=== PATIENT | female | born 1925 | race Caucasian/White ===

== ENCOUNTER 2017-03-20 17:07 | Emergency (ER) | payer OTHER ==
[~2017-03-20] VITALS: Ht 165.1 cm; Wt 64.5 kg
[2017-03-20 17:11] VITALS: BP 146/67; PULSE 69; RESP 22; TEMP 98.3; O2SAT 95
[2017-03-20] MEDS ORDERED: SODIUM CHLORIDE 0.9% FLUSH 10 ML FLUSH IVF PRN (17:45)
[2017-03-20] MEDS ORDERED: DOXA1TAB35 PO (17:51)
[2017-03-20] MEDS ORDERED: VITA1000 PO (17:51)
[2017-03-20] MEDS ORDERED: FURO80TA PO (17:51)
[2017-03-20] MEDS ORDERED: MULTTAB67 PO (17:51)
[2017-03-20] MEDS ORDERED: AMLO2.5T PO (17:51)
[2017-03-20] MEDS ORDERED: PRAV10TA PO (17:51)
--- NOTE | 2017-03-20 18:05 | RADRPT ---
EXAM DATE/TIME: 03/20/2017 18:28 [facility] COMPARISON: No previous studies available for comparison. INDICATIONS : Short of breath. MEDICAL HISTORY : None. SURGICAL HISTORY : None. ENCOUNTER: Initial ACUITY: 1 day PAIN SCORE: 0/10 LOCATION: Bilateral chest FINDINGS: A single portable frontal view the chest shows cardiomegaly with pulmonary vascular engorgement. Biba silar infiltrates more pronounced on the left. Tiny effusions bilaterally. Advanced osteoarthritis of the left shoulder. A scoliotic and degenerative spine. CONCLUSION: 1. Radiographic pattern most consistent with intra-alveolar pulmonary edema. Arron Dove Jr., MD on March 20, 2017 at 18:03 Board Certified Radiologist. This report was verified electronically.
[2017-03-20 18:21] LABS: AUTOMATED NEUTROPHIL # 4.2 TH/MM3 (1.8-7.7); BASOPHIL # 0.1 TH/MM3 (0-0.2); BASOPHIL % 1.8 % (0.0-2.0); EOSINOPHIL # 0.2 TH/MM3 (0-0.4); EOSINOPHIL % 3.3 % (0.0-4.0); HEMATOCRIT 30.2 % (35.0-46.0); HEMO FLAGS DIFF FINAL; LYMPH % 11.4 % (9.0-44.0); LYMPHOCYTE # 0.7 TH/MM3 (1.0-4.8); MEAN CELL VOLUME 89.3 FL (80.0-100.0); MEAN CORPUSCULAR HEMOGLOBIN 29.4 PG (27.0-34.0); MEAN CORPUSCULAR HGB CONC 32.9 % (32.0-36.0); MONO % 9.8 % (0.0-8.0); NEUT % 73.7 % (16.0-70.0); PLATELET COUNT 139 TH/MM3 (150-450); RED BLOOD COUNT 3.39 MIL/MM3 (4.00-5.30); RED CELL DISTRIBUTION WIDTH 16.2 % (11.6-17.2); WHITE BLOOD COUNT 5.7 TH/MM3 (4.0-11.0)
[2017-03-20 18:31] LABS: APTT (PATIENT) 27.2 SEC (24.3-30.1); INTERNATIONAL NORMALIZED RATIO 1.1 RATIO; PROTHROMBIN TIME - PATIENT 12.2 SEC (9.8-11.6)
--- NOTE | 2017-03-20 18:33 | PD ---
HPI Chief Complaint: General Weakness Time Seen by Provider: 17:31 Travel History International Travel<30 days: No Contact w/Intl Traveler<30days: No Traveled to known affect area: No History of Present Illness HPI 89-year-old female patient with history of end-stage renal disease, on hemodialysis followed by Dr. Torres, has had dialysis for the third time yesterday, states that there was pain in the right arm during the dialysis and they had difficulty with the catheter, only did the dialysis for about 10 minutes. She states that since last night she has noticed a lump on her dialysis site and she is getting weak, nauseous, and just not feeling well. She denies any chest pains, shortness of breath, or any other symptoms. Modifying Factors: None Associated Signs & Symptoms: General weakness, nausea Risk Factors: On dialysis, abnormal dialysis yesterday PFSH Past Medical History Diabetes: Yes (?) Patient Takes Glucophage: No Dialysis: Yes (tue) Hypertension: Yes Medical other: Yes (renal disease) Past Surgical History Hysterectomy: Yes Social History Alcohol Use: No Tobacco Use: No Allergies-Medications (Allergen,Severity, Reaction): Coded Allergies: No Known Allergies (Unverified , 03/20/17) Reported Meds & Prescriptions Reported Meds & Active Scripts Active Reported Multiple Vitamin 1 Tab 1 Tab PO DAILY Pravastatin 10 Mg Tab 10 Mg PO DAILY Doxazosin (Doxazosin Mesylate) 2 Mg Tab 2 Mg PO HS Vitamin D-1000 (Cholecalciferol) 1,000 Unit Tab 1,000 Units PO DAILY Amlodipine (Amlodipine Besylate) 2.5 Mg Tab 2.5 Mg PO DAILY Furosemide 80 Mg Tab 80 Mg PO DAILY Review of Systems Except as stated in HPI: all other systems reviewed are Neg Physical Exam Narrative GENERAL: Well-developed elderly white female patient currently in mild distress. Awake and oriented 3. SKIN: Focused skin assessment warm/dry. HEAD: Atraumatic. Normocephalic. EYES: Pupils equal and round. No scleral icterus. No injection or drainage. ENT: No nasal bleeding or discharge. Mucous membranes pink and moist. NECK: Trachea midline. No JVD. CARDIOVASCULAR: Regular rate and rhythm. No murmur appreciated. RESPIRATORY: No accessory muscle use. Clear to auscultation. Breath sounds equal bilaterally. GASTROINTESTINAL: Abdomen soft, non-tender, nondistended. Hepatic and splenic margins not palpable. MUSCULOSKELETAL: No obvious deformities. No clubbing. No cyanosis. No edema. EXTREMITIES: No clubbing, cyanosis. Trace lower leg edema bilaterally. Right arm dialysis graft with notable palpable thrill, there is significant ecchymosis around the site, mildly tender to palpation. NEUROLOGICAL: Awake and alert. No obvious cranial nerve deficits. Motor grossly within normal limits. Normal speech. PSYCHIATRIC: Appropriate mood and affect; insight and judgment normal. Data Data Last Documented VS Vital Signs Date Time Temp Pulse Resp B/P (MAP) Pulse Ox O2 Delivery O2 Flow Rate FiO2 03/20/17 17:11 98.3 69 22 146/67 (93) 95 Room Air Orders Orders Electrocardiogram (03/20/17 17:31) Complete Blood Count With Diff (03/20/17 17:31) Comprehensive Metabolic Panel (03/20/17 17:31) Magnesium (Mg) (03/20/17 17:31) Ckmb (Isoenzyme) Profile (03/20/17 17:31) Troponin I (03/20/17 17:31) Act Partial Throm Time (Ptt) (03/20/17 17:31) Prothrombin Time / Inr (Pt) (03/20/17 17:31) Urinalysis - C+S If Indicated (03/20/17 17:31) Chest, Single Ap (03/20/17 17:31) Ct Brain W/O Iv Contrast(Rout) (03/20/17 17:31) Ecg Monitoring (03/20/17 17:31) Iv Access Insert/Monitor (03/20/17 17:31) Oximetry (03/20/17 17:31) Sodium Chloride 0.9% Flush (Ns Flush) (03/20/17 17:45) Us Arm Hemodialysis Doppler (03/20/17 ) Labs Laboratory Tests Test 03/20/17 17:59 White Blood Count 5.7 TH/MM3 Red Blood Count 3.39 MIL/MM3 Hemoglobin 9.9 GM/DL Hematocrit 30.2 % Mean Corpuscular Volume 89.3 FL Mean Corpuscular Hemoglobin 29.4 PG Mean Corpuscular Hemoglobin Concent 32.9 % Red Cell Distribution Width 16.2 % Platelet Count 139 TH/MM3 Mean Platelet Volume 9.6 FL Neutrophils (%) (Auto) 73.7 % Lymphocytes (%) (Auto) 11.4 % Monocytes (%) (Auto) 9.8 % Eosinophils (%) (Auto) 3.3 % Basophils (%) (Auto) 1.8 % Neutrophils # (Auto) 4.2 TH/MM3 Lymphocytes # (Auto) 0.7 TH/MM3 Monocytes # (Auto) 0.6 TH/MM3 Eosinophils # (Auto) 0.2 TH/MM3 Basophils # (Auto) 0.1 TH/MM3 CBC Comment DIFF FINAL Differential Comment Prothrombin Time 12.2 SEC Prothromb Time International Ratio 1.1 RATIO Activated Partial Thromboplast Time 27.2 SEC Blood Urea Nitrogen 44 MG/DL Creatinine 4.34 MG/DL Random Glucose 110 MG/DL Total Protein 6.3 GM/DL Albumin 3.2 GM/DL Calcium Level 8.9 MG/DL Magnesium Level 2.2 MG/DL Alkaline Phosphatase 95 U/L Aspartate Amino Transf (AST/SGOT) 19 U/L Alanine Aminotransferase (ALT/SGPT) 17 U/L Total Bilirubin 1.1 MG/DL Sodium Level 138 MEQ/L Potassium Level 3.3 MEQ/L Chloride Level 99 MEQ/L Carbon Dioxide Level 26.8 MEQ/L Anion Gap 12 MEQ/L Estimat Glomerular Filtration Rate 10 ML/MIN Total Creatine Kinase 53 U/L Troponin I 0.05 NG/ML MDM Medical Decision Making Medical Screen Exam Complete: Yes Emergency Medical Condition: Yes Medical Record Reviewed: Yes Interpretation(s) Laboratory Tests Test 03/20/17 17:59 Red Blood Count 3.39 MIL/MM3 (4.00-5.30) Hemoglobin 9.9 GM/DL (11.6-15.3) Hematocrit 30.2 % (35.0-46.0) Platelet Count 139 TH/MM3 (150-450) Neutrophils (%) (Auto) 73.7 % (16.0-70.0) Monocytes (%) (Auto) 9.8 % (0.0-8.0) Lymphocytes # (Auto) 0.7 TH/MM3 (1.0-4.8) Prothrombin Time 12.2 SEC (9.8-11.6) Blood Urea Nitrogen 44 MG/DL (7-18) Creatinine 4.34 MG/DL (0.50-1.00) Random Glucose 110 MG/DL (74-106) Total Protein 6.3 GM/DL (6.4-8.2) Albumin 3.2 GM/DL (3.4-5.0) Total Bilirubin 1.1 MG/DL (0.2-1.0) Potassium Level 3.3 MEQ/L (3.5-5.1) Estimat Glomerular Filtration Rate 10 ML/MIN (>89) Last [address] 03/20/171730 Signed Impressions: Service Date/Time: Monday, March 20, 2017 18:19 - CONCLUSION: No acute disease. Arron Dove Jr., MD Chest X-Ray 03/20/171730 Signed Impressions: Service Date/Time: Monday, March 20, 2017 18:28 - CONCLUSION: 1. Radiographic pattern most consistent with intra-alveolar pulmonary edema. Arron Dove Jr., MD Differential Diagnosis Dehydration versus metabolic issues versus significant anemia versus fluid overload versus worsening renal failure Narrative Course CT the brain did not show any signs of acute processes. Lab work shows elevated BUN and creatinine which is expected as baseline for this patient. The rest of her metabolic panel was not significantly abnormal. She has no focal neurological deficits. Ultrasound was ordered to evaluate the shunt. UA is pending. Physician Communication Physician Communication Case is signed out to : At 7 PM awaiting a UA and ultrasound. Disposition based on reevaluation, admitted the patient is still symptomatic. Diagnosis Primary Impression: General weakness Additional Impression: Problem with dialysis shunt Condition: Stable Ghislaine Pérez MD Mar 20, 2017 18:32
--- NOTE | 2017-03-20 18:33 | RADRPT ---
EXAM DATE/TIME: 03/20/2017 18:19 [facility] COMPARISON: No previous studies available for comparison. INDICATIONS : Dizziness. RADIATION DOSE: 40.43 CTDIvol (mGy) MEDICAL HISTORY : Hypertension. Diabetes; dialysis. SURGICAL HISTORY : Hysterectomy. ENCOUNTER: Initial ACUITY: 1 day PAIN SCALE: 0/10 LOCATION: cranial TECHNIQUE: Multiple contiguous axial images were obtained of the head. Using automated exposure control and adj ustment of the mA and/or kV according to patient size, radiation dose was kept as low as reasonably a chievable to obtain optimal diagnostic quality images. DICOM format image data is available electro nically for review and comparison. FINDINGS: CEREBRUM: The ventricles are normal for age. No evidence of midline shift, mass lesion, hemorrhage or acute in farction. No extra-axial fluid collections are seen. POSTERIOR FOSSA: The cerebellum and brainstem are intact. The 4th ventricle is midline. The cerebellopontine angle i s unremarkable. EXTRACRANIAL: The visualized portion of the orbits is intact. SKULL: The calvaria is intact. No evidence of skull fracture. CONCLUSION: No acute disease. Arron Dove Jr., MD on March 20, 2017 at 18:31 Board Certified Radiologist. This report was verified electronically.
[2017-03-20 18:39] LABS: ALT (GPT) 17 U/L (10-53); ANION GAP 12 MEQ/L (5-15); AST (GOT) 19 U/L (15-37); BICARBONATE 26.8 MEQ/L (21.0-32.0); BLOOD UREA NITROGEN 44 MG/DL (7-18); CHLORIDE 99 MEQ/L (98-107); GLOMERULAR FILTRATION RATE 10 ML/MIN (>89); MAGNESIUM 2.2 MG/DL (1.5-2.5); POTASSIUM 3.3 MEQ/L (3.5-5.1); SODIUM (NA) 138 MEQ/L (136-145)
[2017-03-20 18:43] LABS: ALKALINE PHOSPHATASE 95 U/L (45-117); TOTAL BILIRUBIN ADULT 1.1 MG/DL (0.2-1.0)
[2017-03-20 18:50] LABS: CREATINE KINASE 53 U/L (26-192)
--- NOTE | 2017-03-20 20:02 | RADRPT ---
EXAM DATE/TIME: 03/20/2017 19:12 [facility] COMPARISON: No previous studies available for comparison. INDICATIONS : Post graft. MEDICAL HISTORY : Hypertension. Dialysis. Diabetes. Renal disease. SURGICAL HISTORY : Hysterectomy. ENCOUNTER: Initial ACUITY: 1 day PAIN SCORE: 4/10 LOCATION: Right arm. AREA EVALUATED: Right arm. FINDINGS: Fistula in the right arm is patent. No abnormal fluid collection or aneurysm is seen. CONCLUSION: 1. Patent right arm fistula. Vito Selby MD on March 20, 2017 at 19:59 Board Certified Radiologist. This report was verified electronically.
--- NOTE | 2017-03-20 20:20 | PD ---
Data Data Last Documented VS Vital Signs Date Time Temp Pulse Resp B/P (MAP) Pulse Ox O2 Delivery O2 Flow Rate FiO2 03/20/17 17:11 98.3 69 22 146/67 (93) 95 Room Air Orders Orders Electrocardiogram (03/20/17 17:31) Complete Blood Count With Diff (03/20/17 17:31) Comprehensive Metabolic Panel (03/20/17 17:31) Magnesium (Mg) (03/20/17 17:31) Ckmb (Isoenzyme) Profile (03/20/17 17:31) Troponin I (03/20/17 17:31) Act Partial Throm Time (Ptt) (03/20/17 17:31) Prothrombin Time / Inr (Pt) (03/20/17 17:31) Urinalysis - C+S If Indicated (03/20/17 17:31) Chest, Single Ap (03/20/17 17:31) Ct Brain W/O Iv Contrast(Rout) (03/20/17 17:31) Ecg Monitoring (03/20/17 17:31) Iv Access Insert/Monitor (03/20/17 17:31) Oximetry (03/20/17 17:31) Sodium Chloride 0.9% Flush (Ns Flush) (03/20/17 17:45) Us Arm Hemodialysis Doppler (03/20/17 ) Cath For Specimen (03/20/17 19:11) Ed Discharge Order (03/20/17 20:21) Labs Laboratory Tests Test 03/20/17 17:59 White Blood Count 5.7 TH/MM3 Red Blood Count 3.39 MIL/MM3 Hemoglobin 9.9 GM/DL Hematocrit 30.2 % Mean Corpuscular Volume 89.3 FL Mean Corpuscular Hemoglobin 29.4 PG Mean Corpuscular Hemoglobin Concent 32.9 % Red Cell Distribution Width 16.2 % Platelet Count 139 TH/MM3 Mean Platelet Volume 9.6 FL Neutrophils (%) (Auto) 73.7 % Lymphocytes (%) (Auto) 11.4 % Monocytes (%) (Auto) 9.8 % Eosinophils (%) (Auto) 3.3 % Basophils (%) (Auto) 1.8 % Neutrophils # (Auto) 4.2 TH/MM3 Lymphocytes # (Auto) 0.7 TH/MM3 Monocytes # (Auto) 0.6 TH/MM3 Eosinophils # (Auto) 0.2 TH/MM3 Basophils # (Auto) 0.1 TH/MM3 CBC Comment DIFF FINAL Differential Comment Prothrombin Time 12.2 SEC Prothromb Time International Ratio 1.1 RATIO Activated Partial Thromboplast Time 27.2 SEC Blood Urea Nitrogen 44 MG/DL Creatinine 4.34 MG/DL Random Glucose 110 MG/DL Total Protein 6.3 GM/DL Albumin 3.2 GM/DL Calcium Level 8.9 MG/DL Magnesium Level 2.2 MG/DL Alkaline Phosphatase 95 U/L Aspartate Amino Transf (AST/SGOT) 19 U/L Alanine Aminotransferase (ALT/SGPT) 17 U/L Total Bilirubin 1.1 MG/DL Sodium Level 138 MEQ/L Potassium Level 3.3 MEQ/L Chloride Level 99 MEQ/L Carbon Dioxide Level 26.8 MEQ/L Anion Gap 12 MEQ/L Estimat Glomerular Filtration Rate 10 ML/MIN Total Creatine Kinase 53 U/L Troponin I 0.05 NG/ML MDM Supervised Visit with SONI: No Narrative Course The patient was initially evaluated by the previous provider and sent out to me at the beginning of my shift pending right arm fistula ultrasound, UA, and disposition. See her note for further details. Briefly this is an 89-year-old female who received her third ever dialysis yesterday, here for evaluation of generalized weakness, nausea, and ecchymosis to right upper cavity. She reports that they had difficulty accessing her fistula yesterday, and since then she has had increasing ecchymosis to the arm. It is not really painful. She is not on any antiplatelets or anticoagulants. Vital signs show heart rate 69, blood pressure 146/67, pulse ox 95% on room air , oral temp of 98.3 from high. CBC: WBC 5.7, hemoglobin 9.9, hematocrit 30.2, platelets 139. CMP is remarkable for BUN 44, creatinine 4.3, GFR 10, otherwise unremarkable. Coags are within normal limits. Chest x-ray is consistent with intra-alveolar pulmonary edema. CT head: No acute disease. Right upper extremity ultrasound shows a patent fistula. On physical exam patient has significant ecchymosis to her right arm. Compartments in the right upper cavity are supple. Bilateral distal radial pulses are brisk and equal. Right arm dialysis fistula with thrill and bruit. Patient was advised to stay in the hospital given her pulmonary edema, however she does not wish to stay. She is in no respiratory distress. Her lung sounds are clear and equal bilaterally. She is due for dialysis in 2 days. She was unable to provide a urine sample. She repeatedly states that she wants to be discharged home to take care of her 89-year-old . She will be discharged home with strict return instructions. She verbalizes understanding and agreement with plan. Diagnosis Primary Impression: General weakness Additional Impressions: Ecchymosis Pulmonary edema Referrals: Primary Care Physician 3 days Additional Instruction: Follow-up with your primary care physician this week. Follow-up with dialysis in 2 days as scheduled. Return to the emergency department for worsening symptoms or any other concerns. Disposition: 01 DISCHARGE HOME Condition: Stable Yimi Newell MD Mar 20, 2017 20:20
== END 2017-03-20 21:00 | disposition home or self-care (01) ==
LOC: NEPE 17:07
DX: R53.1 Weakness (principal); R23.3 Spontaneous ecchymoses; J81.1 Chronic pulmonary edema; R11.0 Nausea; E11.9 Type 2 diabetes mellitus without complications; I10 Essential (primary) hypertension; N28.9 Disorder of kidney and ureter, unspecified; Z99.2 Dependence on renal dialysis
CPT/HCPCS: 70450; 71010; 80053; 82550; 83735; 84484; 85025; 85610; 85730; 93990

== ENCOUNTER 2017-03-29 05:36 | Inpatient (IN) | payer OTHER, MEDICARE ==
[2017-03-29] VITALS (7 sets, daily range): BP systolic 153–169; BP diastolic 73–77; PULSE 64–74; RESP 16–19; TEMP 97–98; O2SAT 93–98
[~2017-03-29] VITALS: Ht 153.7 cm; Wt 61.5 kg
[~2017-03-29 05:36] MED LIST: AMLO2.5T PO; DOXA1TAB35 PO; FURO80TA PO; MULTTAB67 PO; PRAV10TA PO; VITA1000 PO
[2017-03-29] MEDS ORDERED: SODIUM CHLORIDE 0.9% FLUSH 5 ML FLUSH IV FLUSH PRN (06:15)
--- NOTE | 2017-03-29 06:37 | PD ---
HPI Chief Complaint: General Weakness Time Seen by Provider: 06:13 Travel History International Travel<30 days: No Contact w/Intl Traveler<30days: No Traveled to known affect area: No History of Present Illness HPI 89 yo F c/o weakness in the legs for 1 day. normally she ambulates by walker however was unable to this morning, leading to ems activation. no fall. pt believes total amount of urination yesterday was less than normal. no fever/ chills. no cp/sob. no n/v/d. no new or different medication. diet has been normal. ESRD (T/R/S, due today 1130AM), DM PFSH Past Medical History Diabetes: Yes Patient Takes Glucophage: Yes Dialysis: Yes (tue) Diminished Hearing: No Hypertension: Yes Tetanus Vaccination: Unknown Influenza Vaccination: No Past Surgical History Hysterectomy: Yes Other Surgery: Yes ("FEET SURGERY") Social History Alcohol Use: No Tobacco Use: No Substance Use: No Allergies-Medications (Allergen,Severity, Reaction): Coded Allergies: No Known Allergies (Unverified Adverse Reaction, Unknown, 03/29/17) Reported Meds & Prescriptions Reported Meds & Active Scripts Active Reported Multiple Vitamin 1 Tab 1 Tab PO DAILY Pravastatin 10 Mg Tab 10 Mg PO DAILY Doxazosin (Doxazosin Mesylate) 2 Mg Tab 2 Mg PO HS Vitamin D-1000 (Cholecalciferol) 1,000 Unit Tab 1,000 Units PO DAILY Amlodipine (Amlodipine Besylate) 2.5 Mg Tab 2.5 Mg PO DAILY Furosemide 80 Mg Tab 80 Mg PO DAILY Review of Systems Except as stated in HPI: all other systems reviewed are Neg Physical Exam Narrative GENERAL: 89 yo F, WNWD SKIN: Warm and dry. HEAD: Atraumatic. Normocephalic. EYES: Pupils equal and round. No scleral icterus. No injection or drainage. ENT: No nasal bleeding or discharge. Mucous membranes pink and moist. NECK: Trachea midline. No JVD. CARDIOVASCULAR: Regular rate and rhythm. RESPIRATORY: No accessory muscle use. Clear to auscultation. Breath sounds equal bilaterally. GASTROINTESTINAL: Abdomen soft, non-tender, nondistended. Hepatic and splenic margins not palpable. MUSCULOSKELETAL: Extremities without clubbing, cyanosis, or edema. No obvious deformities. NEUROLOGICAL: Awake and alert. No obvious cranial nerve deficits. Motor grossly within normal limits. Five out of 5 muscle strength in the arms and legs. Normal speech. Hip flexion normal bilaterally. PSYCHIATRIC: Appropriate mood and affect; insight and judgment normal. Data Data Last Documented VS Vital Signs Date Time Temp Pulse Resp B/P (MAP) Pulse Ox O2 Delivery O2 Flow Rate FiO2 03/29/17 05:49 98.0 69 16 163/74 (103) 96 03/29/17 05:46 Room Air VS reviewed Orders Orders Complete Blood Count With Diff (03/29/17 06:14) Comprehensive Metabolic Panel (03/29/17 06:14) Urinalysis - C+S If Indicated (03/29/17 06:14) Chest, Single Ap (03/29/17 06:14) Ecg Monitoring (03/29/17 06:14) Iv Access Insert/Monitor (03/29/17 06:14) Oximetry (03/29/17 06:14) Sodium Chloride 0.9% Flush (Ns Flush) (03/29/17 06:15) ^ Straight Catheter (03/29/17 06:14) MDM Medical Decision Making Medical Screen Exam Complete: Yes Emergency Medical Condition: Yes Medical Record Reviewed: Yes Differential Diagnosis anemia, uti, electrolyte imbalance, polypharmacy, deconditioning Narrative Course case d/w with oncoming provider. follow up blood work and disposition patient. Sudhir Hubbard MD Mar 29, 2017 06:37
--- NOTE | 2017-03-29 06:46 | RADRPT ---
EXAM DATE/TIME: 03/29/2017 06:29 [facility] COMPARISON: CHEST SINGLE AP, March 20, 2017, 18:28. INDICATIONS : Short of breath. MEDICAL HISTORY : None. SURGICAL HISTORY : None. ENCOUNTER: Initial ACUITY: 1 day PAIN SCORE: 0/10 LOCATION: Bilateral chest FINDINGS: Cardiac enlargement with vascular congestion and primarily central interstitial edema is similar to p rior. Left diaphragm is obscured by atelectasis or airspace consolidation. CONCLUSION: No significant change Nick Owen MD on March 29, 2017 at 6:43 Board Certified Radiologist. This report was verified electronically.
[2017-03-29 06:52] LABS: AUTOMATED NEUTROPHIL # 5.6 TH/MM3 (1.8-7.7); BASOPHIL # 0.1 TH/MM3 (0-0.2); BASOPHIL % 0.9 % (0.0-2.0); EOSINOPHIL # 0.1 TH/MM3 (0-0.4); EOSINOPHIL % 1.5 % (0.0-4.0); HEMATOCRIT 27.6 % (35.0-46.0); HEMOGLOBIN 9.3 GM/DL (11.6-15.3); LYMPH % 9.1 % (9.0-44.0); LYMPHOCYTE # 0.6 TH/MM3 (1.0-4.8); MEAN CELL VOLUME 89.8 FL (80.0-100.0); MEAN CORPUSCULAR HEMOGLOBIN 30.3 PG (27.0-34.0); MEAN CORPUSCULAR HGB CONC 33.7 % (32.0-36.0); MEAN PLATELET VOLUME 9.8 FL (7.0-11.0); MONO % 6.9 % (0.0-8.0); MONOCYTE # 0.5 TH/MM3 (0-0.9); NEUT % 81.6 % (16.0-70.0); PLATELET COUNT 173 TH/MM3 (150-450); RED BLOOD COUNT 3.08 MIL/MM3 (4.00-5.30); RED CELL DISTRIBUTION WIDTH 16.6 % (11.6-17.2); WHITE BLOOD COUNT 6.8 TH/MM3 (4.0-11.0)
[2017-03-29 07:10] LABS: ALBUMIN 3.1 GM/DL (3.4-5.0); ALT (GPT) 16 U/L (10-53); AST (GOT) 18 U/L (15-37); BICARBONATE 27.5 MEQ/L (21.0-32.0); BLOOD UREA NITROGEN 35 MG/DL (7-18); CALCIUM 8.4 MG/DL (8.5-10.1); CHLORIDE 100 MEQ/L (98-107); CREATININE 4.05 MG/DL (0.50-1.00); GLOMERULAR FILTRATION RATE 10 ML/MIN (>89); GLUCOSE,RANDOM 109 MG/DL (74-106); SODIUM (NA) 138 MEQ/L (136-145)
[2017-03-29 07:12] LABS: ALKALINE PHOSPHATASE 101 U/L (45-117); TOTAL BILIRUBIN ADULT 1.3 MG/DL (0.2-1.0); TOTAL PROTEIN 6.4 GM/DL (6.4-8.2)
--- NOTE | 2017-03-29 07:40 | PD ---
Physical Exam Narrative Patient was seen by ED physician and signed out to me. Patient has history of chronic disease on dialysis Tuesday and Tuesday. 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 Data Data Last Documented VS Vital Signs Date Time Temp Pulse Resp B/P (MAP) Pulse Ox O2 Delivery O2 Flow Rate FiO2 03/29/17 11:39 74 19 169/77 (107) 96 Room Air 03/29/17 05:49 98.0 Orders Orders Complete Blood Count With Diff (03/29/17 06:14) Comprehensive Metabolic Panel (03/29/17 06:14) Urinalysis - C+S If Indicated (03/29/17 06:14) Chest, Single Ap (03/29/17 06:14) Ecg Monitoring (03/29/17 06:14) Iv Access Insert/Monitor (03/29/17 06:14) Oximetry (03/29/17 06:14) Sodium Chloride 0.9% Flush (Ns Flush) (03/29/17 06:15) ^ Straight Catheter (03/29/17 06:14) Mri C Spine W/O Contrast (03/29/17 07:53) Mri T Spine W/O Contrast (03/29/17 07:53) Mri L Spine W/O Contrast (03/29/17 07:53) Mri Brain W/O Contrast (03/29/17 09:16) Labs Laboratory Tests Test 03/29/17 06:25 03/29/17 08:45 White Blood Count 6.8 TH/MM3 Red Blood Count 3.08 MIL/MM3 Hemoglobin 9.3 GM/DL Hematocrit 27.6 % Mean Corpuscular Volume 89.8 FL Mean Corpuscular Hemoglobin 30.3 PG Mean Corpuscular Hemoglobin Concent 33.7 % Red Cell Distribution Width 16.6 % Platelet Count 173 TH/MM3 Mean Platelet Volume 9.8 FL Neutrophils (%) (Auto) 81.6 % Lymphocytes (%) (Auto) 9.1 % Monocytes (%) (Auto) 6.9 % Eosinophils (%) (Auto) 1.5 % Basophils (%) (Auto) 0.9 % Neutrophils # (Auto) 5.6 TH/MM3 Lymphocytes # (Auto) 0.6 TH/MM3 Monocytes # (Auto) 0.5 TH/MM3 Eosinophils # (Auto) 0.1 TH/MM3 Basophils # (Auto) 0.1 TH/MM3 CBC Comment DIFF FINAL Differential Comment Blood Urea Nitrogen 35 MG/DL Creatinine 4.05 MG/DL Random Glucose 109 MG/DL Total Protein 6.4 GM/DL Albumin 3.1 GM/DL Calcium Level 8.4 MG/DL Alkaline Phosphatase 101 U/L Aspartate Amino Transf (AST/SGOT) 18 U/L Alanine Aminotransferase (ALT/SGPT) 16 U/L Total Bilirubin 1.3 MG/DL Sodium Level 138 MEQ/L Potassium Level 3.4 MEQ/L Chloride Level 100 MEQ/L Carbon Dioxide Level 27.5 MEQ/L Anion Gap 11 MEQ/L Estimat Glomerular Filtration Rate 10 ML/MIN Urine Color YELLOW Urine Turbidity CLEAR Urine pH 5.0 Urine Specific Morris 1.010 Urine Protein TRACE mg/dL Urine Glucose (UA) NEG mg/dL Urine Ketones NEG mg/dL Urine Occult Blood NEG Urine Nitrite NEG Urine Bilirubin NEG Urine Urobilinogen LESS THAN 2.0 MG/DL Urine Leukocyte Esterase NEG Urine RBC LESS THAN 1 /hpf Urine WBC LESS THAN 1 /hpf Urine Squamous Epithelial Cells <1 /hpf Urine Hyaline Casts 1 /lpf Urine Mucus FEW /lpf Microscopic Urinalysis Comment CATH-CULT NOT IND MDM Supervised Visit with SONI: No Interpretation(s) Last Impressions Chest X-Ray 03/29/1714 Signed Impressions: Service Date/Time: Wednesday, March 29, 2017 06:29 - CONCLUSION: No significant change Nick Owen MD 7:38 AM. CBC with hemoglobin 9.3 hematocrit 27.6. Patient is at baseline. BUN 35. Creatinine 4.05. Patient's is baseline. Potassium 3.4. 11:40 AM. Last Impressions Brain MRI 03/29/17 0916 Signed Impressions: Service Date/Time: Wednesday, March 29, 2017 09:25 - CONCLUSION: 1. Tiny acute infarction superior to the frontal horn of the left frontal parietal region. No surrounding edema. No evidence of hemorrhage. 2. Ischemic atrophy and white matter changes, appropriate for age. Arron Roberson MD Thoracic Spine MRI 03/29/17 0753 Signed Impressions: Service Date/Time: Wednesday, March 29, 2017 09:25 - CONCLUSION: 1. Minimal degenerative changes with posterior osteophytes at T6-7, but no significant deformity of the thecal sac. 2. No compression deformities seen. 3. Moderate-sized bilateral pleural effusions. Arron Roberson MD Lumbar Spine MRI 03/29/17 0753 Signed Impressions: Service Date/Time: Wednesday, March 29, 2017 09:25 - CONCLUSION: Mild multilevel degenerative changes without evidence of disc protrusion or neural impingement. Arron Roberson MD Cervical Spine MRI 03/29/17 0753 Signed Impressions: Service Date/Time: Wednesday, March 29, 2017 09:25 - CONCLUSION: Multilevel degenerative changes with bridging osteophytes C4-C6 and multilevel bony neuroforaminal stenosis. Arron Roberson MD Chest X-Ray 03/29/17 0614 Signed Impressions: Service Date/Time: Wednesday, March 29, 2017 06:29 - CONCLUSION: No significant change Nick Owen MD Diagnosis Primary Impression: Acute CVA (cerebrovascular accident) Additional Impression: Chronic kidney disease on chronic dialysis Raul Underwood MD Mar 29, 2017 07:40
[2017-03-29 09:27] LABS: BILIRUBIN, URINE NEG (NEG); BLOOD, URINE NEG (NEG); GLUCOSE,URINE NEG (NEG); HYALINE CAST, URINE 1 /lpf (RARE); KETONE, URINE NEG (NEG); MUCUS URINE FEW /lpf (OCC); NITRITE,URINE NEG (NEG); SQUAMOUS EPITHELIAL CELL URINE <1 /hpf (0-5); URINE COLOR YELLOW (YELLW/STRAW); URINE LEUKOCYTE ESTERASE NEG (NEG)
--- NOTE | 2017-03-29 10:09 | RADRPT ---
EXAM DATE/TIME: 03/29/2017 09:25 [facility] COMPARISON: No previous studies available for comparison. INDICATIONS : Weakness. MEDICAL HISTORY : Hypertension. Renal failure, chronic. SURGICAL HISTORY : Hysterectomy. Bilat feet. ENCOUNTER: Initial ACUITY: 2 day PAIN SCORE: 0/10 LOCATION: T-spine TECHNIQUE: Multiplanar multisequence MRI of the thoracic spine was performed. FINDINGS: There is mild accentuation of thoracic kyphosis. Vertebral body height is maintained. No compressio n deformities and no signal abnormalities in the marrow. Moderate degenerative changes anterior oste ophytes from T5-T9. The thoracic cord is normal in dimension and has normal signal characteristics. The conus is at L1. Moderate-sized bilateral pleural effusions measure up to 4.3 cm. T1-T2: Normal. T2-T3: The thecal sac has a normal diameter. No evidence of disc bulge or protrusion. T3-T4: The thecal sac has a normal diameter. No evidence of disc bulge or protrusion. T4-T5: The thecal sac has a normal diameter. No evidence of disc bulge or protrusion. T5-T6: The thecal sac has a normal diameter. No evidence of disc bulge or protrusion. T6-T7: The thecal sac has a normal diameter. No evidence of disc bulge or protrusion. Mild osteophytic rid ging seen on the sagittal images without focal deformity of the thecal sac on axial images. T7-T8: The thecal sac has a normal diameter. No evidence of disc bulge or protrusion. T8-T9: The thecal sac has a normal diameter. No evidence of disc bulge or protrusion. T9-T10: The thecal sac has a normal diameter. No evidence of disc bulge or protrusion. T10-T11: The thecal sac has a normal diameter. No evidence of disc bulge or protrusion. T11-T12: The thecal sac has a normal diameter. No evidence of disc bulge or protrusion. T12-L1: The thecal sac has a normal diameter. No evidence of disc bulge or protrusion. CONCLUSION: 1. Minimal degenerative changes with posterior osteophytes at T6-7, but no significant deformity of t he thecal sac. 2. No compression deformities seen. 3. Moderate-sized bilateral pleural effusions. Arron Roberson MD on March 29, 2017 at 10:04 Board Certified Radiologist. This report was verified electronically.
--- NOTE | 2017-03-29 10:32 | RADRPT ---
EXAM DATE/TIME: 03/29/2017 09:25 [facility] COMPARISON: No previous studies available for comparison. INDICATIONS : Weakness. MEDICAL HISTORY : Hypertension. Renal failure, chronic. Dialysis. SURGICAL HISTORY : Hysterectomy. Bilat feet. ENCOUNTER: Initial ACUITY: 2 day PAIN SCORE: 0/10 LOCATION: c-spine TECHNIQUE: Multiplanar, multisequence MRI examination of the cervical spine was performed. FINDINGS: VERTEBRAE: There is accentuation of the cervical lordosis. Posterior osteophytes C3-C6 cause focal indentations on the thecal sac. No evidence of cord compression. Normal signal within the cervical cord. Visua lized posterior fossa structures are intact. C2-C3: The thecal sac is normal in dimension. No evidence of disc bulge. Moderate bilateral neural foramin al stenosis. C3-C4: No evidence of disc bulge or protrusion. Moderate bilateral bony neuroforaminal stenosis. C4-C5: Progress of osteophytes flattens the ventral margin of the thecal sac but does not cause cord velia kim. There is severe right-sided and mild left-sided neural foraminal stenosis. C5-C6: Progress of osteophytes flattens the ventral margin of thecal sac but does not cause cord compression . Mild bilateral neural foraminal stenosis. C6-C7: The thecal sac has a normal configuration. There is no evidence of disc herniation or spinal canal s tenosis. The neural foramina are patent bilaterally. C7-T1: The thecal sac has a normal configuration. There is no evidence of disc herniation or spinal canal s tenosis. The neural foramina are patent bilaterally. CONCLUSION: Multilevel degenerative changes with bridging osteophytes C4-C6 and multilevel bony neuroforaminal st enosis. Arron Roberson MD on March 29, 2017 at 10:26 Board Certified Radiologist. This report was verified electronically.
--- NOTE | 2017-03-29 10:50 | RADRPT ---
EXAM DATE/TIME: 03/29/2017 09:25 [facility] COMPARISON: No previous studies available for comparison. INDICATIONS : Weakness. MEDICAL HISTORY : Hypertension. Renal failure, chronic. SURGICAL HISTORY : Hysterectomy. Bilat feet. ENCOUNTER: Initial ACUITY: 2 day PAIN SCORE: 0/10 LOCATION: lumbar spine TECHNIQUE: Multiplanar multisequence MRI of the lumbar spine was performed without contrast. FINDINGS: The most caudal appearing lumbar vertebra is numbered as L5. Mild curvature of the lumbar spine conv ex towards the right. The body height is maintained. No evidence of spondylolisthesis. Mild degene rative changes with anterior posterior osteophytes throughout the lumbar spine, mild. The conus is a t the level of L1. Mild signal change in the vertebral endplates at L3-4 discogenic degenerative dis ease. T12-L1: The thecal sac has a normal diameter. No evidence of disc bulge or protrusion. The neural foramina are patent bilaterally. L1-L2: The thecal sac has a normal diameter. No evidence of disc bulge or protrusion. The neural foramina are patent bilaterally. L2-L3: Mild bulging of the disc without significant deformity of the thecal sac. The neural foramina are pa tent. L3-L4: Broad-based bulging of the disc and mild osteophyte formation. Mild bilateral facet joint hypertroph y. Disc bulge extends into the neural foramen on the right side without evidence of neural impingeme nt. L4-L5: Central disc osteophyte complex findings the ventral margin thecal sac. No lateral extension. Mild facet joint hypertrophy. L5-S1: Mild bulging disc into the neural foramen bilaterally without evidence of neural impingement. No liyah tral component. CONCLUSION: Mild multilevel degenerative changes without evidence of disc protrusion or neural impingement. Arron Roberson MD on March 29, 2017 at 10:44 Board Certified Radiologist. This report was verified electronically.
--- NOTE | 2017-03-29 10:54 | RADRPT ---
EXAM DATE/TIME: 03/29/2017 09:25 [facility] COMPARISON: No previous studies available for comparison. INDICATIONS : Weakness. MEDICAL HISTORY : Hypertension. Renal failure, chronic. SURGICAL HISTORY : Hysterectomy. Bilat feet ENCOUNTER: Initial ACUITY: 2 day PAIN SCORE: 0/10 LOCATION: head TECHNIQUE: Multiplanar, multisequence MRI of the brain was performed without contrast. FINDINGS: CEREBRUM: The ventricles are normal for age. No evidence of midline shift, mass lesion, hemorrhage or acute in farction. No extraaxial fluid collections are seen. The pituitary gland and suprasellar cistern are normal in configuration. WHITE MATTER: Some mild scattered small areas of T2 prolongation in the supratentorial white matter, probably ische judit. Tiny lacunar infarcts in the right parietal region. POSTERIOR FOSSA: The cerebellum and brainstem are intact. The 4th ventricle is midline. The cerebellopontine angle is unremarkable. The cerebellar tonsils are normal in position. DIFFUSION IMAGING: There is a solitary small area of mild restricted diffusion in the left frontoparietal region and sup erior to the left frontal horn; the restricted diffusion is confirmed on the ADC map images. EXTRACRANIAL: The visualized portions of the orbits and paranasal sinuses are unremarkable. There is synovial hype rtrophy posterior to the dens which causes some ventral narrowing of the bony spinal canal, but no ev idence of cord compression. CONCLUSION: 1. Tiny acute infarction superior to the frontal horn of the left frontal parietal region. No surrou nding edema. No evidence of hemorrhage. 2. Ischemic atrophy and white matter changes, appropriate for age. Arron Roberson MD on March 29, 2017 at 10:48 Board Certified Radiologist. This report was verified electronically.
[2017-03-29] MEDS ORDERED: SODIUM CHLORIDE 0.9% FLUSH 10 ML FLUSH IV FLUSH PRN (12:15)
[2017-03-29] MEDS ORDERED: DEXTROSE 50% IN WATER 50 ML VIAL(D50) IV PUSH PRN (12:15)
[2017-03-29] MEDS ORDERED: GLUCAGON 1 MG/ML VIAL OTHER PRN (12:15)
--- NOTE | 2017-03-29 13:10 | HHI.HP ---
[facility] Radha Mendoza MD Admission Diagnosis acute CVA. Chronic kidney disease on dialysis. Diagnoses: Chief Complaint: weakness Travel History International Travel<30 Days: No Contact w/Intl Traveler <30 Da: No Traveled to Known Affected Are: No History of Present Illness Written by Nicki Bowser, acting as scribe for Dr. Perry on 03/29/17 at 12 :54. Patient is an 89-year-old female with primary medical history of end-stage renal disease on hemodialysis, HTN, HLD who came into the hospital for further evaluation of weakness. As per patient she felt weak after being in to the bathroom. Came out of the bathroom and states that " I just collapsed." States her "feet went under." Denies any history of TIA, CVA. Denies any change in mental status, change in vision. Denies chest pain, headaches, dizziness. Denies nausea, vomiting, diarrhea, constipation. Denies shortness of breath or dyspnea. Review of Systems Except as stated in HPI: all other systems reviewed are Neg Past Family Social History Past Medical History End-stage renal disease on hemodialysis followed by Dr. Torres HTN HLD History of diabetes Past Surgical History Hysterectomy Reported Medications Reported Meds & Active Scripts Active Reported Multiple Vitamin 1 Tab 1 Tab PO DAILY Pravastatin 10 Mg Tab 10 Mg PO DAILY Doxazosin (Doxazosin Mesylate) 2 Mg Tab 2 Mg PO HS Vitamin D-1000 (Cholecalciferol) 1,000 Unit Tab 1,000 Units PO DAILY Amlodipine (Amlodipine Besylate) 2.5 Mg Tab 2.5 Mg PO DAILY Furosemide 80 Mg Tab 80 Mg PO DAILY Allergies: Coded Allergies: No Known Allergies (Unverified Adverse Reaction, Unknown, 03/29/17) Active Ordered Medications Current Medications Medications (Trade) Dose Ordered Sig/Angel Route Start Time Stop Time Status Last Admin (NS Flush) 2 ml UNSCH PRN IV FLUSH 03/29/17 06:15 (Vitamin D3) 1,000 units DAILY PO 03/30/17 09:00 UNV (Lasix) 80 mg DAILY PO 03/30/17 09:00 UNV (Pravachol) 10 mg DAILY PO 03/30/17 09:00 UNV Non-Formulary Medication 1 tab DAILY PO 03/30/17 09:00 UNV (NS Flush) 2 ml BID IV FLUSH 03/29/17 21:00 UNV (NS Flush) 2 ml UNSCH PRN IV FLUSH 03/29/17 12:15 UNV (NovoLOG SUPPLEMENTAL SCALE) 1 ACHS SQ 03/29/17 17:00 UNV (D50w (Vial) Inj) 50 ml UNSCH PRN IV PUSH 03/29/17 12:15 UNV (Glucagon Inj) 1 mg UNSCH PRN OTHER 03/29/17 12:15 UNV (Heparin Inj) 5,000 units Q12H SQ 03/29/17 12:15 UNV Family History Father had cerebral hemorrhage at the age of 56 Social History Denies alcohol use left-sided Denies tobacco use Denies illicit drug use Physical Exam Vital Signs Vital Signs Date Time Temp Pulse Resp B/P (MAP) Pulse Ox O2 Delivery O2 Flow Rate FiO2 03/29/17 12:23 96 21 03/29/17 11:39 74 19 169/77 (107) 96 Room Air 03/29/17 07:04 16 98 Room Air 03/29/17 05:49 98.0 69 16 163/74 (103) 96 03/29/17 05:46 16 96 Room Air Physical Exam GENERAL: This is a well-nourished, well-developed patient, in no apparent distress. SKIN: Warm and dry. HEAD: Normocephalic. EYES: Pupils equal round and reactive. Extraocular motions intact. No scleral icterus. No injection or drainage. ENT: Nose without bleeding. Throat without erythema. Uvula midline. Airway patent. Dry oral mucosa. Edentulous. NECK: Trachea midline. Supple. CARDIOVASCULAR: Irregular rate and rhythm with 2/6 murmurs, gallops, or rubs. RESPIRATORY: Clear to auscultation. Breath sounds equal bilaterally. No wheezes , rales, or rhonchi. GASTROINTESTINAL: Abdomen soft, non-tender, nondistended. BS active x4. No guarding. MUSCULOSKELETAL: Extremities without clubbing, cyanosis. BLE +1 edema. NEUROLOGICAL: Awake and alert. Cranial nerves II through XII intact. Motor and sensory grossly within normal limits. Normal speech. Laboratory Laboratory Tests Test 03/29/17 06:25 03/29/17 08:45 White Blood Count 6.8 Red Blood Count 3.08 Hemoglobin 9.3 Hematocrit 27.6 Mean Corpuscular Volume 89.8 Mean Corpuscular Hemoglobin 30.3 Mean Corpuscular Hemoglobin Concent 33.7 Red Cell Distribution Width 16.6 Platelet Count 173 Mean Platelet Volume 9.8 Neutrophils (%) (Auto) 81.6 Lymphocytes (%) (Auto) 9.1 Monocytes (%) (Auto) 6.9 Eosinophils (%) (Auto) 1.5 Basophils (%) (Auto) 0.9 Neutrophils # (Auto) 5.6 Lymphocytes # (Auto) 0.6 Monocytes # (Auto) 0.5 Eosinophils # (Auto) 0.1 Basophils # (Auto) 0.1 CBC Comment DIFF FINAL Differential Comment Blood Urea Nitrogen 35 Creatinine 4.05 Random Glucose 109 Total Protein 6.4 Albumin 3.1 Calcium Level 8.4 Alkaline Phosphatase 101 Aspartate Amino Transf (AST/SGOT) 18 Alanine Aminotransferase (ALT/SGPT) 16 Total Bilirubin 1.3 Sodium Level 138 Potassium Level 3.4 Chloride Level 100 Carbon Dioxide Level 27.5 Anion Gap 11 Estimat Glomerular Filtration Rate 10 Urine Color YELLOW Urine Turbidity CLEAR Urine pH 5.0 Urine Specific [place] 1.010 Urine Protein TRACE Urine Glucose (UA) NEG Urine Ketones NEG Urine Occult Blood NEG Urine Nitrite NEG Urine Bilirubin NEG Urine Urobilinogen LESS THAN 2.0 Urine Leukocyte Esterase NEG Urine RBC LESS THAN 1 Urine WBC LESS THAN 1 Urine Squamous Epithelial Cells <1 Urine Hyaline Casts 1 Urine Mucus FEW Microscopic Urinalysis Comment CATH-CULT NOT IND Result Diagram: 03/29/1762403/29/17624 Imaging Last Impressions Brain MRI 03/29/17 0916 Signed Impressions: Service Date/Time: Wednesday, March 29, 2017 09:25 - CONCLUSION: 1. Tiny acute infarction superior to the frontal horn of the left frontal parietal region. No surrounding edema. No evidence of hemorrhage. 2. Ischemic atrophy and white matter changes, appropriate for age. Arron Roberson MD Thoracic Spine MRI 03/29/17 0753 Signed Impressions: Service Date/Time: Wednesday, March 29, 2017 09:25 - CONCLUSION: 1. Minimal degenerative changes with posterior osteophytes at T6-7, but no significant deformity of the thecal sac. 2. No compression deformities seen. 3. Moderate-sized bilateral pleural effusions. Arron Roberson MD Lumbar Spine MRI 03/29/17 0753 Signed Impressions: Service Date/Time: Wednesday, March 29, 2017 09:25 - CONCLUSION: Mild multilevel degenerative changes without evidence of disc protrusion or neural impingement. Arron Roberson MD Cervical Spine MRI 03/29/17 0753 Signed Impressions: Service Date/Time: Wednesday, March 29, 2017 09:25 - CONCLUSION: Multilevel degenerative changes with bridging osteophytes C4-C6 and multilevel bony neuroforaminal stenosis. Arron Roberson MD Chest X-Ray 03/29/17 0614 Signed Impressions: Service Date/Time: Wednesday, March 29, 2017 06:29 - CONCLUSION: No significant change Nick Owen MD Caprini VTE Risk Assessment Caprini VTE Risk Assessment: Mod/High Risk (score >= 2) Caprini Risk Assessment Model Point Value = 1 Point Value = 2 Point Value = 3 Point Value = 5 Age 41-60 Minor surgery BMI > 25 kg/m2 Swollen legs Varicose veins or History of unexplained or recurrent spontaneous Oral contraceptives or hormone replacement Sepsis (< 1 month) Serious lung disease, including pneumonia (< 1 month) Abnormal pulmonary function Acute myocardial infarction Congestive heart failure (< 1 month) History of inflammatory bowel disease Medical patient at bed rest Age 61-74 Arthroscopic surgery Major open surgery (> 45 min) Laparoscopic surgery (> 45 min) Malignancy Confined to bed (> 72 hours) Immobilizing plaster cast Central venous access Age >= 75 History of VTE Family history of VTE Factor V Leiden Prothrombin [id number] Lupus anticoagulant Anticardiolipin antibodies Elevated serum homocysteine Heparin-induced thrombocytopenia Other congenital or acquired thrombophilia Stroke (< 1 month) Elective arthroplasty Hip, pelvis, or leg fracture Acute spinal cord injury (< 1 month) Prophylaxis Regimen Total Risk Factor Score Risk Level Prophylaxis Regimen 0-1 Low Early ambulation 2 Moderate Order ONE of the following: *Sequential Compression Device (SCD) *Heparin 5000 units SQ BID 3-4 Higher Order ONE of the following medications: *Heparin 5000 units SQ TID *Enoxaparin/Lovenox 40 mg SQ daily (WT < 150 kg, CrCl > 30 mL/min) *Enoxaparin/Lovenox 30 mg SQ daily (WT < 150 kg, CrCl > 10-29 mL/min) *Enoxaparin/Lovenox 30 mg SQ BID (WT < 150 kg, CrCl > 30 mL/min) AND/OR *Sequential Compression Device (SCD) 5 or more Highest Order ONE of the following medications: *Heparin 5000 units SQ TID (Preferred with Epidurals) *Enoxaparin/Lovenox 40 mg SQ daily (WT < 150 kg, CrCl > 30 mL/min) *Enoxaparin/Lovenox 30 mg SQ daily (WT < 150 kg, CrCl > 10-29 mL/min) *Enoxaparin/Lovenox 30 mg SQ BID (WT < 150 kg, CrCl > 30 mL/min) AND *Sequential Compression Device (SCD) Assessment and Plan Problem List: (1) HTN (hypertension) ICD Code: I10 - Essential (primary) hypertension (2) Chronic kidney disease on chronic dialysis ICD Code: N18.9 - Chronic kidney disease, unspecified; Z99.2 - Dependence on renal dialysis Status: Acute (3) Acute CVA (cerebrovascular accident) ICD Code: I63.9 - Cerebral infarction, unspecified Status: Acute Assessment and Plan Patient is an 89-year-old female with primary medical history of end-stage renal disease on hemodialysis, HTN, HLD who came into the hospital for further evaluation of weakness. Acute CVA - MRI of the brain showed tiny acute infarction superior to the frontal horn of the left frontal parietal region. No surrounding edema. No evidence of hemorrhage. 2. Ischemic atrophy and white matter changes, appropriate for age. - Permissive hypertension - Urology consult for further recommendation - PT/OT/speech therapy eval and treat - Neurochecks, NIH stroke scale - Consult rehabilitation medicine Irregular heart rate, A. fib - New Onset - Denies any history of atrial fibrillation nor diagnosis of atrial fibrillation - This may be the underlying condition prompting patient acute CVA - Check CK, troponin, lipid profile - Check echo comprehensive - Check US carotids - Consult cardiology for further recommendation, may need to be on anticoagulation - Place on cardiac monitoring HTN, chronic HLD, chronic - Continue home medication pravastatin 10 mg daily, Lasix 80 mg daily - Monitor BP trend - Monitor labs End-stage renal disease, on hemodialysis - Consult nephrology, Dr. Torres to continue HD management DVT Prop -Heparin SQ This note was transcribed by dennis Bowser. I, Dr. rGegory Perry personally performed the history, physical exam, and medical decision making; and confirmed the accuracy of the information in the transcribed note. Authenticated by Dr. Gregory Perry on 03/29/17 at 13:14. Code Status Full Code Discussed Condition With Patient, Nursing, Dr. Underwood Physician Certification 2 Midnight Certification Type: Admission for Inpatient Services Order for Inpatient Services The services are ordered in accordance with Medicare regulations or non- Medicare payer requirements, as applicable. In the case of services not specified as inpatient-only, they are appropriately provided as inpatient services in accordance with the 2-midnight benchmark. Estimated LOS (days): 3 days is the estimated time the patient will need to remain in the hospital, assuming treatment plan goals are met and no additional complications. Post-Hospital Plan: Not yet determined Nicki Zamarripa Mar 29, 2017 13:10 Gregory Perry MD Mar 29, 2017 13:14
[2017-03-29 14:41] LABS: TROPONIN I 0.04 NG/ML (0.02-0.05)
[2017-03-29] MEDS ORDERED: PILL SPLITTER OTHER PRN (16:30)
--- NOTE | 2017-03-29 16:53 | RADRPT ---
EXAM DATE/TIME: 03/29/2017 16:17 [facility] COMPARISON: No previous studies available for comparison. INDICATIONS : Left leg swelling. MEDICAL HISTORY : Hypertension. Dialysis. Diabetes. Renal disease. SURGICAL HISTORY : Hysterectomy. ENCOUNTER: Initial ACUITY: 1 day PAIN SCORE: 0/10 LOCATION: Left leg. TECHNIQUE: Venous ultrasound of the leg was performed from the inguinal ligament to the proximal calf. Real-olga e, color Doppler and spectral tracing, compression and augmentation techniques were used. FINDINGS: There is normal compressibility of the deep venous system from the inguinal region to the proximal ca lf. No echogenic clot is seen in the lumen of the common femoral, femoral, popliteal, and posterior tibial veins. There is a normal response of the venous system to proximal and distal augmentation an d respiration. CONCLUSION: No evidence of deep venous thrombosis within the left lower extremity. Jin Arce MD on March 29, 2017 at 16:51 Board Certified Radiologist. This report was verified electronically.
[2017-03-29] MEDS: INSULIN ASPART SUPPLEMENTAL SCALE SQ SCH ×2 (17:00→20:21)
--- NOTE | 2017-03-29 17:36 | RADRPT ---
EXAM DATE/TIME: 03/29/2017 13:56 [facility] COMPARISON: No previous studies available for comparison. INDICATIONS : Cerebrovascular accident. MEDICAL HISTORY : Hypertension. Diabetes. Dialysis. SURGICAL HISTORY : Hysterectomy. Foot surgery. ENCOUNTER: Initial ACUITY: 1 day PAIN SCORE: 0/10 LOCATION: Bilateral neck PEAK SYSTOLIC VELOCITIES (cm/sec): ICA/CCA RATIO: Right: 1.4 Left: 1.5 ICA: Right: 85.7 Left: 80.1 CCA: Right: 61.8 Left: 55.2 ECA: Right: 67.1 Left: 58.4 VERTEBRAL: Right: 58.7 antegrade Left: 43.5 antegrade Elevated flow velocities and ICA/CCA ratios have been found to correlate with increased degrees of vessel stenosis, calculated as percentage of diameter relative to a normal segment of distal ICA/CCA FINDINGS: RIGHT CAROTID: There is shadowing and non-shadowing plaque in the distal common carotid artery and carotid bulb. No widening of the velocity waveform. LEFT CAROTID: There is shadowing and non-shadowing plaque in the distal common carotid and carotid bulb. No wideni ng of the velocity waveform. VERTEBRAL ARTERIES: Antegrade flow is seen in both vertebral arteries. CONCLUSION: Bilateral carotid plaque formation with hemodynamic profile characteristic of less than 50% stenosis. Arron Roberson MD on March 29, 2017 at 17:31 Board Certified Radiologist. This report was verified electronically.
[2017-03-29] MEDS: amLODIPine BESYLATE 5 MG TAB PO SCH (18:01)
[2017-03-29] MEDS: HEPARIN SODIUM - SQ 10,000 UNITS/ML VIAL SQ SCH (18:01)
--- NOTE | 2017-03-29 18:10 | MB ---
cc: DAVIS LAU MD DATE OF CONSULTATION 03/29/2017 REASON FOR CONSULTATION Atrial fibrillation. HISTORY OF PRESENT ILLNESS Ms. Moser is an 89-year-old female who does have a history of end-stage renal disease and is on dialysis. She presented with generalized weakness. She apparently had collapsed at home. Evaluation in the ER revealed a CVA and atrial fibrillation. Cardiology was subsequently consulted. PAST MEDICAL HISTORY Significant for: 1. Hypertension. 2. Hyperlipidemia. 3. Diabetes. 4. End-stage renal disease on dialysis followed by Dr. Torres. PAST SURGICAL HISTORY Her surgical history includes hysterectomy. OUTPATIENT MEDICATIONS Include: 1. Multivitamin. 2. Pravastatin. 3. Doxazosin. 4. Amlodipine. 5. Lasix. 6. Vitamin D. ALLERGIES NO KNOWN DRUG ALLERGIES. FAMILY HISTORY Positive for CVA. SOCIAL HISTORY The patient does not drink or smoke. REVIEW OF SYSTEMS Except as mentioned in HPI all 12 systems are negative. PHYSICAL EXAMINATION VITAL SIGNS: 98.0, 74, 19, 169/77. GENERAL: She is a well-appearing, elderly female in no apparent distress. NECK: Free from JVD. LUNGS: Are clear to auscultation. CARDIOVASCULAR: She has an irregularly irregular rhythm. No rubs or gallops were appreciated. ABDOMEN: The abdomen is soft. EXTREMITIES: The extremities are free from edema. IMAGING Brain MRI shows a tiny acute infarction in the frontal horn of the left frontal parietal region. There is also ischemic atrophy and no significant hemorrhage. Telemetry shows atrial fibrillation at 75 beats a minute. LABORATORY DATA Lab values significant for a hemoglobin of 9.3. Creatinine of 4.05. Troponin of 0.04. Her albumin is 3.1. IMPRESSION 1. New-onset atrial fibrillation - the patient denies any prior history of atrial fibrillation. She has been well rate controlled. She does have an elevated CHADSVASC score particularly with the acute cerebrovascular accident today. I am however, hesitant to place her on any anticoagulation because of her acute CVA that may convert to hemorrhagic process as well as her significant anemia. The patient has not had any prior colonoscopy. Thus at this point I am not going to pursue anticoagulation beyond the subcu heparin as this may be entertained later. I discussed an ischemic evaluation with the patient and she declines given her age and comorbid conditions. We will check a TSH and echocardiogram. 2. Hypertension - this being managed by the primary team in neurology. 3. History of chronic kidney disease on hemodialysis - this will be by the primary team nephrology. Davis Lau M.D. BAB/KK /5:16 PM /5:45 PM
[2017-03-29] MEDS: SODIUM CHLORIDE 0.9% FLUSH 10 ML FLUSH IV FLUSH SCH (20:21)
[2017-03-29 21:47] LABS: TROPONIN I 0.04 NG/ML (0.02-0.05)
--- NOTE | 2017-03-29 23:37 | MB ---
cc: TRAM SAENZ MD DATE OF : [birth year] DATE OF CONSULTATION: 03/29/2017 REASON FOR CONSULTATION: Stroke. HISTORY OF PRESENT ILLNESS Ms. Moser is an 89 year old female with medical history of end-stage renal disease on hemodialysis, hypertension, hyperlipidemia who presented to [facility] for further evaluation of weakness where the patient felt weak and states that, "I crumbled at both my feet" when she came out of the bathroom, "I just collapsed." Denies history of head injury, TIA or stroke. Denies headache, double vision, blurred vision, slurred speech, change in mental status, or any convulsions. REVIEW OF SYSTEMS A 12-point review of systems is negative except for what is stated in the HPI. PAST MEDICAL HISTORY End-stage renal disease on hemodialysis, hypertension, hyperlipidemia, diabetes. PAST SURGICAL HISTORY Hysterectomy. MEDICATIONS 1. Multivitamin. 2. Pravastatin. 3. Doxazosin 4. Vitamin D. 5. Amlodipine 6. Furosemide. ALLERGIES No known allergies. FAMILY HISTORY Father of cerebral hemorrhage at the age of 56. SOCIAL HISTORY Denies alcohol, tobacco or illicit drug abuse. PHYSICAL EXAMINATION General: Awake, alert, good historian, not in acute distress. HEENT: Atraumatic, normocephalic. Intact hearing. Intact vision, pale looking. Neck: Supple. Trachea in the midline. No signs of meningeal irritation. Cardiovascular: Regular rate and rhythm. Respiratory: Clear to auscultation. No wheezes. Gastrointestinal: Soft abdomen, nontender. Extremities: Without clubbing, cyanosis, bilateral lower extremity edema. Rheumatoid fingers. Left lower extremity tender to touch in the calf region.Red discoloration. Neurologic: Awake and alert, oriented to time, person and place. No dysarthria , no dysphagia. No facial asymmetry. No diplopia or nystagmus. Cranial nerves II-XII are grossly intact. Xjowoz-dk-neuw intact, sensation intact throughout, reflexes 1+ bilateral and symmetrical. Plantar is right upgoing, positive Babinski. Left downgoing. Bilateral upper and lower extremity are grossly 5/5, no abnormal movement. Normal tone. Psychiatric: Appropriate mood and behavior, no hallucinations. LABORATORY DATA WBC 6.8, hemoglobin 9.3, MCV 89.8, platelets 173, total protein 6.4, LFT normal , sodium 138, potassium 3.4, anion gap 11. DIAGNOSTICS IMAGING - Brain MRI revealed tiny acute infarction superior to the frontal parietal region. No surrounding edema. No evidence of hemorrhage, ischemic atrophy and white matter changes. DIAGNOSTIC IMPRESSION 1. Acute ischemic lacunar infarct. 2. Hypertension. 3. Possible left lower extremity DVT. 4. Chronic kidney disease on chronic dialysis. PLAN 1. Neuro checks q. one hourly. No need to allow permissive hypertension as the symptoms started greater than 24 hours ago. 2. Antiplatelet. 3. Statin. 4. Telemetry. 5. Cardiac echo. 6. DVT prophylaxis. 7. GI prophylaxis. 8. PT/OT recommendations are appreciated. 9. The patient walks using a walker at baseline. 10. Telemetry 11. Blood pressure 130-135/75-80. Thank you for the opportunity to participate in the care of your patient. MD SERENE Caraballo/MARCELLA /10:49 PM /11:21 PM JENNIE
[2017-03-30] VITALS (7 sets, daily range): BP systolic 130–169; BP diastolic 61–76; PULSE 66–77; RESP 17–22; TEMP 97.5–98.3; O2SAT 94–98
[2017-03-30] MEDS: HEPARIN SODIUM - SQ 10,000 UNITS/ML VIAL SQ SCH ×2 (02:21→13:28)
[2017-03-30 06:15] LABS: CHOLESTEROL/ HDL RATIO 2.21 RATIO; HDL CHOLESTEROL 58.3 MG/DL (40.0-60.0)
[2017-03-30 06:17] LABS: TROPONIN I 0.05 NG/ML (0.02-0.05)
--- NOTE | 2017-03-30 07:20 | PD.CARD.PN ---
Subjective Subjective Remarks PT without CV complaints Objective Medications Current Medications Medications (Trade) Dose Ordered Sig/Angel Route Start Time Stop Time Status Last Admin (Vitamin D3) 1,000 units DAILY PO 03/30/17 09:00 (Lasix) 80 mg DAILY PO 03/30/17 09:00 (Pravachol) 10 mg DAILY PO 03/30/17 09:00 (Theragran) 1 tab DAILY PO 03/30/17 09:00 (NS Flush) 2 ml BID IV FLUSH 03/29/17 21:00 03/29/17 20:21 (NS Flush) 2 ml UNSCH PRN IV FLUSH 03/29/17 12:15 (NovoLOG SUPPLEMENTAL SCALE) 1 ACHS SQ 03/29/17 17:00 (D50w (Vial) Inj) 50 ml UNSCH PRN IV PUSH 03/29/17 12:15 (Glucagon Inj) 1 mg UNSCH PRN OTHER 03/29/17 12:15 (Heparin Inj) 5,000 units Q12H SQ 03/29/17 14:00 03/30/17 02:21 (Flu (Quadrivalent) Vaccine Inj) 0.5 ml ONCE ONCE IM 03/30/17 10:00 03/30/17 10:01 (Norvasc) 2.5 mg DAILY PO 03/29/17 17:00 03/29/17 18:01 (Pill Splitter) 1 ea UNSCH PRN OTHER 03/29/17 16:30 Vital Signs / I&O Vital Signs Date Time Temp Pulse Resp B/P (MAP) Pulse Ox O2 Delivery O2 Flow Rate FiO2 03/30/17 04:21 97.5 68 22 150/76 (100) 97 03/29/17 23:55 97.9 70 17 153/75 (101) 96 03/29/17 18:41 97.8 64 18 155/76 (102) 93 03/29/17 16:00 97.0 65 18 157/73 (101) 94 03/29/17 12:23 96 21 03/29/17 11:39 74 19 169/77 (107) 96 Room Air Physical Exam GENERAL: Well developed, well nourished. No acute distress. HEENT: Jugular venous pressure is normal. CHEST: Lungs clear to auscultation bilaterally. Unlabored respiratory effort. CARDIAC: Regular rate and rhythm without S3, S4, or murmur. ABDOMEN: Soft, nontender, no hepatosplenomegaly. Bowel sounds present. EXTREMITIES: No clubbing, cyanosis, or edema. Laboratory Laboratory Tests Test 03/29/17 08:45 03/29/17 13:37 03/29/17 20:44 03/30/17 05:20 Urine Color YELLOW Urine Turbidity CLEAR Urine pH 5.0 Urine Specific [place] 1.010 Urine Protein TRACE mg/dL Urine Glucose (UA) NEG mg/dL Urine Ketones NEG mg/dL Urine Occult Blood NEG Urine Nitrite NEG Urine Bilirubin NEG Urine Urobilinogen LESS THAN 2.0 MG/DL Urine Leukocyte Esterase NEG Urine RBC LESS THAN 1 /hpf Urine WBC LESS THAN 1 /hpf Urine Squamous Epithelial Cells <1 /hpf Urine Hyaline Casts 1 /lpf Urine Mucus FEW /lpf Microscopic Urinalysis Comment CATH-CULT NOT IND Total Creatine Kinase 48 U/L 44 U/L 37 U/L Troponin I 0.04 NG/ML 0.04 NG/ML 0.05 NG/ML Thyroid Stimulating Hormone 3rd Gen 1.460 uIU/ML Triglycerides Level 59 MG/DL Cholesterol Level 129 MG/DL LDL Cholesterol 59 MG/DL HDL Cholesterol 58.3 MG/DL Cholesterol/HDL Ratio 2.21 RATIO Imaging Last 24 hours Impressions Brain MRI 03/29/17 0916 Signed Impressions: Service Date/Time: Wednesday, March 29, 2017 09:25 - CONCLUSION: 1. Tiny acute infarction superior to the frontal horn of the left frontal parietal region. No surrounding edema. No evidence of hemorrhage. 2. Ischemic atrophy and white matter changes, appropriate for age. Arron Roberson MD Thoracic Spine MRI 03/29/17 0753 Signed Impressions: Service Date/Time: Wednesday, March 29, 2017 09:25 - CONCLUSION: 1. Minimal degenerative changes with posterior osteophytes at T6-7, but no significant deformity of the thecal sac. 2. No compression deformities seen. 3. Moderate-sized bilateral pleural effusions. Arron Roberson MD Lumbar Spine MRI 03/29/17 0753 Signed Impressions: Service Date/Time: Wednesday, March 29, 2017 09:25 - CONCLUSION: Mild multilevel degenerative changes without evidence of disc protrusion or neural impingement. Arron Roberson MD Cervical Spine MRI 03/29/17 0753 Signed Impressions: Service Date/Time: Wednesday, March 29, 2017 09:25 - CONCLUSION: Multilevel degenerative changes with bridging osteophytes C4-C6 and multilevel bony neuroforaminal stenosis. Arron Roberson MD Assessment and Plan Problem List: (1) PAF (paroxysmal atrial fibrillation) ICD Codes: I48.0 - Paroxysmal atrial fibrillation Plan: NSR this am -anticoagulation relatively contraindicated with anemia despite high CHADS VASC score (2) Anemia ICD Codes: D64.9 - Anemia, unspecified (3) Acute CVA (cerebrovascular accident) ICD Codes: I63.9 - Cerebral infarction, unspecified Status: Acute Plan: per neurology; ECHO pending (4) Chronic kidney disease on chronic dialysis ICD Codes: N18.9 - Chronic kidney disease, unspecified; Z99.2 - Dependence on renal dialysis Status: Acute (5) HTN (hypertension) ICD Codes: I10 - Essential (primary) hypertension Mary Restrepo MD Mar 30, 2017 07:20
[2017-03-30] MEDS: INSULIN ASPART SUPPLEMENTAL SCALE SQ SCH ×4 (08:00→22:29)
[2017-03-30] MEDS ORDERED: SODIUM CHLOR 0.9% 1000 ML INJ 1,000 ML OTHER PRN ×2 (08:49)
[2017-03-30] MEDS ORDERED: SODIUM CHLOR 0.9% 1000 ML INJ 1,000 ML IV PRN (08:49)
[2017-03-30] MEDS: SODIUM CHLORIDE 0.9% FLUSH 10 ML FLUSH IV FLUSH SCH ×2 (08:59→22:25)
[2017-03-30] MEDS ORDERED: diphenhydrAMINE HCL 25 MG CAP PO PRN (09:00)
[2017-03-30] MEDS ORDERED: GENTAMICIN SULFATE (DIALYSIS USE ONLY) 20 MG/2 ML VIAL OTHER PRN (09:00)
[2017-03-30] MEDS ORDERED: NITROGLYCERIN 0.4 MG SL 25 TABS/BTL SL PRN (09:00)
[2017-03-30] MEDS ORDERED: HEPARIN SODIUM - IV 10,000 UNITS/10 ML VIAL PRN (09:00)
[2017-03-30] MEDS ORDERED: ALBUMIN 25% INJ 100 ML IV PRN (09:00)
[2017-03-30] MEDS ORDERED: GELATIN 12 MM/7 MM FOAM TOP PRN (09:00)
[2017-03-30] MEDS ORDERED: MANNITOL 12.5 GM/50 ML VIAL IV PRN (09:00)
[2017-03-30] MEDS ORDERED: cloNIDine HCL 0.1 MG TAB PO PRN (09:00)
[2017-03-30] MEDS ORDERED: EPOETIN ALFA 10,000 UNITS/ML VIAL IV PUSH PRN (09:00)
[2017-03-30] MEDS ORDERED: ACETAMINOPHEN 325 MG TAB PO PRN (09:00)
[2017-03-30] MEDS ORDERED: ONDANSETRON HCL 4 MG/2 ML VIAL IV PUSH PRN (09:00)
[2017-03-30] MEDS ORDERED: HEPARIN SODIUM - IV 10,000 UNITS/10 ML VIAL IV FLUSH PRN (09:00)
[2017-03-30] MEDS ORDERED: SODIUM CHLORIDE 0.9% FLUSH 10 ML FLUSH IV FLUSH PRN (09:00)
[2017-03-30] MEDS: CHOLECALCIFEROL (VIT D3) 1000 UNIT TAB PO SCH (09:03)
[2017-03-30] MEDS: MULTIVITAMIN TAB PO SCH (09:04)
[2017-03-30] MEDS: PRAVASTATIN SOD 10 MG TAB PO SCH (09:04)
[2017-03-30] MEDS: amLODIPine BESYLATE 5 MG TAB PO SCH (09:04)
[2017-03-30 09:06] LABS: BICARBONATE 22.3 MEQ/L (21.0-32.0); CALCIUM 8.7 MG/DL (8.5-10.1); CREATININE 4.17 MG/DL (0.50-1.00)
[2017-03-30] MEDS: FUROSEMIDE 80 MG TAB PO SCH (09:07)
--- NOTE | 2017-03-30 09:27 | PD.CONS ---
HPI Service Nephrology Consult Requested By Reason for Consult ESRD on HD Primary Care Physician Radha Mendoza MD History of Present Illness This is a pleasant 89 y/o female patient. She was started on hemodialysis outpatient within the last few weeks, had her last treatment on Tuesday. On Tuesday the patient experienced an episode of weakness where she collapsed, not sustaining any injuries, was admitted for evaluation. She was found to be in A fib, rate controlled, is not in sinus rhythm. MRI showed tiny acute infarct superior to frontal horn, left parietal region. PMH of HTN, anemia, and hyperlipidemia. The decision was made not to start anticoagulants for fear of hemorrhagic conversion of her CVA. She has been evaluated by neurology and cardiology, we were consulted for dialysis management. She has AVF left arm that is patent. She is a full code. (She Medeiros) Review of Systems Constitutional: COMPLAINS OF: Fatigue, DENIES: Change in appetite Cardiovascular: DENIES: Chest pain, Dyspnea on Exertion, Lower Extremity Edema Neurologic: DENIES: Abnormal gait, Localized weakness, Seizures, Poor Balance ( She Medeiros) Past Family Social History Allergies: Coded Allergies: No Known Allergies (Unverified Allergy, Unknown, 03/29/17) Past Medical History ESRD on HD TTS HTN Anemia Hyperlipidemia DM II Past Surgical History AVF right arm Hysterectomy Reported Medications Multiple Vitamin 1 Tab 1 Tab PO DAILY Pravastatin 10 Mg Tab 10 Mg PO DAILY Doxazosin (Doxazosin Mesylate) 2 Mg Tab 2 Mg PO HS Vitamin D-1000 (Cholecalciferol) 1,000 Unit Tab 1,000 Units PO DAILY Amlodipine (Amlodipine Besylate) 2.5 Mg Tab 2.5 Mg PO DAILY Furosemide 80 Mg Tab 80 Mg PO DAILY Active Ordered Medications Current Medications Medications (Trade) Dose Ordered Sig/Angel Route Start Time Stop Time Status Last Admin (Vitamin D3) 1,000 units DAILY PO 03/30/17 09:00 03/30/17 09:03 (Lasix) 80 mg DAILY PO 03/30/17 09:00 03/30/17 09:07 (Pravachol) 10 mg DAILY PO 03/30/17 09:00 03/30/17 09:04 (Theragran) 1 tab DAILY PO 03/30/17 09:00 03/30/17 09:04 (NS Flush) 2 ml BID IV FLUSH 03/29/17 21:00 03/30/17 08:59 (NS Flush) 2 ml UNSCH PRN IV FLUSH 03/29/17 12:15 (NovoLOG SUPPLEMENTAL SCALE) 1 ACHS SQ 03/29/17 17:00 (D50w (Vial) Inj) 50 ml UNSCH PRN IV PUSH 03/29/17 12:15 (Glucagon Inj) 1 mg UNSCH PRN OTHER 03/29/17 12:15 (Heparin Inj) 5,000 units Q12H SQ 03/29/17 14:00 03/30/17 02:21 (Flu (Quadrivalent) Vaccine Inj) 0.5 ml ONCE ONCE IM 03/30/17 10:00 03/30/17 10:01 03/30/17 09:05 (Norvasc) 2.5 mg DAILY PO 03/29/17 17:00 03/30/17 09:04 (Pill Splitter) 1 ea UNSCH PRN OTHER 03/29/17 16:30 Sodium Chloride 1,000 ml @ 0 mls/hr Q0M PRN OTHER 03/30/17 08:49 UNV (Heparin Inj) 8,000 units UNSCH PRN IV FLUSH 03/30/17 09:00 UNV Sodium Chloride 1,000 ml @ 200 mls/hr Q5H PRN IV 03/30/17 08:49 UNV Sodium Chloride 1,000 ml @ 0 mls/hr Q0M PRN OTHER 03/30/17 08:49 UNV (Mannitol Inj) 12.5 gm UNSCH PRN IV 03/30/17 09:00 UNV Albumin Human 100 ml @ 60 mls/hr UNSCH PRN IV 03/30/17 09:00 UNV (NS Flush) 5 ml UNSCH PRN IV FLUSH 03/30/17 09:00 UNV (Heparin Inj) UNSCH PRN .XX 03/30/17 09:00 UNV (Gentamicin (Dialysis) Inj) 20 mg UNSCH PRN OTHER 03/30/17 09:00 UNV (Zofran Inj) 4 mg UNSCH PRN IV PUSH 03/30/17 09:00 UNV (Tylenol) 650 mg UNSCH PRN PO 03/30/17 09:00 UNV (Benadryl) 25 mg UNSCH PRN PO 03/30/17 09:00 UNV (Nitrostat Sl) 0.4 mg UNSCH PRN SL 03/30/17 09:00 UNV (Catapres) 0.1 mg UNSCH PRN PO 03/30/17 09:00 UNV (Epogen Inj) 10,000 units UNSCH PRN IV PUSH 03/30/17 09:00 UNV (Gelfoam 12 Mm/7 Mm Top) 1 foam UNSCH PRN TOP 03/30/17 09:00 UNV Family History No hx of renal disorders Social History She is , recently taken to [facility] former smoker no ETOH independent full code retired (She Medeiros) Physical Exam Vital Signs Vital Signs Date Time Temp Pulse Resp B/P (MAP) Pulse Ox O2 Delivery O2 Flow Rate FiO2 03/30/17 08:19 97.6 69 19 155/74 (101) 96 03/30/17 04:21 97.5 68 22 150/76 (100) 97 03/29/17 23:55 97.9 70 17 153/75 (101) 96 03/29/17 18:41 97.8 64 18 155/76 (102) 93 03/29/17 16:00 97.0 65 18 157/73 (101) 94 03/29/17 12:23 96 21 03/29/17 11:39 74 19 169/77 (107) 96 Room Air Physical Exam Elderly female, awake and alert Follows commands, moves all extremities S1/S2, regular, no murmurs Lungs clear, decreased in bases , she is on oxygen Right arm AVF, patent No lower extremity edema Laboratory Laboratory Tests Test 03/29/17 13:37 03/29/17 20:44 03/30/17 05:20 Total Creatine Kinase 48 44 37 Troponin I 0.04 0.04 0.05 Thyroid Stimulating Hormone 3rd Gen 1.460 Blood Urea Nitrogen 39 Creatinine 4.17 Random Glucose 81 Calcium Level 8.7 Sodium Level 139 Potassium Level 3.9 Chloride Level 103 Carbon Dioxide Level 22.3 Anion Gap 14 Estimat Glomerular Filtration Rate 10 Triglycerides Level 59 Cholesterol Level 129 LDL Cholesterol 59 HDL Cholesterol 58.3 Cholesterol/HDL Ratio 2.21 (She Medeiros) Result Diagram: 03/29/17 0625 03/30/17 0520 Imaging Last 72 hours Impressions Brain MRI 03/29/17 0916 Signed Impressions: Service Date/Time: Wednesday, March 29, 2017 09:25 - CONCLUSION: 1. Tiny acute infarction superior to the frontal horn of the left frontal parietal region. No surrounding edema. No evidence of hemorrhage. 2. Ischemic atrophy and white matter changes, appropriate for age. Arron Roberson MD Thoracic Spine MRI 03/29/17 0753 Signed Impressions: Service Date/Time: Wednesday, March 29, 2017 09:25 - CONCLUSION: 1. Minimal degenerative changes with posterior osteophytes at T6-7, but no significant deformity of the thecal sac. 2. No compression deformities seen. 3. Moderate-sized bilateral pleural effusions. Arron Roberson MD Lumbar Spine MRI 03/29/17 0753 Signed Impressions: Service Date/Time: Wednesday, March 29, 2017 09:25 - CONCLUSION: Mild multilevel degenerative changes without evidence of disc protrusion or neural impingement. Arron Roberson MD Cervical Spine MRI 03/29/17 0753 Signed Impressions: Service Date/Time: Wednesday, March 29, 2017 09:25 - CONCLUSION: Multilevel degenerative changes with bridging osteophytes C4-C6 and multilevel bony neuroforaminal stenosis. Arron Roberson MD Chest X-Ray 03/29/17 0614 Signed Impressions: Service Date/Time: Wednesday, March 29, 2017 06:29 - CONCLUSION: No significant change Nick Owen MD Lower Extremity Ultrasound 03/29/17 0000 Signed Impressions: Service Date/Time: Wednesday, March 29, 2017 16:17 - CONCLUSION: No evidence of deep venous thrombosis within the left lower extremity. Jin Arce MD Carotid Artery Ultrasound 03/29/17 0000 Signed Impressions: Service Date/Time: Wednesday, March 29, 2017 13:56 - CONCLUSION: Bilateral carotid plaque formation with hemodynamic profile characteristic of less than 50%% stenosis. Arron Roberson MD (She Medeiros) Assessment and Plan Problem List: (1) ESRD (end stage renal disease) on dialysis ICD Codes: N18.6 - End stage renal disease; Z99.2 - Dependence on renal dialysis Plan: Typical TTS HD, last HD was Tuesday She is not hyperkalemic, no evidence of fluid overload Dialysis planned for tomorrow, orders entered IVF not required Protect right arm from procedures High protein diet encouraged (2) Acute CVA (cerebrovascular accident) ICD Codes: I63.9 - Cerebral infarction, unspecified Status: Acute Plan: Neurology is following Monitor neuro status per protocol Appreciate further recommendations Stroke work up is in progress (3) HTN (hypertension) ICD Codes: I10 - Essential (primary) hypertension Plan: Permissive hypertension Home medications have been resumed (4) Anemia ICD Codes: D64.9 - Anemia, unspecified Plan: Epogen with dialysis has been ordered Check iron profile (5) PAF (paroxysmal atrial fibrillation) ICD Codes: I48.0 - Paroxysmal atrial fibrillation Plan: Is in sinus rhythm currently; on admission rate was controlled She has not been started on any antiarrhythmics or anticoagulants as of now (She Medeiros) Assessment and Plan patient was seen and examined. Agree with above assessment and plan. Admitted with CVA, was in atrial fibrillation. Cardiology and neurology on the case. We will dialyze her tomorrow. Patient is new to dialysis. (Devon Torres MD) She Medeiros Mar 30, 2017 09:27 Devon Torres MD Mar 30, 2017 19:30
[2017-03-30] MEDS ORDERED: INFLUENZA VIRUS VACCINE (QUADRIVALENT) 0.5 ML SYR IM ONE (10:00)
[2017-03-30 13:29] LABS: AUTOMATED NEUTROPHIL # 5.4 TH/MM3 (1.8-7.7); BASOPHIL % 0.6 % (0.0-2.0); EOSINOPHIL # 0.1 TH/MM3 (0-0.4); EOSINOPHIL % 1.4 % (0.0-4.0); HEMOGLOBIN 10.1 GM/DL (11.6-15.3); LYMPH % 8.7 % (9.0-44.0); LYMPHOCYTE # 0.6 TH/MM3 (1.0-4.8); MEAN CELL VOLUME 91.6 FL (80.0-100.0); MEAN CORPUSCULAR HEMOGLOBIN 29.8 PG (27.0-34.0); MEAN CORPUSCULAR HGB CONC 32.5 % (32.0-36.0); MEAN PLATELET VOLUME 9.7 FL (7.0-11.0); MONO % 7.8 % (0.0-8.0); MONOCYTE # 0.5 TH/MM3 (0-0.9); NEUT % 81.5 % (16.0-70.0); PLATELET COUNT 175 TH/MM3 (150-450); RED BLOOD COUNT 3.38 MIL/MM3 (4.00-5.30); RED CELL DISTRIBUTION WIDTH 17.7 % (11.6-17.2); WHITE BLOOD COUNT 6.6 TH/MM3 (4.0-11.0)
--- NOTE | 2017-03-30 13:30 | ECHRPT ---
Indication: CVA/TIA CONCLUSIONS Mildly dilated left ventricle. Wall thickness is normal. The left ventricular systolic function is moderately reduced with an estimated ejection fraction in the range of 35-40%. Global hypokinesis. The left atrial size is moderately dilated. The right atrial size is zjdv-wh-nspvclshrt dilated. Mrlojoti-kp-chwqsz mitral valve regurgitation. Trace aortic valve regurgitation. Mild aortic valve sclerosis. There is moderate tricuspid regurgitation. Possible severe pulmonary hypertension with estimated systolic pulmonary pressure of 80 mm Hg. There is a small pericardial effusion present. A small left sided pleural effusion is noted. No hemodynamically significant echocardiographic features were observed (no pre-tamponade physiology). BP: / HR: Rhythm: MEASUREMENTS (Male / Female) Normal Values Technical Quality:Good 2D ECHO LV Diastolic Diameter PLAX 5.3 cm 4.2 - 5.9 / 3.9 - 5.3 cm LV Systolic Diameter PLAX 4.3 cm IVS Diastolic Thickness 1.3 cm 0.6 - 1.0 / 0.6 - 0.9 cm LVPW Diastolic Thickness 0.9 cm 0.6 - 1.0 / 0.6 - 0.9 cm LV Relative Wall Thickness 0.4 RV Internal Dim ED PLAX 3.2 cm LA Systolic Diameter LX 4.8 cm 3.0 - 4.0 / 2.7 - 3.8 cm M-MODE Aortic Root Diameter MM 3.1 cm AV Cusp Separation MM 1.8 cm DOPPLER AV Peak Velocity 187.0 cm/s AV Peak Gradient 14.0 mmHg LVOT Peak Velocity 65.4 cm/s LVOT Peak Gradient 1.7 mmHg MR Peak Velocity 517.0 cm/s MR Peak Gradient 106.9 mmHg Mitral E Point Velocity 139.0 cm/s Mitral A Point Velocity 61.1 cm/s Mitral E to A Ratio 2.3 TR Peak Velocity 471.0 cm/s TR Peak Gradient 88.7 mmHg Right Atrial Pressure 10.0 mmHg Pulmonary Artery Systolic Pressu 98.7 mmHg Right Ventricular Systolic Press 98.7 mmHg FINDINGS LEFT VENTRICLE Mildly dilated left ventricle. Wall thickness is normal. The left ventricular systolic function is moderately reduced with an estimated ejection fraction in the range of 35-40%. Global hypokinesis. RIGHT VENTRICLE The right ventriclar size is upper limits of normal. LEFT ATRIUM The left atrial size is moderately dilated. RIGHT ATRIUM The right atrial size is wfxb-or-eqozsvhygl dilated. ATRIAL SEPTUM Normal atrial septal thickness without atrial level shunting by limited color doppler interrogation. AORTA The aortic root and proximal ascending aorta are normal in size on limited imaging. MITRAL VALVE Ojvhgbpw-kh-ujkkcu mitral valve regurgitation. AORTIC VALVE Trace aortic valve regurgitation. Mild aortic valve sclerosis. TRICUSPID VALVE There is moderate tricuspid regurgitation. Possible severe pulmonary hypertension with estimated systolic pulmonary pressure of 80 mm Hg. PULMONARY VALVE No pulmonary valve regurgitation or stenosis. VESSELS The inferior vena cava is normal in size. PERICARDIUM There is a small pericardial effusion present. A small left sided pleural effusion is noted. No hemodynamically significant echocardiographic features were observed (no pre-tamponade physiology). Cliff Lovett MD (Electronically Signed) Final Date:30 March 2017 13:29
--- NOTE | 2017-03-30 14:21 | HHI.PR ---
Subjective Remarks Follow up CVA, end-stage renal disease. Patient states that she feels better today. Did have some weakness in the left lower extremity, but that has improved. Denies chest pain or dyspnea. Objective Vitals Vital Signs Date Time Temp Pulse Resp B/P (MAP) Pulse Ox O2 Delivery O2 Flow Rate FiO2 03/30/17 12:17 97.6 66 18 169/76 (107) 95 03/30/17 08:19 97.6 69 19 155/74 (101) 96 03/30/17 04:21 97.5 68 22 150/76 (100) 97 03/29/17 23:55 97.9 70 17 153/75 (101) 96 03/29/17 18:41 97.8 64 18 155/76 (102) 93 03/29/17 16:00 97.0 65 18 157/73 (101) 94 Result Diagram: 03/30/17 1235 03/30/17 0520 Imaging Last Impressions Brain MRI 03/29/17 0916 Signed Impressions: Service Date/Time: Wednesday, March 29, 2017 09:25 - CONCLUSION: 1. Tiny acute infarction superior to the frontal horn of the left frontal parietal region. No surrounding edema. No evidence of hemorrhage. 2. Ischemic atrophy and white matter changes, appropriate for age. Arron Roberson MD Thoracic Spine MRI 03/29/17 0753 Signed Impressions: Service Date/Time: Wednesday, March 29, 2017 09:25 - CONCLUSION: 1. Minimal degenerative changes with posterior osteophytes at T6-7, but no significant deformity of the thecal sac. 2. No compression deformities seen. 3. Moderate-sized bilateral pleural effusions. Arron Roberson MD Lumbar Spine MRI 03/29/17 0753 Signed Impressions: Service Date/Time: Wednesday, March 29, 2017 09:25 - CONCLUSION: Mild multilevel degenerative changes without evidence of disc protrusion or neural impingement. Arron Roberson MD Cervical Spine MRI 03/29/17 0753 Signed Impressions: Service Date/Time: Wednesday, March 29, 2017 09:25 - CONCLUSION: Multilevel degenerative changes with bridging osteophytes C4-C6 and multilevel bony neuroforaminal stenosis. Arron Roberson MD Chest X-Ray 03/29/17 0614 Signed Impressions: Service Date/Time: Wednesday, March 29, 2017 06:29 - CONCLUSION: No significant change Nick Owen MD Lower Extremity Ultrasound 03/29/17 Signed Impressions: Service Date/Time: Wednesday, March 29, 2017 16:17 - CONCLUSION: No evidence of deep venous thrombosis within the left lower extremity. Jin Arce MD Carotid Artery Ultrasound 03/29/17 Signed Impressions: Service Date/Time: Wednesday, March 29, 2017 13:56 - CONCLUSION: Bilateral carotid plaque formation with hemodynamic profile characteristic of less than 50%% stenosis. Arron Roberson MD Objective Remarks General: Elderly female in no acute distress. Heart: Irregular rate and rhythm. No murmur. Lungs: Clear to auscultation bilaterally. No wheezes, rales, or rhonchi. Breathing is nonlabored. Abdomen: Soft, nontender, nondistended. Extremities: No lower extremity edema. Psych: Alert and oriented. Neuro: Strength 5/5 in all 4 extremities. Procedures None Urinary Catheter: No Vascular Central Line Catheter: No A/P Problem List: (1) HTN (hypertension) ICD Code: I10 - Essential (primary) hypertension (2) Acute CVA (cerebrovascular accident) ICD Code: I63.9 - Cerebral infarction, unspecified Status: Acute (3) PAF (paroxysmal atrial fibrillation) ICD Code: I48.0 - Paroxysmal atrial fibrillation (4) ESRD (end stage renal disease) on dialysis ICD Code: N18.6 - End stage renal disease; Z99.2 - Dependence on renal dialysis Assessment and Plan 1. Acute CVA: MRI of the brain showed tiny acute infarct superior to the frontal horn of the left frontal parietal region. Appreciate neurology recommendations. Continue PT/OT/ST. Rehabilitation medicine consult. Neuro checks. 2. Atrial fibrillation: New onset. Appreciate cardiology recommendations. Echocardiogram noted. Anticoagulation is relatively contraindicated secondary to anemia. 3. Hypertension: Continue Lasix, amlodipine. 4. Hyperlipidemia: Continue statin. 5. End-stage renal disease: On hemodialysis Tuesday//Tuesday. Appreciate nephrology management. 6. DVT prophylaxis: Heparin. Discharge Planning Possible discharge home next 1-2 days if cleared by cardiology, neurology. Gregory Perry MD Mar 30, 2017 14:21
[2017-03-30 15:48] LABS: HEMOGLOBIN A1C 5.9 % (4.3-6.0)
[2017-03-31] VITALS (11 sets, daily range): BP systolic 135–156; BP diastolic 65–82; PULSE 57–77; RESP 18–22; TEMP 97–98.4; O2SAT 93–97
[2017-03-31] MEDS: HEPARIN SODIUM - SQ 10,000 UNITS/ML VIAL SQ SCH ×2 (03:05→13:37)
[2017-03-31] MEDS ORDERED: ACETAMINOPHEN 325 MG TAB PO PRN (03:45)
[2017-03-31] MEDS: INSULIN ASPART SUPPLEMENTAL SCALE SQ SCH ×4 (07:48→22:29)
[2017-03-31] MEDS: SODIUM CHLORIDE 0.9% FLUSH 10 ML FLUSH IV FLUSH SCH ×2 (09:00→22:31)
--- NOTE | 2017-03-31 09:04 | HHI.NPPN ---
Subjective General Problems: Anemia Renal Failure: Chronic, End Stage Renal Disease Interval History AVF infiltrated in beginning of dialysis. Had some bleeding at site after decannulation. To go to IR for permcath. (She Medeiros) Objective Data Data Vital Signs Date Time Temp Pulse Resp B/P (MAP) Pulse Ox O2 Delivery O2 Flow Rate FiO2 03/31/17 07:38 98.4 60 20 135/67 (89) 97 03/31/17 07:00 62 03/31/17 04:53 97.3 71 18 149/82 (104) 95 03/31/17 00:28 97.4 74 18 156/71 (99) 95 03/30/17 22:05 77 03/30/17 20:13 98.3 67 17 130/61 (84) 98 03/30/17 16:27 94 Nasal Cannula 2.00 03/30/17 16:08 98.2 75 18 169/75 (106) 94 03/30/17 15:10 Nasal Cannula 2.00 03/30/17 12:17 97.6 66 18 169/76 (107) 95 (She Medeiros) -: 03/30/17 1235 03/30/17 0520 Imaging Last 72 hours Impressions Brain MRI 03/29/17 0916 Signed Impressions: Service Date/Time: Wednesday, March 29, 2017 09:25 - CONCLUSION: 1. Tiny acute infarction superior to the frontal horn of the left frontal parietal region. No surrounding edema. No evidence of hemorrhage. 2. Ischemic atrophy and white matter changes, appropriate for age. Arron Roberson MD Thoracic Spine MRI 03/29/17 0753 Signed Impressions: Service Date/Time: Wednesday, March 29, 2017 09:25 - CONCLUSION: 1. Minimal degenerative changes with posterior osteophytes at T6-7, but no significant deformity of the thecal sac. 2. No compression deformities seen. 3. Moderate-sized bilateral pleural effusions. Arron Roberson MD Lumbar Spine MRI 03/29/17 0753 Signed Impressions: Service Date/Time: Wednesday, March 29, 2017 09:25 - CONCLUSION: Mild multilevel degenerative changes without evidence of disc protrusion or neural impingement. Arron Roberson MD Cervical Spine MRI 03/29/17 075 Signed Impressions: Service Date/Time: Wednesday, March 29, 2017 09:25 - CONCLUSION: Multilevel degenerative changes with bridging osteophytes C4-C6 and multilevel bony neuroforaminal stenosis. Arron Roberson MD Chest X-Ray 03/29/17 0614 Signed Impressions: Service Date/Time: Wednesday, March 29, 2017 06:29 - CONCLUSION: No significant change Nick Owen MD Lower Extremity Ultrasound 03/29/17 0000 Signed Impressions: Service Date/Time: Wednesday, March 29, 2017 16:17 - CONCLUSION: No evidence of deep venous thrombosis within the left lower extremity. Jin Arce MD Carotid Artery Ultrasound 03/29/17 0000 Signed Impressions: Service Date/Time: Wednesday, March 29, 2017 13:56 - CONCLUSION: Bilateral carotid plaque formation with hemodynamic profile characteristic of less than 50%% stenosis. Arron Roberson MD (She Medeiros) Physical Exam General Appearance: Well Developed, No Acute Distress, Comfortable (She Medeiros [employer] SE[employer]) Throat Throat Exam: Oral Mucosa [place] & Moist (She Medeiros BWandy GREENEP) Pulmonary Resp Exam: Clear Bilaterally, Breath Sounds Equal (She Medeiros BWandy [employer] SE[employer]) Gastrointestinal/Abdomen GI Exam: Soft, Non-Tender, Bowel Sounds Present (She Medeiros BWandy GREENEP) Musculoskeletal MS Exam: Joints Intact, Normal Tone (She MedeirosP) Integumentary Skin Exam: Clear, Warm, Dry, Intact (She MedeirosP) Extremeties Extremities Exam: No Edema, Pedal Pulses Palpable (She Medeiros BWandy [employer] SE[employer]) Neurologic Neuro Exam: Alert, Awake, Oriented, Speech Clear, Moving All Extremities (She Medeiros BWandy [employer] C[employer] SE[employer]) Psychiatric Psych Exam: Appropriate Responses (She Medeiros) Assessment/Plan Discussed Condition With: Patient Assessment Summary: Anemia of CKD, Hypertension, End Stage Renal Disease Problem List: (1) ESRD (end stage renal disease) on dialysis ICD Codes: N18.6 - End stage renal disease; Z99.2 - Dependence on renal dialysis Plan: Typical TTS HD Her AVF infiltrated early in the treatment today, it was stopped IR consulted for Permcath placement, she has been made NPO To be dialyzed later today IVF not required Protect right arm from procedures High protein diet encouraged (2) Acute CVA (cerebrovascular accident) ICD Codes: I63.9 - Cerebral infarction, unspecified Status: Acute Plan: Neurology is following Monitor neuro status per protocol Appreciate further recommendations Echo 35-40%, global hypokinesis (3) HTN (hypertension) ICD Codes: I10 - Essential (primary) hypertension Plan: Permissive hypertension she is only on Lasix currently (4) Anemia ICD Codes: D64.9 - Anemia, unspecified Plan: Epogen with dialysis iron profile has been ordered (5) PAF (paroxysmal atrial fibrillation) ICD Codes: I48.0 - Paroxysmal atrial fibrillation Plan: Rhythm is regular this morning She has not been started on any antiarrhythmics or anticoagulants as of now (She Medeiros) Plan patient was seen and examined. Unfortunately AVF infiltrated. PermCath placed for dialysis. (Devon Torres MD) She Medeiros Mar 31, 2017 09:04 Devon Torres MD Mar 31, 2017 19:38
[2017-03-31] MEDS ORDERED: ceFAZolin 2 GM PREMIX 50 ML IV SCH (10:00)
[2017-03-31] MEDS ORDERED: VANCOMYCIN INJ 1,000 MG in SODIUM CHLOR 0.9% 250 ML INJ 250 ML IV SCH (10:00)
[2017-03-31] MEDS: CHOLECALCIFEROL (VIT D3) 1000 UNIT TAB PO SCH (10:02)
[2017-03-31] MEDS: MULTIVITAMIN TAB PO SCH (10:02)
[2017-03-31] MEDS: amLODIPine BESYLATE 5 MG TAB PO SCH (10:02)
[2017-03-31] MEDS: FUROSEMIDE 80 MG TAB PO SCH (10:03)
[2017-03-31] MEDS: PRAVASTATIN SOD 10 MG TAB PO SCH (10:03)
[2017-03-31] MEDS ORDERED: MIDAZOLAM HCL 2 MG/2 ML VIAL ONE (11:30)
[2017-03-31] MEDS ORDERED: LIDOCAINE 1%/EPINEPHrine 1:100,000 SOLN 20 ML VIAL ONE (11:38)
--- NOTE | 2017-03-31 12:07 | PD.RAD ---
Post Procedure Progress Note Pre Procedure Diagnosis: (1) ESRD (end stage renal disease) on dialysis Post Procedure Diagnosis: (1) ESRD (end stage renal disease) on dialysis Procedure Date: Mar 31, 2017 Supervising Radiologist: Layton Xiao Proceduralist/Assist: RT Norma(R) Anesthesia: Conscious Sedation Plan of Activity Patient to Unit: Nursing Unit Patient Condition: Good See PACS Report for procedural detail/treatment Layton Xiao MD Mar 31, 2017 12:07
[2017-03-31] MEDS ORDERED: HEPARIN SODIUM - IV 2,000 UNITS/2 ML VIAL IV FLUSH PRN (12:15)
[2017-03-31] MEDS ORDERED: SODIUM CHLORIDE 0.9% FLUSH 10 ML FLUSH IV FLUSH PRN (12:15)
--- NOTE | 2017-03-31 13:33 | RADRPT ---
EXAM DATE/TIME: 03/31/2017 11:35 [facility] COMPARISON: No previous studies available for comparison. INDICATIONS : Patient in ESRD. Fistula not working. MEDICAL HISTORY : 1. ESRD 2. HTN 3. DM SURGICAL HISTORY : 1. AV fistula right arm 2. hysterectomy ENCOUNTER: Initial ACUITY: 3 days PAIN SCORE: 0/10 FLUORO TIME: 0.3 minutes IMAGE SERIES: 1 SEDATION TIME: 10 minutes ACCESS: Right internal jugular vein SEDATION: 1.) 1 mg midazolam (Versed) IV 2.) 50 mcg fentanyl (Sublimaze) IV Prophylactic antibiotics were administered with appropriate pre-procedure timing. Vancomycin within 2 hours of procedure, Ancef (or alternative) within 1 hour of procedure. DEVICE: 1. 15 Citizen Of [place] dual lumen 19 cm Snyder II Plus catheter PROCEDURE : 1. Ultrasound-guided venipuncture. 2. PermaCath placement. 3. Conscious sedation with continuous EKG and oximetry monitoring. The risks, benefits and alternatives to the procedure were explained and verbal and written consent w as obtained. The site was prepped in sterile fashion. Full sterile technique was used, including ca p, mask, sterile gloves and gown and a large sterile sheet. Hand hygiene and 2% chlorhexidine and/or betadine/alcohol prep was utilized per protocol for cutaneous antisepsis. Sterile gel and sterile p robe cover were utilized for ultrasound guidance. The skin and subcutaneous tissues were infiltrated with local anesthetic solution. With ultrasound and fluoroscopic guidance a dermatotomy was created over the prescribed vein. A micr opuncture set was used to access the targeted vein and serial dilatation was performed to accept the prescribed length catheter. A subcutaneous tunnel was created in a retrograde fashion the catheter w as pulled through the tunnel. The catheter was flushed and assembled and locked with heparin. The c atheter was sutured in place. Conscious sedation was performed with the prescribed dosages and duration as above in the presence of an independent trained radiology nurse to assist in the monitoring of the patient. EKG and oximetry remained stable throughout the procedure. The patient tolerated the procedure well and there were n o complications. The patient was sent to post anesthesia recovery in stable condition. CONCLUSION: Uncomplicated PermaCath placement as above. Layton Xiao MD on March 31, 2017 at 13:32 Board Certified Radiologist. This report was verified electronically.
[2017-03-31] MEDS: ASPIRIN 325 MG TAB PO SCH (13:37)
--- NOTE | 2017-03-31 16:32 | HHI.PR ---
Subjective Remarks Reports no significant pain. Doing okay. No complaints of weakness Objective Vitals Vital Signs Date Time Temp Pulse Resp B/P (MAP) Pulse Ox O2 Delivery O2 Flow Rate FiO2 03/31/17 15:08 63 03/31/17 13:22 63 20 147/76 (99) 93 03/31/17 12:52 59 20 140/65 (90) 97 03/31/17 12:22 97.0 57 18 137/68 (91) 97 03/31/17 07:38 98.4 60 20 135/67 (89) 97 03/31/17 07:00 62 03/31/17 04:53 97.3 71 18 149/82 (104) 95 03/31/17 00:28 97.4 74 18 156/71 (99) 95 03/30/17 22:05 77 03/30/17 20:13 98.3 67 17 130/61 (84) 98 03/30/17 16:27 94 Nasal Cannula 2.00 I/O 03/30/17 03/30/17 03/30/17 03/31/17 03/31/17 03/31/17 07:00 15:00 23:00 07:00 15:00 23:00 Intake Total 1080 ml 120 ml 120 ml Balance 1080 ml 120 ml 120 ml Intake Oral 1080 ml 120 ml 120 ml # Voids 2 2 2 1 # Bowel Movements 1 1 1 Result Diagram: 03/30/17 1235 03/30/17 0520 Other Results Item Value Date Time LDL Cholesterol 59 MG/DL 03/30/17 0520 Thyroid Stimulating Hormone 3rd Gen 1.460 uIU/ML 03/29/172043 Hemoglobin A1c 5.9 % 03/29/172043 Objective Remarks GENERAL: This is a well-nourished, well-developed patient, in no apparent distress. Right neck, bandage clean dry intact CARDIOVASCULAR: Regular rate and rhythm RESPIRATORY: Clear to auscultation. Breath sounds equal bilaterally. No wheezes , rales, or rhonchi. GASTROINTESTINAL: Abdomen soft, non-tender, nondistended. Normal active bowel sounds MUSCULOSKELETAL: Extremities without clubbing, cyanosis, or edema. NEURO: Alert & Oriented x4 to person, place, time, situation. Good public message service supervisor strength bilaterally, bilateral lower extremity 5 out of 5 Procedures None A/P Problem List: (1) Acute CVA (cerebrovascular accident) ICD Code: I63.9 - Cerebral infarction, unspecified Status: Acute (2) HTN (hypertension) ICD Code: I10 - Essential (primary) hypertension (3) PAF (paroxysmal atrial fibrillation) ICD Code: I48.0 - Paroxysmal atrial fibrillation (4) ESRD (end stage renal disease) on dialysis ICD Code: N18.6 - End stage renal disease; Z99.2 - Dependence on renal dialysis Assessment and Plan 1. Acute CVA: MRI of the brain showed tiny acute infarct superior to the frontal horn of the left frontal parietal region. Appreciate neurology recommendations. Continue PT/OT/ST. Neuro checks has remained stable. Antiplatelets aspirin. At this time, cardiology does not recommend anticoagulation. 2. Paroxysmal Atrial fibrillation: New onset. Currently normal sinus rhythm . Echocardiogram noted with a EF of 35-40%. Cardiology is not recommending anticoagulation at this time. 3. Hypertension, essential: Continue Lasix, amlodipine. Overall blood pressure controlled. 4. Hyperlipidemia: Continue statin. 5. End-stage renal disease: On hemodialysis Tuesday//Tuesday. Appreciate nephrology management. A functional permacath had to be placed today to continue hemodialysis due to infiltrated AV fistula. Hemodialysis delay this morning and patient will return this evening. 6. Chronic anemia likely due to end-stage renal disease- Epogen 7. DVT prophylaxis -heparin Discharge Planning Likely to be discharged to custodial facility in the morning the if patient remains stable and cleared by nephrology Darlene Barton MD Mar 31, 2017 16:32
[2017-04-01] VITALS (7 sets, daily range): BP systolic 141–155; BP diastolic 67–74; PULSE 63–76; RESP 18–22; TEMP 97.9–98.3; O2SAT 92–97
[2017-04-01] MEDS: HEPARIN SODIUM - SQ 10,000 UNITS/ML VIAL SQ SCH ×2 (02:00→13:25)
[2017-04-01] MEDS: INSULIN ASPART SUPPLEMENTAL SCALE SQ SCH ×2 (07:40→12:00)
[2017-04-01 08:08] LABS: AUTOMATED NEUTROPHIL # 5.4 TH/MM3 (1.8-7.7); BASOPHIL # 0.1 TH/MM3 (0-0.2); BASOPHIL % 1.1 % (0.0-2.0); EOSINOPHIL # 0.2 TH/MM3 (0-0.4); EOSINOPHIL % 2.8 % (0.0-4.0); HEMATOCRIT 26.3 % (35.0-46.0); HEMOGLOBIN 8.9 GM/DL (11.6-15.3); LYMPH % 9.9 % (9.0-44.0); LYMPHOCYTE # 0.7 TH/MM3 (1.0-4.8); MEAN CELL VOLUME 89.3 FL (80.0-100.0); MEAN CORPUSCULAR HEMOGLOBIN 30.2 PG (27.0-34.0); MEAN CORPUSCULAR HGB CONC 33.8 % (32.0-36.0); MEAN PLATELET VOLUME 9.8 FL (7.0-11.0); MONO % 8.6 % (0.0-8.0); MONOCYTE # 0.6 TH/MM3 (0-0.9); NEUT % 77.6 % (16.0-70.0); PLATELET COUNT 165 TH/MM3 (150-450); RED BLOOD COUNT 2.94 MIL/MM3 (4.00-5.30); RED CELL DISTRIBUTION WIDTH 17.4 % (11.6-17.2); WHITE BLOOD COUNT 6.9 TH/MM3 (4.0-11.0)
[2017-04-01] MEDS: FUROSEMIDE 80 MG TAB PO SCH (08:24)
[2017-04-01] MEDS: PRAVASTATIN SOD 10 MG TAB PO SCH (08:24)
[2017-04-01] MEDS: amLODIPine BESYLATE 5 MG TAB PO SCH (08:24)
[2017-04-01] MEDS: CHOLECALCIFEROL (VIT D3) 1000 UNIT TAB PO SCH (08:24)
[2017-04-01] MEDS: MULTIVITAMIN TAB PO SCH (08:24)
[2017-04-01] MEDS: SODIUM CHLORIDE 0.9% FLUSH 10 ML FLUSH IV FLUSH SCH (08:25)
[2017-04-01 08:29] LABS: % SATURATION IRON PROFILE 11.1 % (20-50); BICARBONATE 31.2 MEQ/L (21.0-32.0); BLOOD UREA NITROGEN 36 MG/DL (7-18); CALCIUM 8.4 MG/DL (8.5-10.1); CHLORIDE 99 MEQ/L (98-107); CREATININE 3.53 MG/DL (0.50-1.00); GLOMERULAR FILTRATION RATE 12 ML/MIN (>89); GLUCOSE,RANDOM 123 MG/DL (74-106); IRON (FE) 26 MCG/DL (50-170); SODIUM (NA) 138 MEQ/L (136-145); TOTAL IRON BINDING CAPACITY 235 MCG/DL (250-450)
[2017-04-01] MEDS ORDERED: ASPI325T PO (08:37)
[2017-04-01] MEDS: ASPIRIN 325 MG TAB PO SCH (09:29)
--- NOTE | 2017-04-01 09:38 | HHI.NPPN ---
Subjective General Problems: Anemia Renal Failure: Chronic, End Stage Renal Disease Interval History Permcath placed on the right and she was dialyzed yesterday. Some bleeding above PC exit site per nurse. She was started on ASA. (She Medeiros) Objective Data Data Vital Signs Date Time Temp Pulse Resp B/P (MAP) Pulse Ox O2 Delivery O2 Flow Rate FiO2 04/01/17 07:36 98.0 76 20 155/74 (101) 97 04/01/17 07:00 68 04/01/17 04:20 98.1 70 22 148/70 (96) 97 04/01/17 00:23 98.3 71 18 141/67 (91) 96 03/31/17 23:00 62 03/31/17 22:17 95 Nasal Cannula 2.00 03/31/17 20:00 97.3 73 22 138/65 (89) 97 03/31/17 15:08 63 03/31/17 13:22 63 20 147/76 (99) 93 03/31/17 12:52 59 20 140/65 (90) 97 03/31/17 12:22 97.0 57 18 137/68 (91) 97 (She Medeiros) -: 04/01/17 0708 04/01/17 0708 Imaging Last 72 hours Impressions Catheter Placement X-Ray 03/31/17 0000 Signed Impressions: Service Date/Time: March 11:35 - CONCLUSION: Uncomplicated PermaCath placement as above. Layton Xiao MD Tubes & Lines: Perma-Cath (She Medeiros) Physical Exam General Appearance: Well Developed, No Acute Distress, Comfortable (She Medeiros) Throat Throat Exam: Oral Mucosa [place] & Moist (She Medeiros) Pulmonary Resp Exam: Clear Bilaterally, Breath Sounds Equal (She Medeiros) Gastrointestinal/Abdomen GI Exam: Soft, Non-Tender, Bowel Sounds Present (She Medeiros) Musculoskeletal MS Exam: Joints Intact, Normal Tone (She Medeiros) Integumentary Skin Exam: Clear, Warm, Dry, Intact (She Medeiros) Extremeties Extremities Exam: No Edema, Pedal Pulses Palpable (She Medeiros) Neurologic Neuro Exam: Alert, Awake, Oriented, Speech Clear, Moving All Extremities (She Medeiros) Psychiatric Psych Exam: Appropriate Responses (She Medeiros) Assessment/Plan Discussed Condition With: Patient Assessment Summary: Anemia of CKD, Hypertension, End Stage Renal Disease Problem List: (1) ESRD (end stage renal disease) on dialysis ICD Codes: N18.6 - End stage renal disease; Z99.2 - Dependence on renal dialysis Status: Chronic Plan: Continue HD support TTS Her AVF infiltrated yesterday s/p Permcath placement, 2L UF yesterday Bleeding continues around catheter side, IR nurse to come and evaluate, may need antithrombin IVF not required Protect right arm from procedures High protein diet encouraged (2) Acute CVA (cerebrovascular accident) ICD Codes: I63.9 - Cerebral infarction, unspecified Status: Acute Plan: Neurology is following Monitor neuro status per protocol Echo 35-40%, global hypokinesis She has been started on ASA (3) HTN (hypertension) ICD Codes: I10 - Essential (primary) hypertension Status: Chronic Plan: Monitor blood pressure (4) Anemia ICD Codes: D64.9 - Anemia, unspecified Plan: Epogen with dialysis ordered venofer (5) PAF (paroxysmal atrial fibrillation) ICD Codes: I48.0 - Paroxysmal atrial fibrillation Status: Resolved Plan: Rhythm is regular this morning She has not been started on any antiarrhythmics On ASA, not fully anticoagulated Plan Once bleeding subsides, she is stable for discharge to SNF. (She Medeiros) Plan patient was seen and examined. Agree with above assessment and plan. Continue dialysis TTS. Possible discharge to rehab. (Devon Torres MD) Problem Qualifiers (1) HTN (hypertension): Qualified Codes: I10 - Essential (primary) hypertension She Medeiros Apr 01, 2017 09:38 Devon Torres MD Apr 01, 2017 14:58
--- NOTE | 2017-04-01 09:46 | HHI.PR ---
Review/Management Diagnosis 1. Acute ischemic lacunar infarct. 2. Hypertension. 3. Recent onset A fib 4. Chronic kidney disease on chronic dialysis. Plan 1. Neuro checks q. 4 hourly. 2. Aspirin 325 mg daily 3. Statin. 4. Telemetry. 5. DVT prophylaxis. 6. GI prophylaxis. 7. PT/OT recommendations are appreciated. 8. The patient walks using a walker at baseline. 9.Blood pressure 130-135/75-80. 10. Needs inpatient rehab 11. May need to be anticoagulated in the future, cardiology do not feel she is a candidate at this time in view of the anemia Diagnosis/Plan: Subjective Subjective Comments No acute events reported Patient denies headache, double vision, worsening of symptoms On antiplatelets and statins Complains of hand joint pains/chronic ECHO with EF 35-40%, pulmonary hypertension and pleural effusion Active Medications Current Medications Medications (Trade) Dose Ordered Sig/Angel Route Start Time Stop Time Status Last Admin (Vitamin D3) 1,000 units DAILY PO 03/30/17 09:00 04/01/17 08:24 (Lasix) 80 mg DAILY PO 03/30/17 09:00 04/01/17 08:24 (Pravachol) 10 mg DAILY PO 03/30/17 09:00 04/01/17 08:24 (Theragran) 1 tab DAILY PO 03/30/17 09:00 04/01/17 08:24 (NS Flush) 2 ml BID IV FLUSH 03/29/17 21:00 04/01/17 08:25 (NS Flush) 2 ml UNSCH PRN IV FLUSH 03/29/17 12:15 (NovoLOG SUPPLEMENTAL SCALE) 1 ACHS SQ 03/29/17 17:00 03/31/17 22:29 (D50w (Vial) Inj) 50 ml UNSCH PRN IV PUSH 03/29/17 12:15 (Glucagon Inj) 1 mg UNSCH PRN OTHER 03/29/17 12:15 (Heparin Inj) 5,000 units Q12H SQ 03/29/17 14:00 03/31/17 13:37 (Norvasc) 2.5 mg DAILY PO 03/29/17 17:00 04/01/17 08:24 (Pill Splitter) 1 ea UNSCH PRN OTHER 03/29/17 16:30 Sodium Chloride 1,000 ml @ 0 mls/hr Q0M PRN OTHER 03/30/17 08:49 (Heparin Inj) 8,000 units UNSCH PRN IV FLUSH 03/30/17 09:00 Sodium Chloride 1,000 ml @ 200 mls/hr Q5H PRN IV 03/30/17 08:49 Sodium Chloride 1,000 ml @ 0 mls/hr Q0M PRN OTHER 03/30/17 08:49 (Mannitol Inj) 12.5 gm UNSCH PRN IV 03/30/17 09:00 Albumin Human 100 ml @ 60 mls/hr UNSCH PRN IV 03/30/17 09:00 (NS Flush) 5 ml UNSCH PRN IV FLUSH 03/30/17 09:00 (Heparin Inj) UNSCH PRN .XX 03/30/17 09:00 (Gentamicin (Dialysis) Inj) 20 mg UNSCH PRN OTHER 03/30/17 09:00 03/31/17 18:08 (Zofran Inj) 4 mg UNSCH PRN IV PUSH 03/30/17 09:00 (Tylenol) 650 mg UNSCH PRN PO 03/30/17 09:00 (Benadryl) 25 mg UNSCH PRN PO 03/30/17 09:00 (Nitrostat Sl) 0.4 mg UNSCH PRN SL 03/30/17 09:00 (Catapres) 0.1 mg UNSCH PRN PO 03/30/17 09:00 (Epogen Inj) 10,000 units UNSCH PRN IV PUSH 03/30/17 09:00 03/31/17 18:08 (Gelfoam 12 Mm/7 Mm Top) 1 foam UNSCH PRN TOP 03/30/17 09:00 (Tylenol) 650 mg Q6HR PRN PO 03/31/17 03:45 03/31/17 03:46 (Aspirin) 325 mg DAILY PO 03/31/17 09:00 04/01/17 09:29 Vancomycin HCl 1000 mg/Sodium Chloride 250 ml @ 250 mls/hr [employer] IV 03/31/17 10:00 04/04/17 09:59 03/31/17 12:07 Cefazolin Sodium/ Dextrose 50 ml @ 100 mls/hr [employer] IV 03/31/17 10:00 04/04/17 09:59 (NS Flush) UNSCH PRN IV FLUSH 03/31/17 12:15 (Heparin Inj) UNSCH PRN IV FLUSH 03/31/17 12:15 Iron Sucrose 100 mg/Sodium Chloride 105 ml @ 105 mls/hr ONCE ONCE IV 04/01/17 11:00 04/01/17 11:59 Iron Sucrose 100 mg/Sodium Chloride 105 ml @ 105 mls/hr DAILY IV 04/02/17 09:00 04/04/17 09:59 UNV Allergies Allergies Coded Allergies No Known Allergies (Unverified Allergy, Unknown, 03/29/17) Review of Systems All other ROS: ROS reviewed as documented in chart Exam I&O / VS Vital Signs Date Time Temp Pulse Resp B/P (MAP) Pulse Ox O2 Delivery O2 Flow Rate FiO2 04/01/17 07:36 98.0 76 20 155/74 (101) 97 04/01/17 07:00 68 04/01/17 04:20 98.1 70 22 148/70 (96) 97 04/01/17 00:23 98.3 71 18 141/67 (91) 96 03/31/17 23:00 62 03/31/17 22:17 95 Nasal Cannula 2.00 03/31/17 20:00 97.3 73 22 138/65 (89) 97 03/31/17 15:08 63 03/31/17 13:22 63 20 147/76 (99) 93 03/31/17 12:52 59 20 140/65 (90) 97 03/31/17 12:22 97.0 57 18 137/68 (91) 97 Exam Comments General: Awake, alert, good historian, not in acute distress. HEENT: Atraumatic, normocephalic. Intact hearing. Intact vision, pale looking. Neck: Supple. Trachea in the midline. No signs of meningeal irritation. Cardiovascular: Regular rate and rhythm. Respiratory: Clear to auscultation. No wheezes. Gastrointestinal: Soft abdomen, nontender. Extremities: Without clubbing, cyanosis, Rheumatoid fingers. Neurologic: Awake and alert, oriented to time, person and place. No dysarthria , no dysphagia. No facial asymmetry. No diplopia or nystagmus. Cranial nerves II-XII are grossly intact. [id number] intact, sensation intact throughout, reflexes 1+ bilateral and symmetrical. Plantar right upgoing, positive Babinski. Left downgoing. Bilateral upper and lower extremity are grossly 5/5, no abnormal movement. Normal tone. Psychiatric: Appropriate mood and behavior, no hallucinations. Objective Radiology Results Last 72 hours Impressions Catheter Placement X-Ray 03/31/17 0000 Signed Impressions: Service Date/Time: March 11:35 - CONCLUSION: Uncomplicated PermaCath placement as above. Layton Xiao MD Micro and Labs Laboratory Tests Test 04/01/17 07:08 White Blood Count 6.9 Red Blood Count 2.94 Hemoglobin 8.9 Hematocrit 26.3 Mean Corpuscular Volume 89.3 Mean Corpuscular Hemoglobin 30.2 Mean Corpuscular Hemoglobin Concent 33.8 Red Cell Distribution Width 17.4 Platelet Count 165 Mean Platelet Volume 9.8 Neutrophils (%) (Auto) 77.6 Lymphocytes (%) (Auto) 9.9 Monocytes (%) (Auto) 8.6 Eosinophils (%) (Auto) 2.8 Basophils (%) (Auto) 1.1 Neutrophils # (Auto) 5.4 Lymphocytes # (Auto) 0.7 Monocytes # (Auto) 0.6 Eosinophils # (Auto) 0.2 Basophils # (Auto) 0.1 CBC Comment DIFF FINAL Differential Comment Blood Urea Nitrogen 36 Creatinine 3.53 Random Glucose 123 Calcium Level 8.4 Sodium Level 138 Potassium Level 3.6 Chloride Level 99 Carbon Dioxide Level 31.2 Anion Gap 8 Estimat Glomerular Filtration Rate 12 Iron Level 26 Total Iron Binding Capacity 235 Percent Iron Saturation 11.1 Vinod Rios MD Apr 01, 2017 09:46
[2017-04-01] MEDS ORDERED: IRON SUCROSE INJ 100 MG in SODIUM CHLORIDE 0.9% INJ 100 ML IV ONE (11:00)
[2017-04-01] MEDS ORDERED: THROMBIN (TOPICAL) 5,000 UNIT VIAL ONE (12:09)
--- NOTE | 2017-04-01 12:17 | HHI.PR ---
Subjective Remarks Doing okay. No complaints of this time willing to go to rehabilitation. Objective Vitals Vital Signs Date Time Temp Pulse Resp B/P (MAP) Pulse Ox O2 Delivery O2 Flow Rate FiO2 04/01/17 11:07 97.9 68 20 152/69 (96) 92 04/01/17 10:07 95 2.00 04/01/17 07:36 98.0 76 20 155/74 (101) 97 04/01/17 07:00 68 04/01/17 04:20 98.1 70 22 148/70 (96) 97 04/01/17 00:23 98.3 71 18 141/67 (91) 96 03/31/17 23:00 62 03/31/17 22:17 95 Nasal Cannula 2.00 03/31/17 20:00 97.3 73 22 138/65 (89) 97 03/31/17 15:08 63 03/31/17 13:22 63 20 147/76 (99) 93 03/31/17 12:52 59 20 140/65 (90) 97 03/31/17 12:22 97.0 57 18 137/68 (91) 97 I/O 03/31/17 03/31/17 03/31/17 04/01/17 04/01/17 04/01/17 07:00 15:00 23:00 07:00 15:00 23:00 Intake Total 120 ml 120 ml Output Total 2000 ml Balance 120 ml -1880 ml Intake Oral 120 ml 120 ml Output Hemodialysis 2000 ml # Voids 1 2 # Bowel Movements 0 Result Diagram: 04/01/17 0708 04/01/17 07 Other Results Item Value Date Time Total Iron Binding Capacity 235 MCG/DL L 04/01/17 0708 Calcium Level 8.4 MG/DL L 04/01/17 0708 Iron Level 26 MCG/DL L 04/01/17 0708 Imaging L Objective Remarks GENERAL: This is a well-nourished, well-developed patient, in no apparent distress. Right neck, bandage clean dry intact CARDIOVASCULAR: Regular rate and rhythm RESPIRATORY: Clear to auscultation. Breath sounds equal bilaterally. No wheezes , rales, or rhonchi. GASTROINTESTINAL: Abdomen soft, non-tender, nondistended. Normal active bowel sounds MUSCULOSKELETAL: Extremities without clubbing, cyanosis, or edema. NEURO: Alert & Oriented x4 to person, place, time, situation. Good family and consumer sciences professor strength bilaterally, bilateral lower extremity 5 out of 5 Procedures None A/P Problem List: (1) Acute CVA (cerebrovascular accident) ICD Code: I63.9 - Cerebral infarction, unspecified Status: Acute (2) HTN (hypertension) ICD Code: I10 - Essential (primary) hypertension Status: Chronic (3) PAF (paroxysmal atrial fibrillation) ICD Code: I48.0 - Paroxysmal atrial fibrillation Status: Resolved (4) ESRD (end stage renal disease) on dialysis ICD Code: N18.6 - End stage renal disease; Z99.2 - Dependence on renal dialysis Status: Chronic Assessment and Plan 1. Acute CVA: MRI of the brain showed tiny acute infarct superior to the frontal horn of the left frontal parietal region. Appreciate neurology recommendations. Continue PT/OT/ST. Neuro checks has remained stable. Continue Antiplatelets aspirin. At this time, cardiology does not recommend anticoagulation. 2. Paroxysmal Atrial fibrillation: New onset. Currently normal sinus rhythm . Echocardiogram noted with a EF of 35-40%. Cardiology is not recommending anticoagulation at this time. 3. Hypertension, essential: Continue Lasix, amlodipine. Overall blood pressure controlled. 4. Hyperlipidemia: Continue statin. 5. End-stage renal disease: On hemodialysis Tuesday//Tuesday. Appreciate nephrology management. A functional permacath had to be placed yesterday to continue hemodialysis due to infiltrated AV fistula. 6. Chronic anemia likely due to end-stage renal disease- Epogen, this has remained stable 7. DVT prophylaxis -heparin Discharge Planning Discharge to care home facility today. Problem Qualifiers (1) HTN (hypertension): Qualified Codes: I10 - Essential (primary) hypertension Darlene Barton MD Apr 01, 2017 12:17
--- NOTE | 2017-04-01 12:21 | HHI.DCPOC ---
Discharge Care Plan Diagnosis: (1) Acute CVA (cerebrovascular accident) (2) ESRD (end stage renal disease) on dialysis Goals to Promote Your Health * To prevent worsening of your condition and complications * To maintain your health at the optimal level Directions to Meet Your Goals Take your medications as prescribed Follow your dietary instruction Follow activity as directed Keep your appointments as scheduled Take your immunizations and boosters as scheduled If your symptoms worsen call your PCP, if no PCP go to Urgent Care Center or Emergency Room Smoking is Dangerous to Your Health. Avoid second hand smoke Call the 24-hour hour crisis hotline for domestic abuse at Darlene Barton MD Apr 01, 2017 12:20
--- NOTE | 2017-04-01 12:21 | HHI.DCPOC ---
Discharge Care Plan Diagnosis: (1) Acute CVA (cerebrovascular accident) (2) ESRD (end stage renal disease) on dialysis Goals to Promote Your Health * To prevent worsening of your condition and complications * To maintain your health at the optimal level Directions to Meet Your Goals Take your medications as prescribed Follow your dietary instruction Follow activity as directed Keep your appointments as scheduled Take your immunizations and boosters as scheduled If your symptoms worsen call your PCP, if no PCP go to Urgent Care Center or Emergency Room Smoking is Dangerous to Your Health. Avoid second hand smoke Call the 24-hour hour crisis hotline for domestic abuse at Darlene Barton MD Apr 01, 2017 12:20
--- NOTE | 2017-04-01 12:21 | HHI.DCPOC ---
Discharge Care Plan Diagnosis: (1) Acute CVA (cerebrovascular accident) (2) ESRD (end stage renal disease) on dialysis Goals to Promote Your Health * To prevent worsening of your condition and complications * To maintain your health at the optimal level Directions to Meet Your Goals Take your medications as prescribed Follow your dietary instruction Follow activity as directed Keep your appointments as scheduled Take your immunizations and boosters as scheduled If your symptoms worsen call your PCP, if no PCP go to Urgent Care Center or Emergency Room Smoking is Dangerous to Your Health. Avoid second hand smoke Call the 24-hour hour crisis hotline for domestic abuse at Darlene Barton MD Apr 01, 2017 12:20
--- NOTE | 2017-04-01 12:22 | HHI.DS ---
Discharge Summary Admission Date Mar 29, 2017 at 12:08 Discharge Date: Apr 01, 2017 Admitting Diagnosis acute CVA. Chronic kidney disease on dialysis. (1) Acute CVA (cerebrovascular accident) ICD Code: I63.9 - Cerebral infarction, unspecified Diagnosis: Principal Status: Acute (2) HTN (hypertension) ICD Code: I10 - Essential (primary) hypertension Diagnosis: Secondary Status: Chronic (3) PAF (paroxysmal atrial fibrillation) ICD Code: I48.0 - Paroxysmal atrial fibrillation Diagnosis: Secondary Status: Resolved (4) ESRD (end stage renal disease) on dialysis ICD Code: N18.6 - End stage renal disease; Z99.2 - Dependence on renal dialysis Diagnosis: Secondary Status: Chronic Procedures None Brief History - From Admission Obtained from attending physician's history of present illness and history and physical Patient is an 89-year-old female with primary medical history of end-stage renal disease on hemodialysis, HTN, HLD who came into the hospital for further evaluation of weakness. As per patient she felt weak after being in to the bathroom. Came out of the bathroom and states that " I just collapsed." States her "feet went under." Denies any history of TIA, CVA. Denies any change in mental status, change in vision. Denies chest pain, headaches, dizziness. Denies nausea, vomiting, diarrhea, constipation. Denies shortness of breath or dyspnea. CBC/BMP: 04/01/17 0708 04/01/17 0708 Significant Findings Laboratory Tests Test 03/29/17 13:37 03/29/17 20:44 03/30/17 05:20 03/30/17 12:35 Blood Urea Nitrogen 39 MG/DL (7-18) Creatinine 4.17 MG/DL (0.50-1.00) Estimat Glomerular Filtration Rate 10 ML/MIN (>89) Red Blood Count 3.38 MIL/MM3 (4.00-5.30) Hemoglobin 10.1 GM/DL (11.6-15.3) Hematocrit 31.0 % (35.0-46.0) Red Cell Distribution Width 17.7 % (11.6-17.2) Neutrophils (%) (Auto) 81.5 % (16.0-70.0) Lymphocytes (%) (Auto) 8.7 % (9.0-44.0) Lymphocytes # (Auto) 0.6 TH/MM3 (1.0-4.8) Test 04/01/17 07:08 Red Blood Count 2.94 MIL/MM3 (4.00-5.30) Hemoglobin 8.9 GM/DL (11.6-15.3) Hematocrit 26.3 % (35.0-46.0) Red Cell Distribution Width 17.4 % (11.6-17.2) Neutrophils (%) (Auto) 77.6 % (16.0-70.0) Monocytes (%) (Auto) 8.6 % (0.0-8.0) Lymphocytes # (Auto) 0.7 TH/MM3 (1.0-4.8) Blood Urea Nitrogen 36 MG/DL (7-18) Creatinine 3.53 MG/DL (0.50-1.00) Random Glucose 123 MG/DL (74-106) Calcium Level 8.4 MG/DL (8.5-10.1) Estimat Glomerular Filtration Rate 12 ML/MIN (>89) Iron Level 26 MCG/DL (50-170) Total Iron Binding Capacity 235 MCG/DL (250-450) Percent Iron Saturation 11.1 % (20-50) Imaging Last Impressions Catheter Placement X-Ray 03/31/17 0000 Signed Impressions: Service Date/Time: March 11:35 - CONCLUSION: Uncomplicated PermaCath placement as above. Layton Xiao MD Brain MRI 03/29/17 0916 Signed Impressions: Service Date/Time: Wednesday, March 29, 2017 09:25 - CONCLUSION: 1. Tiny acute infarction superior to the frontal horn of the left frontal parietal region. No surrounding edema. No evidence of hemorrhage. 2. Ischemic atrophy and white matter changes, appropriate for age. Arron Roberson MD Thoracic Spine MRI 03/29/17 0753 Signed Impressions: Service Date/Time: Wednesday, March 29, 2017 09:25 - CONCLUSION: 1. Minimal degenerative changes with posterior osteophytes at T6-7, but no significant deformity of the thecal sac. 2. No compression deformities seen. 3. Moderate-sized bilateral pleural effusions. Arron Roberson MD Lumbar Spine MRI 03/29/17 0753 Signed Impressions: Service Date/Time: Wednesday, March 29, 2017 09:25 - CONCLUSION: Mild multilevel degenerative changes without evidence of disc protrusion or neural impingement. Arron Roberson MD Cervical Spine MRI 03/29/17 0753 Signed Impressions: Service Date/Time: Wednesday, March 29, 2017 09:25 - CONCLUSION: Multilevel degenerative changes with bridging osteophytes C4-C6 and multilevel bony neuroforaminal stenosis. Arron Roberson MD Chest X-Ray 03/29/17 0614 Signed Impressions: Service Date/Time: Wednesday, March 29, 2017 06:29 - CONCLUSION: No significant change Nick Owen MD Lower Extremity Ultrasound 03/29/17 0000 Signed Impressions: Service Date/Time: Wednesday, March 29, 2017 16:17 - CONCLUSION: No evidence of deep venous thrombosis within the left lower extremity. Jin Arce MD Carotid Artery Ultrasound 03/29/17 0000 Signed Impressions: Service Date/Time: Wednesday, March 29, 2017 13:56 - CONCLUSION: Bilateral carotid plaque formation with hemodynamic profile characteristic of less than 50%% stenosis. Arron Roberson MD PE at Discharge GENERAL: This is a well-nourished, well-developed patient, in no apparent distress. Right neck, bandage clean dry intact CARDIOVASCULAR: Regular rate and rhythm RESPIRATORY: Clear to auscultation. Breath sounds equal bilaterally. No wheezes , rales, or rhonchi. GASTROINTESTINAL: Abdomen soft, non-tender, nondistended. Normal active bowel sounds MUSCULOSKELETAL: Extremities without clubbing, cyanosis, or edema. NEURO: Alert & Oriented x4 to person, place, time, situation. Good marriage and family counselor strength bilaterally, bilateral lower extremity 5 out of 5 Hospital Course These are the medical issues addressed during this hospitalization: Patient was admitted for acute CVA 1. Acute CVA: MRI of the brain showed tiny acute infarct superior to the frontal horn of the left frontal parietal region. Neurology service consulted during the hospitalization. Continue PT/OT/ST. Neuro checks has remained stable since admission of the acute CVA. Antiplatelets aspirin started. At this time, cardiology does not recommend anticoagulation. 2. Paroxysmal Atrial fibrillation: New onset. Currently normal sinus rhythm . Echocardiogram noted with a EF of 35-40%. Cardiology is not recommending anticoagulation at this time due to her chronic anemia and had end-stage renal disease requiring dialysis. 3. Hypertension, essential: Continue Lasix, amlodipine. Overall blood pressure controlled. 4. Hyperlipidemia: Continue statin. 5. End-stage renal disease: On hemodialysis Tuesday//Tuesday. Appreciate nephrology management. A functional permacath had to be placed during the hospitalization to continue hemodialysis due to infiltrated AV fistula. 6. Chronic anemia likely due to end-stage renal disease- Epogen 7. DVT prophylaxis -heparin At this time, patient has a maximum benefit from hospitalization is ready to be discharged to correction facility. Pt Condition on Discharge: Good Discharge Disposition: Discharge to SNF Discharge Time: <= 30 minutes Discharge Instructions DIET: Follow Instructions for: Heart Healthy Diet, Dialysis Diet Activities you can perform: Regular-No Restrictions Follow up Referrals: Nephrology - 2-3 Days PCP Follow-up - 1 Week New Medications: Aspirin (Aspirin) 325 Mg Tab 325 MG PO DAILY for Blood Clot Prevention, #30 TAB Continued Medications: Amlodipine (Amlodipine) 2.5 Mg Tab 2.5 MG PO DAILY for Blood Pressure Management, #30 TAB 0 Refills Cholecalciferol (Vitamin D-1000) 1,000 Unit Tab 1000 UNITS PO DAILY for Nutritional Supplement, #1 BOTTLE 0 Refills Doxazosin (Doxazosin) 2 Mg Tab 2 MG PO HS, #30 TAB 0 Refills Furosemide (Furosemide) 80 Mg Tab 80 MG PO DAILY, #30 TAB 0 Refills Multiple Vitamin (Multiple Vitamin) 1 Tab 1 TAB PO DAILY for Nutritional Supplement, TAB 0 Refills Pravastatin (Pravastatin) 10 Mg Tab 10 MG PO DAILY for Cholesterol Management, #30 TAB 0 Refills Darlene Barton MD Apr 01, 2017 12:22
[2017-04-02] MEDS ORDERED: IRON SUCROSE INJ 100 MG in SODIUM CHLORIDE 0.9% INJ 100 ML IV SCH (09:00)
== END 2017-04-01 16:30 | DRG 64 ==
LOC: NEPE 05:36 → NEDA 12:08 → N04B 14:36 → N05B 18:18
PROVIDERS: ADMIT Family Medicine; ATTEND Family Medicine
PROC: 5A1D70Z Performance of Urinary Filtration, Intermittent, Less than 6 Hours Per Day (ICD-10-PCS; principal; 2017-03-31)
PROC: 05HM33Z Insertion of Infusion Device into Right Internal Jugular Vein, Percutaneous Approach (ICD-10-PCS; 2017-03-31)
PROC: B543ZZA Ultrasonography of Right Jugular Veins, Guidance (ICD-10-PCS; 2017-03-31)
DX: I63.9 Cerebral infarction, unspecified (principal); N18.6 End stage renal disease; I12.0 Hypertensive chronic kidney disease with stage 5 chronic kidney disease or end stage renal disease; E11.22 Type 2 diabetes mellitus with diabetic chronic kidney disease; Z79.84 Long term (current) use of oral hypoglycemic drugs; I48.0 Paroxysmal atrial fibrillation; T82.898A Other specified complication of vascular prosthetic devices, implants and grafts, initial encounter; D63.1 Anemia in chronic kidney disease; Z99.2 Dependence on renal dialysis; E78.5 Hyperlipidemia, unspecified; M25.549 Pain in joints of unspecified hand; Z87.891 Personal history of nicotine dependence; Z23 Encounter for immunization
CPT/HCPCS: 36558; 70551; 71010; 72141; 72146; 72148; 76937; 77001; 80048; 80053; 80061; 81001; 82550; 82948; 83036; 83540; 83550; 84443; 84484; 85025; 90686; 90935; 93306; 93880; 93971; 94150; 96374; 96375; 99152; C1750; C1769; J1580; J1644; J1756; J1815; J2250; J3010; J3370; J7050; Q2038; Q4081

== ENCOUNTER 2017-04-19 05:52 | Inpatient (IN) | payer OTHER, MEDICARE ==
[~2017-04-19] VITALS: Ht 157.5 cm; Wt 60.3 kg
[2017-04-19] VITALS (7 sets, daily range): BP systolic 119–129; BP diastolic 57–63; PULSE 70–80; RESP 14–22; TEMP 98.4–99.7; O2SAT 90–100
[~2017-04-19 05:52] MED LIST changes: +ASPI-183 PO
[2017-04-19] MEDS: PIPERACIL-TAZO 2.25 GM PREMIX 50 ML IV ONE ×2 (06:12→07:09)
[2017-04-19] MEDS ORDERED: ONDANSETRON HCL 4 MG/2 ML VIAL IV PUSH ONE (06:15)
[2017-04-19] MEDS ORDERED: ACETAMINOPHEN 325 MG TAB PO ONE (06:15)
--- NOTE | 2017-04-19 06:15 | PD ---
HPI Chief Complaint: GI Complaint Time Seen by Provider: 06:01 Travel History International Travel<30 days: No Contact w/Intl Traveler<30days: No Traveled to known affect area: No History of Present Illness HPI The patient is an 89-year-old female who arrives by EMS. She has had nausea vomiting and diarrhea for the past couple weeks. Multiple episodes daily are noted. She also undergoes hemodialysis Tuesday and went yesterday as she normally does. A subjective fever is reported. She reports decreased appetite. This morning she attempted to get out of bed however was weak and unable to ambulate and for that reason called EMS. No blood in her stool has been seen. She reports no pain with urination however reports is typical for her to get up and ambulate to the toilet due to weakness. The patient reports it is painful to elevate the right arm. PFSH Past Medical History Atrial Fibrillation: Yes Autoimmune Disease: No Diabetes: Yes Patient Takes Glucophage: No Dialysis: Yes (m,w,f) Diminished Hearing: No Hypertension: Yes Immune Disorder: No Psychiatric: No Reproductive: No ?: Not Past Surgical History Hysterectomy: Yes Other Surgery: Yes ("FEET SURGERY") Social History Alcohol Use: No Tobacco Use: No Substance Use: No Allergies-Medications (Allergen,Severity, Reaction): Coded Allergies: No Known Allergies (Unverified Allergy, Unknown, 04/19/17) Reported Meds & Prescriptions Reported Meds & Active Scripts Active Aspirin 325 Mg Tab 325 Mg PO DAILY Reported Multiple Vitamin 1 Tab 1 Tab PO DAILY Pravastatin 10 Mg Tab 10 Mg PO DAILY Doxazosin (Doxazosin Mesylate) 2 Mg Tab 2 Mg PO HS Vitamin D-1000 (Cholecalciferol) 1,000 Unit Tab 1,000 Units PO DAILY Amlodipine (Amlodipine Besylate) 2.5 Mg Tab 2.5 Mg PO DAILY Furosemide 80 Mg Tab 80 Mg PO DAILY Review of Systems Except as stated in HPI: all other systems reviewed are Neg Physical Exam Narrative GENERAL: 89-year-old female chronically ill answers questions appropriately and somewhat disheveled SKIN: Warm and dry. HEAD: Atraumatic. Normocephalic. EYES: Pupils equal and round. No scleral icterus. No injection or drainage. ENT: Please membranes are dry. NECK: Trachea midline. No JVD. CARDIOVASCULAR: Regular rate and rhythm. RESPIRATORY: Breath sounds are present bilaterally clear. There is no tachypnea. GASTROINTESTINAL: Patient has diapers on. The abdomen is soft. There is no tenderness. MUSCULOSKELETAL: No tenderness with passive range of motion of the right arm with tenderness mainly in the region of the shoulder without erythema warmth or crepitus. Patient moves all extremities normally. NEUROLOGICAL: Awake and alert. No obvious cranial nerve deficits. Motor grossly within normal limits. Five out of 5 muscle strength in the arms and legs. Normal speech. PSYCHIATRIC: Appropriate mood and affect; insight and judgment normal. Data Data Last Documented VS Vital Signs Date Time Temp Pulse Resp B/P (MAP) Pulse Ox O2 Delivery O2 Flow Rate FiO2 04/19/17 05:57 99.7 77 14 90 Orders Orders Sepsis Workup Initiated (04/19/17 ) Electrocardiogram (04/19/17 06:01) Complete Blood Count With Diff (04/19/17 06:01) Comprehensive Metabolic Panel (04/19/17 06:01) Prothrombin Time / Inr (Pt) (04/19/17 06:01) Act Partial Throm Time (Ptt) (04/19/17 06:01) Lactic Acid Sepsis Protocol (04/19/17 06:01) Ckmb (Isoenzyme) Profile (04/19/17 06:01) Troponin I (04/19/17 06:01) Urinalysis - C+S If Indicated (04/19/17 06:01) Blood Culture (04/19/17 06:01) Chest, Single Ap (04/19/17 06:01) Blood Glucose (04/19/17 06:01) Ecg Monitoring (04/19/17 06:01) Iv Access Insert/Monitor (04/19/17 06:01) Oximetry (04/19/17 06:01) Oxygen Administration (04/19/17 06:01) Acetaminophen (Tylenol) (04/19/17 06:15) Ondansetron Inj (Zofran Inj) (04/19/17 06:15) Piperacil-Tazo 2.25 Gm Premix (Zosyn 2.2 (04/19/17 06:15) C Diff Toxin Pcr (04/19/17 06:15) MDM Medical Decision Making Medical Screen Exam Complete: Yes Emergency Medical Condition: Yes Medical Record Reviewed: Yes Differential Diagnosis Sepsis, severe sepsis, septic shock. Electrolyte imbalance urinary tract infection C. difficile colitis Narrative Course Blood work pending at the time of dictation. Oncoming provider to follow-up test results and disposition patient. Sudhir Hubbard MD Apr 19, 2017 06:15
[2017-04-19 06:57] LABS: AUTOMATED NEUTROPHIL # 18.1 TH/MM3 (1.8-7.7); BASOPHIL % 0.2 % (0.0-2.0); HEMATOCRIT 28.9 % (35.0-46.0); HEMO FLAGS DIFF FINAL; LYMPH % 2.7 % (9.0-44.0); LYMPHOCYTE # 0.5 TH/MM3 (1.0-4.8); MEAN CELL VOLUME 93.6 FL (80.0-100.0); MEAN CORPUSCULAR HEMOGLOBIN 30.3 PG (27.0-34.0); MEAN CORPUSCULAR HGB CONC 32.4 % (32.0-36.0); MONO % 4.9 % (0.0-8.0); NEUT % 92.2 % (16.0-70.0); PLATELET COUNT 190 TH/MM3 (150-450); RED BLOOD COUNT 3.09 MIL/MM3 (4.00-5.30); RED CELL DISTRIBUTION WIDTH 19.7 % (11.6-17.2); WHITE BLOOD COUNT 19.6 TH/MM3 (4.0-11.0)
[2017-04-19 07:18] LABS: APTT (PATIENT) 31.6 SEC (24.3-30.1); INTERNATIONAL NORMALIZED RATIO 1.2 RATIO; PROTHROMBIN TIME - PATIENT 13.1 SEC (9.8-11.6)
[2017-04-19 07:23] LABS: ALT (GPT) 10 U/L (10-53); ANION GAP 10 MEQ/L (5-15); AST (GOT) 19 U/L (15-37); BICARBONATE 26.9 MEQ/L (21.0-32.0); BLOOD UREA NITROGEN 20 MG/DL (7-18); CHLORIDE 106 MEQ/L (98-107); GLOMERULAR FILTRATION RATE 20 ML/MIN (>89); SODIUM (NA) 143 MEQ/L (136-145)
[2017-04-19 07:27] LABS: ALKALINE PHOSPHATASE 97 U/L (45-117); CREATINE KINASE 18 U/L (26-192); TOTAL BILIRUBIN ADULT 0.9 MG/DL (0.2-1.0)
--- NOTE | 2017-04-19 08:08 | RADRPT ---
EXAM DATE/TIME: 04/19/2017 06:18 [facility] COMPARISON: CHEST SINGLE AP, March 29, 2017, 6:29. INDICATIONS : Shortness of breath. MEDICAL HISTORY : Hypertension. Dialysis. Diabetes. Renal disease. SURGICAL HISTORY : Hysterectomy. ENCOUNTER: Initial ACUITY: 1 day PAIN SCORE: 0/10 LOCATION: Bilateral chest FINDINGS: The cardiac silhouette is enlarged in transverse diameter. A permacath is in place via right internal jugular approach with its tip in the superior vena cava. There is left lower lobe atelectasis versus pneumonia. There is prominence of the central pulmonary vasculature with indistinct vascular margins compatible with vascular congestion but no evidence of overt failure. CONCLUSION: 1. Cardiomegaly and findings of vascular congestion without overt failure. 2. Left lower lobe atelectasis versus pneumonia. Gavin Cole MD on April 19, 2017 at 8:03 Board Certified Radiologist. This report was verified electronically.
[2017-04-19] MEDS ORDERED: SODIUM CHLOR 0.9% 1000 ML INJ 1,000 ML IV ONE (08:30)
[2017-04-19 08:48] LABS: BACTERIA, URINE OCC /hpf; BLOOD, URINE NEG (NEG); GLUCOSE,URINE NEG (NEG); KETONE, URINE NEG (NEG); MUCUS URINE FEW /lpf (OCC); NITRITE,URINE NEG (NEG); PH, URINE 5.5 (5.0-8.5); SQUAMOUS EPITHELIAL CELL URINE 1 /hpf (0-5); URINE COLOR YELLOW (YELLW/STRAW)
[2017-04-19 08:52] LABS: COMMENT (UR) CATH-CULTURE IND; CULTURE IF INDICATED CATH CULTURE IND
--- NOTE | 2017-04-19 09:54 | RADRPT ---
EXAM DATE/TIME: 04/19/2017 09:28 [facility] COMPARISON: No previous studies available for comparison. INDICATIONS : Nausea, vomiting, and diarrhea. Fever. ORAL CONTRAST: No oral contrast ingested. RADIATION DOSE: 6.64 CTDIvol (mGy) MEDICAL HISTORY : Hypertension. Diabetes SURGICAL HISTORY : Hysterectomy. ENCOUNTER: Initial ACUITY: 4 - 6 days PAIN SCALE: 0/10 LOCATION: anterior TECHNIQUE: Volumetric scanning of the abdomen and pelvis was performed. Using automated exposure control and ad justment of the mA and/or kV according to patient size, radiation dose was kept as low as reasonably achievable to obtain optimal diagnostic quality images. DICOM format image data is available electro nically for review and comparison. FINDINGS: Free fluid throughout the abdomen and the pelvis. Diffuse body wall edema LOWER LUNGS: Bilateral pleural effusions with some adjacent passive atelectasis left greater than right. The heart is enlarged. LIVER: Homogeneous density without lesion. There is no dilation of the biliary tree. No calcified gallston es but there is some increased density in the dependent portion of the distended gallbladder could be tiny gallstones. Some fluid around the liver. SPLEEN: Normal size without lesion. PANCREAS: Markedly atrophic KIDNEYS: The left kidney is atrophic compared to the right. ADRENAL GLANDS: Within normal limits. VASCULAR: There is no aortic aneurysm but there is severe atherosclerotic disease. BOWEL/MESENTERY: Some portions of the transverse colon particularly the splenic flexure may be thick walled. ABDOMINAL WALL: Within normal limits. RETROPERITONEUM: There is no lymphadenopathy. BLADDER: No wall thickening or mass. REPRODUCTIVE: Within normal limits. INGUINAL: There is no lymphadenopathy or hernia. MUSCULOSKELETAL: Within normal limits for patient age. CONCLUSION: There is marked diffuse edema and free fluid throughout the abdomen and the pelvis. At times the colo kasandra wall particularly near the splenic flexure does appear to be thick walled raising the possibility of colitis. There is dense atherosclerotic disease without evidence of aneurysm. The left kidney is markedly atrophic likely left renal artery stenosis. Distended gallbladder with questionable small no ncalcified gallstones. Willie Escobar MD on April 19, 2017 at 9:48 Board Certified Radiologist. This report was verified electronically.
[2017-04-19] MEDS ORDERED: SENNOSIDES 8.6 MG TAB PO PRN (10:30)
[2017-04-19] MEDS ORDERED: LACTULOSE SYRUP 20 GM/30 ML CUP PO PRN (10:30)
[2017-04-19] MEDS ORDERED: MAGNESIUM HYDROXIDE SUSP 30 ML CUP PO PRN (10:30)
[2017-04-19] MEDS ORDERED: SODIUM CHLORIDE 0.9% FLUSH 10 ML FLUSH IV FLUSH PRN ×2 (10:30→12:00)
[2017-04-19] MEDS ORDERED: ONDANSETRON HCL 4 MG/2 ML VIAL IVP PRN (10:30)
[2017-04-19] MEDS ORDERED: NALOXONE HCL 0.4 MG/ML AMP IV PUSH PRN (10:30)
[2017-04-19] MEDS ORDERED: ACETAMINOPHEN 325 MG TAB PO PRN ×2 (10:30→12:00)
[2017-04-19] MEDS ORDERED: BISACODYL 10 MG SUPP RECTAL PRN (10:30)
[2017-04-19 10:49] LABS: C. DIFF EPI 027 PRESUMPTIVE POSITIVE (NEGATIVE)
[2017-04-19] MEDS: SODIUM CHLOR 0.45% 1000 ML INJ 1,000 ML IV SCH (11:00)
--- NOTE | 2017-04-19 11:25 | RADRPT ---
EXAM DATE/TIME: 04/19/2017 10:29 [facility] COMPARISON: CT ABDOMEN & PELVIS W/O CONTRAST, April 19, 2017, 9:28. INDICATIONS : Nausea and vomiting. MEDICAL HISTORY : Hypertension. Atrail fibrillation. Diabetes. Dialysis. SURGICAL HISTORY : Hysterectomy. ENCOUNTER: Initial ACUITY: 1 day PAIN SCORE: 3/10 LOCATION: Right upper quadrant MEASUREMENTS: LIVER: 18.2 cm length COMMON DUCT: 6 mm RIGHT KIDNEY: 10.3 x 4.5 x 5.1 cm FINDINGS: LIVER: Liver demonstrates grossly normal echotexture without significant volume loss or focal mass. There is small ascites with fluid noted in the pelvis and along the dome of the liver. COMMON DUCT: No intraluminal mass or stone visualized. GALLBLADDER: Mild gallbladder wall thickening with small amount of gallbladder sludge. No sonographic Hoyos's sig n or definitive pericholecystic fluid. PANCREAS: The visualized portions are within normal limits. RIGHT KIDNEY: Diffusely increased cortical echogenicity of the right kidney. No stone, mass or hydronephrosis. CONCLUSION: 1. Small amount of ascites. 2. Small amount of gallbladder sludge with mild gallbladder wall thickening likely related to ascites . Otherwise, no definitive evidence for acute cholecystitis although sensitivity is decreased due to ascites. Consider HIDA scan if there is significant continued clinical concern regarding cholecystiti s. 3. Increased right renal cortical echogenicity consistent with medical renal disease. Layton Xiao MD on April 19, 2017 at 11:17 Board Certified Radiologist. This report was verified electronically.
[2017-04-19] MEDS ORDERED: SODIUM CHLOR 0.9% 1000 ML INJ 1,000 ML OTHER PRN ×2 (11:53)
[2017-04-19] MEDS ORDERED: SODIUM CHLOR 0.9% 1000 ML INJ 1,000 ML IV PRN (11:53)
--- NOTE | 2017-04-19 11:53 | PD.CONS ---
HPI Service Nephrology Consult Requested By Reason for Consult ESRD on HD Primary Care Physician Unknown History of Present Illness This is a 89 y/o dialysis patient who called EMS for weakness. SHe has been having diarrhea fof approximately one week. PMH listed below includes HTN, anemia, CVA, and metabolic bone disorder. She was given vancomycin and Fortaz for exit site erythema (Permcath) that was placed last admission. Her AVF was infiltrated at that time. She is awake, has pain in her right abdomen. CT taken, shows free fluid in abdomen and pelvis with ascites. She was dialyzed in full yesterday. We were consulted to assist. (She Medeiros) Review of Systems Constitutional: COMPLAINS OF: Fatigue, Change in appetite Respiratory: DENIES: Cough, Shortness of breath Cardiovascular: DENIES: Chest pain Gastrointestinal: COMPLAINS OF: Abdominal pain, Diarrhea, Nausea (She Medeiros) Past Family Social History Allergies: Coded Allergies: No Known Allergies (Unverified Allergy, Unknown, 04/19/17) Past Medical History ESRD on HD TTS HTN Anemia Hyperlipidemia DM II CVA A fib Metabolic bone disorder Past Surgical History AVF right arm Hysterectomy Reported Medications Aspirin 325 Mg Tab 325 Mg PO DAILY Reported Multiple Vitamin 1 Tab 1 Tab PO DAILY Pravastatin 10 Mg Tab 10 Mg PO DAILY Doxazosin (Doxazosin Mesylate) 2 Mg Tab 2 Mg PO HS Vitamin D-1000 (Cholecalciferol) 1,000 Unit Tab 1,000 Units PO DAILY Amlodipine (Amlodipine Besylate) 2.5 Mg Tab 2.5 Mg PO DAILY Furosemide 80 Mg Tab 80 Mg PO DAILY Active Ordered Medications Current Medications Medications (Trade) Dose Ordered Sig/Angel Route Start Time Stop Time Status Last Admin Sodium Chloride 1,000 ml @ 75 mls/hr [id number] IV 04/19/17 11:00 (NS Flush) 2 ml UNSCH PRN IV FLUSH 04/19/17 10:30 (NS Flush) 2 ml BID IV FLUSH 04/19/17 21:00 (Tylenol) 650 mg Q4H PRN PO 04/19/17 10:30 (Zofran Inj) 4 mg Q6H PRN IVP 04/19/17 10:30 (Narcan Inj) 0.4 mg UNSCH PRN IV PUSH 04/19/17 10:30 (Milk Of Magnesia Liq) 30 ml Q12H PRN PO 04/19/17 10:30 (Senokot) 17.2 mg Q12H PRN PO 04/19/17 10:30 (Dulcolax Supp) 10 mg DAILY PRN RECTAL 04/19/17 10:30 (Lactulose Liq) 30 ml DAILY PRN PO 04/19/17 10:30 Piperacillin Sod/ Tazobactam Sod 50 ml @ 100 mls/hr Q8H IV 04/19/17 15:00 (Norvasc) 2.5 mg DAILY PO 04/20/17 09:00 (Aspirin) 325 mg DAILY PO 04/20/17 09:00 (Vitamin D3) 1,000 units DAILY PO 04/20/17 09:00 (Cardura) 2 mg HS PO 04/19/17 21:00 (Pravachol) 10 mg DAILY PO 04/20/17 09:00 (Theragran) 1 tab DAILY PO 04/20/17 09:00 Family History No hx of renal disorders Social History She is , recently taken to [facility] former smoker no ETOH independent full code retired (She Medeiros) Physical Exam Vital Signs Vital Signs Date Time Temp Pulse Resp B/P (MAP) Pulse Ox O2 Delivery O2 Flow Rate FiO2 04/19/17 10:17 70 16 128/58 (81) 100 Room Air 04/19/17 08:18 71 14 119/57 (77) 100 Room Air 04/19/17 07:04 80 16 129/63 (85) 100 Nasal Cannula 2.00 04/19/17 06:39 72 15 123/57 (79) 100 Nasal Cannula 2.00 04/19/17 06:39 72 15 123/57 (79) 100 Nasal Cannula 2.00 04/19/17 06:39 100 Nasal Cannula 2.00 04/19/17 05:57 99.7 77 14 90 Physical Exam Elderly female, awake and alert appears weak Follows commands, moves all extremities S1/S2, regular, no murmurs Lungs clear, decreased in bases , she is on oxygen Abdomen soft, tender on right Right arm AVF, patent No lower extremity edema Permcath right chest Laboratory Laboratory Tests Test 04/19/17 06:15 04/19/17 06:50 04/19/17 08:10 04/19/17 08:35 White Blood Count 19.6 Red Blood Count 3.09 Hemoglobin 9.4 Hematocrit 28.9 Mean Corpuscular Volume 93.6 Mean Corpuscular Hemoglobin 30.3 Mean Corpuscular Hemoglobin Concent 32.4 Red Cell Distribution Width 19.7 Platelet Count 190 Mean Platelet Volume 10.0 Neutrophils (%) (Auto) 92.2 Lymphocytes (%) (Auto) 2.7 Monocytes (%) (Auto) 4.9 Eosinophils (%) (Auto) 0.0 Basophils (%) (Auto) 0.2 Neutrophils # (Auto) 18.1 Lymphocytes # (Auto) 0.5 Monocytes # (Auto) 1.0 Eosinophils # (Auto) 0.0 Basophils # (Auto) 0.0 CBC Comment DIFF FINAL Differential Comment Blood Urea Nitrogen 20 Creatinine 2.33 Random Glucose 76 Total Protein 5.7 Albumin 2.0 Calcium Level 7.8 Alkaline Phosphatase 97 Aspartate Amino Transf (AST/SGOT) 19 Alanine Aminotransferase (ALT/SGPT) 10 Total Bilirubin 0.9 Sodium Level 143 Potassium Level 4.0 Chloride Level 106 Carbon Dioxide Level 26.9 Anion Gap 10 Estimat Glomerular Filtration Rate 20 Lactic Acid Level 1.4 Total Creatine Kinase 18 Troponin I 0.03 Prothrombin Time 13.1 Prothromb Time International Ratio 1.2 Activated Partial Thromboplast Time 31.6 Stool C. difficile Toxin (PCR) POSITIVE Stl C. difficile Toxin Epiderm 027 PRESUMPTIVE POSITIVE Urine Color YELLOW Urine Turbidity HAZY Urine pH 5.5 Urine Specific [place] 1.016 Urine Protein 30 Urine Glucose (UA) NEG Urine Ketones NEG Urine Occult Blood NEG Urine Nitrite NEG Urine Bilirubin NEG Urine Urobilinogen 2.0 Urine Leukocyte Esterase NEG Urine RBC LESS THAN 1 Urine WBC 1 Urine Squamous Epithelial Cells 1 Urine Amorphous Sediment FEW Urine Bacteria OCC Urine Mucus FEW Microscopic Urinalysis Comment CATH-CULTURE IND Date/Time Source Procedure Growth Status 04/19/17 06:45 Blood Peripheral Aerobic Blood Culture Pending Received 04/19/17 06:45 Blood Peripheral Anaerobic Blood Culture Pending Received 04/19/17 08:35 Urine Catheterized Urine Urine Culture Pending Received (She Medeiros) Result Diagram: 04/19/1715 04/19/17 0615 Imaging Last Impressions Chest X-Ray 04/19/17 0601 Signed Impressions: Service Date/Time: Wednesday, April 19, 2017 06:18 - CONCLUSION: 1. Cardiomegaly and findings of vascular congestion without overt failure. 2. Left lower lobe atelectasis versus pneumonia. Gavin Cole MD Gall Bladder Ultrasound 04/19/17 0000 Signed Impressions: Service Date/Time: Wednesday, April 19, 2017 10:29 - CONCLUSION: 1. Small amount of ascites. 2. Small amount of gallbladder sludge with mild gallbladder wall thickening likely related to ascites. Otherwise, no definitive evidence for acute cholecystitis although sensitivity is decreased due to ascites. Consider HIDA scan if there is significant continued clinical concern regarding cholecystitis. 3. Increased right renal cortical echogenicity consistent with medical renal disease. Layton Xiao MD Abdomen/Pelvis CT 04/19/17 0000 Signed Impressions: Service Date/Time: Wednesday, April 19, 2017 09:28 - CONCLUSION: There is marked diffuse edema and free fluid throughout the abdomen and the pelvis. At times the colonic wall particularly near the splenic flexure does appear to be thick walled raising the possibility of colitis. There is dense atherosclerotic disease without evidence of aneurysm. The left kidney is markedly atrophic likely left renal artery stenosis. Distended gallbladder with questionable small noncalcified gallstones. Willie Escobar MD (She Medeiros) Assessment and Plan Problem List: (1) ESRD (end stage renal disease) ICD Codes: N18.6 - End stage renal disease Plan: Dialyzed yesterday, we will dialyze again tomorrow Attempt to use AVF, may remove Permcath this admission Avoid IVF Intermittently monitor electrolytes Renally dose medications when appropriate Avoid right arm procedures Monitor phosphorus level, use binders if needed (2) Abdominal pain ICD Codes: R10.9 - Unspecified abdominal pain Plan: C diff positive; she has not been started on oral vancomycin or flagyl yet CT shows free fluid and ascites, surgery has been consulted Medical team to manage (3) Anemia ICD Codes: D64.9 - Anemia, unspecified Plan: Epogen with dialysis as ordered (4) A-fib ICD Codes: I48.91 - Unspecified atrial fibrillation Plan: Appears to be in sinus rhythm She is on ASA (She Medeiros) Assessment and Plan patient was seen and examined. She has C.diff colitis. Recently admitted here after suffering CVA, and sent to rehab. Patient thinks she developed diarrhea after a few days in rehab. Avoid systemic antimicrobials. I have started IV Flagyl and Oral Vancomycin. Needs nutritional support, and perhaps appetite stimulant. (Devon Torres MD) She Medeiros Apr 19, 2017 11:53 Devon Torres MD Apr 19, 2017 13:06
[2017-04-19] MEDS ORDERED: MANNITOL 12.5 GM/50 ML VIAL IV PRN (12:00)
[2017-04-19] MEDS ORDERED: ALBUMIN 25% INJ 100 ML IV PRN (12:00)
[2017-04-19] MEDS ORDERED: HEPARIN SODIUM - IV 10,000 UNITS/10 ML VIAL IV FLUSH PRN (12:00)
[2017-04-19] MEDS ORDERED: EPOETIN ALFA 10,000 UNITS/ML VIAL IV PUSH PRN (12:00)
[2017-04-19] MEDS ORDERED: diphenhydrAMINE HCL 25 MG CAP PO PRN (12:00)
[2017-04-19] MEDS ORDERED: GENTAMICIN SULFATE (DIALYSIS USE ONLY) 20 MG/2 ML VIAL OTHER PRN (12:00)
[2017-04-19] MEDS ORDERED: cloNIDine HCL 0.1 MG TAB PO PRN (12:00)
[2017-04-19] MEDS ORDERED: GELATIN 12 MM/7 MM FOAM TOP PRN (12:00)
[2017-04-19] MEDS ORDERED: HEPARIN SODIUM - IV 10,000 UNITS/10 ML VIAL PRN (12:00)
[2017-04-19] MEDS ORDERED: NITROGLYCERIN 0.4 MG SL 25 TABS/BTL SL PRN (12:00)
[2017-04-19] MEDS ORDERED: ONDANSETRON HCL 4 MG/2 ML VIAL IV PUSH PRN (12:00)
--- NOTE | 2017-04-19 12:07 | PD ---
Physical Exam Exam Limitations: Poor Historian Narrative GENERAL: Well-nourished, well-developed patient who appears chronically ill SKIN: Warm and dry. HEAD: Normocephalic and atraumatic. EYES: No injection or drainage. ENT: No nasal drainage noted. NECK: Supple, trachea midline. CARDIOVASCULAR: Regular rate and rhythm RESPIRATORY: no increased effort. No accessory muscle use. GASTROINTESTINAL: Abdomen soft, ttp in ruq, nondistended. NEUROLOGICAL: Awake. moves extremities. Normal speech. Data Data Last Documented VS Vital Signs Date Time Temp Pulse Resp B/P (MAP) Pulse Ox O2 Delivery O2 Flow Rate FiO2 04/19/17 10:17 70 16 128/58 (81) 100 Room Air 04/19/17 07:04 2.00 04/19/17 05:57 99.7 Orders Orders Sepsis Workup Initiated (04/19/17 ) Electrocardiogram (04/19/17 06:01) Complete Blood Count With Diff (04/19/17 06:01) Comprehensive Metabolic Panel (04/19/17 06:01) Prothrombin Time / Inr (Pt) (04/19/17 06:01) Act Partial Throm Time (Ptt) (04/19/17 06:01) Lactic Acid Sepsis Protocol (04/19/17 06:01) Ckmb (Isoenzyme) Profile (04/19/17 06:01) Troponin I (04/19/17 06:01) Urinalysis - C+S If Indicated (04/19/17 06:01) Blood Culture (04/19/17 06:01) Chest, Single Ap (04/19/17 06:01) Blood Glucose (04/19/17 06:01) Ecg Monitoring (04/19/17 06:01) Iv Access Insert/Monitor (04/19/17 06:01) Oximetry (04/19/17 06:01) Oxygen Administration (04/19/17 06:01) Acetaminophen (Tylenol) (04/19/17 06:15) Ondansetron Inj (Zofran Inj) (04/19/17 06:15) Piperacil-Tazo 2.25 Gm Premix (Zosyn 2.2 (04/19/17 06:15) C Diff Toxin Pcr (04/19/17 06:15) Ct Abd/Pel W/O Iv Contrast (04/19/17 ) Sodium Chlor 0.9% 1000 Ml Inj (Ns 1000 M (04/19/17 08:30) Equip, Isolation Cart (04/19/17 08:22) Isolation 08,20 (04/19/17 08:22) Urine Culture (04/19/17 08:35) Consult General Surgery (04/19/17 ) Us Abdomen Gallbladder (04/19/17 ) (Hub Use Only)Inp Phy Cons/Ref (04/19/17 ) Admit Order (Ed Use Only) (04/19/17 10:28) Labs Laboratory Tests Test 04/19/17 06:15 04/19/17 06:50 04/19/17 08:10 04/19/17 08:35 White Blood Count 19.6 TH/MM3 Red Blood Count 3.09 MIL/MM3 Hemoglobin 9.4 GM/DL Hematocrit 28.9 % Mean Corpuscular Volume 93.6 FL Mean Corpuscular Hemoglobin 30.3 PG Mean Corpuscular Hemoglobin Concent 32.4 % Red Cell Distribution Width 19.7 % Platelet Count 190 TH/MM3 Mean Platelet Volume 10.0 FL Neutrophils (%) (Auto) 92.2 % Lymphocytes (%) (Auto) 2.7 % Monocytes (%) (Auto) 4.9 % Eosinophils (%) (Auto) 0.0 % Basophils (%) (Auto) 0.2 % Neutrophils # (Auto) 18.1 TH/MM3 Lymphocytes # (Auto) 0.5 TH/MM3 Monocytes # (Auto) 1.0 TH/MM3 Eosinophils # (Auto) 0.0 TH/MM3 Basophils # (Auto) 0.0 TH/MM3 CBC Comment DIFF FINAL Differential Comment Blood Urea Nitrogen 20 MG/DL Creatinine 2.33 MG/DL Random Glucose 76 MG/DL Total Protein 5.7 GM/DL Albumin 2.0 GM/DL Calcium Level 7.8 MG/DL Alkaline Phosphatase 97 U/L Aspartate Amino Transf (AST/SGOT) 19 U/L Alanine Aminotransferase (ALT/SGPT) 10 U/L Total Bilirubin 0.9 MG/DL Sodium Level 143 MEQ/L Potassium Level 4.0 MEQ/L Chloride Level 106 MEQ/L Carbon Dioxide Level 26.9 MEQ/L Anion Gap 10 MEQ/L Estimat Glomerular Filtration Rate 20 ML/MIN Lactic Acid Level 1.4 mmol/L Total Creatine Kinase 18 U/L Troponin I 0.03 NG/ML Prothrombin Time 13.1 SEC Prothromb Time International Ratio 1.2 RATIO Activated Partial Thromboplast Time 31.6 SEC Stool C. difficile Toxin (PCR) POSITIVE Stl C. difficile Toxin Epiderm 027 PRESUMPTIVE POSITIVE Urine Color YELLOW Urine Turbidity HAZY Urine pH 5.5 Urine Specific [place] 1.016 Urine Protein 30 mg/dL Urine Glucose (UA) NEG mg/dL Urine Ketones NEG mg/dL Urine Occult Blood NEG Urine Nitrite NEG Urine Bilirubin NEG Urine Urobilinogen 2.0 MG/DL Urine Leukocyte Esterase NEG Urine RBC LESS THAN 1 /hpf Urine WBC 1 /hpf Urine Squamous Epithelial Cells 1 /hpf Urine Amorphous Sediment FEW Urine Bacteria OCC /hpf Urine Mucus FEW /lpf Microscopic Urinalysis Comment CATH-CULTURE IND MDM Supervised Visit with SONI: No Interpretation(s) CBC & BMP Diagram 04/19/17 06:15 Total Protein 5.7 L, Albumin 2.0 L, Calcium Level 7.8 L, Alkaline Phosphatase 97 , Aspartate Amino Transf (AST/SGOT) 19, Alanine Aminotransferase (ALT/SGPT) 10, Total Bilirubin 0.9 Last 24 hours Impressions Chest X-Ray 04/19/17 0601 Signed Impressions: Service Date/Time: Wednesday, April 19, 2017 06:18 - CONCLUSION: 1. Cardiomegaly and findings of vascular congestion without overt failure. 2. Left lower lobe atelectasis versus pneumonia. Gavin Cole MD Gall Bladder Ultrasound 04/19/17 0000 Signed Impressions: Service Date/Time: Wednesday, April 19, 2017 10:29 - CONCLUSION: 1. Small amount of ascites. 2. Small amount of gallbladder sludge with mild gallbladder wall thickening likely related to ascites. Otherwise, no definitive evidence for acute cholecystitis although sensitivity is decreased due to ascites. Consider HIDA scan if there is significant continued clinical concern regarding cholecystitis. 3. Increased right renal cortical echogenicity consistent with medical renal disease. Layton Xiao MD Abdomen/Pelvis CT 04/19/17 0000 Signed Impressions: Service Date/Time: Wednesday, April 19, 2017 09:28 - CONCLUSION: There is marked diffuse edema and free fluid throughout the abdomen and the pelvis. At times the colonic wall particularly near the splenic flexure does appear to be thick walled raising the possibility of colitis. There is dense atherosclerotic disease without evidence of aneurysm. The left kidney is markedly atrophic likely left renal artery stenosis. Distended gallbladder with questionable small noncalcified gallstones. Willie Escobar MD Narrative Course Signed over to me to follow workup and reevaluate Workup reveals leukocytosis without others Sirs criteria. Patient's lactate is normal. On exam patient is having abdominal pain so we will add on CT to rule out other process CT shows ascites and edema with possible colitis. Concurrently her gallbladder is distended with questionable gallstones given her pain and leukocytosis will discuss with Gen. surgery although colitis could also be a cause of her symptoms and the distended gallbladder could be related to the ascites. Will add on gallbladder ultrasound for better visualization. Patient has stable vitals here and agrees to admission C. difficile came back positive so this is likely the cause of her symptoms and gallbladder ultrasound shows no definitive signs of cholecystitis so patient should receive treatment for C. difficile and contact precautions will be continued Sepsis Criteria SIRS Criteria (2 or more): WBC > 27760, < 4000 or > 10% bands Physician Communication Physician Communication dr brady will follow along dr gomez agrees to admit Diagnosis Primary Impression: C. difficile colitis Additional Impressions: Ascites Qualified Codes: R18.8 - Other ascites Cholelithiasis Leukocytosis Qualified Codes: D72.829 - Elevated white blood cell count, unspecified Vomiting and diarrhea Dialysis patient Admitting Information Admitting Physician Requests: Admit Heather Sepulveda MD Apr 19, 2017 12:07
--- NOTE | 2017-04-19 12:25 | HHI.HP ---
HPI Service [facility] Primary Care Physician Unknown Admission Diagnosis leukocytosis, vomiting and diarrhea, ascites, cholelithiasis Diagnoses: Chief Complaint: Diarrhea and vomiting. Travel History International Travel<30 Days: No Contact w/Intl Traveler <30 Da: No Traveled to Known Affected Are: No History of Present Illness 89-year-old female with a medical history significant for end-stage renal disease on hemodialysis, hypertension, hyperlipidemia, history of diabetes, recent CVA and was discharged to a group home facility. Patient reports shortly after leaving the group home facility, she started to experience diarrhea. They have been increasing in frequency to as much as 10 bowel movements a day. It is described as loose, watery stools. No blood. This morning she became very weak and could not get out of bed therefore she called the ambulance. She reports subjective fevers. Some abdominal discomfort. Abdominal CT in the emergency room showed diffuse edema and free fluid throughout the abdomen and pelvis. C. difficile came back positive. Review of Systems Constitutional: COMPLAINS OF: Fatigue, Fever Gastrointestinal: COMPLAINS OF: Abdominal pain, Diarrhea, Nausea, Vomiting Except as stated in HPI: all other systems reviewed are Neg Past Family Social History Past Medical History End-stage renal disease on hemodialysis Recent CVA Hypertension Hyperlipidemia History of diabetes Past Surgical History Hysterectomy Reported Medications Reported Meds & Active Scripts Active Aspirin 325 Mg Tab 325 Mg PO DAILY Reported Multiple Vitamin 1 Tab 1 Tab PO DAILY Pravastatin 10 Mg Tab 10 Mg PO DAILY Doxazosin (Doxazosin Mesylate) 2 Mg Tab 2 Mg PO HS Vitamin D-1000 (Cholecalciferol) 1,000 Unit Tab 1,000 Units PO DAILY Amlodipine (Amlodipine Besylate) 2.5 Mg Tab 2.5 Mg PO DAILY Furosemide 80 Mg Tab 80 Mg PO DAILY Allergies: Coded Allergies: No Known Allergies (Unverified Allergy, Unknown, 04/19/17) Family History Father from hemorrhagic CVA in his 50s Social History Patient denies tobacco, alcohol use. Physical Exam Vital Signs Vital Signs Date Time Temp Pulse Resp B/P (MAP) Pulse Ox O2 Delivery O2 Flow Rate FiO2 04/19/17 12:04 04/19/17 10:17 70 16 128/58 (81) 100 Room Air 04/19/17 08:18 71 14 119/57 (77) 100 Room Air 04/19/17 07:04 80 16 129/63 (85) 100 Nasal Cannula 2.00 04/19/17 06:39 72 15 123/57 (79) 100 Nasal Cannula 2.00 04/19/17 06:39 72 15 123/57 (79) 100 Nasal Cannula 2.00 04/19/17 06:39 100 Nasal Cannula 2.00 04/19/17 05:57 99.7 77 14 90 Physical Exam CONSTITUTIONAL/GENERAL: This is an adequately nourished patient, in no apparent distress. Vital signs reviewed SKIN: No jaundice, rashes, or concerning lesions. Not diaphoretic. HEAD: Atraumatic. Normocephalic. EYES: Pupils equal and round and reactive. Extra ocular motions are intact. No scleral icterus. No injection or drainage. ENT: Hearing grossly normal. Nose without drainage. Throat without visible erythema, exudates, masses, or lesions. NECK: Trachea midline. Neck is supple, non-tender. No palpable thyroid enlargement or nodularity. CARDIOVASCULAR: Normal rate and regular rhythm without murmurs, gallops, or rubs. No JVD. Peripheral pulses 2+ and symmetric. RESPIRATORY/CHEST: Symmetric, unlabored respirations. Breath sounds equal and clear to auscultation bilaterally. No wheezes, crackles, rales, or rhonchi. GASTROINTESTINAL: Abdomen soft, nondistended. Mild tenderness to palpation. No hepato-splenomegaly, or palpable masses. No guarding. Bowel sounds present. MUSCULOSKELETAL: Extremities without clubbing, cyanosis, or edema. No joint tenderness or effusion noted. No calf tenderness. No mottling or clubbing. NEUROLOGICAL: Awake and alert. Motor and sensory grossly within normal limits. Follows commands. Move all extremities spontaneously. No focal deficits. PSYCHIATRIC: No obvious mood problems. No apparent hallucinations or other psychotic thought process. Laboratory Laboratory Tests Test 04/19/17 06:15 04/19/17 06:50 04/19/17 08:10 04/19/17 08:35 White Blood Count 19.6 Red Blood Count 3.09 Hemoglobin 9.4 Hematocrit 28.9 Mean Corpuscular Volume 93.6 Mean Corpuscular Hemoglobin 30.3 Mean Corpuscular Hemoglobin Concent 32.4 Red Cell Distribution Width 19.7 Platelet Count 190 Mean Platelet Volume 10.0 Neutrophils (%) (Auto) 92.2 Lymphocytes (%) (Auto) 2.7 Monocytes (%) (Auto) 4.9 Eosinophils (%) (Auto) 0.0 Basophils (%) (Auto) 0.2 Neutrophils # (Auto) 18.1 Lymphocytes # (Auto) 0.5 Monocytes # (Auto) 1.0 Eosinophils # (Auto) 0.0 Basophils # (Auto) 0.0 CBC Comment DIFF FINAL Differential Comment Blood Urea Nitrogen 20 Creatinine 2.33 Random Glucose 76 Total Protein 5.7 Albumin 2.0 Calcium Level 7.8 Alkaline Phosphatase 97 Aspartate Amino Transf (AST/SGOT) 19 Alanine Aminotransferase (ALT/SGPT) 10 Total Bilirubin 0.9 Sodium Level 143 Potassium Level 4.0 Chloride Level 106 Carbon Dioxide Level 26.9 Anion Gap 10 Estimat Glomerular Filtration Rate 20 Lactic Acid Level 1.4 Total Creatine Kinase 18 Troponin I 0.03 Prothrombin Time 13.1 Prothromb Time International Ratio 1.2 Activated Partial Thromboplast Time 31.6 Stool C. difficile Toxin (PCR) POSITIVE Stl C. difficile Toxin Epiderm 027 PRESUMPTIVE POSITIVE Urine Color YELLOW Urine Turbidity HAZY Urine pH 5.5 Urine Specific [place] 1.016 Urine Protein 30 Urine Glucose (UA) NEG Urine Ketones NEG Urine Occult Blood NEG Urine Nitrite NEG Urine Bilirubin NEG Urine Urobilinogen 2.0 Urine Leukocyte Esterase NEG Urine RBC LESS THAN 1 Urine WBC 1 Urine Squamous Epithelial Cells 1 Urine Amorphous Sediment FEW Urine Bacteria OCC Urine Mucus FEW Microscopic Urinalysis Comment CATH-CULTURE IND Date/Time Source Procedure Growth Status 04/19/17 06:45 Blood Peripheral Aerobic Blood Culture Pending Received 04/19/17 06:45 Blood Peripheral Anaerobic Blood Culture Pending Received 04/19/17 08:35 Urine Catheterized Urine Urine Culture Pending Received Result Diagram: 04/19/1715 04/19/1715 Imaging Last Impressions Chest X-Ray 04/19/17 06 Signed Impressions: Service Date/Time: Wednesday, April 19, 2017 06:18 - CONCLUSION: 1. Cardiomegaly and findings of vascular congestion without overt failure. 2. Left lower lobe atelectasis versus pneumonia. Gavin Cole MD Gall Bladder Ultrasound 04/19/17 0000 Signed Impressions: Service Date/Time: Wednesday, April 19, 2017 10:29 - CONCLUSION: 1. Small amount of ascites. 2. Small amount of gallbladder sludge with mild gallbladder wall thickening likely related to ascites. Otherwise, no definitive evidence for acute cholecystitis although sensitivity is decreased due to ascites. Consider HIDA scan if there is significant continued clinical concern regarding cholecystitis. 3. Increased right renal cortical echogenicity consistent with medical renal disease. Layton Xiao MD Abdomen/Pelvis CT 04/19/17 0000 Signed Impressions: Service Date/Time: Wednesday, April 19, 2017 09:28 - CONCLUSION: There is marked diffuse edema and free fluid throughout the abdomen and the pelvis. At times the colonic wall particularly near the splenic flexure does appear to be thick walled raising the possibility of colitis. There is dense atherosclerotic disease without evidence of aneurysm. The left kidney is markedly atrophic likely left renal artery stenosis. Distended gallbladder with questionable small noncalcified gallstones. Willie Escobar MD Caplevi VTE Risk Assessment Caprini VTE Risk Assessment: Mod/High Risk (score >= 2) Caprini Risk Assessment Model Point Value = 1 Point Value = 2 Point Value = 3 Point Value = 5 Age 41-60 Minor surgery BMI > 25 kg/m2 Swollen legs Varicose veins or History of unexplained or recurrent spontaneous Oral contraceptives or hormone replacement Sepsis (< 1 month) Serious lung disease, including pneumonia (< 1 month) Abnormal pulmonary function Acute myocardial infarction Congestive heart failure (< 1 month) History of inflammatory bowel disease Medical patient at bed rest Age 61-74 Arthroscopic surgery Major open surgery (> 45 min) Laparoscopic surgery (> 45 min) Malignancy Confined to bed (> 72 hours) Immobilizing plaster cast Central venous access Age >= 75 History of VTE Family history of VTE Factor V Leiden Prothrombin [id number] Lupus anticoagulant Anticardiolipin antibodies Elevated serum homocysteine Heparin-induced thrombocytopenia Other congenital or acquired thrombophilia Stroke (< 1 month) Elective arthroplasty Hip, pelvis, or leg fracture Acute spinal cord injury (< 1 month) Prophylaxis Regimen Total Risk Factor Score Risk Level Prophylaxis Regimen 0-1 Low Early ambulation 2 Moderate Order ONE of the following: *Sequential Compression Device (SCD) *Heparin 5000 units SQ BID 3-4 Higher Order ONE of the following medications: *Heparin 5000 units SQ TID *Enoxaparin/Lovenox 40 mg SQ daily (WT < 150 kg, CrCl > 30 mL/min) *Enoxaparin/Lovenox 30 mg SQ daily (WT < 150 kg, CrCl > 10-29 mL/min) *Enoxaparin/Lovenox 30 mg SQ BID (WT < 150 kg, CrCl > 30 mL/min) AND/OR *Sequential Compression Device (SCD) 5 or more Highest Order ONE of the following medications: *Heparin 5000 units SQ TID (Preferred with Epidurals) *Enoxaparin/Lovenox 40 mg SQ daily (WT < 150 kg, CrCl > 30 mL/min) *Enoxaparin/Lovenox 30 mg SQ daily (WT < 150 kg, CrCl > 10-29 mL/min) *Enoxaparin/Lovenox 30 mg SQ BID (WT < 150 kg, CrCl > 30 mL/min) AND *Sequential Compression Device (SCD) Assessment and Plan Problem List: (1) C. difficile colitis ICD Code: A04.72 - Enterocolitis due to Clostridium difficile, not specified as recurrent Status: Acute (2) Abdominal pain ICD Code: R10.9 - Unspecified abdominal pain (3) ESRD (end stage renal disease) ICD Code: N18.6 - End stage renal disease (4) A-fib ICD Code: I48.91 - Unspecified atrial fibrillation (5) Dialysis patient ICD Code: Z99.2 - Dependence on renal dialysis Status: Acute Assessment and Plan 89-year-old female recently discharged from a group home facility admitted with C. difficile colitis. C. difficile colitis: Abdominal CT noted above. General surgery has been consulted. - Continue treatment for C. difficile colitis with Flagyl and oral vancomycin - Monitor for improvement - Advance diet as tolerated. ESRD on HD: Appreciate Nephrology following and management. HD per Nephrology. History of recent CVA: Doing well with no new neuro issues - Continue Aspirin Hypertension: Continue amlodipine DVT PPx: SCDs. Encourage ambulation. Consider chemical prophylaxis tomorrow. Discussed Condition With Dr. Sepulveda Physician Certification 2 Midnight Certification Type: Admission for Inpatient Services Order for Inpatient Services The services are ordered in accordance with Medicare regulations or non- Medicare payer requirements, as applicable. In the case of services not specified as inpatient-only, they are appropriately provided as inpatient services in accordance with the 2-midnight benchmark. Estimated LOS (days): 3 days is the estimated time the patient will need to remain in the hospital, assuming treatment plan goals are met and no additional complications. Post-Hospital Plan: Home Macy De Dios MD Apr 19, 2017 12:25
[2017-04-19] MEDS: metroNIDAZOLE 250 MG INJ 50 ML IV SCH ×2 (13:22→20:23)
[2017-04-19] MEDS: VANCOMYCIN 500 MG VIAL (FOR ORAL USE ONLY) PO SCH ×2 (14:04→16:09)
[2017-04-19] MEDS: MEGESTROL ACETATE SUSP 400 MG/10 ML CUP PO SCH (14:04)
[2017-04-19] MEDS ORDERED: PIPERACIL-TAZO 3.375 GM PREMIX 50 ML IV SCH (15:00)
--- NOTE | 2017-04-19 18:24 | MB ---
cc: CYNDI DE DIOS ANDREW DATE OF CONSULTATION: 04/19/2017 REQUESTING PHYSICIAN: Dr. De Dios REASON FOR CONSULTATION: Abdominal pain, colitis versus cholecystitis. HISTORY OF PRESENT ILLNESS The patient is an 89-year-old female with multiple medical comorbidities including end-stage renal disease on hemodialysis, hypertension, diabetes, and recent CVA. The patient was seen, evaluated by the emergency department due to increasing abdominal pain and diarrhea. The CT scan performed in the emergency department did show colitis as well as gallstones. Follow up ultrasound of the right upper quadrant did also show gallstones with no significant acute findings of the gallbladder. General surgery is consulted for surgical evaluation and consideration of treatment of patient's gallstones. The patient states that she has diffuse pain without radiation to her back. The pain is started a little over a day ago and is associated with multiple loose, more than ten watery bowel movements per day. The patient denies any nausea, vomiting, fever, chills, night sweats or hematochezia. The patient states she was recently in the rehab facility. The patient denies that she has ever had a history of C. Difficile. REVIEW OF SYSTEMS: 12-point review of systems was conducted with the patient and is negative except for the pertinent positives mentioned above in the history of present illness. PAST MEDICAL HISTORY: 1. End-stage renal disease. 2. History of CVA 3. Hypertension 4. Hyperlipidemia 5. Diabetes. PAST SURGICAL HISTORY: Abdominal his hysterectomy. ALLERGIES NO KNOWN DRUG ALLERGIES. MEDICATIONS 1. Aspirin 2. Multivitamin. 3. Pravastatin. 4. Doxazosin 5. Amlodipine. 6. Lasix. FAMILY HISTORY: Noncontributory. SOCIAL HISTORY: The patient denies alcohol, tobacco or illicit drug use. She lives independently until recently, hospitalized for her CVA. PHYSICAL EXAMINATION: Vital signs: Blood pressure 128/58, O2 saturation 100%, heart rate 70, respiratory rate 16. GENERAL: The patient is a thin female, in no acute distress. She does not appear acute or chronically ill. HEAD: Normocephalic, atraumatic. Pupils round and reactive to light. Sclerae is anicteric. Mucous membranes are moist. Airway is patent. Neck is supple. No JVD. Trachea is midline. Breath sounds present bilaterally. Nonlabored breathing pattern. Heart: Regular rhythm. No murmurs. Abdomen: Soft, subjectively mildly tender diffusely with no rebound tenderness. No peritonitis, rebound, guarding. Hyperactive bowel sounds. No hernias or organomegaly. No ascites. Back: No CVA tenderness. Rectal exam: Deferred. Extremities: No clubbing, cyanosis or edema. Neurologic: The patient is awake, alert, oriented x3, moving all extremities grossly. Cranial nerves II-XII grossly intact. ASSESSMENT AND PLAN: The patient is an 89-year-old female recent institutionalized patient in a rehab facility with abdominal pain, diarrhea. CT scan shows significant pancolitis. C. difficile toxin is positive. The patient's gallbladder does not appear to have any acute or chronic inflammatory changes and a few small gallstones appear to be likely incidental and unlikely to be symptomatic in this patient, and is very unlikely to have caused the above symptoms. The patient should be treated medically for her Clostridium difficile. I do not recommend any acute surgical intervention. I do not feel the patient has any significant cholecystitis acute or chronic. We will check back with the patient in 24 hours. If she clinically improves, will sign off. Thank you very much for this consultation. MD JUAN Gunter/MARCELLA /5:43 PM /6:10 PM
--- NOTE | 2017-04-19 18:29 | EKG ---
Date Performed: 04/19/2017 Time Performed: 06:01:10 PTAGE: 89 years EKG: Atrial fibrillation with controlled ventricular rate Ventricular premature complex Nonspeci fic intraventricular conduction delay with secondary ST-T wave changes PREVIOUS TRACING : 04/07/2017 19.58 Compared to the previous tracing, atrial fibrillation and intraventricular conduction delay are new. DOCTOR: Lion Cr Interpretating Date/Time 04/19/2017 18:28:01
[2017-04-19] MEDS: SODIUM CHLORIDE 0.9% FLUSH 10 ML FLUSH IV FLUSH SCH (20:24)
[2017-04-19] MEDS ORDERED: DOXAZOSIN MESYLATE 2 MG TAB PO SCH (21:00)
[2017-04-20] VITALS: BP 121/59; PULSE 75; RESP 20; TEMP 98.4; O2SAT 94
[2017-04-20] MEDS: SODIUM CHLOR 0.45% 1000 ML INJ 1,000 ML IV SCH ×3 (00:20→20:48)
[2017-04-20 04:00] VITALS: BP 120/59; PULSE 83; RESP 20; TEMP 98.8; O2SAT 92
[2017-04-20] MEDS: metroNIDAZOLE 250 MG INJ 50 ML IV SCH (04:14)
[2017-04-20 05:22] LABS: BASOPHIL # 0.1 TH/MM3 (0-0.2); BASOPHIL % 0.4 % (0.0-2.0); EOSINOPHIL # 0.1 TH/MM3 (0-0.4); EOSINOPHIL % 0.6 % (0.0-4.0); HEMATOCRIT 28.6 % (35.0-46.0); HEMO FLAGS DIFF FINAL; LYMPH % 3.9 % (9.0-44.0); LYMPHOCYTE # 0.6 TH/MM3 (1.0-4.8); MEAN CELL VOLUME 92.7 FL (80.0-100.0); MEAN CORPUSCULAR HEMOGLOBIN 29.8 PG (27.0-34.0); MEAN CORPUSCULAR HGB CONC 32.1 % (32.0-36.0); NEUT % 90.1 % (16.0-70.0); PLATELET COUNT 183 TH/MM3 (150-450); RED BLOOD COUNT 3.08 MIL/MM3 (4.00-5.30); RED CELL DISTRIBUTION WIDTH 19.2 % (11.6-17.2); WHITE BLOOD COUNT 15.6 TH/MM3 (4.0-11.0)
[2017-04-20 05:51] LABS: ANION GAP 11 MEQ/L (5-15); AST (GOT) 12 U/L (15-37); BICARBONATE 24.5 MEQ/L (21.0-32.0); BLOOD UREA NITROGEN 30 MG/DL (7-18); CHLORIDE 107 MEQ/L (98-107); GLOMERULAR FILTRATION RATE 15 ML/MIN (>89); POTASSIUM 3.9 MEQ/L (3.5-5.1); SODIUM (NA) 142 MEQ/L (136-145)
[2017-04-20 05:54] LABS: ALKALINE PHOSPHATASE 80 U/L (45-117); ALT (GPT) 9 U/L (10-53); TOTAL BILIRUBIN ADULT 0.7 MG/DL (0.2-1.0)
[2017-04-20 08:00] VITALS: BP 122/56; PULSE 84; RESP 16; TEMP 97; O2SAT 97
[2017-04-20] MEDS: PRAVASTATIN SOD 10 MG TAB PO SCH (08:38)
[2017-04-20] MEDS: ASPIRIN 325 MG TAB PO SCH (08:38)
[2017-04-20] MEDS: VANCOMYCIN 500 MG VIAL (FOR ORAL USE ONLY) PO SCH ×3 (08:38→20:48)
[2017-04-20] MEDS: amLODIPine BESYLATE 5 MG TAB PO SCH (08:38)
[2017-04-20] MEDS: MULTIVITAMIN TAB PO SCH (08:39)
[2017-04-20] MEDS: CHOLECALCIFEROL (VIT D3) 1000 UNIT TAB PO SCH (08:39)
[2017-04-20] MEDS: MEGESTROL ACETATE SUSP 400 MG/10 ML CUP PO SCH (09:00)
--- NOTE | 2017-04-20 09:36 | PD.PN.STU ---
Subjective Remarks Patient feeling better today, less weak. States she had 2 semisolid bowel movements overnight. Eating well this AM with no nausea/vomiting. States she is to undergo dialysis in hospital today. Objective Vitals Vital Signs Date Time Temp Pulse Resp B/P (MAP) Pulse Ox O2 Delivery O2 Flow Rate FiO2 04/20/17 08:00 97.0 84 16 122/56 (78) 97 04/20/17 04:00 98.8 83 20 120/59 (79) 92 04/20/17 00:00 98.4 75 20 121/59 (79) 94 04/19/17 23:00 77 04/19/17 20:21 92 Room Air 04/19/17 20:00 98.4 77 22 121/62 (81) 92 04/19/17 12:04 04/19/17 10:17 70 16 128/58 (81) 100 Room Air I/O 04/19/17 04/19/17 04/19/17 04/20/17 04/20/17 04/20/17 07:00 15:00 23:00 07:00 15:00 23:00 Intake Total 1050 ml 620 ml 528 ml Output Total 200 ml 220 ml Balance 1050 ml 420 ml 308 ml Intake Oral 120 ml 220 ml IV Total 1050 ml 500 ml 308 ml Output Urine Total 200 ml 220 ml # Bowel Movements 1 2 Result Diagram: 04/20/17 0415 04/20/17 0415 Other Results Laboratory Tests Test 04/20/17 04:15 White Blood Count 15.6 TH/MM3 (4.0-11.0) Red Blood Count 3.08 MIL/MM3 (4.00-5.30) Hemoglobin 9.2 GM/DL (11.6-15.3) Hematocrit 28.6 % (35.0-46.0) Mean Corpuscular Volume 92.7 FL (80.0-100.0) Mean Corpuscular Hemoglobin 29.8 PG (27.0-34.0) Mean Corpuscular Hemoglobin Concent 32.1 % (32.0-36.0) Red Cell Distribution Width 19.2 % (11.6-17.2) Platelet Count 183 TH/MM3 (150-450) Mean Platelet Volume 9.7 FL (7.0-11.0) Neutrophils (%) (Auto) 90.1 % (16.0-70.0) Lymphocytes (%) (Auto) 3.9 % (9.0-44.0) Monocytes (%) (Auto) 5.0 % (0.0-8.0) Eosinophils (%) (Auto) 0.6 % (0.0-4.0) Basophils (%) (Auto) 0.4 % (0.0-2.0) Neutrophils # (Auto) 14.0 TH/MM3 (1.8-7.7) Lymphocytes # (Auto) 0.6 TH/MM3 (1.0-4.8) Monocytes # (Auto) 0.8 TH/MM3 (0-0.9) Eosinophils # (Auto) 0.1 TH/MM3 (0-0.4) Basophils # (Auto) 0.1 TH/MM3 (0-0.2) CBC Comment DIFF FINAL Differential Comment Blood Urea Nitrogen 30 MG/DL (7-18) Creatinine 2.94 MG/DL (0.50-1.00) Random Glucose 58 MG/DL (74-106) Total Protein 4.8 GM/DL (6.4-8.2) Albumin 1.7 GM/DL (3.4-5.0) Calcium Level 7.6 MG/DL (8.5-10.1) Alkaline Phosphatase 80 U/L (45-117) Aspartate Amino Transf (AST/SGOT) 12 U/L (15-37) Alanine Aminotransferase (ALT/SGPT) 9 U/L (10-53) Total Bilirubin 0.7 MG/DL (0.2-1.0) Sodium Level 142 MEQ/L (136-145) Potassium Level 3.9 MEQ/L (3.5-5.1) Chloride Level 107 MEQ/L (98-107) Carbon Dioxide Level 24.5 MEQ/L (21.0-32.0) Anion Gap 11 MEQ/L (5-15) Estimat Glomerular Filtration Rate 15 ML/MIN (>89) Objective Remarks GENERAL: Sitting up in bed, eating breakfast, no apparent distress. SKIN: Warm and dry. HEAD: Normocephalic. EYES: No scleral icterus. No injection or drainage. NECK: Supple, trachea midline. No JVD or lymphadenopathy. CARDIOVASCULAR: Regular rate and rhythm without murmurs, gallops, or rubs. RESPIRATORY: Breath sounds equal bilaterally. No accessory muscle use. GASTROINTESTINAL: Abdomen soft, non-tender, nondistended. MUSCULOSKELETAL: No cyanosis, or edema. Still some generalized weakness. NEURO: Oriented x3. Focal weakness in proximal R UE (following stroke several weeks ago). BACK: Nontender without obvious deformity. No CVA tenderness. Medications and IVs Current Medications Acetaminophen (Tylenol) 650 mg ONCE ONCE PO Last administered on 04/19/17 06 :13; Start 04/19/17 at 06:15; Stop 04/19/17 at 06:16; Status DC Ondansetron HCl (Zofran Inj) 4 mg ONCE ONCE IV PUSH Last administered on 04/19 06:12; Start 04/19/17 at 06:15; Stop 04/19/17 at 06:16; Status DC Piperacillin Sod/ Tazobactam Sod 50 ml @ 100 mls/hr ONCE ONCE IV Last administered on 04/19/17 07:09; Start 04/19/17 at 06:15; Stop 04/19/17 at 06 :44; Status DC Sodium Chloride 1,000 ml @ 999 mls/hr BOLUS ONCE IV Last administered on 08:28; Start 04/19/17 at 08:30; Stop 04/19/17 at 09:30; Status DC Sodium Chloride 1,000 ml @ 75 mls/hr [id number] IV Last administered on 06:18; Start 04/19/17 at 11:00 Sodium Chloride (NS Flush) 2 ml UNSCH PRN IV FLUSH FLUSH AFTER USING IV ACCESS ; Start 04/19/17 at 10:30 Sodium Chloride (NS Flush) 2 ml BID IV FLUSH Last administered on 04/19/17 20 :24; Start 04/19/17 at 21:00 Acetaminophen (Tylenol) 650 mg Q4H PRN PO TEMP > 100.4; Start 04/19/17 at 10: 30 Ondansetron HCl (Zofran Inj) 4 mg Q6H PRN IVP NAUSEA OR VOMITING; Start at 10:30 Naloxone HCl (Narcan Inj) 0.4 mg UNSCH PRN IV PUSH SEE LABEL COMMENTS; Start 04/19/17 at 10:30 Magnesium Hydroxide (Milk Of Magnesia Liq) 30 ml Q12H PRN PO Mild constipation ; Start 04/19/17 at 10:30 Sennosides (Senokot) 17.2 mg Q12H PRN PO Moderate constipation; Start at 10:30 Bisacodyl (Dulcolax Supp) 10 mg DAILY PRN RECTAL SEVERE CONSITIPATION; Start 04/19/17 at 10:30 Lactulose (Lactulose Liq) 30 ml DAILY PRN PO SEVERE CONSITIPATION; Start 04/19 at 10:30 Piperacillin Sod/ Tazobactam Sod 50 ml @ 100 mls/hr Q8H IV ; Start 04/19/17 at 15:00; Stop 04/19/17 at 15:00; Status DC Amlodipine Besylate (Norvasc) 2.5 mg DAILY PO Last administered on 04/20/17 08:38; Start 04/20/17 at 09:00 Aspirin (Aspirin) 325 mg DAILY PO Last administered on 04/20/17 08:38; Start 04/20/17 at 09:00 Cholecalciferol (Vitamin D3) 1,000 units DAILY PO Last administered on 08:39; Start 04/20/17 at 09:00 Doxazosin Mesylate (Cardura) 2 mg HS PO ; Start 04/19/17 at 21:00; Stop at 21:00; Status DC Pravastatin Sodium (Pravachol) 10 mg DAILY PO Last administered on 04/20/17 08:38; Start 04/20/17 at 09:00 Multivitamins (Theragran) 1 tab DAILY PO Last administered on 04/20/17 08:39 ; Start 04/20/17 at 09:00 Sodium Chloride 1,000 ml @ 0 mls/hr Q0M PRN OTHER For Prime & Rinse Back; Start 04/19/17 at 11:53 Heparin Sodium (Porcine) (Heparin Inj) 8,000 units UNSCH PRN IV FLUSH WITH DIALYSIS; Start 04/19/17 at 12:00 Sodium Chloride 1,000 ml @ 200 mls/hr Q5H PRN IV WITH DIALYSIS; Start at 11:53 Sodium Chloride 1,000 ml @ 0 mls/hr Q0M PRN OTHER WITH DIALYSIS; Start at 11:53 Mannitol (Mannitol Inj) 12.5 gm UNSCH PRN IV WITH DIALYSIS; Start 04/19/17 at 12:00 Albumin Human 100 ml @ 60 mls/hr UNSCH PRN IV WITH DIALYSIS; Start 04/19/17 at 12:00 Sodium Chloride (NS Flush) 5 ml UNSCH PRN IV FLUSH WITH DIALYSIS; Start at 12:00 Heparin Sodium (Porcine) (Heparin Inj) UNSCH PRN .XX WITH DIALYSIS; Start at 12:00 Gentamicin Sulfate (Gentamicin (Dialysis) Inj) 20 mg UNSCH PRN OTHER WITH DIALYSIS; Start 04/19/17 at 12:00 Ondansetron HCl (Zofran Inj) 4 mg UNSCH PRN IV PUSH WITH DIALYSIS; Start 04/19 at 12:00 Acetaminophen (Tylenol) 650 mg UNSCH PRN PO for headach, pain, temp > 101F; Start 04/19/17 at 12:00 Diphenhydramine HCl (Benadryl) 25 mg UNSCH PRN PO for hives/itching/anaphylaxis ; Start 04/19/17 at 12:00 Nitroglycerin (Nitrostat Sl) 0.4 mg UNSCH PRN SL CHEST PAIN; Start 04/19/17 at 12:00 Clonidine (Catapres) 0.1 mg UNSCH PRN PO for BP > 180/100 X 2 readings; Start 04/19/17 at 12:00 Epoetin Damian (Epogen Inj) 10,000 units UNSCH PRN IV PUSH WITH DIALYSIS; Start 04/19/17 at 12:00 Gelatin (Gelfoam 12 Mm/7 Mm Top) 1 foam UNSCH PRN TOP SEE LABEL COMMENTS; Start 04/19/17 at 12:00 Metronidazole 50 ml @ 100 mls/hr Q8H IV Last administered on 04/20/17 04:14 ; Start 04/19/17 at 13:00 Vancomycin HCl (VANCOMYCIN for oral use only) 250 mg TID PO Last administered on 04/20/17 08:38; Start 04/19/17 at 13:00 Megestrol Acetate (Megace Liq) 800 mg DAILY PO Last administered on 04/19/17 14:04; Start 04/19/17 at 13:15 A/P Assessment and Plan C. diff. colitis -WBC down to 15 from 19 yesterday. Patient appears clinically improved and having fewer bowel movements. -continue Flagyl and oral vancomycin treatment End-stage renal disease -kidney fxn decreased from yesterday on labs. -Following with nephrology. Dialysis per nephrology. Recent CVA with a-fib -sinus rhythm on exam. No new neuro deficits. Continue aspirin therapy. HTN -continue amlodipine John Anthony M3 Apr 20, 2017 09:36
--- NOTE | 2017-04-20 10:38 | HHI.PR ---
Subjective Remarks Doing better. Eating. No n/V. a couple episode of loose stool overnight. Not going as frequently. Objective Vitals Vital Signs Date Time Temp Pulse Resp B/P (MAP) Pulse Ox O2 Delivery O2 Flow Rate FiO2 04/20/17 08:00 97.0 84 16 122/56 (78) 97 04/20/17 04:00 98.8 83 20 120/59 (79) 92 04/20/17 00:00 98.4 75 20 121/59 (79) 94 04/19/17 23:00 77 04/19/17 20:21 92 Room Air 04/19/17 20:00 98.4 77 22 121/62 (81) 92 04/19/17 12:04 I/O 04/19/17 04/19/17 04/19/17 04/20/17 04/20/17 04/20/17 07:00 15:00 23:00 07:00 15:00 23:00 Intake Total 1050 ml 620 ml 528 ml Output Total 200 ml 220 ml Balance 1050 ml 420 ml 308 ml Intake Oral 120 ml 220 ml IV Total 1050 ml 500 ml 308 ml Output Urine Total 200 ml 220 ml # Bowel Movements 1 2 Result Diagram: 04/20/175 04/20/175 Objective Remarks GENERAL: This is a well-nourished, well-developed patient, in no apparent distress. CARDIOVASCULAR: Normal rate and regular rhythm without murmurs, gallops, or rubs. RESPIRATORY: Good respiratory efforts. Breath sounds equal and clear to auscultation bilaterally. GASTROINTESTINAL: Abdomen soft, mild diffuse tenderness to palpation. Normal active bowel sounds MUSCULOSKELETAL: Extremities without cyanosis, or edema. NEURO: Alert & Oriented x4 to person, place, time, situation. Moves all ext x4 PSYCH: Appropriate mood and affect. A/P Problem List: (1) C. difficile colitis ICD Code: A04.72 - Enterocolitis due to Clostridium difficile, not specified as recurrent Status: Acute (2) Abdominal pain ICD Code: R10.9 - Unspecified abdominal pain (3) ESRD (end stage renal disease) ICD Code: N18.6 - End stage renal disease (4) A-fib ICD Code: I48.91 - Unspecified atrial fibrillation (5) Dialysis patient ICD Code: Z99.2 - Dependence on renal dialysis Status: Acute Assessment and Plan 89-year-old female recently discharged from a [facility] facility admitted with C. difficile colitis. C. difficile colitis: Abdominal CT noted above. General surgery has been consulted. No indications for surgical intervention. - Continue treatment for C. difficile colitis with Flagyl and oral vancomycin. Switch to oral Flagyl -Improving. Continue to monitor - diet as tolerated. ESRD on HD: Appreciate Nephrology following and management. HD per Nephrology. History of recent CVA: Doing well with no new neuro issues - Continue Aspirin Hypertension: Continue amlodipine DVT PPx: SCDs. Discharge Planning Pending improvement. Possible discharge tomorrow Macy De Dios MD Apr 20, 2017 10:38
--- NOTE | 2017-04-20 11:07 | HHI.PR ---
cc: Jonathan Osullivan MD Subjective Subjective Notes Resting in bed Tolerated breakfast with no issues Objective Vitals/I&O Vital Signs Date Time Temp Pulse Resp B/P (MAP) Pulse Ox O2 Delivery O2 Flow Rate FiO2 04/20/17 08:00 97.0 84 16 122/56 (78) 97 04/19/17 20:21 Room Air 04/19/17 07:04 2.00 Labs Laboratory Tests Test 04/20/17 04:15 White Blood Count 15.6 Red Blood Count 3.08 Hemoglobin 9.2 Hematocrit 28.6 Mean Corpuscular Volume 92.7 Mean Corpuscular Hemoglobin 29.8 Mean Corpuscular Hemoglobin Concent 32.1 Red Cell Distribution Width 19.2 Platelet Count 183 Mean Platelet Volume 9.7 Neutrophils (%) (Auto) 90.1 Lymphocytes (%) (Auto) 3.9 Monocytes (%) (Auto) 5.0 Eosinophils (%) (Auto) 0.6 Basophils (%) (Auto) 0.4 Neutrophils # (Auto) 14.0 Lymphocytes # (Auto) 0.6 Monocytes # (Auto) 0.8 Eosinophils # (Auto) 0.1 Basophils # (Auto) 0.1 CBC Comment DIFF FINAL Differential Comment Blood Urea Nitrogen 30 Creatinine 2.94 Random Glucose 58 Total Protein 4.8 Albumin 1.7 Calcium Level 7.6 Alkaline Phosphatase 80 Aspartate Amino Transf (AST/SGOT) 12 Alanine Aminotransferase (ALT/SGPT) 9 Total Bilirubin 0.7 Sodium Level 142 Potassium Level 3.9 Chloride Level 107 Carbon Dioxide Level 24.5 Anion Gap 11 Estimat Glomerular Filtration Rate 15 Date/Time Source Procedure Growth Status 04/19/17 06:45 Blood Peripheral Aerobic Blood Culture Pending Received 04/19/17 06:45 Blood Peripheral Anaerobic Blood Culture Pending Received 04/19/17 08:35 Urine Catheterized Urine Urine Culture Pending Received Cardiovascular: Regular Lungs: Clear Abdomen: Other (soft; minimal abdominal pain in all four quadrants ) Extremities: No edema A/P Assessment and Plan 89 year old female with ESRD on HD; c-diff; incidental finding of gallstones on CT -Tolerating regular diet -HD today -Continue IV Flagyl and PO Vanco for c-diff -No evidence of acute or chronic cholecystitis -No surgical plans at this time Stella Zapien Apr 20, 2017 11:07
[2017-04-20 12:00] VITALS: BP 114/56; PULSE 82; PULSE 88; RESP 16; TEMP 98.7; O2SAT 97
--- NOTE | 2017-04-20 12:34 | HHI.NPPN ---
Subjective Complaints: Diarrhea General Problems: Anemia, Hypertension Renal Failure: Chronic, End Stage Renal Disease Interval History Due today for dialysis. Diarrhea persists. Appears chronically ill. (She Medeiros) Review of Systems General Constitutional: Fatigue (She Medeiros) Gastrointestinal Gastrointestinal: Diarrhea (She Medeiros) Objective Data Data Vital Signs Date Time Temp Pulse Resp B/P (MAP) Pulse Ox O2 Delivery O2 Flow Rate FiO2 04/20/17 08:00 97.0 84 16 122/56 (78) 97 04/20/17 04:00 98.8 83 20 120/59 (79) 92 04/20/17 00:00 98.4 75 20 121/59 (79) 94 04/19/17 23:00 77 04/19/17 20:21 92 Room Air 04/19/17 20:00 98.4 77 22 121/62 (81) 92 (She Medeiros) -: 04/20/17 0415 04/20/17 0415 Imaging Last 72 hours Impressions Chest X-Ray 04/19/17 0601 Signed Impressions: Service Date/Time: Wednesday, April 19, 2017 06:18 - CONCLUSION: 1. Cardiomegaly and findings of vascular congestion without overt failure. 2. Left lower lobe atelectasis versus pneumonia. Gavin Cole MD Gall Bladder Ultrasound 04/19/17 0000 Signed Impressions: Service Date/Time: Wednesday, April 19, 2017 10:29 - CONCLUSION: 1. Small amount of ascites. 2. Small amount of gallbladder sludge with mild gallbladder wall thickening likely related to ascites. Otherwise, no definitive evidence for acute cholecystitis although sensitivity is decreased due to ascites. Consider HIDA scan if there is significant continued clinical concern regarding cholecystitis. 3. Increased right renal cortical echogenicity consistent with medical renal disease. Layton Xiao MD Abdomen/Pelvis CT 04/19/17 0000 Signed Impressions: Service Date/Time: Wednesday, April 19, 2017 09:28 - CONCLUSION: There is marked diffuse edema and free fluid throughout the abdomen and the pelvis. At times the colonic wall particularly near the splenic flexure does appear to be thick walled raising the possibility of colitis. There is dense atherosclerotic disease without evidence of aneurysm. The left kidney is markedly atrophic likely left renal artery stenosis. Distended gallbladder with questionable small noncalcified gallstones. Willie Escobar MD Tubes & Lines: Perma-Cath (She Medeiros B. CLAM DIGGER) Physical Exam General Appearance: No Acute Distress, Comfortable, Malnourished (She Medeiros B. CLAM DIGGER) Eyes Eye Exam: Pupils Equal (Vin Medeiroson B. CLAM DIGGER) Throat Throat Exam: Oral Mucosa [place] & Moist (MalaShe B. CLAM DIGGER) Pulmonary Resp Exam: Clear Bilaterally, Breath Sounds Equal (Mala,She B. CLAM DIGGER) Cardiology CV Exam: Regular, Good Perfusion (She Medeiros B. CLAM DIGGER) Gastrointestinal/Abdomen GI Exam: Soft, Bowel Sounds Present, Positive Bowel Movement GI Remarks Abdomen soft, tender to palpation (She Medeiros B. CLAM DIGGER) Musculoskeletal MS Exam: Joints Intact, Normal Tone (Vin Medeiroson B. CLAM DIGGER) Integumentary Skin Exam: Clear, Warm, Dry, Intact (She Medeiros B. CLAM DIGGER) Extremeties Extremities Exam: Pedal Pulses Palpable, Trace Edema (She Medeiros B. CLAM DIGGER) Neurologic Neuro Exam: Alert, Awake, Oriented, Speech Clear, Moving All Extremities (She Medeiros B. CLAM DIGGER) Psychiatric Psych Exam: Appropriate Responses (She Medeiros B. CLAM DIGGER) Assessment/Plan Discussed Condition With: Patient Assessment Summary: Anemia of CKD, Hypertension, End Stage Renal Disease Problem List: (1) ESRD (end stage renal disease) ICD Codes: N18.6 - End stage renal disease Plan: Dialysis today, we will attempt cannulation of AVF with 17 g needles and low blood flow rate if successful, we may remove Permcath Avoid IVF Intermittently monitor electrolytes Renally dose medications when appropriate Avoid right arm procedures Protein supplements added (2) Abdominal pain ICD Codes: R10.9 - Unspecified abdominal pain Plan: C diff positive, surgery has evaluated, no intervention required On IV flagyl and PO vancomycin Medical team to manage (3) Anemia ICD Codes: D64.9 - Anemia, unspecified Plan: Epogen with dialysis Monitor hemoglobin (4) A-fib ICD Codes: I48.91 - Unspecified atrial fibrillation Plan: Appears to be in sinus rhythm She is on ASA Plan She is cleared for discharge from renal perspective if cleared by all physicians. Has existing outpatient HD orders. (She Medeiros) Problem List: (1) ESRD (end stage renal disease) ICD Codes: N18.6 - End stage renal disease Plan: Dialysis today, we will attempt cannulation of AVF with 17 g needles and low blood flow rate if successful, we may remove Permcath Avoid IVF Intermittently monitor electrolytes Renally dose medications when appropriate Avoid right arm procedures Protein supplements added (2) Abdominal pain ICD Codes: R10.9 - Unspecified abdominal pain Plan: C diff positive, surgery has evaluated, no intervention required On IV flagyl and PO vancomycin Medical team to manage (3) Anemia ICD Codes: D64.9 - Anemia, unspecified Plan: Epogen with dialysis Monitor hemoglobin (4) A-fib ICD Codes: I48.91 - Unspecified atrial fibrillation Plan: Appears to be in sinus rhythm She is on ASA Plan patient was seen and examined. BUN and creatinine are low, but she reports that her urine output is not as much as before. Low BUN and creatinine reflect poor nutritional status and muscle wasting respectfully. Needs nutritional support. She can be discharged if diarrheal frequency improves. (Devon Torres MD) She Medeiros Apr 20, 2017 12:34 Devon Torres MD Apr 21, 2017 07:15
[2017-04-20] MEDS: metroNIDAZOLE 250 MG TAB PO SCH ×2 (13:07→20:48)
[2017-04-20 16:00] VITALS: BP 114/56; PULSE 88; RESP 16; TEMP 98.7; O2SAT 97
[2017-04-20] MEDS: SODIUM CHLORIDE 0.9% FLUSH 10 ML FLUSH IV FLUSH SCH (20:48)
[2017-04-20 20:52] VITALS: BP 129/60; PULSE 81; RESP 16; TEMP 97.3; O2SAT 96
[2017-04-21 00:30] VITALS: BP 126/58; PULSE 83; RESP 16; TEMP 96.9; O2SAT 93
[2017-04-21 04:20] VITALS: BP 126/59; PULSE 72; RESP 16; TEMP 98.2; O2SAT 93
[2017-04-21 05:21] LABS: HEMATOCRIT 28.6 % (35.0-46.0); MEAN CELL VOLUME 92.1 FL (80.0-100.0); MEAN CORPUSCULAR HEMOGLOBIN 29.5 PG (27.0-34.0); PLATELET COUNT 169 TH/MM3 (150-450); RED BLOOD COUNT 3.11 MIL/MM3 (4.00-5.30); RED CELL DISTRIBUTION WIDTH 19.1 % (11.6-17.2); REVIEW FLAG FINAL; WHITE BLOOD COUNT 11.8 TH/MM3 (4.0-11.0)
[2017-04-21] MEDS: metroNIDAZOLE 250 MG TAB PO SCH ×2 (05:34→14:12)
[2017-04-21 05:48] LABS: BICARBONATE 28.9 MEQ/L (21.0-32.0); POTASSIUM 3.4 MEQ/L (3.5-5.1)
[2017-04-21 08:00] VITALS: BP 122/64; PULSE 76; RESP 18; TEMP 96.7; O2SAT 94
[2017-04-21 08:25] VITALS: O2SAT 94
--- NOTE | 2017-04-21 08:34 | PD.PN.STU ---
Subjective Remarks Patient feeling still better today. Had dialysis yesterday. Had 4 bowel movements while down for dialysis but only 1 since 8pm last night. Feeling less weak, tolerating full diet and PO Abx. No n/v or abd pain. Objective Vitals Vital Signs Date Time Temp Pulse Resp B/P (MAP) Pulse Ox O2 Delivery O2 Flow Rate FiO2 04/21/17 08:00 96.7 76 18 122/64 (83) 94 04/21/17 04:20 98.2 72 16 126/59 (81) 93 04/21/17 00:30 96.9 83 16 126/58 (80) 93 04/20/17 20:52 97.3 81 16 129/60 (83) 96 04/20/17 16:00 04/20/17 12:00 82 04/20/17 12:00 97 04/20/17 12:00 98.7 88 16 114/56 (75) 97 I/O 04/20/17 04/20/17 04/20/17 04/21/17 04/21/17 04/21/17 06:59 14:59 22:59 06:59 14:59 22:59 Intake Total 528 ml 400 ml Output Total 220 ml Balance 308 ml 400 ml Intake Oral 220 ml 400 ml IV Total 308 ml Output Urine Total 220 ml # Voids 3 3 # Bowel Movements 2 5 3 Result Diagram: 04/21/17 0330 04/21/17 0330 Other Results Laboratory Tests Test 04/21/17 03:30 White Blood Count 11.8 TH/MM3 (4.0-11.0) Red Blood Count 3.11 MIL/MM3 (4.00-5.30) Hemoglobin 9.2 GM/DL (11.6-15.3) Hematocrit 28.6 % (35.0-46.0) Mean Corpuscular Volume 92.1 FL (80.0-100.0) Mean Corpuscular Hemoglobin 29.5 PG (27.0-34.0) Mean Corpuscular Hemoglobin Concent 32.0 % (32.0-36.0) Red Cell Distribution Width 19.1 % (11.6-17.2) Platelet Count 169 TH/MM3 (150-450) Mean Platelet Volume 10.0 FL (7.0-11.0) Blood Urea Nitrogen 23 MG/DL (7-18) Creatinine 2.66 MG/DL (0.50-1.00) Random Glucose 104 MG/DL (74-106) Calcium Level 7.6 MG/DL (8.5-10.1) Sodium Level 140 MEQ/L (136-145) Potassium Level 3.4 MEQ/L (3.5-5.1) Chloride Level 102 MEQ/L (98-107) Carbon Dioxide Level 28.9 MEQ/L (21.0-32.0) Anion Gap 9 MEQ/L (5-15) Estimat Glomerular Filtration Rate 17 ML/MIN (>89) Objective Remarks GENERAL: Sitting up in bed, eating breakfast, no apparent distress. With O2 nasal canula but not currently using. SKIN: Warm and dry. HEAD: Normocephalic. EYES: No scleral icterus. No injection or drainage. NECK: Supple, trachea midline. No JVD or lymphadenopathy. CARDIOVASCULAR: Regular rate and rhythm without murmurs, gallops, or rubs. RESPIRATORY: Breath sounds equal bilaterally. No accessory muscle use. GASTROINTESTINAL: Abdomen soft, nondistended. Tender only to deep palpation on right side, less than previous days. No guarding or rebound. MUSCULOSKELETAL: No cyanosis, or edema. Still some generalized weakness. NEURO: Oriented x3. Focal weakness in proximal R UE (following stroke several weeks ago). BACK: Nontender without obvious deformity. No CVA tenderness. Medications and IVs Current Medications Acetaminophen (Tylenol) 650 mg ONCE ONCE PO Last administered on 04/19/17 06 :13; Start 04/19/17 at 06:15; Stop 04/19/17 at 06:16; Status DC Ondansetron HCl (Zofran Inj) 4 mg ONCE ONCE IV PUSH Last administered on 04/19 06:12; Start 04/19/17 at 06:15; Stop 04/19/17 at 06:16; Status DC Piperacillin Sod/ Tazobactam Sod 50 ml @ 100 mls/hr ONCE ONCE IV Last administered on 04/19/17 07:09; Start 04/19/17 at 06:15; Stop 04/19/17 at 06 :44; Status DC Sodium Chloride 1,000 ml @ 999 mls/hr BOLUS ONCE IV Last administered on 08:28; Start 04/19/17 at 08:30; Stop 04/19/17 at 09:30; Status DC Sodium Chloride 1,000 ml @ 75 mls/hr [id number] IV Last administered on 06:18; Start 04/19/17 at 11:00 Sodium Chloride (NS Flush) 2 ml UNSCH PRN IV FLUSH FLUSH AFTER USING IV ACCESS ; Start 04/19/17 at 10:30 Sodium Chloride (NS Flush) 2 ml BID IV FLUSH Last administered on 04/20/17 20 :48; Start 04/19/17 at 21:00 Acetaminophen (Tylenol) 650 mg Q4H PRN PO TEMP > 100.4; Start 04/19/17 at 10: 30 Ondansetron HCl (Zofran Inj) 4 mg Q6H PRN IVP NAUSEA OR VOMITING; Start at 10:30 Naloxone HCl (Narcan Inj) 0.4 mg UNSCH PRN IV PUSH SEE LABEL COMMENTS; Start 04/19/17 at 10:30 Magnesium Hydroxide (Milk Of Magnesia Liq) 30 ml Q12H PRN PO Mild constipation ; Start 04/19/17 at 10:30 Sennosides (Senokot) 17.2 mg Q12H PRN PO Moderate constipation; Start at 10:30 Bisacodyl (Dulcolax Supp) 10 mg DAILY PRN RECTAL SEVERE CONSITIPATION; Start 04/19/17 at 10:30 Lactulose (Lactulose Liq) 30 ml DAILY PRN PO SEVERE CONSITIPATION; Start 04/19 at 10:30 Piperacillin Sod/ Tazobactam Sod 50 ml @ 100 mls/hr Q8H IV ; Start 04/19/17 at 15:00; Stop 04/19/17 at 15:00; Status DC Amlodipine Besylate (Norvasc) 2.5 mg DAILY PO Last administered on 04/20/17 08:38; Start 04/20/17 at 09:00 Aspirin (Aspirin) 325 mg DAILY PO Last administered on 04/20/17 08:38; Start 04/20/17 at 09:00 Cholecalciferol (Vitamin D3) 1,000 units DAILY PO Last administered on 08:39; Start 04/20/17 at 09:00 Doxazosin Mesylate (Cardura) 2 mg HS PO ; Start 04/19/17 at 21:00; Stop at 21:00; Status DC Pravastatin Sodium (Pravachol) 10 mg DAILY PO Last administered on 04/20/17 08:38; Start 04/20/17 at 09:00 Multivitamins (Theragran) 1 tab DAILY PO Last administered on 04/20/17 08:39 ; Start 04/20/17 at 09:00 Sodium Chloride 1,000 ml @ 0 mls/hr Q0M PRN OTHER For Prime & Rinse Back; Start 04/19/17 at 11:53 Heparin Sodium (Porcine) (Heparin Inj) 8,000 units UNSCH PRN IV FLUSH WITH DIALYSIS; Start 04/19/17 at 12:00 Sodium Chloride 1,000 ml @ 200 mls/hr Q5H PRN IV WITH DIALYSIS; Start at 11:53 Sodium Chloride 1,000 ml @ 0 mls/hr Q0M PRN OTHER WITH DIALYSIS; Start at 11:53 Mannitol (Mannitol Inj) 12.5 gm UNSCH PRN IV WITH DIALYSIS; Start 04/19/17 at 12:00 Albumin Human 100 ml @ 60 mls/hr UNSCH PRN IV WITH DIALYSIS; Start 04/19/17 at 12:00 Sodium Chloride (NS Flush) 5 ml UNSCH PRN IV FLUSH WITH DIALYSIS; Start at 12:00 Heparin Sodium (Porcine) (Heparin Inj) UNSCH PRN .XX WITH DIALYSIS; Start at 12:00 Gentamicin Sulfate (Gentamicin (Dialysis) Inj) 20 mg UNSCH PRN OTHER WITH DIALYSIS; Start 04/19/17 at 12:00 Ondansetron HCl (Zofran Inj) 4 mg UNSCH PRN IV PUSH WITH DIALYSIS; Start 04/19 at 12:00 Acetaminophen (Tylenol) 650 mg UNSCH PRN PO for headach, pain, temp > 101F; Start 04/19/17 at 12:00 Diphenhydramine HCl (Benadryl) 25 mg UNSCH PRN PO for hives/itching/anaphylaxis ; Start 04/19/17 at 12:00 Nitroglycerin (Nitrostat Sl) 0.4 mg UNSCH PRN SL CHEST PAIN; Start 04/19/17 at 12:00 Clonidine (Catapres) 0.1 mg UNSCH PRN PO for BP > 180/100 X 2 readings; Start 04/19/17 at 12:00 Epoetin Damian (Epogen Inj) 10,000 units UNSCH PRN IV PUSH WITH DIALYSIS Last administered on 04/20/17 19:44; Start 04/19/17 at 12:00 Gelatin (Gelfoam 12 Mm/7 Mm Top) 1 foam UNSCH PRN TOP SEE LABEL COMMENTS Last administered on 04/20/17 19:44; Start 04/19/17 at 12:00 Metronidazole 50 ml @ 100 mls/hr Q8H IV Last administered on 04/20/17 04:14 ; Start 04/19/17 at 13:00; Stop 04/20/17 at 10:40; Status DC Vancomycin HCl (VANCOMYCIN for oral use only) 250 mg TID PO Last administered on 04/20/17 20:48; Start 04/19/17 at 13:00 Megestrol Acetate (Megace Liq) 800 mg DAILY PO Last administered on 04/19/17 14:04; Start 04/19/17 at 13:15 Metronidazole (Flagyl) 250 mg Q8HR PO Last administered on 04/21/17 05:34; Start 04/20/17 at 14:00 A/P Assessment and Plan Patient is an 89-year old female with recent SNF stay who presented on 04/19 with C. diff colitis. C. diff. colitis -WBC down to 11 from 15 yesterday. Patient appears clinically improved and having fewer bowel movements. -continue oral Flagyl and oral vancomycin treatment -consider discharge today with continuing oral Abx at home End-stage renal disease -Following with nephrology. Had dialysis yesterday. Recent CVA with a-fib -sinus rhythm on exam. No new neuro deficits. Continue aspirin therapy. HTN -continue amlodipine John Anthony M3 Apr 21, 2017 08:34
[2017-04-21] MEDS ORDERED: PILL SPLITTER OTHER PRN (08:45)
[2017-04-21] MEDS: VANCOMYCIN 500 MG VIAL (FOR ORAL USE ONLY) PO SCH ×2 (09:58→14:11)
[2017-04-21] MEDS: MULTIVITAMIN TAB PO SCH (10:00)
[2017-04-21] MEDS: CHOLECALCIFEROL (VIT D3) 1000 UNIT TAB PO SCH (10:00)
[2017-04-21] MEDS: amLODIPine BESYLATE 5 MG TAB PO SCH (10:01)
[2017-04-21] MEDS: PRAVASTATIN SOD 10 MG TAB PO SCH (10:01)
[2017-04-21] MEDS: ASPIRIN 325 MG TAB PO SCH (10:28)
[2017-04-21] MEDS: SODIUM CHLORIDE 0.9% FLUSH 10 ML FLUSH IV FLUSH SCH (10:29)
[2017-04-21] MEDS: MEGESTROL ACETATE SUSP 400 MG/10 ML CUP PO SCH (10:29)
[2017-04-21] MEDS ORDERED: VANC250C2 PO (11:00)
--- NOTE | 2017-04-21 11:04 | HHI.DS ---
Discharge Summary Admission Date Apr 19, 2017 at 10:30 Discharge Date: Apr 21, 2017 Admitting Diagnosis leukocytosis, vomiting and diarrhea, ascites, cholelithiasis (1) C. difficile colitis ICD Code: A04.72 - Enterocolitis due to Clostridium difficile, not specified as recurrent Status: Acute (2) Abdominal pain ICD Code: R10.9 - Unspecified abdominal pain (3) ESRD (end stage renal disease) ICD Code: N18.6 - End stage renal disease (4) A-fib ICD Code: I48.91 - Unspecified atrial fibrillation (5) Dialysis patient ICD Code: Z99.2 - Dependence on renal dialysis Status: Acute Procedures None Brief History - From Admission 89-year-old female with a medical history significant for end-stage renal disease on hemodialysis, hypertension, hyperlipidemia, history of diabetes, recent CVA and was discharged to a group home facility. Patient reports shortly after leaving the group home facility, she started to experience diarrhea. They have been increasing in frequency to as much as 10 bowel movements a day. It is described as loose, watery stools. No blood. This morning she became very weak and could not get out of bed therefore she called the ambulance. She reports subjective fevers. Some abdominal discomfort. Abdominal CT in the emergency room showed diffuse edema and free fluid throughout the abdomen and pelvis. C. difficile came back positive. CBC/BMP: 04/21/17 0330 04/21/17 0330 Significant Findings Laboratory Tests Test 04/19/17 06:15 04/19/17 06:50 04/19/17 08:10 04/19/17 08:35 White Blood Count 19.6 TH/MM3 (4.0-11.0) Red Blood Count 3.09 MIL/MM3 (4.00-5.30) Hemoglobin 9.4 GM/DL (11.6-15.3) Hematocrit 28.9 % (35.0-46.0) Red Cell Distribution Width 19.7 % (11.6-17.2) Neutrophils (%) (Auto) 92.2 % (16.0-70.0) Lymphocytes (%) (Auto) 2.7 % (9.0-44.0) Neutrophils # (Auto) 18.1 TH/MM3 (1.8-7.7) Lymphocytes # (Auto) 0.5 TH/MM3 (1.0-4.8) Monocytes # (Auto) 1.0 TH/MM3 (0-0.9) Blood Urea Nitrogen 20 MG/DL (7-18) Creatinine 2.33 MG/DL (0.50-1.00) Total Protein 5.7 GM/DL (6.4-8.2) Albumin 2.0 GM/DL (3.4-5.0) Calcium Level 7.8 MG/DL (8.5-10.1) Estimat Glomerular Filtration Rate 20 ML/MIN (>89) Total Creatine Kinase 18 U/L (26-192) Prothrombin Time 13.1 SEC (9.8-11.6) Activated Partial Thromboplast Time 31.6 SEC (24.3-30.1) Stool C. difficile Toxin (PCR) POSITIVE (NEGATIVE) Stl C. difficile Toxin Epiderm 027 PRESUMPTIVE POSITIVE Urine Turbidity HAZY (CLEAR) Urine Protein 30 mg/dL (NEG-TRACE) Urine Bacteria OCC /hpf (NONE) Urine Mucus FEW /lpf (OCC) Test 04/20/17 04:15 04/21/17 03:30 White Blood Count 15.6 TH/MM3 (4.0-11.0) 11.8 TH/MM3 (4.0-11.0) Red Blood Count 3.08 MIL/MM3 (4.00-5.30) 3.11 MIL/MM3 (4.00-5.30) Hemoglobin 9.2 GM/DL (11.6-15.3) 9.2 GM/DL (11.6-15.3) Hematocrit 28.6 % (35.0-46.0) 28.6 % (35.0-46.0) Red Cell Distribution Width 19.2 % (11.6-17.2) 19.1 % (11.6-17.2) Neutrophils (%) (Auto) 90.1 % (16.0-70.0) Lymphocytes (%) (Auto) 3.9 % (9.0-44.0) Neutrophils # (Auto) 14.0 TH/MM3 (1.8-7.7) Lymphocytes # (Auto) 0.6 TH/MM3 (1.0-4.8) Blood Urea Nitrogen 30 MG/DL (7-18) 23 MG/DL (7-18) Creatinine 2.94 MG/DL (0.50-1.00) 2.66 MG/DL (0.50-1.00) Random Glucose 58 MG/DL (74-106) Total Protein 4.8 GM/DL (6.4-8.2) Albumin 1.7 GM/DL (3.4-5.0) Calcium Level 7.6 MG/DL (8.5-10.1) 7.6 MG/DL (8.5-10.1) Aspartate Amino Transf (AST/SGOT) 12 U/L (15-37) Alanine Aminotransferase (ALT/SGPT) 9 U/L (10-53) Estimat Glomerular Filtration Rate 15 ML/MIN (>89) 17 ML/MIN (>89) Potassium Level 3.4 MEQ/L (3.5-5.1) Imaging Last Impressions Chest X-Ray 04/19/17 0601 Signed Impressions: Service Date/Time: Wednesday, April 19, 2017 06:18 - CONCLUSION: 1. Cardiomegaly and findings of vascular congestion without overt failure. 2. Left lower lobe atelectasis versus pneumonia. Gavin Cole MD Gall Bladder Ultrasound 04/19/17 0000 Signed Impressions: Service Date/Time: Wednesday, April 19, 2017 10:29 - CONCLUSION: 1. Small amount of ascites. 2. Small amount of gallbladder sludge with mild gallbladder wall thickening likely related to ascites. Otherwise, no definitive evidence for acute cholecystitis although sensitivity is decreased due to ascites. Consider HIDA scan if there is significant continued clinical concern regarding cholecystitis. 3. Increased right renal cortical echogenicity consistent with medical renal disease. Layton Xiao MD Abdomen/Pelvis CT 04/19/17 0000 Signed Impressions: Service Date/Time: Wednesday, April 19, 2017 09:28 - CONCLUSION: There is marked diffuse edema and free fluid throughout the abdomen and the pelvis. At times the colonic wall particularly near the splenic flexure does appear to be thick walled raising the possibility of colitis. There is dense atherosclerotic disease without evidence of aneurysm. The left kidney is markedly atrophic likely left renal artery stenosis. Distended gallbladder with questionable small noncalcified gallstones. Willie Escobar MD PE at Discharge GENERAL: This is a well-nourished, well-developed patient, in no apparent distress. CARDIOVASCULAR: Normal rate and regular rhythm without murmurs, gallops, or rubs. RESPIRATORY: Good respiratory efforts. Breath sounds equal and clear to auscultation bilaterally. GASTROINTESTINAL: Abdomen soft, mild diffuse tenderness to palpation. Normal active bowel sounds MUSCULOSKELETAL: Extremities without cyanosis, or edema. NEURO: Alert & Oriented x4 to person, place, time, situation. Moves all ext x4 PSYCH: Appropriate mood and affect. Pt update on day of discharge Patient reports she is feeling much better. She is having soft stool. Last bowel movement was last night. Hospital Course 89-year-old female recently discharged from a group home facility admitted with C. difficile colitis. The patient was admitted. Her abdominal CT findings as above reviewed. General surgery was consulted and no surgical intervention was indicated. She was treated with Flagyl and vancomycin. Her symptoms significantly improved. The patient is discharged on oral vancomycin to continue treatment for C. difficile. Other conditions treated include: C. difficile colitis: Abdominal CT noted above. General surgery has been consulted. No indications for surgical intervention. - Continue treatment for C. difficile colitis with Flagyl and oral vancomycin. Switch to oral Flagyl -Improving. Continue to monitor - diet as tolerated. ESRD on HD: Nephrology followed the patient and continued hemodialysis in-house. History of recent CVA: Doing well with no new neuro issues - Continue Aspirin Hypertension: Continue amlodipine Pt Condition on Discharge: Good Discharge Disposition: Disch w/ Home Health Serv Discharge Time: > 30 minutes Discharge Instructions New Medications: Vancomycin (Vancomycin) 250 Mg Cap 250 MG PO QID for Infection, #32 CAP 0 Refills Continued Medications: Amlodipine (Amlodipine) 2.5 Mg Tab 2.5 MG PO DAILY for Blood Pressure Management, #30 TAB 0 Refills Aspirin (Aspirin) 325 Mg Tab 325 MG PO DAILY for Blood Clot Prevention, #30 TAB Cholecalciferol (Vitamin D-1000) 1,000 Unit Tab 1000 UNITS PO DAILY for Nutritional Supplement, #1 BOTTLE 0 Refills Doxazosin (Doxazosin) 2 Mg Tab 2 MG PO HS, #30 TAB 0 Refills Multiple Vitamin (Multiple Vitamin) 1 Tab 1 TAB PO DAILY for Nutritional Supplement, TAB 0 Refills Pravastatin (Pravastatin) 10 Mg Tab 10 MG PO DAILY for Cholesterol Management, #30 TAB 0 Refills Discontinued Medications: Furosemide (Furosemide) 80 Mg Tab 80 MG PO DAILY, #30 TAB 0 Refills Macy De Dios MD Apr 21, 2017 11:04
--- NOTE | 2017-04-21 11:09 | HHI.FF ---
Face to Face Verification Diagnosis: (1) C. difficile colitis (2) Dialysis patient (3) Abdominal pain Physical Therapy Order: Evaluate and Treat, Improve ambulation, Strength and gait training Home Health Nursing Order: Medication education-adverse effect I have seen patient Alisa Moser on 04/21/17. My clinical findings support the need for the requested home health care services because: Limited ability to care for self Need for psychosocial assistance High risk of falls I certify that my clinical findings support that this patient is homebound because: Unsteady gait/balance Need for psychosocial assistance Macy De Dios MD Apr 21, 2017 11:08
[2017-04-21 12:00] VITALS: BP 122/55; PULSE 78; RESP 18; TEMP 96.6; O2SAT 99
--- NOTE | 2017-04-21 12:27 | HHI.NPPN ---
Subjective Complaints: Diarrhea General Problems: Anemia, Hypertension Renal Failure: Chronic, End Stage Renal Disease Interval History Able to use AVF yesterday. She feels better. Diarrhea has improved, but not completely gone. Review of Systems General Constitutional: Fatigue Gastrointestinal Gastrointestinal: Diarrhea Objective Data Data Vital Signs Date Time Temp Pulse Resp B/P (MAP) Pulse Ox O2 Delivery O2 Flow Rate FiO2 04/21/17 10:00 Nasal Cannula 2.00 04/21/17 08:00 96.7 76 18 122/64 (83) 94 04/21/17 04:20 98.2 72 16 126/59 (81) 93 04/21/17 00:30 96.9 83 16 126/58 (80) 93 04/20/17 20:52 97.3 81 16 129/60 (83) 96 04/20/17 16:00 -: 04/21/17 0330 04/21/17 0330 Tubes & Lines: Perma-Cath Physical Exam General Appearance: No Acute Distress, Comfortable, Malnourished Eyes Eye Exam: Pupils Equal Throat Throat Exam: Oral Mucosa [place] & Moist Pulmonary Resp Exam: Clear Bilaterally, Breath Sounds Equal Cardiology CV Exam: Regular, Good Perfusion Gastrointestinal/Abdomen GI Exam: Soft, Bowel Sounds Present, Positive Bowel Movement Musculoskeletal MS Exam: Joints Intact, Normal Tone Integumentary Skin Exam: Clear, Warm, Dry, Intact Extremeties Extremities Exam: Pedal Pulses Palpable, Trace Edema Neurologic Neuro Exam: Alert, Awake, Oriented, Speech Clear, Moving All Extremities Psychiatric Psych Exam: Appropriate Responses Assessment/Plan Discussed Condition With: Patient Assessment Summary: Anemia of CKD, Hypertension, End Stage Renal Disease Problem List: (1) ESRD (end stage renal disease) ICD Codes: N18.6 - End stage renal disease Plan: Continue dialysis support. We were able to use AVF. Intermittently monitor electrolytes Renally dose medications when appropriate Avoid right arm procedures Protein supplements added (2) Abdominal pain ICD Codes: R10.9 - Unspecified abdominal pain Plan: C diff positive, surgery has evaluated, no intervention required On IV flagyl and PO vancomycin Medical team to manage (3) Anemia ICD Codes: D64.9 - Anemia, unspecified Plan: Epogen with dialysis Monitor hemoglobin (4) A-fib ICD Codes: I48.91 - Unspecified atrial fibrillation Plan: Appears to be in sinus rhythm She is on Devon Montejo MD Apr 21, 2017 12:27
[2017-04-22] MEDS ORDERED: WHEEMIS3 (12:24)
== END 2017-04-21 15:29 | disposition home health service (06) | DRG 371 ==
LOC: NEPE 05:52 → NEDA 10:30 → N07A 12:08
PROVIDERS: ADMIT Family Medicine; ATTEND Family Medicine
PROC: 5A1D70Z Performance of Urinary Filtration, Intermittent, Less than 6 Hours Per Day (ICD-10-PCS; principal; 2017-04-20)
DX: A04.72 Enterocolitis due to Clostridium difficile, not specified as recurrent (principal); N18.6 End stage renal disease; I12.0 Hypertensive chronic kidney disease with stage 5 chronic kidney disease or end stage renal disease; E88.89 Other specified metabolic disorders; K80.00 Calculus of gallbladder with acute cholecystitis without obstruction; R18.8 Other ascites; I13.11 Hypertensive heart and chronic kidney disease without heart failure, with stage 5 chronic kidney disease, or end stage renal disease; I48.91 Unspecified atrial fibrillation; D63.1 Anemia in chronic kidney disease; E11.22 Type 2 diabetes mellitus with diabetic chronic kidney disease; E78.5 Hyperlipidemia, unspecified; M62.50 Muscle wasting and atrophy, not elsewhere classified, unspecified site; Z86.73 Personal history of transient ischemic attack (TIA), and cerebral infarction without residual deficits; Z87.891 Personal history of nicotine dependence; Z99.2 Dependence on renal dialysis
CPT/HCPCS: 71010; 74176; 76705; 80048; 80053; 81001; 82550; 82948; 83605; 84484; 85025; 85027; 85610; 85730; 87040; 87086; 87493; 90935; 93005; 96361; 96365; 96374; 96375; J2405; J2543; J7030; Q4081

== ENCOUNTER 2017-04-24 06:49 | Inpatient (IN) | payer OTHER, MEDICARE ==
[2017-04-24] VITALS (8 sets, daily range): BP systolic 103–141; BP diastolic 55–73; PULSE 69–82; RESP 16–22; TEMP 96.6–98; O2SAT 93–100
[~2017-04-24] VITALS: Ht 154.9 cm; Wt 61.8 kg
[~2017-04-24 06:49] MED LIST changes: -FURO80TA PO; +VANC250C2 PO; +WHEEMIS3
--- NOTE | 2017-04-24 07:26 | PD ---
HPI Chief Complaint: General Weakness Time Seen by Provider: 06:59 Travel History International Travel<30 days: No Contact w/Intl Traveler<30days: No Traveled to known affect area: No History of Present Illness HPI 89 y/o female presents with generalized weakness that has been progressive for the ambulance team over the past couple of weeks. She is coming from home. She states she got dialysis yesterday without difficulty and Dr. Torres is her electroformer. The ambulance team states she recently had a urinary tract infection and was in the hospital for a possible stroke. The patient cannot give me significant details about this but does note generalized weakness. History is limited from patient. The ambulance team states her room air saturation was 91% so they put her on oxygen. PFS Past Medical History Narrative Medical By records Atrial Fibrillation: Yes Autoimmune Disease: No Cancer: No Cardiovascular Problems: No Chemotherapy: No Diabetes: Yes Patient Takes Glucophage: No Dialysis: Yes (MWF) Diminished Hearing: No Endocrine: No Hypertension: Yes Immune Disorder: No Kidney Stones: Yes Musculoskeletal: No Neurologic: No Psychiatric: No Reproductive: No Respiratory: No Radiation Therapy: No Renal Failure: Yes Sickle Cell Disease: No Tetanus Vaccination: > 5 Years Influenza Vaccination: Yes : 4 Para: 4 Miscarriage: 0 : 0 Past Surgical History Narrative Surgical By records AICD: No Arteriovenous Shunt: No Gynecologic Surgery: Yes (Hysterectomy) Hysterectomy: Yes Insulin Pump: No Joint Replacement: No Pacemaker: No Other Surgery: Yes ("FEET SURGERY") Social History Alcohol Use: No Tobacco Use: No Substance Use: No Allergies-Medications (Allergen,Severity, Reaction): Coded Allergies: No Known Allergies (Unverified Allergy, Unknown, 04/24/17) Reported Meds & Prescriptions Reported Meds & Active Scripts Active Wheelchair (Device) 1 Mis Mis Ea .ROUTE DIRECTED wheelchair w foot rest Vancomycin (Vancomycin HCl) 250 Mg Cap 250 Mg PO QID Aspirin 325 Mg Tab 325 Mg PO DAILY Reported Multiple Vitamin 1 Tab 1 Tab PO DAILY Pravastatin 10 Mg Tab 10 Mg PO DAILY Doxazosin (Doxazosin Mesylate) 2 Mg Tab 2 Mg PO HS Vitamin D-1000 (Cholecalciferol) 1,000 Unit Tab 1,000 Units PO DAILY Amlodipine (Amlodipine Besylate) 2.5 Mg Tab 2.5 Mg PO DAILY Review of Systems Except as stated in HPI: all other systems reviewed are Neg Physical Exam Exam Limitations: Poor Historian Narrative GENERAL: Well-nourished, well-developed patient. SKIN: Warm and dry. HEAD: Normocephalic EYES: No injection or drainage. ENT: No nasal drainage noted. NECK: Supple, trachea midline. CARDIOVASCULAR: irregular rate and rhythm RESPIRATORY: Breath sounds equal bilaterally at apices. No accessory muscle use. GASTROINTESTINAL: Abdomen soft, non-tender NEUROLOGICAL: Awake. generalized weakness with right leg and arm worse then left. Normal speech. Data Data Last Documented VS Vital Signs Date Time Temp Pulse Resp B/P (MAP) Pulse Ox O2 Delivery O2 Flow Rate FiO2 04/24/17 07:00 20 93 Nasal Cannula 2.00 04/24/17 06:54 97.7 82 141/65 (90) Orders Orders Electrocardiogram (04/24/17 06:59) Complete Blood Count With Diff (04/24/17 06:59) Comprehensive Metabolic Panel (04/24/17 06:59) Prothrombin Time / Inr (Pt) (04/24/17 06:59) Act Partial Throm Time (Ptt) (04/24/17 06:59) Lactic Acid Sepsis Protocol (04/24/17 06:59) Magnesium (Mg) (04/24/17 06:59) Phosphorus (Po4) (04/24/17 06:59) Ckmb (Isoenzyme) Profile (04/24/17 06:59) Troponin I (04/24/17 06:59) Urinalysis - C+S If Indicated (04/24/17 06:59) Blood Culture (04/24/17 06:59) Chest, Single Ap (04/24/17 06:59) Ecg Monitoring (04/24/17 06:59) Iv Access Insert/Monitor (04/24/17 06:59) Cath For Specimen (04/24/17 06:59) Oximetry (04/24/17 06:59) Ct Brain W/O Iv Contrast(Rout) (04/24/17 06:59) Place In Observation (04/24/17 ) Vital Signs (Adult) Q4H (04/24/17 09:32) Activity Oob With Assistance (04/24/17 09:32) Diet Renal (04/24/17 Breakfast) Sodium Chlor 0.9% 1000 Ml Inj (Ns 1000 M (04/24/17 09:32) Sodium Chloride 0.9% Flush (Ns Flush) (04/24/17 09:45) Sodium Chloride 0.9% Flush (Ns Flush) (04/24/17 21:00) Acetaminophen (Tylenol) (04/24/17 09:45) Ondansetron Inj (Zofran Inj) (04/24/17 09:45) Basic Metabolic Panel (Bmp) (04/25/17 06:00) Comprehensive Metabolic Panel (04/25/17 06:00) Resp Oxygen Rajesh C Titrat 1-4 L (04/24/17 ) Pt Request For Service (04/24/17 09:32) Scd Bilateral/Knee High JODEE.BID (04/24/17 09:32) Naloxone Inj (Narcan Inj) (04/24/17 09:45) Magnesium Hydroxide Liq (Milk Of Magnesi (04/24/17 09:45) Sennosides (Senokot) (04/24/17 09:45) Bisacodyl Supp (Dulcolax Supp) (04/24/17 09:45) Lactulose Liq (Lactulose Liq) (04/24/17 09:45) Admit Order (Ed Use Only) (04/24/17 09:34) Aspirin (Aspirin) (04/24/17 09:45) Nursing Bedside Swallow Assess .ONCE (04/24/17 09:34) Labs Laboratory Tests Test 04/24/17 07:15 04/24/17 07:30 04/24/17 08:26 Urine Color JOAN Urine Turbidity HAZY Urine pH 5.0 Urine Specific [place] 1.022 Urine Protein 30 mg/dL Urine Glucose (UA) NEG mg/dL Urine Ketones TRACE mg/dL Urine Occult Blood TRACE Urine Nitrite NEG Urine Bilirubin NEG Urine Urobilinogen LESS THAN 2.0 MG/DL Urine Leukocyte Esterase NEG Urine RBC 1 /hpf Urine Squamous Epithelial Cells <1 /hpf Urine Amorphous Sediment RARE Microscopic Urinalysis Comment CATH-CULT NOT IND Lactic Acid Level 1.9 mmol/L White Blood Count 8.1 TH/MM3 Red Blood Count 3.49 MIL/MM3 Hemoglobin 10.3 GM/DL Hematocrit 32.2 % Mean Corpuscular Volume 92.4 FL Mean Corpuscular Hemoglobin 29.6 PG Mean Corpuscular Hemoglobin Concent 32.1 % Red Cell Distribution Width 20.4 % Platelet Count 211 TH/MM3 Mean Platelet Volume 10.7 FL Neutrophils (%) (Auto) 75.8 % Lymphocytes (%) (Auto) 13.6 % Monocytes (%) (Auto) 8.5 % Eosinophils (%) (Auto) 1.4 % Basophils (%) (Auto) 0.7 % Neutrophils # (Auto) 6.1 TH/MM3 Lymphocytes # (Auto) 1.1 TH/MM3 Monocytes # (Auto) 0.7 TH/MM3 Eosinophils # (Auto) 0.1 TH/MM3 Basophils # (Auto) 0.1 TH/MM3 CBC Comment DIFF FINAL Differential Comment Blood Urea Nitrogen 28 MG/DL Creatinine 4.01 MG/DL Random Glucose 91 MG/DL Total Protein 5.3 GM/DL Albumin 1.8 GM/DL Calcium Level 7.6 MG/DL Phosphorus Level 2.5 MG/DL Magnesium Level 1.8 MG/DL Alkaline Phosphatase 111 U/L Aspartate Amino Transf (AST/SGOT) 21 U/L Alanine Aminotransferase (ALT/SGPT) 13 U/L Total Bilirubin 0.8 MG/DL Sodium Level 138 MEQ/L Potassium Level 3.9 MEQ/L Chloride Level 104 MEQ/L Carbon Dioxide Level 24.9 MEQ/L Anion Gap 9 MEQ/L Estimat Glomerular Filtration Rate 11 ML/MIN Total Creatine Kinase 26 U/L Troponin I 0.03 NG/ML MDM Medical Decision Making Medical Screen Exam Complete: Yes Emergency Medical Condition: Yes Medical Record Reviewed: Yes (pmh confirmed) Interpretation(s) EKG shows A. fib at 75 without change from recent EKG on the CBC & BMP Diagram 04/24/17 07:30 04/24/17 08:26 Total Protein 5.3 L, Albumin 1.8 L, Calcium Level 7.6 L, Phosphorus Level 2.5, Magnesium Level 1.8, Alkaline Phosphatase 111, Aspartate Amino Transf (AST/SGOT ) 21, Alanine Aminotransferase (ALT/SGPT) 13, Total Bilirubin 0.8 Last [address] 04/24/17 0659 Signed Impressions: Service Date/Time: Monday, April 24, 2017 07:35 - CONCLUSION: No acute findings in the brain. Arron Roberson MD Chest X-Ray 04/24/17 0659 Signed Impressions: Service Date/Time: Monday, April 24, 2017 07:18 - CONCLUSION: Stable left lower lobe consolidation. Arron Roberson MD Differential Diagnosis anemia, stroke, bleed, uti, electrolyte abnormality... Narrative Course Patient recently in the hospital for C. difficile colitis. Patient has generalized weakness with right significantly greater than left. Duration of symptoms has been for a couple weeks. We'll check blood work, urinalysis, chest x-ray and CT brain and closely monitor. ed workup no emergent findings on labs, imaging; on review of records neuro exam was nonfocal and now with more weakness on the right, will admit to the hospital for further care, aspirin given Physician Communication Physician Communication dr wasserman agrees to admit and agrees likely TIA given symptoms, hypoxia is likely related to small fluid on x-ray and not completing dialysis yesterday, no indication for antibiotics Diagnosis Primary Impression: Weakness Additional Impressions: A-fib Qualified Codes: I48.91 - Unspecified atrial fibrillation ESRD (end stage renal disease) Anemia Qualified Codes: D64.9 - Anemia, unspecified C. difficile colitis Admitting Information Admitting Physician Requests: Heather Baker MD Apr 24, 2017 07:26
--- NOTE | 2017-04-24 07:42 | RADRPT ---
EXAM DATE/TIME: 04/24/2017 07:18 [facility] COMPARISON: CHEST SINGLE AP, April 19, 2017, 6:18. INDICATIONS : Palpitations MEDICAL HISTORY : Hypertension. Dialysis. Diabetes. Renal disease. SURGICAL HISTORY : Hysterectomy. ENCOUNTER: Initial ACUITY: 1 day PAIN SCORE: 0/10 LOCATION: chest FINDINGS: There is persistent consolidation of the left lower lobe with loss of delineation of the entire left hemidiaphragm; the size of the consolidation is stable from prior. The right lung is clear. Stable cardiomegaly. Double-lumen right central line unchanged in position. CONCLUSION: Stable left lower lobe consolidation. Arron Roberson MD on April 24, 2017 at 7:40 Board Certified Radiologist. This report was verified electronically.
[2017-04-24 07:46] LABS: AUTOMATED NEUTROPHIL # 6.1 TH/MM3 (1.8-7.7); BASOPHIL # 0.1 TH/MM3 (0-0.2); BASOPHIL % 0.7 % (0.0-2.0); EOSINOPHIL # 0.1 TH/MM3 (0-0.4); EOSINOPHIL % 1.4 % (0.0-4.0); HEMATOCRIT 32.2 % (35.0-46.0); HEMO FLAGS DIFF FINAL; LYMPH % 13.6 % (9.0-44.0); LYMPHOCYTE # 1.1 TH/MM3 (1.0-4.8); MEAN CELL VOLUME 92.4 FL (80.0-100.0); MEAN CORPUSCULAR HEMOGLOBIN 29.6 PG (27.0-34.0); MEAN CORPUSCULAR HGB CONC 32.1 % (32.0-36.0); MONO % 8.5 % (0.0-8.0); NEUT % 75.8 % (16.0-70.0); PLATELET COUNT 211 TH/MM3 (150-450); RED BLOOD COUNT 3.49 MIL/MM3 (4.00-5.30); RED CELL DISTRIBUTION WIDTH 20.4 % (11.6-17.2); WHITE BLOOD COUNT 8.1 TH/MM3 (4.0-11.0)
[2017-04-24 07:50] LABS: BLOOD, URINE TRACE (NEG); GLUCOSE,URINE NEG (NEG); KETONE, URINE TRACE mg/dL (NEG); NITRITE,URINE NEG (NEG); SQUAMOUS EPITHELIAL CELL URINE <1 /hpf (0-5)
[2017-04-24 07:53] LABS: COMMENT (UR) CATH-CULT NOT IND; CULTURE IF INDICATED CATH CULTURE NOT IND; URINE COLOR AMBER (YELLW/STRAW)
--- NOTE | 2017-04-24 08:03 | RADRPT ---
EXAM DATE/TIME: 04/24/2017 07:35 [facility] COMPARISON: CT BRAIN W/O CONTRAST, March 20, 2017, 18:19. INDICATIONS : Patient complains of weakness. RADIATION DOSE: 56.35 CTDIvol (mGy) MEDICAL HISTORY : Hypertension. Diabetes mellitus type 1. renal failure SURGICAL HISTORY : Hysterectomy. ENCOUNTER: Initial ACUITY: 1 day PAIN SCALE: 0/10 LOCATION: cranial TECHNIQUE: Multiple contiguous axial images were obtained of the head. Using automated exposure control and adj ustment of the mA and/or kV according to patient size, radiation dose was kept as low as reasonably a chievable to obtain optimal diagnostic quality images. DICOM format image data is available electro nically for review and comparison. FINDINGS: CEREBRUM: The ventricles and basal cisterns are prominent, characteristic of age-appropriate atrophy. Stable s mall lacunar infarct in the body of the right caudate nucleus. No evidence of midline shift, mass le kim, hemorrhage or acute infarction. No extra-axial fluid collections are seen. POSTERIOR FOSSA: The cerebellum and brainstem are intact. The 4th ventricle is midline. The cerebellopontine angle i s unremarkable. EXTRACRANIAL: The visualized portion of the orbits is intact. SKULL: The calvaria is intact. No evidence of skull fracture. CONCLUSION: No acute findings in the brain. Arron Roberson MD on April 24, 2017 at 7:59 Board Certified Radiologist. This report was verified electronically.
[2017-04-24 09:15] LABS: ALKALINE PHOSPHATASE 111 U/L (45-117); ALT (GPT) 13 U/L (10-53); ANION GAP 9 MEQ/L (5-15); AST (GOT) 21 U/L (15-37); BICARBONATE 24.9 MEQ/L (21.0-32.0); BLOOD UREA NITROGEN 28 MG/DL (7-18); CHLORIDE 104 MEQ/L (98-107); GLOMERULAR FILTRATION RATE 11 ML/MIN (>89); MAGNESIUM 1.8 MG/DL (1.5-2.5); POTASSIUM 3.9 MEQ/L (3.5-5.1); SODIUM (NA) 138 MEQ/L (136-145); TOTAL BILIRUBIN ADULT 0.8 MG/DL (0.2-1.0)
[2017-04-24 09:16] LABS: CREATINE KINASE 26 U/L (26-192)
[2017-04-24] MEDS ORDERED: SODIUM CHLORIDE 0.9% FLUSH 10 ML FLUSH IV FLUSH PRN (09:45)
[2017-04-24] MEDS ORDERED: ONDANSETRON HCL 4 MG/2 ML VIAL IVP PRN (09:45)
[2017-04-24] MEDS ORDERED: SENNOSIDES 8.6 MG TAB PO PRN (09:45)
[2017-04-24] MEDS ORDERED: MAGNESIUM HYDROXIDE SUSP 30 ML CUP PO PRN (09:45)
[2017-04-24] MEDS ORDERED: LACTULOSE SYRUP 20 GM/30 ML CUP PO PRN (09:45)
[2017-04-24] MEDS ORDERED: ASPIRIN 325 MG TAB PO ONE (09:45)
[2017-04-24] MEDS ORDERED: NALOXONE HCL 0.4 MG/ML AMP IV PUSH PRN (09:45)
[2017-04-24] MEDS ORDERED: BISACODYL 10 MG SUPP RECTAL PRN (09:45)
--- NOTE | 2017-04-24 10:44 | HHI.HP ---
[facility] Unknown Admission Diagnosis weakness, dialysis patient Diagnoses: Chief Complaint: Generalized weakness. Travel History International Travel<30 Days: No Contact w/Intl Traveler <30 Da: No Traveled to Known Affected Are: No History of Present Illness Ms. Moser is a pleasant 89-year-old female with a history of recent CVA, C. difficile colitis, atrial fibrillation who presented to the emergency department today due to paralyzed weakness. This morning she got up and felt like she could not move her legs. Her legs felt very heavy. She also noticed her whole body felt weak which led her to seek medical attention. She denies any dysarthria, facial asymmetry, one-sided weakness. She denies any chest pain , shortness of breath, fever or chills. She does have some left lower quadrant abdominal pain. She denies any dysuria, hematuria, diarrhea. Patient was recently discharged on 04/21/2017 after being treated for C. difficile colitis. In February she was admitted for stroke and she was discharged on aspirin 325 mg daily. Review of Systems Except as stated in HPI: all other systems reviewed are Neg Past Family Social History Past Medical History End-stage renal disease on hemodialysis followed by Dr. Torres HTN HLD History of diabetes Tiny Left frontal parietal region stroke Atrial fibrillation Past Surgical History Hysterectomy, foot surgery Reported Medications Vancomycin (Vancomycin HCl) 250 Mg Cap 250 Mg PO QID Aspirin 325 Mg Tab 325 Mg PO DAILY Reported Multiple Vitamin 1 Tab 1 Tab PO DAILY Pravastatin 10 Mg Tab 10 Mg PO DAILY Doxazosin (Doxazosin Mesylate) 2 Mg Tab 2 Mg PO HS Vitamin D-1000 (Cholecalciferol) 1,000 Unit Tab 1,000 Units PO DAILY Amlodipine (Amlodipine Besylate) 2.5 Mg Tab 2.5 Mg PO DAILY Allergies: Coded Allergies: No Known Allergies (Unverified Allergy, Unknown, 04/24/17) Family History Father had cerebral hemorrhage at the age of 56. Sr. has Alzheimer's dementia. Social History Denies alcohol use Denies tobacco use Denies illicit drug use Physical Exam Vital Signs Vital Signs Date Time Temp Pulse Resp B/P (MAP) Pulse Ox O2 Delivery O2 Flow Rate FiO2 04/24/17 09:47 70 20 113/63 (80) 99 Nasal Cannula 2.00 04/24/17 09:47 100 Nasal Cannula 2.00 04/24/17 07:00 20 93 Nasal Cannula 2.00 04/24/17 06:57 93 Nasal Cannula 2.00 04/24/17 06:54 97.7 82 22 141/65 (90) 94 Physical Exam GENERAL: This is a well-nourished, well-developed patient, in no apparent distress. SKIN: No rashes, ecchymoses or lesions. Warm and dry. HEAD: Atraumatic. Normocephalic. No temporal or scalp tenderness. EYES: Pupils equal round and reactive. No injection or drainage. ENT: Nose without bleeding, purulent drainage or septal hematoma. Airway patent. NECK: Trachea midline. No lymphadenopathy. Supple, nontender, no meningeal signs. CARDIOVASCULAR: Regular rate and rhythm without murmurs, gallops, or rubs. No JVD. RESPIRATORY: Clear to auscultation. Breath sounds equal bilaterally. No wheezes , rales, or rhonchi. GASTROINTESTINAL: Abdomen soft, non-tender, nondistended. No guarding. MUSCULOSKELETAL: Extremities without clubbing, cyanosis, or edema. NEUROLOGICAL: Awake and alert. Cranial nerves II through XII intact. Right arm appears to be weaker. Patient was unable to lift legs up. Normal speech. Laboratory Laboratory Tests Test 04/24/17 07:15 04/24/17 07:30 04/24/17 08:26 Urine Color JOAN Urine Turbidity HAZY Urine pH 5.0 Urine Specific [place] 1.022 Urine Protein 30 Urine Glucose (UA) NEG Urine Ketones TRACE Urine Occult Blood TRACE Urine Nitrite NEG Urine Bilirubin NEG Urine Urobilinogen LESS THAN 2.0 Urine Leukocyte Esterase NEG Urine RBC 1 Urine Squamous Epithelial Cells <1 Urine Amorphous Sediment RARE Microscopic Urinalysis Comment CATH-CULT NOT IND Lactic Acid Level 1.9 White Blood Count 8.1 Red Blood Count 3.49 Hemoglobin 10.3 Hematocrit 32.2 Mean Corpuscular Volume 92.4 Mean Corpuscular Hemoglobin 29.6 Mean Corpuscular Hemoglobin Concent 32.1 Red Cell Distribution Width 20.4 Platelet Count 211 Mean Platelet Volume 10.7 Neutrophils (%) (Auto) 75.8 Lymphocytes (%) (Auto) 13.6 Monocytes (%) (Auto) 8.5 Eosinophils (%) (Auto) 1.4 Basophils (%) (Auto) 0.7 Neutrophils # (Auto) 6.1 Lymphocytes # (Auto) 1.1 Monocytes # (Auto) 0.7 Eosinophils # (Auto) 0.1 Basophils # (Auto) 0.1 CBC Comment DIFF FINAL Differential Comment Blood Urea Nitrogen 28 Creatinine 4.01 Random Glucose 91 Total Protein 5.3 Albumin 1.8 Calcium Level 7.6 Phosphorus Level 2.5 Magnesium Level 1.8 Alkaline Phosphatase 111 Aspartate Amino Transf (AST/SGOT) 21 Alanine Aminotransferase (ALT/SGPT) 13 Total Bilirubin 0.8 Sodium Level 138 Potassium Level 3.9 Chloride Level 104 Carbon Dioxide Level 24.9 Anion Gap 9 Estimat Glomerular Filtration Rate 11 Total Creatine Kinase 26 Troponin I 0.03 Date/Time Source Procedure Growth Status 04/24/17 07:15 Blood Peripheral Aerobic Blood Culture Pending Received 04/24/17 07:15 Blood Peripheral Anaerobic Blood Culture Pending Received Result Diagram: 04/24/17 0730 04/24/17 0826 Imaging Last Impressions Head CT 04/24/17658 Signed Impressions: Service Date/Time: Monday, April 24, 2017 07:35 - CONCLUSION: No acute findings in the brain. Arron Roberson MD Chest X-Ray 04/24/17658 Signed Impressions: Service Date/Time: Monday, April 24, 2017 07:18 - CONCLUSION: Stable left lower lobe consolidation. Arron Roberson MD Caplevi VTE Risk Assessment Caprini VTE Risk Assessment: Mod/High Risk (score >= 2) Caprini Risk Assessment Model Point Value = 1 Point Value = 2 Point Value = 3 Point Value = 5 Age 41-60 Minor surgery BMI > 25 kg/m2 Swollen legs Varicose veins or History of unexplained or recurrent spontaneous Oral contraceptives or hormone replacement Sepsis (< 1 month) Serious lung disease, including pneumonia (< 1 month) Abnormal pulmonary function Acute myocardial infarction Congestive heart failure (< 1 month) History of inflammatory bowel disease Medical patient at bed rest Age 61-74 Arthroscopic surgery Major open surgery (> 45 min) Laparoscopic surgery (> 45 min) Malignancy Confined to bed (> 72 hours) Immobilizing plaster cast Central venous access Age >= 75 History of VTE Family history of VTE Factor V Leiden Prothrombin [id number] Lupus anticoagulant Anticardiolipin antibodies Elevated serum homocysteine Heparin-induced thrombocytopenia Other congenital or acquired thrombophilia Stroke (< 1 month) Elective arthroplasty Hip, pelvis, or leg fracture Acute spinal cord injury (< 1 month) Prophylaxis Regimen Total Risk Factor Score Risk Level Prophylaxis Regimen 0-1 Low Early ambulation 2 Moderate Order ONE of the following: *Sequential Compression Device (SCD) *Heparin 5000 units SQ BID 3-4 Higher Order ONE of the following medications: *Heparin 5000 units SQ TID *Enoxaparin/Lovenox 40 mg SQ daily (WT < 150 kg, CrCl > 30 mL/min) *Enoxaparin/Lovenox 30 mg SQ daily (WT < 150 kg, CrCl > 10-29 mL/min) *Enoxaparin/Lovenox 30 mg SQ BID (WT < 150 kg, CrCl > 30 mL/min) AND/OR *Sequential Compression Device (SCD) 5 or more Highest Order ONE of the following medications: *Heparin 5000 units SQ TID (Preferred with Epidurals) *Enoxaparin/Lovenox 40 mg SQ daily (WT < 150 kg, CrCl > 30 mL/min) *Enoxaparin/Lovenox 30 mg SQ daily (WT < 150 kg, CrCl > 10-29 mL/min) *Enoxaparin/Lovenox 30 mg SQ BID (WT < 150 kg, CrCl > 30 mL/min) AND *Sequential Compression Device (SCD) Assessment and Plan Problem List: (1) ESRD (end stage renal disease) ICD Code: N18.6 - End stage renal disease (2) A-fib ICD Code: I48.91 - Unspecified atrial fibrillation (3) C. difficile colitis ICD Code: A04.72 - Enterocolitis due to Clostridium difficile, not specified as recurrent Status: Acute (4) Weakness ICD Code: R53.1 - Weakness Status: Acute Assessment and Plan Ms. Moser is a pleasant 89-year-old female with a history of CVA, atrial fibrillation, hypertension, hyperlipidemia recent C. difficile colitis who presents to the emergency department today due to generalized weakness, heavy legs and unable to ambulate much. Patient denies any dysarthria or facial asymmetry. Generalized weakness Probable TIA Recent CVA (03/29/2017) - MRI of the brain on 03/29/2017 showed tiny acute infarction superior to the frontal horn of the left frontal parietal region. No evidence of hemorrhage.ull co - Patient was discharged home on Aspirin 325mg Qday. - CT head did not show any acute abnormalities. Images reviewed by me on . - Start gentle hydration. - Consult PT. Atrial fibrillation - [id number] score 6 (Age, female, previous CVA, HTN). - Heart rate controlled. She has no history of major bleeding - GI or ICH. Her anemia is from renal disease. - I believe it would be extremely important to start patient on Anti- coagulation for Afib Stroke prevention. - Will start patient on Apixaban 2.5mg BID due to age, weight and renal disease. Recent history of C. Diff colitis - Continue PO Vancomycin 250mg QID X 10 days. - C. Diff was positive on 04/19/2017. Hyperlipidemia Hypertension - Continue amlodipine 2.5 mg daily, continue statin although patient may benefit from moderate dose of Lipitor. End-stage renal disease, on hemodialysis - Consult nephrology, Dr. Torres to continue HD management Anemia of chronic disease - likely due to ESRD. - Hgb 10.3. No evidence of GI bleed. Full code. Apixaban starting tonight. Physician Certification 2 Midnight Certification Type: Admission for Inpatient Services Order for Inpatient Services The services are ordered in accordance with Medicare regulations or non- Medicare payer requirements, as applicable. In the case of services not specified as inpatient-only, they are appropriately provided as inpatient services in accordance with the 2-midnight benchmark. Estimated LOS (days): 2 days is the estimated time the patient will need to remain in the hospital, assuming treatment plan goals are met and no additional complications. Post-Hospital Plan: SNF Problem Qualifiers (1) A-fib: Qualified Codes: I48.91 - Unspecified atrial fibrillation Mary Gallagher DO Apr 24, 2017 10:44
[2017-04-24] MEDS: SODIUM CHLOR 0.9% 1000 ML INJ 1,000 ML IV SCH ×2 (11:36→20:40)
[2017-04-24 12:18] LABS: INTERNATIONAL NORMALIZED RATIO 1.2 RATIO; PROTHROMBIN TIME - PATIENT 13.4 SEC (9.8-11.6)
[2017-04-24] MEDS: VANCOMYCIN 500 MG VIAL (FOR ORAL USE ONLY) PO SCH ×3 (13:30→20:39)
[2017-04-24] MEDS: ACETAMINOPHEN 325 MG TAB PO PRN (13:31)
--- NOTE | 2017-04-24 16:50 | PD.CONS ---
HPI Service Nephrology Consult Requested By Dr. Gallagher Reason for Consult ESRD Primary Care Physician Unknown History of Present Illness Patient is a 89-year-old female with history of end-stage renal disease on hemodialysis who has heaviness in the legs and came to the due to these complaints she goes on dialysis on Tuesday followed by Dr. Torres He has history of C. difficile in the past Review of Systems Constitutional: COMPLAINS OF: Fatigue Musculoskeletal: COMPLAINS OF: Joint pain, Muscle aches Neurologic: COMPLAINS OF: Abnormal gait, Localized weakness Psychiatric: COMPLAINS OF: Anxiety Past Family Social History Allergies: Coded Allergies: No Known Allergies (Unverified Allergy, Unknown, 04/24/17) Past Medical History End-stage renal disease on hemodialysis followed by Dr. Torres HTN HLD History of diabetes Tiny Left frontal parietal region stroke Atrial fibrillation Past Surgical History Hysterectomy, foot surgery Reported Medications Reported Meds & Active Scripts Active Wheelchair (Device) 1 Mis Mis Ea .ROUTE DIRECTED wheelchair w foot rest Vancomycin (Vancomycin HCl) 250 Mg Cap 250 Mg PO QID Aspirin 325 Mg Tab 325 Mg PO DAILY Reported Multiple Vitamin 1 Tab 1 Tab PO DAILY Pravastatin 10 Mg Tab 10 Mg PO DAILY Doxazosin (Doxazosin Mesylate) 2 Mg Tab 2 Mg PO HS Vitamin D-1000 (Cholecalciferol) 1,000 Unit Tab 1,000 Units PO DAILY Amlodipine (Amlodipine Besylate) 2.5 Mg Tab 2.5 Mg PO DAILY Active Ordered Medications Current Medications Medications (Trade) Dose Ordered Sig/Angel Route Start Time Stop Time Status Last Admin Sodium Chloride 1,000 ml @ 100 mls/hr Q10H IV 04/24/17 09:32 04/24/17 11:36 (NS Flush) 2 ml UNSCH PRN IV FLUSH 04/24/17 09:45 (NS Flush) 2 ml BID IV FLUSH 04/24/17 21:00 (Tylenol) 650 mg Q4H PRN PO 04/24/17 09:45 04/24/17 13:31 (Zofran Inj) 4 mg Q6H PRN IVP 04/24/17 09:45 (Narcan Inj) 0.4 mg UNSCH PRN IV PUSH 04/24/17 09:45 (Milk Of Magnesia Liq) 30 ml Q12H PRN PO 04/24/17 09:45 (Senokot) 17.2 mg Q12H PRN PO 04/24/17 09:45 (Dulcolax Supp) 10 mg DAILY PRN RECTAL 04/24/17 09:45 (Lactulose Liq) 30 ml DAILY PRN PO 04/24/17 09:45 (VANCOMYCIN for oral use only) 250 mg QID PO 04/24/17 13:00 05/04/17 12:59 04/24/17 13:30 (Eliquis) 2.5 mg BID PO 04/24/17 21:00 (Norvasc) 2.5 mg DAILY PO 04/25/17 09:00 (Vitamin D3) 1,000 units DAILY PO 04/25/17 09:00 (Cardura) 2 mg HS PO 04/24/17 21:00 Family History Noncontributory Social History Denies smoking or alcohol use Physical Exam Vital Signs Vital Signs Date Time Temp Pulse Resp B/P (MAP) Pulse Ox O2 Delivery O2 Flow Rate FiO2 04/24/17 16:30 97.7 69 16 103/55 (71) 96 04/24/17 14:51 18 04/24/17 12:30 98.0 71 20 120/56 (77) 97 04/24/17 11:59 04/24/17 11:37 73 16 131/62 (85) 100 Nasal Cannula 2.00 04/24/17 09:47 70 20 113/63 (80) 99 Nasal Cannula 2.00 04/24/17 09:47 100 Nasal Cannula 2.00 04/24/17 07:00 20 93 Nasal Cannula 2.00 04/24/17 06:57 93 Nasal Cannula 2.00 04/24/17 06:54 97.7 82 22 141/65 (90) 94 Physical Exam GENERAL: Well-nourished, well-developed patient. SKIN: Warm and dry. HEAD: Normocephalic. EYES: No scleral icterus. No injection or drainage. NECK: Supple, trachea midline. No JVD or lymphadenopathy. CARDIOVASCULAR: Irregular RESPIRATORY: Breath sounds equal bilaterally. No accessory muscle use. GASTROINTESTINAL: Abdomen soft, non-tender, nondistended. EXTREMITIES: No cyanosis, 1+ edema. NEUROLOGICAL: Awake, alert, and oriented x 3. Non-focal. Laboratory Laboratory Tests Test 04/24/17 07:15 04/24/17 07:30 04/24/17 08:26 04/24/17 11:50 Urine Color JOAN Urine Turbidity HAZY Urine pH 5.0 Urine Specific [place] 1.022 Urine Protein 30 Urine Glucose (UA) NEG Urine Ketones TRACE Urine Occult Blood TRACE Urine Nitrite NEG Urine Bilirubin NEG Urine Urobilinogen LESS THAN 2.0 Urine Leukocyte Esterase NEG Urine RBC 1 Urine Squamous Epithelial Cells <1 Urine Amorphous Sediment RARE Microscopic Urinalysis Comment CATH-CULT NOT IND Lactic Acid Level 1.9 White Blood Count 8.1 Red Blood Count 3.49 Hemoglobin 10.3 Hematocrit 32.2 Mean Corpuscular Volume 92.4 Mean Corpuscular Hemoglobin 29.6 Mean Corpuscular Hemoglobin Concent 32.1 Red Cell Distribution Width 20.4 Platelet Count 211 Mean Platelet Volume 10.7 Neutrophils (%) (Auto) 75.8 Lymphocytes (%) (Auto) 13.6 Monocytes (%) (Auto) 8.5 Eosinophils (%) (Auto) 1.4 Basophils (%) (Auto) 0.7 Neutrophils # (Auto) 6.1 Lymphocytes # (Auto) 1.1 Monocytes # (Auto) 0.7 Eosinophils # (Auto) 0.1 Basophils # (Auto) 0.1 CBC Comment DIFF FINAL Differential Comment Blood Urea Nitrogen 28 Creatinine 4.01 Random Glucose 91 Total Protein 5.3 Albumin 1.8 Calcium Level 7.6 Phosphorus Level 2.5 Magnesium Level 1.8 Alkaline Phosphatase 111 Aspartate Amino Transf (AST/SGOT) 21 Alanine Aminotransferase (ALT/SGPT) 13 Total Bilirubin 0.8 Sodium Level 138 Potassium Level 3.9 Chloride Level 104 Carbon Dioxide Level 24.9 Anion Gap 9 Estimat Glomerular Filtration Rate 11 Total Creatine Kinase 26 Troponin I 0.03 Prothrombin Time 13.4 Prothromb Time International Ratio 1.2 Activated Partial Thromboplast Time 35.0 Date/Time Source Procedure Growth Status 04/24/17 07:15 Blood Peripheral Aerobic Blood Culture Pending Received 04/24/17 07:15 Blood Peripheral Anaerobic Blood Culture Pending Received Result Diagram: 04/24/17 0730 04/24/17 0826 Imaging Last Impressions Head CT 04/24/17 0659 Signed Impressions: Service Date/Time: Monday, April 24, 2017 07:35 - CONCLUSION: No acute findings in the brain. Arron Roberson MD Chest X-Ray 04/24/17 0659 Signed Impressions: Service Date/Time: Monday, April 24, 2017 07:18 - CONCLUSION: Stable left lower lobe consolidation. Arorn Roberson MD Assessment and Plan Problem List: (1) ESRD (end stage renal disease) ICD Codes: N18.6 - End stage renal disease Plan: Will inform Dr. Torres in a.m. Dialysis to continue on Tuesday She is in with the leg weakness and will require physical therapy Continue supportive care (2) Anemia ICD Codes: D64.9 - Anemia, unspecified Plan: Stable hemoglobin (3) A-fib ICD Codes: I48.91 - Unspecified atrial fibrillation Plan: Continue to monitor Problem Qualifiers (1) Anemia: Qualified Codes: D64.9 - Anemia, unspecified (2) A-fib: Qualified Codes: I48.91 - Unspecified atrial fibrillation Quincy Barbosa MD Apr 24, 2017 16:50
--- NOTE | 2017-04-24 18:20 | EKG ---
Date Performed: 04/24/2017 Time Performed: 07:03:07 PTAGE: 89 years EKG: ATRIAL FIBRILLATION POSSIBLE ANTERIOR MYOCARDIAL INFARCTION IVCD with secondary ST/T wave c hanges ABNORMAL ECG PREVIOUS TRACING : 04/19/2017 06.01 Compared to prior tracing no significant change DOCTOR: Federico Hubbard Interpretating Date/Time 04/24/2017 18:19:24
[2017-04-24] MEDS: APIXABAN 2.5 MG TABLET PO SCH (20:39)
[2017-04-24] MEDS: DOXAZOSIN MESYLATE 2 MG TAB PO SCH (20:39)
[2017-04-24] MEDS: SODIUM CHLORIDE 0.9% FLUSH 10 ML FLUSH IV FLUSH SCH (20:53)
[2017-04-25] VITALS: BP 122/63; PULSE 78; RESP 18; TEMP 97.3; O2SAT 94
[2017-04-25] MEDS: SODIUM CHLOR 0.9% 1000 ML INJ 1,000 ML IV SCH (05:32)
[2017-04-25] MEDS: VANCOMYCIN 500 MG VIAL (FOR ORAL USE ONLY) PO SCH ×4 (07:42→21:20)
[2017-04-25] MEDS: CHOLECALCIFEROL (VIT D3) 1000 UNIT TAB PO SCH (07:43)
[2017-04-25] MEDS: amLODIPine BESYLATE 5 MG TAB PO SCH (07:43)
[2017-04-25] MEDS: APIXABAN 2.5 MG TABLET PO SCH ×2 (07:43→21:18)
[2017-04-25] MEDS: SODIUM CHLORIDE 0.9% FLUSH 10 ML FLUSH IV FLUSH SCH ×2 (07:43→21:20)
[2017-04-25 08:00] VITALS: BP 120/63; PULSE 79; RESP 17; TEMP 96.5; O2SAT 93
[2017-04-25 08:22] LABS: BICARBONATE 24.7 MEQ/L (21.0-32.0); CALCIUM-PROTEIN CORRECTED 8.5 MG/DL (8.5-10.1); POTASSIUM 4.1 MEQ/L (3.5-5.1); TOTAL BILIRUBIN ADULT 0.8 MG/DL (0.2-1.0)
[2017-04-25] MEDS ORDERED: SODIUM CHLOR 0.9% 1000 ML INJ 1,000 ML IV PRN (09:36)
[2017-04-25] MEDS ORDERED: SODIUM CHLOR 0.9% 1000 ML INJ 1,000 ML OTHER PRN ×2 (09:36)
[2017-04-25] MEDS ORDERED: NITROGLYCERIN 0.4 MG SL 25 TABS/BTL SL PRN (09:45)
[2017-04-25] MEDS ORDERED: MANNITOL 12.5 GM/50 ML VIAL IV PRN (09:45)
[2017-04-25] MEDS ORDERED: HEPARIN SODIUM - IV 10,000 UNITS/10 ML VIAL PRN (09:45)
[2017-04-25] MEDS ORDERED: HEPARIN SODIUM - IV 10,000 UNITS/10 ML VIAL IV FLUSH PRN (09:45)
[2017-04-25] MEDS ORDERED: EPOETIN ALFA 10,000 UNITS/ML VIAL IV PUSH PRN (09:45)
[2017-04-25] MEDS ORDERED: GENTAMICIN SULFATE (DIALYSIS USE ONLY) 20 MG/2 ML VIAL OTHER PRN (09:45)
[2017-04-25] MEDS ORDERED: diphenhydrAMINE HCL 25 MG CAP PO PRN (09:45)
[2017-04-25] MEDS ORDERED: ONDANSETRON HCL 4 MG/2 ML VIAL IV PUSH PRN (09:45)
[2017-04-25] MEDS ORDERED: cloNIDine HCL 0.1 MG TAB PO PRN (09:45)
[2017-04-25] MEDS ORDERED: ACETAMINOPHEN 325 MG TAB PO PRN (09:45)
[2017-04-25] MEDS ORDERED: SODIUM CHLORIDE 0.9% FLUSH 10 ML FLUSH IV FLUSH PRN (09:45)
--- NOTE | 2017-04-25 11:43 | HHI.NPPN ---
Subjective Renal Failure: Chronic, End Stage Renal Disease Interval History Reporting generalized weakness. Started on Apixaban. (She Medeiros) Review of Systems General Constitutional: Fatigue (She Medeiros) Objective Data Data Vital Signs Date Time Temp Pulse Resp B/P (MAP) Pulse Ox O2 Delivery O2 Flow Rate FiO2 04/25/17 08:00 96.5 79 17 120/63 (82) 93 04/25/17 00:00 97.3 78 18 122/63 (82) 94 04/24/17 20:18 96 04/24/17 20:00 96.6 77 18 130/62 (84) 97 04/24/17 16:30 97.7 69 16 103/55 (71) 96 04/24/17 14:51 18 04/24/17 12:30 98.0 71 20 120/56 (77) 97 04/24/17 11:59 (She Medeiros) -: 04/24/17 0730 04/25/17 0654 Imaging Last [address] 04/24/17 0659 Signed Impressions: Service Date/Time: Monday, April 24, 2017 07:35 - CONCLUSION: No acute findings in the brain. Arron Roberson MD Chest X-Ray 04/24/1759 Signed Impressions: Service Date/Time: Monday, April 24, 2017 07:18 - CONCLUSION: Stable left lower lobe consolidation. Arron Roberson MD Tubes & Lines: Perma-Cath (She Medeiros) Physical Exam General Appearance: Well Developed, Comfortable, Malnourished (She Medeiros) Eyes Eye Exam: Pupils Equal (She Medeiros) Throat Throat Exam: Oral Mucosa [place] [facility] & Moist (She Medeiros) Pulmonary Resp Exam: Clear Bilaterally, Breath Sounds Equal (She Medeiros) Cardiology CV Exam: Good Perfusion, Irregular (She Medeiros) Gastrointestinal/Abdomen GI Exam: Soft, Non-Tender, Bowel Sounds Present (She Medeiros) Musculoskeletal MS Exam: Joints Intact, Atrophy, Unable to Ambulate (She Medeiros) Integumentary Skin Exam: Clear, Warm, Dry, Intact (She Medeiros) Extremeties Extremities Exam: No Edema, Pedal Pulses Palpable (She Medeiros) Neurologic Neuro Exam: Alert, Awake, Oriented, Speech Clear, Moving All Extremities (She Medeiros) Psychiatric Psych Exam: Appropriate Responses (She Medeiros) Assessment/Plan Discussed Condition With: Patient Assessment Summary: Anemia of CKD, Hypertension, End Stage Renal Disease Problem List: (1) ESRD (end stage renal disease) ICD Codes: N18.6 - End stage renal disease Plan: Resume TTS HD, due tomorrow (had partial treatment Tuesday) Attempt to use fistula; permcath in place if unsuccessful Avoid IVF, stop current order Renal panel in AM. High protein diet ordered with supplements added (2) Anemia ICD Codes: D64.9 - Anemia, unspecified Plan: Epogen with HD Stable hemoglobin (3) A-fib ICD Codes: I48.91 - Unspecified atrial fibrillation Plan: Rate controlled Started on Apixaban; off ASA Continue to monitor (4) Weakness ICD Codes: R53.1 - Weakness Status: Acute Plan: Needs aggressive PT/OT (5) C. difficile colitis ICD Codes: A04.72 - Enterocolitis due to Clostridium difficile, not specified as recurrent Status: Acute Plan: On oral vancomycin Contact precautions (She Medeiros) Plan patient was seen and examined. Readmitted with weakness. Very weak, needs physical therapy, inpatient rehab. Continue therapy for C.diff. Add protein supplement. Prognosis is guarded. (Devon Torres MD) Problem Qualifiers (1) Anemia: Qualified Codes: D64.9 - Anemia, unspecified (2) A-fib: Qualified Codes: I48.91 - Unspecified atrial fibrillation She Medeiros Apr 25, 2017 11:43 Devon Torres MD Apr 26, 2017 10:48
[2017-04-25 12:00] VITALS: BP 127/60; PULSE 79; RESP 17; TEMP 98.1; O2SAT 94
[2017-04-25 16:00] VITALS: BP 122/59; PULSE 77; RESP 17; TEMP 98.5; O2SAT 97
--- NOTE | 2017-04-25 16:42 | HHI.PR ---
Subjective Remarks Patient reports no improvement in her Global weakness. She says her face and neck are not really affected but she is most probably infected at her arms and legs with arms being the most significant. She can barely lift her arms against gravity. Objective Vital Signs Date Time Temp Pulse Resp B/P (MAP) Pulse Ox O2 Delivery O2 Flow Rate FiO2 04/25/17 12:00 98.1 79 17 127/60 (82) 94 04/25/17 08:00 96.5 79 17 120/63 (82) 93 04/25/17 00:00 97.3 78 18 122/63 (82) 94 04/24/17 20:18 96 04/24/17 20:00 96.6 77 18 130/62 (84) 97 I/O 04/24/17 04/24/17 04/24/17 04/25/17 04/25/17 04/25/17 07:00 15:00 23:00 07:00 15:00 23:00 Intake Total 240 ml Balance 240 ml Intake Oral 240 ml # Voids 3 # Bowel Movements 2 Result Diagram: 04/24/17 0730 04/25/17 0654 Objective Remarks GENERAL: NAD, A&Ox3 HEAD: Normocephalic. NECK: Supple, trachea midline. No lymphadenopathy. EYES: No scleral icterus. No injection or drainage. CARDIOVASCULAR: Regular rate and rhythm without murmurs, gallops, or rubs. RESPIRATORY: Breath sounds equal bilaterally. No accessory muscle use. GASTROINTESTINAL: Abdomen soft, non-tender, nondistended. MUSCULOSKELETAL: No cyanosis, or edema. SKIN: Warm and dry. NEURO: Upper and lower extremity weakness without ability to sustain raising either against gravity. A/P Problem List: (1) Weakness ICD Code: R53.1 - Weakness Status: Acute (2) ESRD (end stage renal disease) ICD Code: N18.6 - End stage renal disease Assessment and Plan Assessment and Plan 89-year-old female admitted secondary to acute onset of global weakness Global weakness TIA less likely due to no unilateral manifestation Continue physical therapy Recent CVA (03/29/2017) Negative CT brain during this admit Possible neurogenic etiology such as myasthenia gravis or Guillain-Florez syndrome Neurology consult Atrial fibrillation [id number] score 6 Continue Apixaban 2.5mg BID due to age, weight and renal disease. Recent history of C. Diff colitis (04/19/17) Continue PO Vancomycin 250mg QID X 10 days. Follow clinically Hyperlipidemia Hypertension amlodipine 2.5 mg daily continue statin Follow lipids as an outpatient End-stage renal disease Continue hemodialysis Nephrology following Anemia of chronic disease Follow CBC DVT Prophylaxis Apixaban Sudhir Medina MD Apr 25, 2017 16:42
[2017-04-25] MEDS: ACETAMINOPHEN 325 MG TAB PO PRN (18:48)
[2017-04-25 20:00] VITALS: BP 135/60; PULSE 79; RESP 22; TEMP 98.8; O2SAT 94
[2017-04-25 20:43] VITALS: O2SAT 98
[2017-04-25] MEDS: DOXAZOSIN MESYLATE 2 MG TAB PO SCH (21:18)
[2017-04-26] VITALS: BP 133/72; PULSE 83; RESP 18; TEMP 96.8; O2SAT 96
[2017-04-26 04:00] VITALS: BP 138/62; PULSE 76; RESP 18; TEMP 95.9; O2SAT 94
[2017-04-26 08:45] VITALS: BP 119/57; PULSE 76; RESP 18; TEMP 96.8; O2SAT 90
[2017-04-26] MEDS: APIXABAN 2.5 MG TABLET PO SCH (08:58)
[2017-04-26] MEDS: amLODIPine BESYLATE 5 MG TAB PO SCH (08:59)
[2017-04-26] MEDS: VANCOMYCIN 500 MG VIAL (FOR ORAL USE ONLY) PO SCH ×4 (08:59→21:48)
[2017-04-26] MEDS: CHOLECALCIFEROL (VIT D3) 1000 UNIT TAB PO SCH (08:59)
[2017-04-26] MEDS: SODIUM CHLORIDE 0.9% FLUSH 10 ML FLUSH IV FLUSH SCH ×2 (09:03→21:49)
--- NOTE | 2017-04-26 10:08 | HHI.NPPN ---
Subjective Renal Failure: Chronic, End Stage Renal Disease Interval History Seen during dialysis. Still with generalized weakness. Neurology consult has been placed. (She Medeiros) Review of Systems General Constitutional: Fatigue (She Medeiros) Objective Data Data Vital Signs Date Time Temp Pulse Resp B/P (MAP) Pulse Ox O2 Delivery O2 Flow Rate FiO2 04/26/17 08:45 96.8 76 18 119/57 (77) 90 04/26/17 04:00 95.9 76 18 138/62 (87) 94 04/26/17 00:00 96.8 83 18 133/72 (92) 96 04/25/17 20:43 98 04/25/17 20:00 98.8 79 22 135/60 (85) 94 04/25/17 16:00 98.5 77 17 122/59 (80) 97 04/25/17 12:00 98.1 79 17 127/60 (82) 94 (She Medeiros) -: 04/24/17 0730 04/25/17 0654 Imaging Last Impressions Head CT 04/24/17 0659 Signed Impressions: Service Date/Time: Monday, April 24, 2017 07:35 - CONCLUSION: No acute findings in the brain. Arron Roberson MD Chest X-Ray 04/24/17 0659 Signed Impressions: Service Date/Time: Monday, April 24, 2017 07:18 - CONCLUSION: Stable left lower lobe consolidation. Arron Robersno MD Tubes & Lines: Perma-Cath (She Medeiros) Physical Exam General Appearance: Well Developed, Comfortable, Malnourished (She Medeiros) Eyes Eye Exam: Pupils Equal (She Medeiros) Throat Throat Exam: Oral Mucosa [place] & Moist (She Medeiros) Pulmonary Resp Exam: Clear Bilaterally, Breath Sounds Equal (She Medeiros) Cardiology CV Exam: Good Perfusion, Irregular (She Medeiros) Gastrointestinal/Abdomen GI Exam: Soft, Non-Tender, Bowel Sounds Present (She Medeiros) Musculoskeletal MS Exam: Joints Intact, Atrophy, Unable to Ambulate (She Medeiros) Integumentary Skin Exam: Clear, Warm, Dry, Intact (She Medeiros) Extremeties Extremities Exam: No Edema, Pedal Pulses Palpable (She Medeiros) Neurologic Neuro Exam: Alert, Awake, Oriented, Speech Clear, Moving All Extremities (She Medeiros) Psychiatric Psych Exam: Appropriate Responses (She Medeiros) VTE Prophylaxis VTE Remarks Apixaban (She Medeiros) Assessment/Plan Discussed Condition With: Patient Assessment Summary: Anemia of CKD, Hypertension, End Stage Renal Disease Problem List: (1) ESRD (end stage renal disease) ICD Codes: N18.6 - End stage renal disease Plan: Seen during dialysis today on a 2K, 250 BFR, goal 1.5L Attempt to cannulate AVF today Obtain intermittent renal panel Avoid IVF High protein diet ordered with supplements added. Need nutritional support. (2) Anemia ICD Codes: D64.9 - Anemia, unspecified Plan: Epogen with HD Stable hemoglobin (3) A-fib ICD Codes: I48.91 - Unspecified atrial fibrillation Plan: Rate controlled On Apixaban; off ASA Continue to monitor (4) Weakness ICD Codes: R53.1 - Weakness Status: Acute Plan: Needs aggressive PT/OT Neurology has been consulted. (5) C. difficile colitis ICD Codes: A04.72 - Enterocolitis due to Clostridium difficile, not specified as recurrent Status: Acute Plan: On oral vancomycin Contact precautions (She Medeiros) Plan patient was seen and examined. Seen during dialysis, currently PermCath is being used. We will attempt to use AVF today. Needs therapy and rehab. (Devon Torres MD) Problem Qualifiers (1) Anemia: Qualified Codes: D64.9 - Anemia, unspecified (2) A-fib: Qualified Codes: I48.91 - Unspecified atrial fibrillation She Medeiros Apr 26, 2017 10:08 Devon Torres MD Apr 26, 2017 10:56
[2017-04-26 10:12] LABS: AUTOMATED NEUTROPHIL # 5.1 TH/MM3 (1.8-7.7); BASOPHIL # 0.1 TH/MM3 (0-0.2); BASOPHIL % 0.9 % (0.0-2.0); EOSINOPHIL # 0.2 TH/MM3 (0-0.4); EOSINOPHIL % 2.3 % (0.0-4.0); HEMATOCRIT 26.8 % (35.0-46.0); HEMO FLAGS DIFF FINAL; LYMPH % 17.2 % (9.0-44.0); LYMPHOCYTE # 1.2 TH/MM3 (1.0-4.8); MEAN CELL VOLUME 93.7 FL (80.0-100.0); MEAN CORPUSCULAR HEMOGLOBIN 30.1 PG (27.0-34.0); MEAN CORPUSCULAR HGB CONC 32.1 % (32.0-36.0); MONO % 9.1 % (0.0-8.0); NEUT % 70.5 % (16.0-70.0); PLATELET COUNT 187 TH/MM3 (150-450); RED BLOOD COUNT 2.86 MIL/MM3 (4.00-5.30); RED CELL DISTRIBUTION WIDTH 19.4 % (11.6-17.2); WHITE BLOOD COUNT 7.3 TH/MM3 (4.0-11.0)
[2017-04-26 10:52] LABS: BICARBONATE 22.4 MEQ/L (21.0-32.0); CALCIUM-PROTEIN CORRECTED 8.7 MG/DL (8.5-10.1); POTASSIUM 4.3 MEQ/L (3.5-5.1); TOTAL BILIRUBIN ADULT 0.8 MG/DL (0.2-1.0)
[2017-04-26] MEDS: GELATIN 12 MM/7 MM FOAM TOP PRN (11:33)
[2017-04-26 13:55] VITALS: BP 132/60; PULSE 83; RESP 18; TEMP 97.4; O2SAT 95
--- NOTE | 2017-04-26 14:32 | HHI.PR ---
Subjective Remarks Diarrhea is present. Some blood is present diarrhea. Patient is anemic when she came in. She reports some improvement in her upper body strength, but says she still has profound weakness of her lower extremities. Objective Vital Signs Date Time Temp Pulse Resp B/P (MAP) Pulse Ox O2 Delivery O2 Flow Rate FiO2 04/26/17 13:55 97.4 83 18 132/60 (84) 95 04/26/17 08:45 96.8 76 18 119/57 (77) 90 04/26/17 04:00 95.9 76 18 138/62 (87) 94 04/26/17 00:00 96.8 83 18 133/72 (92) 96 04/25/17 20:43 98 04/25/17 20:00 98.8 79 22 135/60 (85) 94 04/25/17 16:00 98.5 77 17 122/59 (80) 97 I/O 04/25/17 04/25/17 04/25/17 04/26/17 04/26/17 04/26/17 07:00 15:00 23:00 07:00 15:00 23:00 Intake Total 240 ml 960 ml Output Total 1000 ml Balance 240 ml 960 ml -1000 ml Intake Oral 240 ml 960 ml Hemodialysis 1000 ml # Voids 3 3 # Bowel Movements 2 5 1 Result Diagram: 04/26/1783104/26/1732 Objective Remarks GENERAL: NAD, A&Ox3 HEAD: Normocephalic. NECK: Supple, trachea midline. No lymphadenopathy. EYES: No scleral icterus. No injection or drainage. CARDIOVASCULAR: Regular rate and rhythm without murmurs, gallops, or rubs. RESPIRATORY: Breath sounds equal bilaterally. No accessory muscle use. GASTROINTESTINAL: Abdomen soft, non-tender, nondistended. MUSCULOSKELETAL: No cyanosis, or edema. SKIN: Warm and dry. NEURO: Upper and lower extremity weakness without ability to sustain raising either against gravity. A/P Problem List: (1) Weakness ICD Code: R53.1 - Weakness Status: Acute (2) ESRD (end stage renal disease) ICD Code: N18.6 - End stage renal disease Assessment and Plan Assessment and Plan 89-year-old female admitted secondary to acute onset of global weakness. Follow H&H. Continue to monitor for improvements in strength. Continue PT. Steroids are being considered but not until she has improvement in the symptoms for C. difficile. Global weakness TIA less likely due to no unilateral manifestation Continue physical therapy Recent CVA (03/29/2017) Negative CT brain during this admit Possible neurogenic etiology such as myasthenia gravis or Guillain-Florez syndrome Neurology consult Atrial fibrillation [id number] score 6 Continue Apixaban 2.5mg BID due to age, weight and renal disease. Recent history of C. Diff colitis (04/19/17) Continue PO Vancomycin 250mg QID X 10 days. Follow clinically Hyperlipidemia Hypertension amlodipine 2.5 mg daily continue statin Follow lipids as an outpatient End-stage renal disease Continue hemodialysis Nephrology following Anemia of chronic disease Follow CBC DVT Prophylaxis Apixaban Sudhir Medina MD Apr 26, 2017 14:32
[2017-04-26 16:43] VITALS: BP 130/65; PULSE 74; RESP 18; TEMP 97.2; O2SAT 91
[2017-04-26] MEDS ORDERED: SODIUM CHLOR 0.9% 250 ML INJ 250 ML IV ONE (17:00)
[2017-04-26 17:28] LABS: REVIEW FLAG FINAL
--- NOTE | 2017-04-26 18:34 | MB ---
cc: PASCALE DODSON MD DATE OF CONSULTATION 04/26/17 HISTORY OF PRESENT ILLNESS She is an 89-year-old woman seen in neurological consultation. She was admitted on 04/24 when she came in with generalized weakness which persists. She admits some upper extremity weakness, perhaps right arm being worse. She has a history of renal disease, on dialysis. There is history of atrial fibrillation and on March 29 of this year she had a small stroke, was evaluated with MRI, etc. Reportedly, the MRI at that time showed acute infarction superior frontal horn, left frontal parietal region, history of hypertension and anemia. She was treated with aspirin when she had that a small stroke and now she was started on apixaban, but I believe this is now on hold. PHYSICAL EXAMINATION The exam shows the patient to be awake, alert, oriented. There is no ptosis and the ocular movements were full. Visual jalloh full. She has generalized weakness, but she is able to raise the lower extremities and she dorsiflexed the feet and opposed some mild resistance. In the upper extremities, she has obvious rotator cuff impairment bilaterally, right more than left, and this is mostly chronic although some on the right might be acute as well. She has elbow flexion and extension and she has form layer bilaterally. There is arthritic joint disease and overall she is frail. Reflexes were essentially absent throughout and plantar responses are flexor. ASSESSMENT Generalized weakness which is not characteristic of TIA. There is history of atrial fibrillation and she was started on Eliquis, which I believe is now on hold. I will put some basic orders to look for myasthenia including acetylcholine receptor antibodies. Labs will also include TSH and T4. Medical care and she has some hypocalcemia, although corrected calcium is essentially normal. Renal failure on dialysis. If she is stable medically then from a neurological standpoint, no contraindications for anticoagulation, although her anemia is the main issue. I will follow her with you. Thank you for asking us to assist in her care. MD DENNY Campbell/ /5:45 PM /6:11 PM
[2017-04-26] MEDS: DOXAZOSIN MESYLATE 2 MG TAB PO SCH (21:49)
[2017-04-26 21:50] LABS: THYROXINE (T4) 4.4 MCG/DL (4.8-13.9)
[2017-04-26] MEDS: metroNIDAZOLE 500 MG TAB PO SCH (21:50)
[2017-04-26] MEDS: ACETAMINOPHEN 325 MG TAB PO PRN (23:16)
[2017-04-26 23:24] VITALS: BP 129/63; PULSE 77; RESP 18; TEMP 98.7; O2SAT 94
[2017-04-27] VITALS (9 sets, daily range): BP systolic 122–132; BP diastolic 58–70; PULSE 68–82; RESP 17–20; TEMP 95.6–98.5; O2SAT 93–97
[2017-04-27 00:02] LABS: HEMATOCRIT 23.6 % (35.0-46.0); REVIEW FLAG FINAL
--- NOTE | 2017-04-27 05:43 | RADRPT ---
EXAM DATE/TIME: 04/27/2017 05:15 [facility] COMPARISON: CHEST SINGLE AP, April 24, 2017, 7:18. INDICATIONS : Shortness of breath. MEDICAL HISTORY : Hypertension. Dialysis. Diabetes. Renal disease SURGICAL HISTORY : Hysterectomy. ENCOUNTER: Subsequent ACUITY: 1 week PAIN SCORE: 0/10 LOCATION: Bilateral chest FINDINGS: There is a right internal jugular central line in place. The heart size is enlarged. The lungs demons trate diffuse increased interstitial process. There is focal alveolar density at the left mid and low er lung. There is some subcutaneous air seen at the left lateral chest. Pneumothorax is not seen. The re is chronic change at the left glenohumeral joint. CONCLUSION: 1. Cardiomegaly and diffuse increased interstitial markings likely representing CHF/pulmonary edema. 2. Focal consolidation at the left mid and lower lung. Nick Rojas MD on April 27, 2017 at 5:40 Board Certified Radiologist. This report was verified electronically.
[2017-04-27] MEDS ORDERED: FUROSEMIDE 40 MG/4 ML VIAL IV PUSH ONE (05:45)
[2017-04-27 06:18] LABS: AUTOMATED NEUTROPHIL # 5.2 TH/MM3 (1.8-7.7); BASOPHIL # 0.1 TH/MM3 (0-0.2); BASOPHIL % 1.2 % (0.0-2.0); EOSINOPHIL # 0.1 TH/MM3 (0-0.4); EOSINOPHIL % 1.4 % (0.0-4.0); HEMATOCRIT 27.4 % (35.0-46.0); LYMPH % 19.3 % (9.0-44.0); LYMPHOCYTE # 1.4 TH/MM3 (1.0-4.8); MEAN CELL VOLUME 89.3 FL (80.0-100.0); MEAN CORPUSCULAR HGB CONC 33.6 % (32.0-36.0); MONO % 7.9 % (0.0-8.0); NEUT % 70.2 % (16.0-70.0); PLATELET COUNT 191 TH/MM3 (150-450); RED BLOOD COUNT 3.07 MIL/MM3 (4.00-5.30); RED CELL DISTRIBUTION WIDTH 18.1 % (11.6-17.2); WHITE BLOOD COUNT 7.4 TH/MM3 (4.0-11.0)
[2017-04-27 06:27] LABS: HEMO FLAGS AUTO DIFF
[2017-04-27] MEDS: metroNIDAZOLE 500 MG TAB PO SCH ×3 (06:43→21:08)
[2017-04-27 06:45] LABS: BICARBONATE 27.3 MEQ/L (21.0-32.0); CALCIUM-PROTEIN CORRECTED 8.3 MG/DL (8.5-10.1); POTASSIUM 3.9 MEQ/L (3.5-5.1); TOTAL BILIRUBIN ADULT 1.7 MG/DL (0.2-1.0)
[2017-04-27 08:09] LABS: ACANTHOCYTES OCC (NORMAL); SCAN/DIFF AUTO DIFF CONFIRMED
[2017-04-27 08:10] LABS: KERATOCYTES OCC (NORMAL)
[2017-04-27] MEDS: amLODIPine BESYLATE 5 MG TAB PO SCH (08:56)
[2017-04-27] MEDS: CHOLECALCIFEROL (VIT D3) 1000 UNIT TAB PO SCH (08:56)
[2017-04-27] MEDS: VANCOMYCIN 500 MG VIAL (FOR ORAL USE ONLY) PO SCH ×4 (09:00→20:13)
[2017-04-27] MEDS: SODIUM CHLORIDE 0.9% FLUSH 10 ML FLUSH IV FLUSH SCH ×2 (09:24→20:13)
--- NOTE | 2017-04-27 10:50 | PD.CONS ---
HPI History of Present Illness This is a 89 year old female who came into the hospital on 04/24/17 with generalized weakness over the past few weeks. Patient has in end-stage renal disease and is on hemodialysis Tuesday and Tuesday. Patient was also recently treated for a urinary tract infection was in the hospital for possible stroke. Patient states that she has been having diarrhea for the past few weeks. She is unsure whether the stools weren't bloody initially, but since her admission she is having dark jelly substance stools as well as some bright red blood following. Patient's hemoglobin was 7.6 yesterday and she received one unit of packed RBCs followed with IV Lasix. Her hemoglobin is now 9.2 but she continues to have bloody diarrhea stools today 3 so far. Patient also has complained of some nausea for a few weeks, states she has had weight loss over an unspecified length of time 15-20 pounds. She does have a history of constipation but denies any problems over the last few weeks. Patient is currently being treated for C. difficile 04/19/17, according to records; she is now on by mouth vancomycin and by mouth Flagyl until 05-04. Patient states she may have had polyps diagnosed back in the 1950s, but doesn't think she's ever had any type of GI procedures. DVT prophylaxis has been with Arixtraban. Patient is currently sitting up in chair she is awake, a fair historian to her current and past history. (Lucia Sylvester) [facility] Past Medical History Information is being obtained and assisted from her history End-stage renal disease on hemodialysis Tuesday, ,Tuesday followed by Dr. Torres HTN HLD History of diabetes Tiny Left frontal parietal region stroke Atrial fibrillation Recent C. difficile Recent UTI Cardiomegaly Congestive heart failure Past Surgical History Hysterectomy, foot surgery (Lucia Sylvester) Coded Allergies: No Known Allergies (Unverified Allergy, Unknown, 04/24/17) Medications Administered Medications Medications (Trade) Dose Ordered Sig/Angel Route PRN Reason Start Time Stop Time Status Last Admin Dose Admin Sodium Chloride (NS Flush) 2 ml BID IV FLUSH 04/24/17 21:00 04/27/17 09:24 Acetaminophen (Tylenol) 650 mg Q4H PRN PO Headache, fever, pain 1-4 04/24/17 09:45 04/26/17 23:16 Vancomycin HCl (VANCOMYCIN for oral use only) 250 mg QID PO 04/24/17 13:00 05/04/17 12:59 04/27/17 09:00 Apixaban (Eliquis) 2.5 mg BID PO 04/24/17 21:00 Future Hold 04/26/17 08:58 Amlodipine Besylate (Norvasc) 2.5 mg DAILY PO 04/25/17 09:00 04/27/17 08:56 Cholecalciferol (Vitamin D3) 1,000 units DAILY PO 04/25/17 09:00 04/27/17 08:56 Doxazosin Mesylate (Cardura) 2 mg HS PO 04/24/17 21:00 04/26/17 21:49 Sodium Chloride 1,000 ml @ 200 mls/hr Q5H PRN IV WITH DIALYSIS 04/25/17 09:36 04/26/17 11:33 Heparin Sodium (Porcine) (Heparin Inj) UNSCH PRN .XX WITH DIALYSIS 04/25/17 09:45 04/26/17 11:36 Gentamicin Sulfate (Gentamicin (Dialysis) Inj) 20 mg UNSCH PRN OTHER WITH DIALYSIS 04/25/17 09:45 04/26/17 11:34 Epoetin Damian (Epogen Inj) 4,000 units UNSCH PRN IV PUSH WITH DIALYSIS 04/25/17 09:45 04/26/17 11:34 Gelatin (Gelfoam 12 Mm/7 Mm Top) 1 foam UNSCH PRN TOP SEE LABEL COMMENTS 04/25/17 09:45 04/26/17 11:33 Metronidazole (Flagyl) 500 mg Q8HR PO 04/26/17 22:00 04/27/17 06:43 Family History Father had cerebral hemorrhage at the age of 56. Sr. has Alzheimer's dementia. Social History Denies alcohol use Denies tobacco use Denies illicit drug use Patient currently lives in the home with her daughter and daughter's (HiginioLucianacho HD[facility]) Review of Systems Constitutional: COMPLAINS OF: Fatigue, Weight loss, Change in appetite Gastrointestinal: COMPLAINS OF: Black stools, Bloody stools, Nausea (last few weeks) Musculoskeletal: COMPLAINS OF: Muscle aches, Stiffness Neurologic: COMPLAINS OF: Abnormal gait, Localized weakness (Lucia Sylvester) GI Exam Vitals I&O Vital Signs Date Time Temp Pulse Resp B/P (MAP) Pulse Ox O2 Delivery O2 Flow Rate FiO2 04/27/17 10:12 97 04/27/17 08:00 96.7 78 17 124/62 (82) 97 04/27/17 04:34 96.5 75 20 129/70 93 04/27/17 01:53 98.3 80 18 124/60 (81) 95 04/27/17 00:50 98.5 82 18 122/58 93 04/27/17 00:21 98.3 78 18 124/60 95 04/26/17 23:24 98.7 77 18 129/63 (85) 94 04/26/17 16:43 97.2 74 18 130/65 (86) 91 04/26/17 13:55 97.4 83 18 132/60 (84) 95 I/O 04/26/17 04/26/17 04/26/17 04/27/17 04/27/17 04/27/17 07:00 15:00 23:00 07:00 15:00 23:00 Intake Total 840 ml 415 ml Output Total 1000 ml Balance -1000 ml 840 ml 415 ml Intake Oral 840 ml 120 ml Packed Cells 295 ml Blood Product IV Normal Saline Flush 0 ml Hemodialysis 1000 ml # Bowel Movements 1 7 4 Imaging Last Impressions Chest X-Ray 04/27/17 0000 Signed Impressions: Service Date/Time: Thursday, April 27, 2017 05:15 - CONCLUSION: 1. Cardiomegaly and diffuse increased interstitial markings likely representing CHF/pulmonary edema. 2. Focal consolidation at the left mid and lower lung. Nick Rojas MD Head CT 04/24/17 0659 Signed Impressions: Service Date/Time: Monday, April 24, 2017 07:35 - CONCLUSION: No acute findings in the brain. Arron Roberson MD Laboratory Test 04/26/17 16:54 04/26/17 20:32 04/26/17 23:40 04/27/17 05:10 Hemoglobin 8.4 GM/DL 7.6 GM/DL 9.2 GM/DL Hematocrit 25.0 % 23.6 % 27.4 % Erythrocyte Sedimentation Rate 16 mm/hr Total Creatine Kinase 11 U/L Vitamin B12 Level 1568 PG/ML Thyroxine (T4) 4.4 MCG/DL Thyroid Stimulating Hormone 3rd Gen 3.440 uIU/ML White Blood Count 7.4 TH/MM3 Red Blood Count 3.07 MIL/MM3 Mean Corpuscular Volume 89.3 FL Mean Corpuscular Hemoglobin 30.0 PG Mean Corpuscular Hemoglobin Concent 33.6 % Red Cell Distribution Width 18.1 % Platelet Count 191 TH/MM3 Mean Platelet Volume 9.7 FL Neutrophils (%) (Auto) 70.2 % Lymphocytes (%) (Auto) 19.3 % Monocytes (%) (Auto) 7.9 % Eosinophils (%) (Auto) 1.4 % Basophils (%) (Auto) 1.2 % Neutrophils # (Auto) 5.2 TH/MM3 Lymphocytes # (Auto) 1.4 TH/MM3 Monocytes # (Auto) 0.6 TH/MM3 Eosinophils # (Auto) 0.1 TH/MM3 Basophils # (Auto) 0.1 TH/MM3 CBC Comment AUTO DIFF Differential Comment AUTO DIFF CONFIRMED Acanthocytes OCC Keratocytes OCC Blood Urea Nitrogen 30 MG/DL Creatinine 3.80 MG/DL Random Glucose 104 MG/DL Total Protein 5.0 GM/DL Albumin 1.7 GM/DL Calcium Level 7.2 MG/DL Alkaline Phosphatase 122 U/L Aspartate Amino Transf (AST/SGOT) 34 U/L Alanine Aminotransferase (ALT/SGPT) 16 U/L Total Bilirubin 1.7 MG/DL Sodium Level 135 MEQ/L Potassium Level 3.9 MEQ/L Chloride Level 101 MEQ/L Carbon Dioxide Level 27.3 MEQ/L Anion Gap 7 MEQ/L Estimat Glomerular Filtration Rate 11 ML/MIN Protein Corrected Calcium 8.3 MG/DL Date/Time Source Procedure Growth Status 04/24/17 07:15 Blood Peripheral Aerobic Blood Culture - Preliminary NO GROWTH IN 2 DAYS Resulted 04/24/17 07:15 Blood Peripheral Anaerobic Blood Culture - Preliminary NO GROWTH IN 2 DAYS Resulted Physical Examination HEENT: Pupils round and reactive to light; normocephalic; atraumatic; no jaundice. Throat is clean, NECK: Neck is supple, no JVD, no lymphadenopathy. CHEST: Chest is clear to auscultation and percussion. No active rhonchi or wheezing, mild diminished decreased breath sounds bilateral CARDIAC: Regular rate and rhythm ABDOMEN: Soft, nondistended, nontender; no hepatosplenomegaly; bowel sounds are present in all four quadrants. EXTREMITIES: No clubbing, cyanosis, or edema. SKIN: Normal; no rash; no jaundice. Thin skin turgor SHOE SALESMAN: No focal deficits; fair historian. Speech is clear (Lucia Sylvester) Assessment and Plan Plan Assessment Melena, patient is currently having multiple dark jelly substance stools, patient states decreased amount of stools yesterday 1-2, but has already had 3 diarrhea dark bloody stools with some bright red bleeding associated before noon. She continues to have generalized weakness and fatigue and lower extremity weakness Hematochezia, patient continues to have multiple bloody stools as described above. Hemoglobin was 7.6 on 04-26, patient received 1 unit of packed RBCs followed with Lasix IV for some mild fluid overload. Nausea, without hematemesis or vomiting. Patient describes weight loss over the past few months, unspecified amount of time, decreased appetite with associated nausea Possible GERD Recent history of C. difficile, 04/19/17 Mildly elevated bilirubin, 1.7, mildly elevated alkaline phosphatase 122 Note: Palliative care has been consulted to see patient, patient's family wishes Plan Eliquis currently on hold and maintaining on hold. Continue to monitor number of stools and consistency and chart, H&H every 6 hours 3 to monitor hemoglobin and any acute changes since patient does appear to be still having active bleeding Transfuse as necessary PPI, Protonix 40 mg IV every 12 hours Continue to treat C. difficile with by mouth vancomycin and by mouth Flagyl, as ordered until 12-6 Check CMP in the morning/bilirubin/alkaline phosphatase Consider flex sigmoid versus colonoscopy with possible endoscopy when patient is stable. Patient received Eliquis on 04-26, and is currently on hold today. We'll monitor number of stools as well as amount of bleeding noted; discussed options with Dr. Maria. Discussed plan of care and options with Dr. Maria, patient seen and evaluated on her behalf (Lucia Sylvester) Physician Comments seen, examined agree with above bleeding scan negative consider egd/colonoscopy Tuesday, if further bleeding on emergency basis if lfts continue to increase consider hida scan supportive care (Kezia Maria MD) Lucia Sylvester Apr 27, 2017 10:50 Kezia Maria MD Apr 27, 2017 18:30
--- NOTE | 2017-04-27 10:54 | HHI.NPPN ---
Subjective Renal Failure: Chronic, End Stage Renal Disease Interval History Dialyzed through AVF yesterday. Rectal bleeding reported by the patient. She was transfused overnight. Eliquis is on hold. (Seh Medeiros) Review of Systems General Constitutional: Fatigue (She Medeiros) Objective Data Data Vital Signs Date Time Temp Pulse Resp B/P (MAP) Pulse Ox O2 Delivery O2 Flow Rate FiO2 04/27/17 10:12 97 04/27/17 08:00 96.7 78 17 124/62 (82) 97 04/27/17 04:34 96.5 75 20 129/70 93 04/27/17 01:53 98.3 80 18 124/60 (81) 95 04/27/17 00:50 98.5 82 18 122/58 93 04/27/17 00:21 98.3 78 18 124/60 95 04/26/17 23:24 98.7 77 18 129/63 (85) 94 04/26/17 16:43 97.2 74 18 130/65 (86) 91 04/26/17 13:55 97.4 83 18 132/60 (84) 95 (Seh Medeiros) -: 04/27/17 0510 04/27/17 0510 Imaging Last 72 hours Impressions Chest X-Ray 04/27/17 0000 Signed Impressions: Service Date/Time: Thursday, April 27, 2017 05:15 - CONCLUSION: 1. Cardiomegaly and diffuse increased interstitial markings likely representing CHF/pulmonary edema. 2. Focal consolidation at the left mid and lower lung. Nick Rojas MD Tubes & Lines: Perma-Cath (She Medeiros) Physical Exam General Appearance: Well Developed, No Acute Distress, Comfortable, Malnourished (She Medeiros) Eyes Eye Exam: Pupils Equal (She Medeiros) Throat Throat Exam: Oral Mucosa [place] & Moist (She Medeiros) Pulmonary Resp Exam: Clear Bilaterally, Breath Sounds Equal (She Medeiros) Cardiology CV Exam: Good Perfusion, Irregular (She Medeiros) Gastrointestinal/Abdomen GI Exam: Soft, Non-Tender, Bowel Sounds Present, Positive Bowel Movement (She Medeiros) Musculoskeletal MS Exam: Joints Intact, Atrophy, Unable to Ambulate (She Medeiros) Integumentary Skin Exam: Clear, Warm, Dry, Intact (She Medeiros) Extremeties Extremities Exam: No Edema, Pedal Pulses Palpable (She Medeiros) Neurologic Neuro Exam: Alert, Awake, Oriented, Speech Clear, Moving All Extremities (She Medeiros) Psychiatric Psych Exam: Appropriate Responses (She Medeiros) VTE Prophylaxis VTE Remarks Apixaban (She Medeiros) Assessment/Plan Discussed Condition With: Patient Assessment Summary: Anemia of CKD, Hypertension, End Stage Renal Disease Problem List: (1) ESRD (end stage renal disease) ICD Codes: N18.6 - End stage renal disease Plan: HD TTS, she had 1L fluid removal yesterday Attempt AVF cannulation tomorrow. Obtain intermittent renal panel Avoid IVF; follow fluid status, UF as needed or tolerated. High protein diet ordered with supplements added. Need nutritional support. Megace started. (2) Anemia ICD Codes: D64.9 - Anemia, unspecified Plan: Epogen with HD Stable hemoglobin (3) A-fib ICD Codes: I48.91 - Unspecified atrial fibrillation Plan: Rate controlled Held Apixaban due to GI bleeding, she is off ASA Continue to monitor (4) Weakness ICD Codes: R53.1 - Weakness Status: Acute Plan: Needs aggressive PT/OT Neurology has been consulted; appreciate recommendations. (5) C. difficile colitis ICD Codes: A04.72 - Enterocolitis due to Clostridium difficile, not specified as recurrent Status: Acute Plan: On oral vancomycin, flagyl has been added. Contact precautions (She Medeiros) Plan patient was seen and examined. Agree with above assessment and plan. (Devon Torres MD) Problem Qualifiers (1) Anemia: Qualified Codes: D64.9 - Anemia, unspecified (2) A-fib: Qualified Codes: I48.91 - Unspecified atrial fibrillation She Medeiros Apr 27, 2017 10:53 Devon Torres MD Apr 28, 2017 14:18
[2017-04-27] MEDS: MEGESTROL ACETATE SUSP 400 MG/10 ML CUP PO SCH (11:59)
[2017-04-27] MEDS: PANTOPRAZOLE SODIUM 40 MG VIAL IV PUSH SCH ×2 (11:59→21:08)
[2017-04-27 13:15] LABS: HEMATOCRIT 30.1 % (35.0-46.0); REVIEW FLAG FINAL
--- NOTE | 2017-04-27 16:39 | RADRPT ---
EXAM DATE/TIME: 04/27/2017 12:35 [facility] COMPARISON: No previous studies available for comparison. INDICATIONS : Rectal bleed. DOSE: 21.3 mCi Tc99m Ultratag labeled red blood cells IV IMAGIN hrs MEDICAL HISTORY : Renal failure, chrnoic. Hypertension. Congestive heart failure. C-diff. SURGICAL HISTORY : Hysterectomy. ENCOUNTER: Initial ACUITY: 1 day PAIN SCALE: 0/10 LOCATION: Bilateral lower quadrant TECHNIQUE: Following the modified in vitro labeling of autologous red cells, dynamic continuous images were acqu ired for the specified interval. FINDINGS: BIODISTRIBUTION: There is a very good labeling of red cells without significant uptake in the gastric wall. There is good delineation of the blood pool of the spleen and abdominal vessels. BLEEDING: No episodes of active GI bleeding are observed during specified interval of continuous observation. CONCLUSION: No evidence of active GI bleeding Nick Owen MD on April 27, 2017 at 16:36 Board Certified Radiologist. This report was verified electronically.
--- NOTE | 2017-04-27 17:24 | HHI.PR ---
Subjective Remarks Patient reports some blood in stool this morning. Overall decreased amounts today compared to yesterday. Hemoglobin improved with transfusion and currently she has an upper trend. No new complaints from the patient. Diarrhea still present. Objective Vital Signs Date Time Temp Pulse Resp B/P (MAP) Pulse Ox O2 Delivery O2 Flow Rate FiO2 04/27/17 12:00 96.0 68 17 132/63 (86) 96 04/27/17 10:12 97 04/27/17 08:00 96.7 78 17 124/62 (82) 97 04/27/17 04:34 96.5 75 20 129/70 93 04/27/17 01:53 98.3 80 18 124/60 (81) 95 04/27/17 00:50 98.5 82 18 122/58 93 04/27/17 00:21 98.3 78 18 124/60 95 04/26/17 23:24 98.7 77 18 129/63 (85) 94 I/O 04/26/17 04/26/17 04/26/17 04/27/17 04/27/17 04/27/17 07:00 15:00 23:00 07:00 15:00 23:00 Intake Total 840 ml 415 ml Output Total 1000 ml Balance -1000 ml 840 ml 415 ml Intake Oral 840 ml 120 ml Packed Cells 295 ml Blood Product IV Normal Saline Flush 0 ml Hemodialysis 1000 ml # Bowel Movements 1 7 4 Result Diagram: 04/27/17 1245 04/27/17 0510 Objective Remarks GENERAL: NAD, A&Ox3 HEAD: Normocephalic. NECK: Supple, trachea midline. No lymphadenopathy. EYES: No scleral icterus. No injection or drainage. CARDIOVASCULAR: Regular rate and rhythm without murmurs, gallops, or rubs. RESPIRATORY: Breath sounds equal bilaterally. No accessory muscle use. GASTROINTESTINAL: Abdomen soft, non-tender, nondistended. MUSCULOSKELETAL: No cyanosis, or edema. SKIN: Warm and dry. NEURO: Upper and lower extremity weakness without ability to sustain raising either against gravity. A/P Problem List: (1) Weakness ICD Code: R53.1 - Weakness Status: Acute (2) ESRD (end stage renal disease) ICD Code: N18.6 - End stage renal disease Assessment and Plan Assessment and Plan 89-year-old female admitted secondary to acute onset of global weakness. Decreased bleeding. Continue to monitor H&H. Continue PT. Myasthenia gravis workup in process. Labs reviewed. We'll continue to monitor labs. Global weakness TIA less likely due to no unilateral manifestation Continue physical therapy Recent CVA (03/29/2017) Negative CT brain during this admit Possible neurogenic etiology such as myasthenia gravis or Guillain-Florez syndrome Neurology consult Atrial fibrillation [id number] score 6 Continue Apixaban 2.5mg BID due to age, weight and renal disease. Recent history of C. Diff colitis (04/19/17) Continue PO Vancomycin 250mg QID X 10 days. Follow clinically Hyperlipidemia Hypertension amlodipine 2.5 mg daily continue statin Follow lipids as an outpatient End-stage renal disease Continue hemodialysis Nephrology following Anemia of chronic disease Follow CBC DVT Prophylaxis Apixaban Sudhir Medina MD Apr 27, 2017 17:24
[2017-04-27] MEDS: DOXAZOSIN MESYLATE 2 MG TAB PO SCH (20:13)
[2017-04-28 04:12] VITALS: BP 125/67; PULSE 77; RESP 20; TEMP 97.7; O2SAT 95
[2017-04-28] MEDS: metroNIDAZOLE 500 MG TAB PO SCH ×3 (05:03→21:56)
[2017-04-28 08:00] VITALS: BP 116/60; PULSE 81; RESP 17; TEMP 98.2; O2SAT 93
[2017-04-28] MEDS ORDERED: DIATRIZOATE MEGLUM/DIATRIZOATE SOD 9 ML CUP PO ONE (08:00)
[2017-04-28 09:12] LABS: ALKALINE PHOSPHATASE 98 U/L (45-117); ALT (GPT) 11 U/L (10-53); ANION GAP 9 MEQ/L (5-15); AST (GOT) 21 U/L (15-37); BICARBONATE 26.2 MEQ/L (21.0-32.0); BLOOD UREA NITROGEN 42 MG/DL (7-18); CHLORIDE 102 MEQ/L (98-107); GLOMERULAR FILTRATION RATE 10 ML/MIN (>89); SODIUM (NA) 137 MEQ/L (136-145); TOTAL BILIRUBIN ADULT 0.6 MG/DL (0.2-1.0)
--- NOTE | 2017-04-28 09:33 | HHI.NPPN ---
Subjective General Problems: Anemia Renal Failure: Chronic, End Stage Renal Disease Interval History Eating breakfast, due for dialysis. Still reporting rectal bleeding. She has been seen by GI and had bleeding scan (negative) yesterday. (She Medeiros) Review of Systems General Constitutional: Fatigue (She Medeiros) Gastrointestinal Gastrointestinal: Diarrhea, Blood/Tarry Stools (She Medeiros) Objective Data Data Vital Signs Date Time Temp Pulse Resp B/P (MAP) Pulse Ox O2 Delivery O2 Flow Rate FiO2 04/28/17 04:12 97.7 77 20 125/67 (86) 95 04/27/17 23:57 95.6 78 20 131/59 (83) 95 04/27/17 16:00 97.0 80 17 129/58 (81) 96 04/27/17 12:00 96.0 68 17 132/63 (86) 96 04/27/17 10:12 97 (She Medeiros) -: 04/27/17 1245 04/28/17 0707 Imaging Last 72 hours Impressions GI Bleed Scan Nuclear Medicine 04/27/17 0000 Signed Impressions: Service Date/Time: Thursday, April 27, 2017 12:35 - CONCLUSION: No evidence of active GI bleeding Nick Owen MD Chest X-Ray 04/27/17 0000 Signed Impressions: Service Date/Time: Thursday, April 27, 2017 05:15 - CONCLUSION: 1. Cardiomegaly and diffuse increased interstitial markings likely representing CHF/pulmonary edema. 2. Focal consolidation at the left mid and lower lung. Nick Rojas MD Tubes & Lines: Perma-Cath (She Medeiros) Physical Exam General Appearance: Well Developed, No Acute Distress, Comfortable, Malnourished (She Medeiros) Eyes Eye Exam: Pupils Equal (She Medeiros) Throat Throat Exam: Oral Mucosa [place] & Moist (She Medeiros) Pulmonary Resp Exam: Clear Bilaterally, Breath Sounds Equal (She Medeiros) Cardiology CV Exam: Good Perfusion, Irregular (She Medeiros) Gastrointestinal/Abdomen GI Exam: Soft, Non-Tender, Bowel Sounds Present, Positive Bowel Movement (She Medeiros) Musculoskeletal MS Exam: Joints Intact, Atrophy, Unable to Ambulate (She Medeiros) Integumentary Skin Exam: Clear, Warm, Dry, Intact (She Medeiros) Extremeties Extremities Exam: No Edema, Pedal Pulses Palpable (She Medeiros) Neurologic Neuro Exam: Alert, Awake, Oriented, Speech Clear, Moving All Extremities (She Medeiros) Psychiatric Psych Exam: Appropriate Responses (She Medeiros) VTE Prophylaxis VTE Remarks Apixaban (She Medeiros) Assessment/Plan Discussed Condition With: Patient Assessment Summary: Anemia of CKD, Hypertension, End Stage Renal Disease Problem List: (1) ESRD (end stage renal disease) ICD Codes: N18.6 - End stage renal disease Plan: HD TTS, she is due today Attempt AVF cannulation again today Obtain intermittent renal panel Avoid IVF; follow fluid status, UF as needed or tolerated. High protein diet ordered with supplements added. Need nutritional support. Megace added. (2) Anemia ICD Codes: D64.9 - Anemia, unspecified Plan: Epogen with HD Stable hemoglobin (3) A-fib ICD Codes: I48.91 - Unspecified atrial fibrillation Plan: Rate controlled Held Apixaban due to GI bleeding, she is off ASA Continue to monitor (4) Weakness ICD Codes: R53.1 - Weakness Status: Acute Plan: Needs aggressive PT/OT Neurology has been consulted; appreciate recommendations. (5) C. difficile colitis ICD Codes: A04.72 - Enterocolitis due to Clostridium difficile, not specified as recurrent Status: Acute Plan: On oral vancomycin, flagyl has been added. Contact precautions (6) GI bleed ICD Codes: K92.2 - Gastrointestinal hemorrhage, unspecified Plan: Negative bleeding scan Due for EGD/colonoscopy tomorrow Apixaban on hold. (She Medeiros) Plan patient was seen and examined. Agree with above assessment and plan. She was seen after dialysis. AVF was used. GI evaluation is ongoing. She reports diarrhea persists. On Vancomycin and Flagyl. (Devon Torres MD) Problem Qualifiers (1) Anemia: Qualified Codes: D64.9 - Anemia, unspecified (2) A-fib: Qualified Codes: I48.91 - Unspecified atrial fibrillation She Medeiros Apr 28, 2017 09:33 Devon Torres MD Apr 28, 2017 14:25
[2017-04-28] MEDS: PANTOPRAZOLE SODIUM 40 MG VIAL IV PUSH SCH ×2 (11:00→21:56)
[2017-04-28] MEDS: VANCOMYCIN 500 MG VIAL (FOR ORAL USE ONLY) PO SCH ×4 (13:00→19:58)
[2017-04-28] MEDS: CHOLECALCIFEROL (VIT D3) 1000 UNIT TAB PO SCH (14:37)
[2017-04-28] MEDS: amLODIPine BESYLATE 5 MG TAB PO SCH (14:37)
[2017-04-28] MEDS: MEGESTROL ACETATE SUSP 400 MG/10 ML CUP PO SCH (14:38)
[2017-04-28] MEDS: SODIUM CHLORIDE 0.9% FLUSH 10 ML FLUSH IV FLUSH SCH ×2 (14:38→19:58)
[2017-04-28] MEDS: EPOETIN ALFA 10,000 UNITS/ML VIAL IV PUSH PRN (15:15)
[2017-04-28] MEDS: GELATIN 12 MM/7 MM FOAM TOP PRN (15:16)
[2017-04-28] MEDS: ACETAMINOPHEN 325 MG TAB PO PRN (15:17)
[2017-04-28 16:00] VITALS: BP 139/61; PULSE 73; RESP 17; TEMP 96.7; O2SAT 92
--- NOTE | 2017-04-28 16:02 | HHI.PR ---
Subjective Remarks Follow up on a 89-year-old with PMH of CVA, afib, ESRD on HD, and C. Diff, who presented to the ED with complaints of paralysis and weakness. Patient was seen and examined in room with nurse at bedside. Nurse repots that patient had one BM in the morning, no blood. Patient complaints of right arm pain due to HD, she denies nausea, vomiting, or SOB. She is aware that she has to go to another test today as well to evaluate for the bleeding she had yesterday. She complains of bilateral arm weakness, does not remember if she had residual weakness after her stroke in February of this year. Objective Vitals Vital Signs Date Time Temp Pulse Resp B/P (MAP) Pulse Ox O2 Delivery O2 Flow Rate FiO2 04/28/17 08:00 98.2 81 17 116/60 (78) 93 04/28/17 04:12 97.7 77 20 125/67 (86) 95 04/27/17 23:57 95.6 78 20 131/59 (83) 95 04/27/17 16:00 97.0 80 17 129/58 (81) 96 I/O 04/27/17 04/27/17 04/27/17 04/28/17 04/28/17 04/28/17 07:00 15:00 23:00 07:00 15:00 23:00 Intake Total 415 ml 954 ml Output Total 1300 ml Balance 415 ml 954 ml -1300 ml Intake Oral 120 ml 954 ml Packed Cells 295 ml Blood Product IV Normal Saline Flush 0 ml Hemodialysis 1300 ml # Voids 0 # Bowel Movements 4 4 Result Diagram: 04/27/17 1245 04/28/17 0707 Imaging Last Impressions GI Bleed Scan Nuclear Medicine 04/27/17 0000 Signed Impressions: Service Date/Time: Thursday, April 27, 2017 12:35 - CONCLUSION: No evidence of active GI bleeding Nick Owen MD Chest X-Ray 04/27/17 0000 Signed Impressions: Service Date/Time: Thursday, April 27, 2017 05:15 - CONCLUSION: 1. Cardiomegaly and diffuse increased interstitial markings likely representing CHF/pulmonary edema. 2. Focal consolidation at the left mid and lower lung. Nick Rojas MD Head CT 04/24/17 0659 Signed Impressions: Service Date/Time: Monday, April 24, 2017 07:35 - CONCLUSION: No acute findings in the brain. Arron Roberson MD Objective Remarks GENERAL: Frail elderly female in no acute distress HEAD: Normocephalic. NECK: Supple, trachea midline. EYES: No scleral icterus. No injection or drainage. CARDIOVASCULAR: Regular rate and rhythm without murmurs, gallops, or rubs. RESPIRATORY: Breath sounds equal bilaterally. No accessory muscle use. GASTROINTESTINAL: Abdomen soft, nondistended with active bowel sounds in all quadrants, tenderness to palpation on right lower quadrant. MUSCULOSKELETAL: No cyanosis, or edema. SKIN: Warm and dry. NEURO: Moves all extremities with generalized weakness, right arm with complaints of pain due to needles from HD. No facial drooping speech is clear and appropriate. A/P Problem List: (1) ESRD (end stage renal disease) ICD Code: N18.6 - End stage renal disease (2) A-fib ICD Code: I48.91 - Unspecified atrial fibrillation (3) C. difficile colitis ICD Code: A04.72 - Enterocolitis due to Clostridium difficile, not specified as recurrent Status: Acute (4) Weakness ICD Code: R53.1 - Weakness Status: Acute Assessment and Plan 89-year-old with PMH of CVA, afib, ESRD on HD, and C. Diff, who presented to the ED with complaints of paralysis and weakness. Patient with episodes of rectal bleeding and drop in H&H s/p blood transfusion with workup for myasthenia gravis. Global weakness History of CVA 2016 - Patient was discharged on aspirin after CVA, she is also on Eliquis due to A. fib -CT of the head reviewed which revealed no acute findings in the brain. - Neurology services consultation for evaluation. Likely not TIA due to generalized weakness, workup in progress for myasthenia. A. 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 250mg PO QID X10 days, and Flagyl till 05/04 as recommended by GI. - Continue following clinically Acute GI bleed - GI services consultation after patient developed melena with multiple dark jelly stools - Drop in H&H on 04/26 to 7.6, s/p transfusion of 1 unit of PRBCs followed by IV Lasix - H&H ordered for every 6 hours 3, latest H&H as of 3pm was 9.7 - One episode of diarrhea this AM, no blood reported. - Labs in the AM, continue following H&H - Patient underwent bleeding scan on 04/27 which was negative. - Plans for CT of abd/pelvis today, GI considering scope in future. - PPI per GI - Eliquis on hold due to GIB End-stage renal disease on hemodialysis - Nephrology following, HD as scheduled Anemia of chronic disease - Secondary to ESRD with acute anemia due to BID - Transfused with 1 unit PRBC's H&H stable VTE -Anticoagulation contraindicated secondary to GIB, SCD 's for now Patient discussed with nurse at bedside. Discharge Planning CM working on placement for [facility] once discharged. Problem Qualifiers (1) A-fib: Qualified Codes: I48.91 - Unspecified atrial fibrillation Lonnie Hays Apr 28, 2017 16:02
[2017-04-28 16:05] LABS: AUTOMATED NEUTROPHIL # 8.2 TH/MM3 (1.8-7.7); BASOPHIL # 0.1 TH/MM3 (0-0.2); BASOPHIL % 0.7 % (0.0-2.0); EOSINOPHIL # 0.1 TH/MM3 (0-0.4); EOSINOPHIL % 0.5 % (0.0-4.0); HEMATOCRIT 29.2 % (35.0-46.0); HEMO FLAGS DIFF FINAL; LYMPH % 11.1 % (9.0-44.0); LYMPHOCYTE # 1.1 TH/MM3 (1.0-4.8); MEAN CORPUSCULAR HEMOGLOBIN 30.4 PG (27.0-34.0); MEAN CORPUSCULAR HGB CONC 33.4 % (32.0-36.0); MONO % 4.9 % (0.0-8.0); NEUT % 82.8 % (16.0-70.0); PLATELET COUNT 234 TH/MM3 (150-450); RED BLOOD COUNT 3.21 MIL/MM3 (4.00-5.30); RED CELL DISTRIBUTION WIDTH 18.9 % (11.6-17.2); WHITE BLOOD COUNT 9.9 TH/MM3 (4.0-11.0)
[2017-04-28] MEDS ORDERED: BISACODYL EC 5 MG TABEC PO ONE (17:45)
[2017-04-28] MEDS ORDERED: PEG (High)/E-LYTE SOLN 4000 ML BTL PO ONE (17:45)
--- NOTE | 2017-04-28 19:19 | HHI.PR ---
Review/Management Daily Summary labs seen, so far normal neuro labs pending myasthenia antibodies exam basically unchanged, able to elevate legs, weakness proximal arms from rotator cuff source will monitor neuro course Subjective Subjective Comments No acute neuro events reported No headache Active Medications Current Medications Medications (Trade) Dose Ordered Sig/Angel Route Start Time Stop Time Status Last Admin (NS Flush) 2 ml UNSCH PRN IV FLUSH 04/24/17 09:45 (NS Flush) 2 ml BID IV FLUSH 04/24/17 21:00 04/28/17 14:38 (Tylenol) 650 mg Q4H PRN PO 04/24/17 09:45 04/28/17 15:17 (Zofran Inj) 4 mg Q6H PRN IVP 04/24/17 09:45 (Narcan Inj) 0.4 mg UNSCH PRN IV PUSH 04/24/17 09:45 (Milk Of Magnesia Liq) 30 ml Q12H PRN PO 04/24/17 09:45 (Senokot) 17.2 mg Q12H PRN PO 04/24/17 09:45 (Dulcolax Supp) 10 mg DAILY PRN RECTAL 04/24/17 09:45 (Lactulose Liq) 30 ml DAILY PRN PO 04/24/17 09:45 (VANCOMYCIN for oral use only) 250 mg QID PO 04/24/17 13:00 05/04/17 12:59 04/28/17 18:40 (Eliquis) 2.5 mg BID PO 04/24/17 21:00 Future Hold 04/26/17 08:58 (Norvasc) 2.5 mg DAILY PO 04/25/17 09:00 04/28/17 14:37 (Vitamin D3) 1,000 units DAILY PO 04/25/17 09:00 04/28/17 14:37 (Cardura) 2 mg HS PO 04/24/17 21:00 04/27/17 20:13 Sodium Chloride 1,000 ml @ 0 mls/hr Q0M PRN OTHER 04/25/17 09:36 (Heparin Inj) 8,000 units UNSCH PRN IV FLUSH 04/25/17 09:45 Sodium Chloride 1,000 ml @ 200 mls/hr Q5H PRN IV 04/25/17 09:36 04/26/17 11:33 Sodium Chloride 1,000 ml @ 0 mls/hr Q0M PRN OTHER 04/25/17 09:36 (Mannitol Inj) 12.5 gm UNSCH PRN IV 04/25/17 09:45 Albumin Human 100 ml @ 60 mls/hr UNSCH PRN IV 04/25/17 09:45 (NS Flush) 5 ml UNSCH PRN IV FLUSH 04/25/17 09:45 (Heparin Inj) UNSCH PRN .XX 04/25/17 09:45 04/26/17 11:36 (Gentamicin (Dialysis) Inj) 20 mg UNSCH PRN OTHER 04/25/17 09:45 04/26/17 11:34 (Zofran Inj) 4 mg UNSCH PRN IV PUSH 04/25/17 09:45 (Tylenol) 650 mg UNSCH PRN PO 04/25/17 09:45 (Benadryl) 25 mg UNSCH PRN PO 04/25/17 09:45 (Nitrostat Sl) 0.4 mg UNSCH PRN SL 04/25/17 09:45 (Catapres) 0.1 mg UNSCH PRN PO 04/25/17 09:45 (Gelfoam 12 Mm/7 Mm Top) 1 foam UNSCH PRN TOP 04/25/17 09:45 04/28/17 15:16 (Flagyl) 500 mg Q8HR PO 04/26/17 22:00 04/28/17 15:17 (Protonix Inj) 40 mg Q12H IV PUSH 04/27/17 11:00 04/27/17 21:08 (Megace Liq) 800 mg DAILY PO 04/27/17 12:00 04/28/17 14:38 (Epogen Inj) 10,000 units UNSCH PRN IV PUSH 04/28/17 14:00 04/28/17 15:15 Allergies Allergies Coded Allergies No Known Allergies (Unverified Allergy, Unknown, 04/24/17) Review of Systems All other ROS: ROS reviewed as documented in chart Exam I&O / VS 04/28/17 04/28/17 04/29/17 15:00 23:00 07:00 Intake Total 480 ml Output Total 1300 ml Balance -1300 ml 480 ml Intake Oral 480 ml Hemodialysis 1300 ml # Voids 0 # Bowel Movements 3 Vital Signs Date Time Temp Pulse Resp B/P (MAP) Pulse Ox O2 Delivery O2 Flow Rate FiO2 04/28/17 16:00 96.7 73 17 139/61 (87) 92 04/28/17 08:00 98.2 81 17 116/60 (78) 93 04/28/17 04:12 97.7 77 20 125/67 (86) 95 04/27/17 23:57 95.6 78 20 131/59 (83) 95 Objective Micro and Labs Laboratory Tests Test 04/28/17 07:07 04/28/17 15:06 Blood Urea Nitrogen 42 Creatinine 4.35 Random Glucose 109 Total Protein 4.9 Albumin 1.6 Calcium Level 7.7 Alkaline Phosphatase 98 Aspartate Amino Transf (AST/SGOT) 21 Alanine Aminotransferase (ALT/SGPT) 11 Total Bilirubin 0.6 Sodium Level 137 Potassium Level 4.0 Chloride Level 102 Carbon Dioxide Level 26.2 Anion Gap 9 Estimat Glomerular Filtration Rate 10 White Blood Count 9.9 Red Blood Count 3.21 Hemoglobin 9.7 Hematocrit 29.2 Mean Corpuscular Volume 91.0 Mean Corpuscular Hemoglobin 30.4 Mean Corpuscular Hemoglobin Concent 33.4 Red Cell Distribution Width 18.9 Platelet Count 234 Mean Platelet Volume 9.4 Neutrophils (%) (Auto) 82.8 Lymphocytes (%) (Auto) 11.1 Monocytes (%) (Auto) 4.9 Eosinophils (%) (Auto) 0.5 Basophils (%) (Auto) 0.7 Neutrophils # (Auto) 8.2 Lymphocytes # (Auto) 1.1 Monocytes # (Auto) 0.5 Eosinophils # (Auto) 0.1 Basophils # (Auto) 0.1 CBC Comment DIFF FINAL Differential Comment Date/Time Source Procedure Growth Status 04/24/17 07:15 Blood Peripheral Aerobic Blood Culture - Preliminary NO GROWTH IN 4 DAYS Resulted 04/24/17 07:15 Blood Peripheral Anaerobic Blood Culture - Preliminary NO GROWTH IN 4 DAYS Resulted Logan Kerr MD Apr 28, 2017 19:19
[2017-04-28] MEDS: DOXAZOSIN MESYLATE 2 MG TAB PO SCH (19:58)
[2017-04-28 21:04] VITALS: O2SAT 97
[2017-04-28 21:14] VITALS: BP 117/56; PULSE 79; RESP 20; TEMP 97.7; O2SAT 95
--- NOTE | 2017-04-28 21:55 | RADRPT ---
EXAM DATE/TIME: 04/28/2017 20:19 [facility] COMPARISON: CT ABDOMEN & PELVIS W/O CONTRAST, April 19, 2017, 9:28. INDICATIONS : Nausea, diarrhea, abdominal pain. ORAL CONTRAST: Partial prescribed oral contrast ingested. RADIATION DOSE: 14.94 CTDIvol (mGy) MEDICAL HISTORY : Hypertension. Diabetes mellitus type 1. Dialysis patient SURGICAL HISTORY : Hysterectomy. ENCOUNTER: Subsequent ACUITY: 2 weeks PAIN SCALE: 3/10 LOCATION: Abdomen TECHNIQUE: Volumetric scanning of the abdomen and pelvis was performed. Using automated exposure control and adjustment of the mA and/or kV according to patient size, radiation dose was kept as low as reasonably achievable to obtain optimal diagnostic quality images. DICOM format image data is av ailable electronically for review and comparison. FINDINGS: The liver, spleen, pancreas and adrenal glands are normal for a noncontrast CT examinat ion. Both kidneys demonstrate chronic atrophy with cortical thinning and are decreased in size. The left kidney is more severely affected. There are atherosclerotic calcifications throughout the cat rial system. There is thickening of the ascending colon. The remaining aspect of the colon does not appear signif icantly thickened. The ascending colon is somewhat dilated. The appendix is not seen. There is a m ild amount of ascites seen throughout the peritoneal cavity being most prominent around the liver, ar ound the spleen, and in the pelvis. There is edema seen throughout the subcutaneous fat in the abdom en and pelvis. There are bilateral pleural effusions being moderate on the left and mild on the righ t. There are accompanying areas of atelectasis seen bilaterally. There is degenerative change in th e lumbar spine. The patient appears to be status post hysterectomy. No pelvic mass is seen. CONCLUSION: 1. Thickening of the ascending colon concerning for colitis involving the ascending colon. 2. Mild ascites. 3. Chronic atrophy of the kidneys with the left being more affected than the right. 4. Bilateral pleural effusions being moderate on the left and mild on the right. Nick Rojas MD on April 28, 2017 at 21:43 Board Certified Radiologist. This report was verified electronically.
[2017-04-29 00:20] VITALS: BP 133/61; PULSE 76; RESP 18; TEMP 96.1; O2SAT 95
[2017-04-29] MEDS: metroNIDAZOLE 500 MG TAB PO SCH ×3 (05:21→22:45)
[2017-04-29 08:00] VITALS: BP 125/67; PULSE 84; RESP 17; TEMP 98; O2SAT 93
[2017-04-29 09:01] LABS: AUTOMATED NEUTROPHIL # 9.2 TH/MM3 (1.8-7.7); BASOPHIL % 0.4 % (0.0-2.0); EOSINOPHIL # 0.1 TH/MM3 (0-0.4); EOSINOPHIL % 1.2 % (0.0-4.0); HEMATOCRIT 27.5 % (35.0-46.0); HEMO FLAGS DIFF FINAL; LYMPH % 10.2 % (9.0-44.0); LYMPHOCYTE # 1.1 TH/MM3 (1.0-4.8); MEAN CELL VOLUME 91.1 FL (80.0-100.0); MEAN CORPUSCULAR HEMOGLOBIN 30.4 PG (27.0-34.0); MEAN CORPUSCULAR HGB CONC 33.4 % (32.0-36.0); MONO % 5.3 % (0.0-8.0); NEUT % 82.9 % (16.0-70.0); PLATELET COUNT 202 TH/MM3 (150-450); RED BLOOD COUNT 3.02 MIL/MM3 (4.00-5.30); WHITE BLOOD COUNT 11.1 TH/MM3 (4.0-11.0)
[2017-04-29 09:05] LABS: INTERNATIONAL NORMALIZED RATIO 1.2 RATIO; PROTHROMBIN TIME - PATIENT 11.8 SEC (9.8-11.6)
[2017-04-29 09:33] LABS: ALKALINE PHOSPHATASE 95 U/L (45-117); ALT (GPT) 9 U/L (10-53); ANION GAP 7 MEQ/L (5-15); AST (GOT) 18 U/L (15-37); BICARBONATE 28.6 MEQ/L (21.0-32.0); BLOOD UREA NITROGEN 30 MG/DL (7-18); CHLORIDE 100 MEQ/L (98-107); GLOMERULAR FILTRATION RATE 13 ML/MIN (>89); SODIUM (NA) 136 MEQ/L (136-145); TOTAL BILIRUBIN ADULT 0.8 MG/DL (0.2-1.0)
--- NOTE | 2017-04-29 09:35 | HHI.PR ---
Subjective Remarks Follow up on paralysis and weakness, C diff, and GIB. Patient seen and examined in room, in no acute distress. She denies abdominal pain, nausea, vomiting, fever, chills, still having diarrhea but she is currently drinking Colyte prep for scope. She denies SOB, chest pain, or weakness. Discussed with her she will be going to GI lab today for upper and lower scope, due to GIB. Objective Vitals Vital Signs Date Time Temp Pulse Resp B/P (MAP) Pulse Ox O2 Delivery O2 Flow Rate FiO2 04/29/17 08:00 98.0 84 17 125/67 (86) 93 04/29/17 00:20 96.1 76 18 133/61 (85) 95 04/28/17 21:14 97.7 79 20 117/56 (76) 95 04/28/17 21:04 97 21 04/28/17 16:00 96.7 73 17 139/61 (87) 92 I/O 04/28/17 04/28/17 04/28/17 04/29/17 04/29/17 04/29/17 07:00 15:00 23:00 07:00 15:00 23:00 Intake Total 480 ml Output Total 1300 ml Balance -1300 ml 480 ml Intake Oral 480 ml Hemodialysis 1300 ml # Voids 0 2 # Bowel Movements 3 4 Result Diagram: 04/29/1783204/29/1733 Imaging Last Impressions Abdomen/Pelvis CT 04/28/17 0000 Signed Impressions: Service Date/Time: March 20:19 - CONCLUSION: 1. Thickening of the ascending colon concerning for colitis involving the ascending colon. 2. Mild ascites. 3. Chronic atrophy of the kidneys with the left being more affected than the right. 4. Bilateral pleural effusions being moderate on the left and mild on the right. Nick Rojas MD GI Bleed Scan Nuclear Medicine 04/27/17 0000 Signed Impressions: Service Date/Time: Thursday, April 27, 2017 12:35 - CONCLUSION: No evidence of active GI bleeding Nick Owen MD Chest X-Ray 04/27/17 0000 Signed Impressions: Service Date/Time: Thursday, April 27, 2017 05:15 - CONCLUSION: 1. Cardiomegaly and diffuse increased interstitial markings likely representing CHF/pulmonary edema. 2. Focal consolidation at the left mid and lower lung. Nick Rojas MD Head CT 04/24/17 0659 Signed Impressions: Service Date/Time: Monday, April 24, 2017 07:35 - CONCLUSION: No acute findings in the brain. Arron Roberson MD Objective Remarks GENERAL: Frail elderly female in no acute distress HEAD: Normocephalic. NECK: Supple, trachea midline. EYES: No scleral icterus. No injection or drainage. CARDIOVASCULAR: Irregular HR without murmurs, gallops, or rubs. Right upper arm fistula with + bruit and thrill. RESPIRATORY: Breath sounds equal bilaterally. No accessory muscle use. GASTROINTESTINAL: Abdomen soft, nondistended with hyperactive bowel sounds in all quadrants,no tenderness to palpation. MUSCULOSKELETAL: No cyanosis, or edema. SKIN: Warm and dry. NEURO: Moves all extremities with generalized weakness, +4 strength on bilateral upper and lower extremities . No facial drooping speech is clear and appropriate. A/P Problem List: (1) ESRD (end stage renal disease) ICD Code: N18.6 - End stage renal disease (2) A-fib ICD Code: I48.91 - Unspecified atrial fibrillation (3) C. difficile colitis ICD Code: A04.72 - Enterocolitis due to Clostridium difficile, not specified as recurrent Status: Acute (4) Weakness ICD Code: R53.1 - Weakness Status: Acute Assessment and Plan 89-year-old with PMH of CVA, afib, ESRD on HD, and C. Diff, who presented to the ED with complaints of paralysis and weakness. Patient with episodes of rectal bleeding and drop in H&H s/p blood transfusion with workup for myasthenia gravis. Global weakness History of CVA 2016 - Patient was discharged on aspirin after CVA, she is also on Eliquis due to A. fib - CT of the head reviewed which revealed no acute findings in the brain. - Neurology services consultation for evaluation. Likely not TIA due to generalized weakness, workup in progress for myasthenia, labs still pending. A. fib - [id number] score 6 - Eliquis on hold secondary to new onset of GIB - Patient voiced to me today the fact that she will not be going back on Eliquis due to her experience of GIB. 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 250mg PO QID X10 days, and Flagyl till 05/04 as recommended by GI. - Continue following clinically Acute GI bleed - GI services consultation after patient developed melena with multiple dark jelly stools - Drop in H&H on 04/26 to 7.6, s/p transfusion of 1 unit of PRBCs followed by IV Lasix - H&H continues to be stable, no reported bleeding from RN - Liquid stools due to bowel prep. - Labs in the AM - Patient underwent bleeding scan on 04/27 which was negative. - CT of abd/pelvis reviewed showing thickening of the ascending colon for colitis involving the ascending colon, mild ascites, chronic atrophy of kidneys , bilateral pleural effusions left is moderate and right is mild. - Plans for colonoscopy and esophagogastroduodenoscopy today by GI. - PPI per GI - Eliquis on hold due to GIB End-stage renal disease on hemodialysis - Nephrology following, HD as scheduled Anemia of chronic disease - Secondary to ESRD with acute anemia due to BID - Transfused with 1 unit PRBC's 04/26 H&H stable VTE -Anticoagulation contraindicated secondary to GIB, SCD 's for now Patient discussed with nurse and . Discharge Planning CM working on placement for [facility] SNF once discharged. Problem Qualifiers (1) A-fib: Qualified Codes: I48.91 - Unspecified atrial fibrillation Lonnie Hays Apr 29, 2017 09:35
[2017-04-29] MEDS: CHOLECALCIFEROL (VIT D3) 1000 UNIT TAB PO SCH (09:38)
[2017-04-29] MEDS: SODIUM CHLORIDE 0.9% FLUSH 10 ML FLUSH IV FLUSH SCH ×2 (09:38→22:58)
[2017-04-29] MEDS: VANCOMYCIN 500 MG VIAL (FOR ORAL USE ONLY) PO SCH ×4 (09:39→22:45)
[2017-04-29] MEDS: amLODIPine BESYLATE 5 MG TAB PO SCH (09:39)
[2017-04-29] MEDS: PANTOPRAZOLE SODIUM 40 MG VIAL IV PUSH SCH ×2 (09:39→22:45)
[2017-04-29] MEDS: MEGESTROL ACETATE SUSP 400 MG/10 ML CUP PO SCH (09:40)
[2017-04-29] MEDS ORDERED: PILL SPLITTER OTHER PRN (10:00)
--- NOTE | 2017-04-29 10:10 | HHI.NPPN ---
Subjective General Problems: Anemia Renal Failure: Chronic, End Stage Renal Disease Interval History To have colonoscopy today. Still with loose stool, melanic. (She Medeiros) Review of Systems General Constitutional: Fatigue (She Medeiros) Gastrointestinal Gastrointestinal: Diarrhea, Blood/Tarry Stools (She Medeiros) Objective Data Data Vital Signs Date Time Temp Pulse Resp B/P (MAP) Pulse Ox O2 Delivery O2 Flow Rate FiO2 04/29/17 08:00 98.0 84 17 125/67 (86) 93 04/29/17 00:20 96.1 76 18 133/61 (85) 95 04/28/17 21:14 97.7 79 20 117/56 (76) 95 04/28/17 21:04 97 21 04/28/17 16:00 96.7 73 17 139/61 (87) 92 (She Medeiros) -: 04/29/17 0833 04/29/17 0833 Imaging Last 72 hours Impressions Abdomen/Pelvis CT 04/28/17 0000 Signed Impressions: Service Date/Time: March 20:19 - CONCLUSION: 1. Thickening of the ascending colon concerning for colitis involving the ascending colon. 2. Mild ascites. 3. Chronic atrophy of the kidneys with the left being more affected than the right. 4. Bilateral pleural effusions being moderate on the left and mild on the right. Nick Rojas MD GI Bleed Scan Nuclear Medicine 04/27/17 0000 Signed Impressions: Service Date/Time: Thursday, April 27, 2017 12:35 - CONCLUSION: No evidence of active GI bleeding Nick Owen MD Chest X-Ray 04/27/17 0000 Signed Impressions: Service Date/Time: Thursday, April 27, 2017 05:15 - CONCLUSION: 1. Cardiomegaly and diffuse increased interstitial markings likely representing CHF/pulmonary edema. 2. Focal consolidation at the left mid and lower lung. Nick Rojas MD Tubes & Lines: Perma-Cath (She Medeiros) Physical Exam General Appearance: Well Developed, No Acute Distress, Comfortable, Malnourished (She Medeiros) Eyes Eye Exam: Pupils Equal (She eMdeiros) Throat Throat Exam: Oral Mucosa [place] & Moist (She Medeiros) Pulmonary Resp Exam: Clear Bilaterally, Breath Sounds Equal (She Medeiros) Cardiology CV Exam: Good Perfusion, Irregular (She Medeiros) Gastrointestinal/Abdomen GI Exam: Soft, Non-Tender, Bowel Sounds Present, Positive Bowel Movement (She Medeiros) Musculoskeletal MS Exam: Joints Intact, Atrophy, Unable to Ambulate (She Medeiros) Integumentary Skin Exam: Clear, Warm, Dry, Intact (She Medeiros) Extremeties Extremities Exam: No Edema, Pedal Pulses Palpable (She Medeiros) Neurologic Neuro Exam: Alert, Awake, Oriented, Speech Clear, Moving All Extremities (She Medeiros) Psychiatric Psych Exam: Appropriate Responses (She Medeiros) VTE Prophylaxis VTE Remarks Apixaban (She Medeiros) Assessment/Plan Discussed Condition With: Patient Assessment Summary: Anemia of CKD, Hypertension, End Stage Renal Disease Problem List: (1) ESRD (end stage renal disease) ICD Codes: N18.6 - End stage renal disease Plan: HD TTS, 1300 ml UF yesterday Successful cannulation of AVF yesterday Obtain intermittent renal panel Avoid IVF; follow fluid status, UF as needed or tolerated. High protein diet ordered with supplements added. Need nutritional support. Megace added. (2) Anemia ICD Codes: D64.9 - Anemia, unspecified Plan: Epogen with HD Stable hemoglobin (3) A-fib ICD Codes: I48.91 - Unspecified atrial fibrillation Plan: Rate controlled Held Apixaban due to GI bleeding, she is off ASA Continue to monitor (4) Weakness ICD Codes: R53.1 - Weakness Status: Acute Plan: Needs aggressive PT/OT Neurology has been consulted; appreciate recommendations. (5) C. difficile colitis ICD Codes: A04.72 - Enterocolitis due to Clostridium difficile, not specified as recurrent Status: Acute Plan: On oral vancomycin, flagyl has been added. Contact precautions CT shows ascites and colitis (6) GI bleed ICD Codes: K92.2 - Gastrointestinal hemorrhage, unspecified Plan: Negative bleeding scan Due for EGD/colonoscopy today, Apixaban on hold. (She Medeiros) Plan patient was seen and examined. Agree with above assessment and plan. GI workup is in progress. Dialysis tomorrow and TTS. Attempt to cannulate AVF. (Devon Torres MD) Problem Qualifiers (1) Anemia: Qualified Codes: D64.9 - Anemia, unspecified (2) A-fib: Qualified Codes: I48.91 - Unspecified atrial fibrillation She Medeiros Apr 29, 2017 10:10 Devon Torres MD Apr 29, 2017 12:29
[2017-04-29 10:51] VITALS: O2SAT 95
[2017-04-29 12:00] VITALS: BP 110/58; PULSE 75; RESP 17; TEMP 96.7; O2SAT 86
[2017-04-29] MEDS ORDERED: LIDOCAINE HCL 1% PF 5 ML SYRINGE OTHER ONE (12:00)
[2017-04-29] MEDS ORDERED: PROPOFOL 200 MG/20 ML AMP IV ONE (12:00)
[2017-04-29 16:00] VITALS: BP 120/60; PULSE 92; RESP 17; TEMP 97.8; O2SAT 92
--- NOTE | 2017-04-29 17:36 | GIPROC ---
[facility] [address] [facility]. [facility], [address] COLONOSCOPY PROCEDURE REPORT EXAM DATE: 04/29/2017 PATIENT NAME: Alisa Moser MR #: [id number] BIRTHDATE: 1925 ENDOSCOPIST: Kezia Maria MD ORDER #: [id number] STEERSMAN: Cely Allan and Chantelle Guevara STATUS: inpatient INDICATIONS: The patient is a 89 yr old female here for a colonoscopy due to gi bleeding, diarrhea PROCEDURE PERFORMED: Colonoscopy with biopsy MEDICATIONS: None and Per Anesthesia. PREP QUALITY: poor PREP TYPE:Other: ESTIMATED BLOOD LOSS: None CONSENT: The patient understands the risks and benefits of the procedure and understands that these risks include, but are not limited to: sedation, allergic reaction, infection, perforation and/or bleeding. Alternative means of evaluation and treatment include, among others: physical exam, x-rays, and/or surgical intervention. The patient elects to proceed with this endoscopic procedure. medical equipment was checked for proper function. Hand hygiene and appropriate measures for infection prevention was taken. After the risks, benefits and alternatives of the procedure were thoroughly explained, Informed consent was verified, confirmed and timeout was successfully executed by the treatment team. A digital exam revealed decreased sphincter tone The Pentax EC-[id number] endoscope was introduced through the anus and advanced to the descending colon. The instrument was then slowly withdrawn as the colon was fully examined. COLON FINDINGS: Pseudomebrane in rectum, descending and sigmoid-biopsy sigmoid very friable mucosa, could not advance scope passed descending -due to increase fraibility i decided to stop at this level diverticulosis. Retroflexed views revealed internal hemorrhoids The scope was then completely withdrawn from the patient and the procedure terminated. ADVERSE EVENTS: There were no complications. IMPRESSIONS: 1. Pseudomebrane in rectum, descending and sigmoid-biopsy sigmoid very friable mucosa, could not advance scope passed descending -due to increase fraibility i decided to stop at this level diverticulosis 2. Retroflexed views revealed internal hemorrhoids 3. Revealed decreased sphincter tone RECOMMENDATIONS: 1. Await biopsy results. Biopsy results will not be ready for 7-10 days. If you don't hear from us in two weeks, call our office for results. 2. Vancomycin enemas restart diet continue current rx RECALL: Return 1 month Colonoscopy Kezia Maria MD eSigned: Kezia Maria MD 04/29/2017 5:36 PM cc:
--- NOTE | 2017-04-29 17:40 | GIPROC ---
[facility] [address] [facility]. [facility], [address] EGD PROCEDURE REPORT EXAM DATE: 04/29/2017 PATIENT NAME: Alisa Moser MR #: [id number] BIRTHDATE: 1925 ATTENDING: Kezia Maria MD ORDER #: [id number] EMISSIONS REPAIR TECHNICIAN: Chantelle Guevara and Cely Allan STATUS: inpatient INDICATIONS: The patient is a 89 yr old female here for an EGD due to gi bleeding, diarrhea PROCEDURE PERFORMED: EGD w/ biopsy MEDICATIONS: None and Per Anesthesia. TOPICAL ANESTHETIC: none CONSENT: The patient understands the risks and benefits of the procedure and understands that these risks include, but are not limited to: sedation, allergic reaction, infection, perforation and/or bleeding. Alternative means of evaluation and treatment include, among others: physical exam, x-rays, and/or surgical intervention. The patient elects to proceed with this endoscopic procedure. medical equipment was checked for proper function. Hand hygiene and appropriate measures for infection prevention was taken. After the risks, benefits and alternatives of the procedure were thoroughly explained, Informed consent was verified, confirmed and timeout was successfully executed by the treatment team. The patient was anesthetized with topical anesthesia and the EC-[id number] (Pedi C) endoscope was introduced through the mouth and advanced to the second portion of the duodenum. Retroflexed views revealed a hiatal hernia The gastroscope was then slowly withdrawn and removed. Gastritis antrum-biopsy gastric body ulcer-biopsy dudoenitis second portion-biopsy esophagitis distal esophagus-biopsy. ADVERSE EVENTS: There were no complications. IMPRESSIONS: 1. Gastritis antrum-biopsy gastric body ulcer-biopsy dudoenitis second portion-biopsy esophagitis distal esophagus-biopsy 2. Retroflexed views revealed a hiatal hernia RECOMMENDATIONS: 1. Await biopsy results. Biopsy results will not be ready for 7-10 days. If you don't hear from us in two weeks, call our office for biopsy results. 2. Anti-reflux regimen 3. Continue PPI PATIENT CONDITION: stable DISPOSITION: Inpatient REPEAT EXAM: Return 1 year EGD Kezia Maria MD eSigned: Kezia Maria MD 04/29/2017 5:39 PM cc: PATIENT NAME: Alisa Moser MR#: [id number]
[2017-04-29] MEDS: IRR IRRIGATION SCH (19:19)
[2017-04-29] MEDS: SODIUM CHLORIDE 0.9% IRRIGATION SCH (19:19)
[2017-04-29] MEDS: VANCOMYCIN IRRIGATION SCH (19:19)
[2017-04-29 20:00] VITALS: BP 114/56; PULSE 73; RESP 18; TEMP 97.6; O2SAT 93
[2017-04-29] MEDS: DOXAZOSIN MESYLATE 2 MG TAB PO SCH (22:45)
[2017-04-30] VITALS: BP 121/62; PULSE 67; RESP 18; TEMP 97.8; O2SAT 95
[2017-04-30] MEDS: SODIUM CHLORIDE 0.9% IRRIGATION SCH ×5 (01:40→23:02)
[2017-04-30] MEDS: VANCOMYCIN IRRIGATION SCH ×5 (01:40→23:02)
[2017-04-30] MEDS: IRR IRRIGATION SCH ×5 (01:40→23:02)
[2017-04-30 03:50] LABS: ACETYLCHOLINE REC BINDING LESS THAN 0.30 nmol/L
[2017-04-30 05:39] LABS: AUTOMATED NEUTROPHIL # 7.7 TH/MM3 (1.8-7.7); BASOPHIL # 0.1 TH/MM3 (0-0.2); BASOPHIL % 0.9 % (0.0-2.0); EOSINOPHIL # 0.1 TH/MM3 (0-0.4); EOSINOPHIL % 0.9 % (0.0-4.0); HEMO FLAGS DIFF FINAL; LYMPH % 9.9 % (9.0-44.0); LYMPHOCYTE # 0.9 TH/MM3 (1.0-4.8); MEAN CELL VOLUME 91.6 FL (80.0-100.0); MEAN CORPUSCULAR HEMOGLOBIN 30.8 PG (27.0-34.0); MEAN CORPUSCULAR HGB CONC 33.7 % (32.0-36.0); MONO % 6.6 % (0.0-8.0); NEUT % 81.7 % (16.0-70.0); PLATELET COUNT 241 TH/MM3 (150-450); RED BLOOD COUNT 2.62 MIL/MM3 (4.00-5.30); WHITE BLOOD COUNT 9.4 TH/MM3 (4.0-11.0)
[2017-04-30 06:08] LABS: BICARBONATE 27.7 MEQ/L (21.0-32.0); CALCIUM-PROTEIN CORRECTED 8.8 MG/DL (8.5-10.1); POTASSIUM 3.9 MEQ/L (3.5-5.1); TOTAL BILIRUBIN ADULT 0.7 MG/DL (0.2-1.0)
[2017-04-30] MEDS: metroNIDAZOLE 500 MG TAB PO SCH ×3 (06:25→21:36)
[2017-04-30 08:00] VITALS: BP 125/63; PULSE 89; RESP 18; TEMP 97.3; O2SAT 93
[2017-04-30] MEDS: ALBUMIN 25% INJ 100 ML IV PRN ×2 (08:51→09:01)
[2017-04-30] MEDS: CHOLECALCIFEROL (VIT D3) 1000 UNIT TAB PO SCH (09:00)
[2017-04-30] MEDS: amLODIPine BESYLATE 5 MG TAB PO SCH (09:00)
[2017-04-30] MEDS: SODIUM CHLORIDE 0.9% FLUSH 10 ML FLUSH IV FLUSH SCH ×2 (09:00→21:37)
[2017-04-30] MEDS: VANCOMYCIN 500 MG VIAL (FOR ORAL USE ONLY) PO SCH ×4 (09:00→21:36)
[2017-04-30] MEDS: MEGESTROL ACETATE SUSP 400 MG/10 ML CUP PO SCH (09:00)
--- NOTE | 2017-04-30 09:59 | HHI.NPPN ---
Subjective General Problems: Anemia Renal Failure: Chronic, End Stage Renal Disease Additional Remarks Patient seen during HD, no specific complain. Review of Systems General Constitutional: Fatigue Gastrointestinal Gastrointestinal: Diarrhea, Blood/Tarry Stools Objective Data Data 04/30/17 05/01/17 19:00 07:00 Intake Total 200 ml Balance 200 ml IV Total 200 ml Vital Signs Date Time Temp Pulse Resp B/P (MAP) Pulse Ox O2 Delivery O2 Flow Rate FiO2 04/30/17 08:00 97.3 89 18 125/63 (83) 93 04/30/17 00:00 97.8 67 18 121/62 (81) 95 04/29/17 20:00 97.6 73 18 114/56 (75) 93 04/29/17 16:00 97.8 92 17 120/60 (80) 92 04/29/17 15:45 95 Nasal Cannula 2 04/29/17 15:45 98.4 80 18 122/60 (80) 95 04/29/17 12:00 96.7 75 17 110/58 (75) 86 04/29/17 10:51 95 -: 04/30/17 0509 04/30/17 0509 Tubes & Lines: Perma-Cath Physical Exam General Appearance: Well Developed, No Acute Distress, Comfortable, Malnourished Eyes Eye Exam: Pupils Equal Throat Throat Exam: Oral Mucosa [place] & Moist Pulmonary Resp Exam: Clear Bilaterally, Breath Sounds Equal Cardiology CV Exam: Good Perfusion, Irregular Gastrointestinal/Abdomen GI Exam: Soft, Non-Tender, Bowel Sounds Present, Positive Bowel Movement Musculoskeletal MS Exam: Joints Intact, Atrophy, Unable to Ambulate Integumentary Skin Exam: Clear, Warm, Dry, Intact Extremeties Extremities Exam: No Edema, Pedal Pulses Palpable Neurologic Neuro Exam: Alert, Awake, Oriented, Speech Clear, Moving All Extremities Psychiatric Psych Exam: Appropriate Responses Assessment/Plan Discussed Condition With: Patient Assessment Summary: Anemia of CKD, Hypertension, End Stage Renal Disease Problem List: (1) ESRD (end stage renal disease) ICD Codes: N18.6 - End stage renal disease Plan: Successful cannulation of AVF yesterday Obtain intermittent renal panel Avoid IVF; follow fluid status, UF as needed or tolerated. High protein diet ordered with supplements added. Need nutritional support. Megace added. AVF cannulated now , remove fluid as tolerated. (2) Anemia ICD Codes: D64.9 - Anemia, unspecified Plan: Epogen with HD Stable hemoglobin (3) A-fib ICD Codes: I48.91 - Unspecified atrial fibrillation Plan: Rate controlled Held Apixaban due to GI bleeding, she is off ASA Continue to monitor (4) Weakness ICD Codes: R53.1 - Weakness Status: Acute Plan: Needs aggressive PT/OT Neurology has been consulted; appreciate recommendations. (5) C. difficile colitis ICD Codes: A04.72 - Enterocolitis due to Clostridium difficile, not specified as recurrent Status: Acute Plan: On oral vancomycin, flagyl has been added. Contact precautions CT shows ascites and colitis (6) GI bleed ICD Codes: K92.2 - Gastrointestinal hemorrhage, unspecified Plan: Negative bleeding scan Due for EGD/colonoscopy today, Apixaban on hold. Problem Qualifiers (1) Anemia: Qualified Codes: D64.9 - Anemia, unspecified (2) A-fib: Qualified Codes: I48.91 - Unspecified atrial fibrillation Itzel Leal MD Apr 30, 2017 09:59
[2017-04-30] MEDS: EPOETIN ALFA 10,000 UNITS/ML VIAL IV PUSH PRN (10:48)
[2017-04-30] MEDS: PANTOPRAZOLE SODIUM 40 MG VIAL IV PUSH SCH ×2 (11:00→23:02)
--- NOTE | 2017-04-30 15:04 | HHI.PR ---
Subjective Remarks Follow-up visit generalized weakness, end-stage renal disease on hemodialysis, GI bleed. Patient seen and examined today lying in bed. States that she feels lousy. States she is really feels this way after dialysis then she gets a little bit better the day after. Complaints of increasing shortness of breath since last night states it's being aggravated by movement. Complaints that she gets winded even by just moving around in the bed. Otherwise, denies diarrhea today. Denies abdominal pain, cramping, discomfort. Denies nausea, vomiting. Denies chest pain, palpitations, dizziness, headache. Objective Vitals Vital Signs Date Time Temp Pulse Resp B/P (MAP) Pulse Ox O2 Delivery O2 Flow Rate FiO2 04/30/17 08:00 97.3 89 18 125/63 (83) 93 04/30/17 00:00 97.8 67 18 121/62 (81) 95 04/29/17 20:00 97.6 73 18 114/56 (75) 93 04/29/17 16:00 97.8 92 17 120/60 (80) 92 04/29/17 15:45 95 Nasal Cannula 2 04/29/17 15:45 98.4 80 18 122/60 (80) 95 I/O 04/29/17 04/29/17 04/29/17 04/30/17 04/30/17 04/30/17 07:00 15:00 23:00 07:00 15:00 23:00 Intake Total 530 ml 240 ml 200 ml Output Total 2500 ml Balance 530 ml 240 ml -2300 ml Intake Oral 480 ml 240 ml IV Total 200 ml Other 50 ml Hemodialysis 2500 ml # Voids 2 0 # Bowel Movements 4 4 3 Result Diagram: 04/30/17 0509 04/30/17 0509 Imaging Last Impressions Abdomen/Pelvis CT 04/28/17 0000 Signed Impressions: Service Date/Time: March 20:19 - CONCLUSION: 1. Thickening of the ascending colon concerning for colitis involving the ascending colon. 2. Mild ascites. 3. Chronic atrophy of the kidneys with the left being more affected than the right. 4. Bilateral pleural effusions being moderate on the left and mild on the right. Nick Rojas MD GI Bleed Scan Nuclear Medicine 04/27/17 0000 Signed Impressions: Service Date/Time: Thursday, April 27, 2017 12:35 - CONCLUSION: No evidence of active GI bleeding Nick Owen MD Chest X-Ray 04/27/17 0000 Signed Impressions: Service Date/Time: Thursday, April 27, 2017 05:15 - CONCLUSION: 1. Cardiomegaly and diffuse increased interstitial markings likely representing CHF/pulmonary edema. 2. Focal consolidation at the left mid and lower lung. Nick Rojas MD Head CT 04/24/17 0659 Signed Impressions: Service Date/Time: Monday, April 24, 2017 07:35 - CONCLUSION: No acute findings in the brain. Arron Roberson MD Objective Remarks GENERAL: This is a well-nourished, well-developed patient, in no apparent distress. SKIN: Warm and dry HEENT: Normocephalic. Pupils equal round and reactive. Nose without bleeding. Airway patent. NECK: Trachea midline. CARDIOVASCULAR: Irregular heart rate. Right upper arm fistula with + bruit and thrill. RESPIRATORY: Diminished bases. No wheezes, rales, or rhonchi. GASTROINTESTINAL: Abdomen soft, non-tender, nondistended. Bowel Sounds normoactive x4. MUSCULOSKELETAL: Extremities without clubbing, cyanosis. Bilateral lower extremity +2 edema. Bilateral upper extremity +1 edema NEUROLOGICAL: Awake and alert. Oriented to place, person. No focal neuro deficit. Moves all extremities. Normal speech. A/P Problem List: (1) ESRD (end stage renal disease) ICD Code: N18.6 - End stage renal disease (2) A-fib ICD Code: I48.91 - Unspecified atrial fibrillation (3) C. difficile colitis ICD Code: A04.72 - Enterocolitis due to Clostridium difficile, not specified as recurrent Status: Acute (4) Weakness ICD Code: R53.1 - Weakness Status: Acute Assessment and Plan Patient is an 89-year-old with PMH of CVA, afib, ESRD on HD, and C. Diff, who presented to the ED with complaints of paralysis and weakness. Patient with episodes of rectal bleeding and drop in H&H s/p blood transfusion with workup for myasthenia gravis. Global weakness History of CVA 2016 - Patient was discharged on aspirin after CVA, she is also on Eliquis due to A. fib - CT of the head reviewed which revealed no acute findings in the brain. - Neurology services consultation for evaluation. Likely not TIA due to generalized weakness, workup in progress for myasthenia, labs still pending. A. 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 250mg PO QID X10 days, and Flagyl till 05/04 as recommended by GI. - Diarrhea improved Acute GI bleed - GI services consultation after patient developed melena with multiple dark jelly stools - Drop in H&H on 04/26 to 7.6, s/p transfusion of 1 unit of PRBCs followed by IV Lasix - Patient underwent bleeding scan on 04/27 which was negative. - CT of abd/pelvis reviewed showing thickening of the ascending colon for colitis involving the ascending colon, mild ascites, chronic atrophy of kidneys , bilateral pleural effusions left is moderate and right is mild. - Colonoscopy and EGD showed duodenitis, esophagitis. - PPI per GI - Eliquis on hold due to GIB - No reported active bleeding. End-stage renal disease on hemodialysis - Nephrology following, HD as scheduled Anemia of chronic disease - Secondary to ESRD with acute anemia due to BID - Transfused with 1 unit PRBC's 04/26 H&H stable DVT prop Anticoagulation contraindicated secondary to GIB, SCD 's for now Discuss with patient, nursing, Dr. Medina Discharge Planning Plan to DC in SNF. CM following. Problem Qualifiers (1) A-fib: Qualified Codes: I48.91 - Unspecified atrial fibrillation Nicki Zamarripa Apr 30, 2017 15:04
[2017-04-30 16:00] VITALS: BP 122/61; PULSE 67; RESP 19; TEMP 96.5; O2SAT 98
--- NOTE | 2017-04-30 16:41 | HHI.GIFU ---
Subjective Remarks Resting in the bed No acute abdominal pain, no active bleed Afebrile (Lucia Sylvester) Objective Vitals I&O Vital Signs Date Time Temp Pulse Resp B/P (MAP) Pulse Ox O2 Delivery O2 Flow Rate FiO2 04/30/17 08:00 97.3 89 18 125/63 (83) 93 04/30/17 00:00 97.8 67 18 121/62 (81) 95 04/29/17 20:00 97.6 73 18 114/56 (75) 93 I/O 04/29/17 04/29/17 04/29/17 04/30/17 04/30/17 04/30/17 07:00 15:00 23:00 07:00 15:00 23:00 Intake Total 530 ml 240 ml 200 ml Output Total 2500 ml Balance 530 ml 240 ml -2300 ml Intake Oral 480 ml 240 ml IV Total 200 ml Other 50 ml Hemodialysis 2500 ml # Voids 2 0 # Bowel Movements 4 4 3 Laboratory Laboratory Tests Test 04/30/17 05:09 White Blood Count 9.4 Red Blood Count 2.62 Hemoglobin 8.1 Hematocrit 24.0 Mean Corpuscular Volume 91.6 Mean Corpuscular Hemoglobin 30.8 Mean Corpuscular Hemoglobin Concent 33.7 Red Cell Distribution Width 19.0 Platelet Count 241 Mean Platelet Volume 9.3 Neutrophils (%) (Auto) 81.7 Lymphocytes (%) (Auto) 9.9 Monocytes (%) (Auto) 6.6 Eosinophils (%) (Auto) 0.9 Basophils (%) (Auto) 0.9 Neutrophils # (Auto) 7.7 Lymphocytes # (Auto) 0.9 Monocytes # (Auto) 0.6 Eosinophils # (Auto) 0.1 Basophils # (Auto) 0.1 CBC Comment DIFF FINAL Differential Comment Blood Urea Nitrogen 37 Creatinine 3.86 Random Glucose 95 Total Protein 4.7 Albumin 1.7 Calcium Level 7.4 Alkaline Phosphatase 91 Aspartate Amino Transf (AST/SGOT) 16 Alanine Aminotransferase (ALT/SGPT) 8 Total Bilirubin 0.7 Sodium Level 138 Potassium Level 3.9 Chloride Level 100 Carbon Dioxide Level 27.7 Anion Gap 10 Estimat Glomerular Filtration Rate 11 Protein Corrected Calcium 8.8 Date/Time Source Procedure Growth Status 04/24/17 07:15 Blood Peripheral Aerobic Blood Culture - Final NO GROWTH IN 5 DAYS Complete 04/24/17 07:15 Blood Peripheral Anaerobic Blood Culture - Final NO GROWTH IN 5 DAYS Complete Imaging Last Impressions Abdomen/Pelvis CT 04/28/17 0000 Signed Impressions: Service Date/Time: March 20:19 - CONCLUSION: 1. Thickening of the ascending colon concerning for colitis involving the ascending colon. 2. Mild ascites. 3. Chronic atrophy of the kidneys with the left being more affected than the right. 4. Bilateral pleural effusions being moderate on the left and mild on the right. Nick Rojas MD GI Bleed Scan Nuclear Medicine 04/27/17 0000 Signed Impressions: Service Date/Time: Thursday, April 27, 2017 12:35 - CONCLUSION: No evidence of active GI bleeding Nick Owen MD Chest X-Ray 04/27/17 0000 Signed Impressions: Service Date/Time: Thursday, April 27, 2017 05:15 - CONCLUSION: 1. Cardiomegaly and diffuse increased interstitial markings likely representing CHF/pulmonary edema. 2. Focal consolidation at the left mid and lower lung. Nick Rojas MD Head CT 04/24/17 0659 Signed Impressions: Service Date/Time: Monday, April 24, 2017 07:35 - CONCLUSION: No acute findings in the brain. Arron Roberson MD Physical Exam HEENT: Pupils round and reactive to light; normocephalic; atraumatic; no jaundice. Oral cavity clean NECK: Neck is supple, no JVD, no lymphadenopathy. CHEST: Chest is clear to auscultation and percussion., No rhonchi or wheezing CARDIAC: Regular rate and rhythm ABDOMEN: Soft, nondistended nontender; bowel sounds soft EXTREMITIES: No edema. SKIN: Normal; no rash; no jaundice. ATTRACTIONS ASSOCIATE: Answers questions appropriately (Lucia Sylvester) Assessment and Plan Plan Assessment Melena, patient initially having multiple dark jelly substance stools, with some bright red bleeding, generalized weakness and fatigue. Colonoscopy done on 04-29 Hematochezia, patient continues to have multiple bloody stools as described above. Hemoglobin was 7.6 on 04-26, patient received 1 unit of packed RBCs followed with Lasix IV for some mild fluid overload. Nausea, without hematemesis or vomiting. Patient describes weight loss over the past few months, unspecified amount of time, decreased appetite with associated nausea Possible GERD Recent history of C. difficile, 04/19/17 Note: Palliative care has been consulted to see patient, patient's family wishes 04-29 Colonoscopy, no complications Pseudomebrane in rectum, descending and sigmoid-biopsy sigmoid. very friable mucosa, could not advance scope passed descending -due to increase fraibility., diverticulosis, internal hemorrhoids decreased sphincter tone Plan Diet as tolerated, renal Vancomycin enemas on 04-29 Eliquis currently on hold Continue to monitor number of stools and consistency and chart, Transfuse as necessary PPI, Protonix 40 mg IV every 12 hours Continue to treat C. difficile with by mouth vancomycin and by mouth Flagyl, as ordered until 05-04 Plan of care and further testing based on patient's symptoms and response to treatment Discussed plan of care and options with Dr. Maria, patient seen and evaluated on her behalf (Lucia Sylvester) Physician Comments seen, examined agree with above (Kezia Maria MD) Lucia Sylvester Apr 30, 2017 16:41 Kezia Maria MD Apr 30, 2017 17:29
[2017-04-30 20:00] VITALS: BP 128/56; PULSE 64; RESP 17; TEMP 97.2; O2SAT 98
[2017-04-30] MEDS: DOXAZOSIN MESYLATE 2 MG TAB PO SCH (21:36)
[2017-05-01] VITALS: BP 121/60; PULSE 76; RESP 17; TEMP 98.9; O2SAT 95
[2017-05-01 03:50] LABS: STRIATED MUCLE AB TITER ND (<1:40)
[2017-05-01] MEDS: SODIUM CHLORIDE 0.9% IRRIGATION SCH ×4 (05:23→23:41)
[2017-05-01] MEDS: metroNIDAZOLE 500 MG TAB PO SCH ×3 (05:23→20:02)
[2017-05-01] MEDS: IRR IRRIGATION SCH ×4 (05:23→23:41)
[2017-05-01] MEDS: VANCOMYCIN IRRIGATION SCH ×4 (05:23→23:41)
[2017-05-01 08:00] VITALS: BP 145/65; PULSE 71; RESP 18; TEMP 98; O2SAT 95
[2017-05-01] MEDS: SODIUM CHLORIDE 0.9% FLUSH 10 ML FLUSH IV FLUSH SCH ×2 (09:00→19:52)
[2017-05-01 09:31] LABS: AUTOMATED NEUTROPHIL # 8.2 TH/MM3 (1.8-7.7); BASOPHIL # 0.1 TH/MM3 (0-0.2); BASOPHIL % 0.5 % (0.0-2.0); EOSINOPHIL # 0.1 TH/MM3 (0-0.4); EOSINOPHIL % 0.8 % (0.0-4.0); HEMATOCRIT 23.5 % (35.0-46.0); HEMO FLAGS DIFF FINAL; LYMPH % 8.4 % (9.0-44.0); LYMPHOCYTE # 0.8 TH/MM3 (1.0-4.8); MEAN CELL VOLUME 93.5 FL (80.0-100.0); MEAN CORPUSCULAR HEMOGLOBIN 30.1 PG (27.0-34.0); MEAN CORPUSCULAR HGB CONC 32.2 % (32.0-36.0); MONO % 5.4 % (0.0-8.0); NEUT % 84.9 % (16.0-70.0); PLATELET COUNT 230 TH/MM3 (150-450); RED BLOOD COUNT 2.51 MIL/MM3 (4.00-5.30); RED CELL DISTRIBUTION WIDTH 19.7 % (11.6-17.2); WHITE BLOOD COUNT 9.7 TH/MM3 (4.0-11.0)
[2017-05-01 09:50] LABS: ALT (GPT) 12 U/L (10-53)
[2017-05-01 09:52] LABS: ALKALINE PHOSPHATASE 83 U/L (45-117); TOTAL BILIRUBIN ADULT 0.9 MG/DL (0.2-1.0)
--- NOTE | 2017-05-01 10:05 | HHI.PR ---
Subjective Remarks Follow-up visit generalized weakness, end-stage renal disease on hemodialysis, GI bleed. Patient seen and examined today sitting at the edge of the bed. States she is doing okay. States she is tolerating her diet. Reports small amount of diarrhea this morning 1. States she is trying to stand up so she can feel her legs. Reports continues to be weak. Discuss with patient plans to possibly send her today to rehabilitation so that they can start working on her. Patient was very happy that she is going. Denies pain and discomfort. Denies chest pain, palpitations, headaches, dizziness. Denies fevers, chills, nausea or vomiting. Objective Vitals Vital Signs Date Time Temp Pulse Resp B/P (MAP) Pulse Ox O2 Delivery O2 Flow Rate FiO2 05/01/17 08:00 98.0 71 18 145/65 (91) 95 05/01/17 00:00 98.9 76 17 121/60 (80) 95 04/30/17 20:00 97.2 64 17 128/56 (80) 98 04/30/17 16:00 96.5 67 19 122/61 (81) 98 I/O 04/30/17 04/30/17 04/30/17 05/01/17 05/01/17 05/01/17 07:00 15:00 23:00 07:00 15:00 23:00 Intake Total 240 ml 200 ml 300 ml 240 ml Output Total 2500 ml Balance 240 ml -2300 ml 300 ml 240 ml Intake Oral 240 ml 300 ml 240 ml IV Total 200 ml Hemodialysis 2500 ml # Voids 1 4 # Bowel Movements 3 2 4 Result Diagram: 05/01/17 0909 04/30/17 0509 Imaging Last Impressions Abdomen/Pelvis CT 04/28/17 0000 Signed Impressions: Service Date/Time: March 20:19 - CONCLUSION: 1. Thickening of the ascending colon concerning for colitis involving the ascending colon. 2. Mild ascites. 3. Chronic atrophy of the kidneys with the left being more affected than the right. 4. Bilateral pleural effusions being moderate on the left and mild on the right. Nick Rojas MD GI Bleed Scan Nuclear Medicine 04/27/17 0000 Signed Impressions: Service Date/Time: Thursday, April 27, 2017 12:35 - CONCLUSION: No evidence of active GI bleeding Nick Owen MD Chest X-Ray 04/27/17 0000 Signed Impressions: Service Date/Time: Thursday, April 27, 2017 05:15 - CONCLUSION: 1. Cardiomegaly and diffuse increased interstitial markings likely representing CHF/pulmonary edema. 2. Focal consolidation at the left mid and lower lung. Nick Rojas MD Head CT 04/24/17 0659 Signed Impressions: Service Date/Time: Monday, April 24, 2017 07:35 - CONCLUSION: No acute findings in the brain. Arron Roberson MD Objective Remarks GENERAL: This is a well-nourished, well-developed patient, in no apparent distress. SKIN: Warm and dry. HEENT: Normocephalic. Pupils equal round and reactive. Nose without bleeding. Airway patent. NECK: Trachea midline. CARDIOVASCULAR: Irregular heart rate. Right upper arm fistula with + bruit and thrill. RESPIRATORY: Diminished bases. No wheezes, rales, or rhonchi. GASTROINTESTINAL: Abdomen soft, non-tender, nondistended. Bowel Sounds normoactive x4. MUSCULOSKELETAL: Extremities without clubbing, cyanosis. Bilateral lower extremity +2 edema. Bilateral upper extremity +1 edema NEUROLOGICAL: Awake and alert. Oriented to place, person. No focal neuro deficit. Moves all extremities. Normal speech. A/P Problem List: (1) ESRD (end stage renal disease) ICD Code: N18.6 - End stage renal disease (2) A-fib ICD Code: I48.91 - Unspecified atrial fibrillation (3) C. difficile colitis ICD Code: A04.72 - Enterocolitis due to Clostridium difficile, not specified as recurrent Status: Acute (4) Weakness ICD Code: R53.1 - Weakness Status: Acute Assessment and Plan Patient is an 89-year-old with PMH of CVA, afib, ESRD on HD, and C. Diff, who presented to the ED with complaints of paralysis and weakness. Patient with episodes of rectal bleeding and drop in H&H s/p blood transfusion with workup for myasthenia gravis. Global weakness History of CVA 2016 - Patient was discharged on aspirin after CVA, she is also on Eliquis due to A. fib - CT of the head reviewed which revealed no acute findings in the brain. - Neurology services consultation for evaluation. Likely not TIA due to generalized weakness, workup in progress for myasthenia, labs negative. A. 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 250mg PO QID X10 days, and Flagyl till 05/04 as recommended by GI. - Diarrhea improved Acute GI bleed - GI services consultation after patient developed melena with multiple dark jelly stools - Drop in H&H on 04/26 to 7.6, s/p transfusion of 1 unit of PRBCs followed by IV Lasix - Patient underwent bleeding scan on 04/27 which was negative. - CT of abd/pelvis reviewed showing thickening of the ascending colon for colitis involving the ascending colon, mild ascites, chronic atrophy of kidneys , bilateral pleural effusions left is moderate and right is mild. - Colonoscopy and EGD showed duodenitis, esophagitis. - PPI per GI - Eliquis on hold due to GIB - No reported active bleeding, but H/H decreased again to 7.6/23.5 today. Plan to do BT x2 with Lasix in between. Repeat CBC post transfusion. Will DC after. Agent will need to follow-up with GI. End-stage renal disease on hemodialysis - Nephrology following, HD as scheduled Anemia of chronic disease - Secondary to ESRD with acute anemia due to BID - Transfused with 1 unit PRBC's 04/26 H&H stable - Decrease H&H as above. Plans for blood transfusion today. DVT prop Anticoagulation contraindicated secondary to GIB, SCD 's for now Discuss with patient, nursing, Dr. Medina Discharge Planning Plan to DC in SNF [facility] Once clinically stable post-blood transfusion. CM following pending authorization from [facility]. Problem Qualifiers (1) A-fib: Qualified Codes: I48.91 - Unspecified atrial fibrillation Nicki Zamarripa May 01, 2017 10:05
[2017-05-01 10:10] LABS: ANION GAP 7 MEQ/L (5-15); AST (GOT) 31 U/L (15-37); BICARBONATE 29.3 MEQ/L (21.0-32.0); BLOOD UREA NITROGEN 32 MG/DL (7-18); CHLORIDE 100 MEQ/L (98-107); GLOMERULAR FILTRATION RATE 12 ML/MIN (>89); SODIUM (NA) 136 MEQ/L (136-145)
[2017-05-01 10:12] LABS: POTASSIUM 4.1 MEQ/L (3.5-5.1)
[2017-05-01] MEDS: VANCOMYCIN 500 MG VIAL (FOR ORAL USE ONLY) PO SCH ×4 (10:29→19:51)
[2017-05-01] MEDS: MEGESTROL ACETATE SUSP 400 MG/10 ML CUP PO SCH (10:30)
[2017-05-01] MEDS: amLODIPine BESYLATE 5 MG TAB PO SCH (10:31)
[2017-05-01] MEDS: PANTOPRAZOLE SODIUM 40 MG VIAL IV PUSH SCH ×2 (10:31→23:40)
[2017-05-01] MEDS: CHOLECALCIFEROL (VIT D3) 1000 UNIT TAB PO SCH (10:31)
--- NOTE | 2017-05-01 10:58 | HHI.NPPN ---
Subjective General Problems: Anemia Renal Failure: Chronic, End Stage Renal Disease Additional Remarks Patient is alert, no SOB, no specific complain. Review of Systems General Constitutional: Fatigue Gastrointestinal Gastrointestinal: Diarrhea, Blood/Tarry Stools Objective Data Data Vital Signs Date Time Temp Pulse Resp B/P (MAP) Pulse Ox O2 Delivery O2 Flow Rate FiO2 05/01/17 08:00 98.0 71 18 145/65 (91) 95 05/01/17 00:00 98.9 76 17 121/60 (80) 95 04/30/17 20:00 97.2 64 17 128/56 (80) 98 04/30/17 16:00 96.5 67 19 122/61 (81) 98 -: 05/01/17 0909 05/01/17 0909 Tubes & Lines: Perma-Cath Physical Exam General Appearance: Well Developed, No Acute Distress, Comfortable, Malnourished Eyes Eye Exam: Pupils Equal Throat Throat Exam: Oral Mucosa [place] & Moist Pulmonary Resp Exam: Clear Bilaterally, Breath Sounds Equal Cardiology CV Exam: Good Perfusion, Irregular Gastrointestinal/Abdomen GI Exam: Soft, Non-Tender, Bowel Sounds Present, Positive Bowel Movement Musculoskeletal MS Exam: Joints Intact, Atrophy, Unable to Ambulate Integumentary Skin Exam: Clear, Warm, Dry, Intact Extremeties Extremities Exam: No Edema, Pedal Pulses Palpable Neurologic Neuro Exam: Alert, Awake, Oriented, Speech Clear, Moving All Extremities Psychiatric Psych Exam: Appropriate Responses Assessment/Plan Discussed Condition With: Patient Assessment Summary: Anemia of CKD, Hypertension, End Stage Renal Disease Problem List: (1) ESRD (end stage renal disease) ICD Codes: N18.6 - End stage renal disease Plan: Successful cannulation of AVF yesterday Obtain intermittent renal panel Avoid IVF; follow fluid status, UF as needed or tolerated. High protein diet ordered with supplements added. Need nutritional support. Megace added. AVF cannulated yesterday, tolerated HD well. (2) Anemia ICD Codes: D64.9 - Anemia, unspecified Plan: Epogen with HD Hemoglobin dropping slowly,. GI following, Eliquis is on hold. (3) A-fib ICD Codes: I48.91 - Unspecified atrial fibrillation Plan: Rate controlled Held Apixaban due to GI bleeding, she is off ASA Continue to monitor (4) Weakness ICD Codes: R53.1 - Weakness Status: Acute Plan: Needs aggressive PT/OT Neurology has been consulted; appreciate recommendations. (5) C. difficile colitis ICD Codes: A04.72 - Enterocolitis due to Clostridium difficile, not specified as recurrent Status: Acute Plan: On oral vancomycin, flagyl has been added. Contact precautions CT shows ascites and colitis (6) GI bleed ICD Codes: K92.2 - Gastrointestinal hemorrhage, unspecified Plan: Negative bleeding scan Due for EGD/colonoscopy today, Apixaban on hold. Problem Qualifiers (1) Anemia: Qualified Codes: D64.9 - Anemia, unspecified (2) A-fib: Qualified Codes: I48.91 - Unspecified atrial fibrillation Itzel Leal MD May 01, 2017 10:58
[2017-05-01 12:00] VITALS: BP 141/61; PULSE 73; RESP 19; TEMP 97.2; O2SAT 98
--- NOTE | 2017-05-01 12:07 | HHI.GIFU ---
Subjective Remarks Pt resting in bed comfortably, in no apparent distress at this time. She reports good appetite. Denies nausea, vomiting, abdominal pain. Reports BM today, denies black, tarry stool or blood in stool, states stool was semi- formed. (Tayler Lemus) Objective Vitals I&O Vital Signs Date Time Temp Pulse Resp B/P (MAP) Pulse Ox O2 Delivery O2 Flow Rate FiO2 05/01/17 08:00 98.0 71 18 145/65 (91) 95 05/01/17 00:00 98.9 76 17 121/60 (80) 95 04/30/17 20:00 97.2 64 17 128/56 (80) 98 04/30/17 16:00 96.5 67 19 122/61 (81) 98 I/O 04/30/17 04/30/17 04/30/17 05/01/17 05/01/17 05/01/17 07:00 15:00 23:00 07:00 15:00 23:00 Intake Total 240 ml 200 ml 300 ml 240 ml Output Total 2500 ml Balance 240 ml -2300 ml 300 ml 240 ml Intake Oral 240 ml 300 ml 240 ml IV Total 200 ml Hemodialysis 2500 ml # Voids 1 4 # Bowel Movements 3 2 4 Laboratory Laboratory Tests Test 05/01/17 09:09 White Blood Count 9.7 Red Blood Count 2.51 Hemoglobin 7.6 Hematocrit 23.5 Mean Corpuscular Volume 93.5 Mean Corpuscular Hemoglobin 30.1 Mean Corpuscular Hemoglobin Concent 32.2 Red Cell Distribution Width 19.7 Platelet Count 230 Mean Platelet Volume 9.1 Neutrophils (%) (Auto) 84.9 Lymphocytes (%) (Auto) 8.4 Monocytes (%) (Auto) 5.4 Eosinophils (%) (Auto) 0.8 Basophils (%) (Auto) 0.5 Neutrophils # (Auto) 8.2 Lymphocytes # (Auto) 0.8 Monocytes # (Auto) 0.5 Eosinophils # (Auto) 0.1 Basophils # (Auto) 0.1 CBC Comment DIFF FINAL Differential Comment Blood Urea Nitrogen 32 Creatinine 3.55 Random Glucose 156 Total Protein 5.4 Albumin 2.2 Calcium Level 7.7 Alkaline Phosphatase 83 Aspartate Amino Transf (AST/SGOT) 31 Alanine Aminotransferase (ALT/SGPT) 12 Total Bilirubin 0.9 Sodium Level 136 Potassium Level 4.1 Chloride Level 100 Carbon Dioxide Level 29.3 Anion Gap 7 Estimat Glomerular Filtration Rate 12 Date/Time Source Procedure Growth Status 04/24/17 07:15 Blood Peripheral Aerobic Blood Culture - Final NO GROWTH IN 5 DAYS Complete 04/24/17 07:15 Blood Peripheral Anaerobic Blood Culture - Final NO GROWTH IN 5 DAYS Complete Imaging Last Impressions Abdomen/Pelvis CT 04/28/17 0000 Signed Impressions: Service Date/Time: March 20:19 - CONCLUSION: 1. Thickening of the ascending colon concerning for colitis involving the ascending colon. 2. Mild ascites. 3. Chronic atrophy of the kidneys with the left being more affected than the right. 4. Bilateral pleural effusions being moderate on the left and mild on the right. Nick Rojas MD GI Bleed Scan Nuclear Medicine 04/27/17 0000 Signed Impressions: Service Date/Time: Thursday, April 27, 2017 12:35 - CONCLUSION: No evidence of active GI bleeding Nick Owen MD Chest X-Ray 04/27/17 0000 Signed Impressions: Service Date/Time: Thursday, April 27, 2017 05:15 - CONCLUSION: 1. Cardiomegaly and diffuse increased interstitial markings likely representing CHF/pulmonary edema. 2. Focal consolidation at the left mid and lower lung. Nick Rojas MD Head CT 04/24/17 0659 Signed Impressions: Service Date/Time: Monday, April 24, 2017 07:35 - CONCLUSION: No acute findings in the brain. Arron Roberson MD Physical Exam HEENT: Normocephalic; atraumatic; no jaundice. CHEST: Diminished throughout CARDIAC: Irregular ABDOMEN: Distended nontender; bowel sounds present x 4 EXTREMITIES: BLE edema SKIN: No jaundice. 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 Reports this has resolved. Panendoscopy (04/29) --> Gastritis, gastric body ulcer, duodenitis, esophagitis, Pseudomembrane in rectum, descending and sigmoid colon, very friable mucosa, could not advance scope past descending due to increase friability, diverticulosis, internal hemorrhoids, decreased sphincter tone. PPI. Flagyl. Vancomycin, Hematochezia, patient denies any blood in stool today. H/H 7.6/23.5. S/P 1 U PRBC. ESRD, pt on Epoetin Damian. Nausea, without hematemesis or vomiting. Resolved. Possible GERD Recent history of C. difficile, 04/19/17, colonoscopy showing psedumembrane in rectum, descending, and sigmoid colon. Vancomycin. Flagyl Plan - Repeat EGD in one year - Repeat colonoscopy in one month - Cont Vancomycin - Continue Flagyl - Continue PPI - ONEL - Eliquis currently on hold - Monitor labs - Transfuse as needed - Supportive care Pt seen and examined by myself and Dr. Maria and this note is written on her behalf (Tayler Lemus) Tayler Lemus May 01, 2017 12:07 Kezia Maria MD May 01, 2017 18:18
[2017-05-01] MEDS ORDERED: VANC500I3 PO (14:23)
[2017-05-01] MEDS ORDERED: METR-1 PO (14:23)
[2017-05-01] MEDS ORDERED: LACTCHW3 CHEW (14:23)
[2017-05-01] MEDS ORDERED: Megestrol Liq PO (14:23)
[2017-05-01] MEDS ORDERED: Epoetin Alfa Inj IV PUSH (14:23)
[2017-05-01] MEDS ORDERED: PANT40TA3 PO (14:23)
--- NOTE | 2017-05-01 14:29 | HHI.DCPOC ---
Discharge Care Plan Diagnosis: (1) GI bleed (2) ESRD (end stage renal disease) (3) Anemia (4) C. difficile colitis (5) Weakness Your Health Problems Are: Difficulty with ADL Bleeding Tendency Irregular Bowel Function Goals to Promote Your Health * To prevent worsening of your condition and complications * To maintain your health at the optimal level Directions to Meet Your Goals Take your medications as prescribed Follow your dietary instruction Follow activity as directed Keep your appointments as scheduled Take your immunizations and boosters as scheduled If your symptoms worsen call your PCP, if no PCP go to Urgent Care Center or Emergency Room Smoking is Dangerous to Your Health. Avoid second hand smoke Call the 24-hour hour crisis hotline for domestic abuse at Nicki Zamarripa May 01, 2017 14:29
[2017-05-01 16:00] VITALS: BP 128/89; PULSE 86; RESP 20; TEMP 97.2; O2SAT 92
[2017-05-01 19:34] VITALS: O2SAT 94
[2017-05-01] MEDS: DOXAZOSIN MESYLATE 2 MG TAB PO SCH (19:51)
[2017-05-01 20:00] VITALS: BP 117/62; PULSE 74; RESP 20; TEMP 98.7; O2SAT 93
[2017-05-02] VITALS: BP 113/68; PULSE 75; RESP 20; TEMP 98.8; O2SAT 94
[2017-05-02] MEDS: ACETAMINOPHEN 325 MG TAB PO PRN (01:38)
[2017-05-02] MEDS: metroNIDAZOLE 500 MG TAB PO SCH ×2 (05:53→14:39)
[2017-05-02] MEDS: VANCOMYCIN IRRIGATION SCH (05:55)
[2017-05-02] MEDS: IRR IRRIGATION SCH (05:55)
[2017-05-02] MEDS: SODIUM CHLORIDE 0.9% IRRIGATION SCH (05:55)
[2017-05-02 06:58] LABS: AUTOMATED NEUTROPHIL # 8.5 TH/MM3 (1.8-7.7); BASOPHIL # 0.1 TH/MM3 (0-0.2); BASOPHIL % 0.5 % (0.0-2.0); EOSINOPHIL # 0.1 TH/MM3 (0-0.4); EOSINOPHIL % 0.8 % (0.0-4.0); HEMATOCRIT 24.1 % (35.0-46.0); HEMO FLAGS DIFF FINAL; LYMPH % 10.1 % (9.0-44.0); LYMPHOCYTE # 1.1 TH/MM3 (1.0-4.8); MEAN CELL VOLUME 95.3 FL (80.0-100.0); MEAN CORPUSCULAR HEMOGLOBIN 31.9 PG (27.0-34.0); MEAN CORPUSCULAR HGB CONC 33.4 % (32.0-36.0); MONO % 6.5 % (0.0-8.0); NEUT % 82.1 % (16.0-70.0); PLATELET COUNT 218 TH/MM3 (150-450); RED BLOOD COUNT 2.53 MIL/MM3 (4.00-5.30); RED CELL DISTRIBUTION WIDTH 19.9 % (11.6-17.2); WHITE BLOOD COUNT 10.4 TH/MM3 (4.0-11.0)
[2017-05-02 07:20] LABS: ALKALINE PHOSPHATASE 87 U/L (45-117); ALT (GPT) 7 U/L (10-53); ANION GAP 6 MEQ/L (5-15); AST (GOT) 13 U/L (15-37); BICARBONATE 29.9 MEQ/L (21.0-32.0); BLOOD UREA NITROGEN 43 MG/DL (7-18); CHLORIDE 98 MEQ/L (98-107); GLOMERULAR FILTRATION RATE 10 ML/MIN (>89); SODIUM (NA) 134 MEQ/L (136-145); TOTAL BILIRUBIN ADULT 0.7 MG/DL (0.2-1.0)
[2017-05-02 08:00] VITALS: BP 135/60; PULSE 76; RESP 17; TEMP 98.1; O2SAT 96
--- NOTE | 2017-05-02 08:56 | HHI.PR ---
Subjective Remarks Follow-up visit generalized weakness, end-stage renal disease on hemodialysis, GI bleed. Patient seen and examined today sitting at the edge of the bed. States that she is doing well. Reports 3 times diarrhea since 5 AM by is less she said compared to prior days. States she is ready for rehabilitation. Denies pain and discomfort. Denies SOB/ dyspnea. Denies chest pain, palpitations, headaches, dizziness. Denies fevers, chills, n/v/d. Objective Vitals Vital Signs Date Time Temp Pulse Resp B/P (MAP) Pulse Ox O2 Delivery O2 Flow Rate FiO2 05/02/17 08:00 98.1 76 17 135/60 (85) 96 05/02/17 00:00 98.8 75 20 113/68 (83) 94 05/01/17 20:00 98.7 74 20 117/62 (80) 93 05/01/17 19:34 94 05/01/17 16:00 97.2 86 20 128/89 (102) 92 05/01/17 12:00 97.2 73 19 141/61 (87) 98 I/O 05/01/17 05/01/17 05/01/17 05/02/17 05/02/17 05/02/17 06:59 14:59 22:59 06:59 14:59 22:59 Intake Total 240 ml 500 ml Balance 240 ml 500 ml Intake Oral 240 ml 500 ml IV Total 0 ml # Voids 4 3 # Bowel Movements 4 5 2 Result Diagram: 05/02/17 0623 05/02/17 0623 Imaging Last Impressions Abdomen/Pelvis CT 04/28/17 0000 Signed Impressions: Service Date/Time: March 20:19 - CONCLUSION: 1. Thickening of the ascending colon concerning for colitis involving the ascending colon. 2. Mild ascites. 3. Chronic atrophy of the kidneys with the left being more affected than the right. 4. Bilateral pleural effusions being moderate on the left and mild on the right. Nick Rojas MD GI Bleed Scan Nuclear Medicine 04/27/17 0000 Signed Impressions: Service Date/Time: Thursday, April 27, 2017 12:35 - CONCLUSION: No evidence of active GI bleeding Nick Owen MD Chest X-Ray 04/27/17 0000 Signed Impressions: Service Date/Time: Thursday, April 27, 2017 05:15 - CONCLUSION: 1. Cardiomegaly and diffuse increased interstitial markings likely representing CHF/pulmonary edema. 2. Focal consolidation at the left mid and lower lung. Nick Rojas MD Head CT 04/24/17 0659 Signed Impressions: Service Date/Time: Monday, April 24, 2017 07:35 - CONCLUSION: No acute findings in the brain. Arron Roberson MD Objective Remarks GENERAL: This is a well-nourished, well-developed patient, in no apparent distress. SKIN: Warm and dry. HEENT: Normocephalic. Pupils equal round and reactive. Nose without bleeding. Airway patent. NECK: Trachea midline. CARDIOVASCULAR: Irregular heart rate. Right upper arm fistula with + bruit and thrill. RESPIRATORY: Diminished bases. No wheezes, rales, or rhonchi. GASTROINTESTINAL: Abdomen soft, non-tender, nondistended. Bowel Sounds normoactive x4. MUSCULOSKELETAL: Extremities without clubbing, cyanosis. Bilateral lower extremity +2 edema. Bilateral upper extremity +1 edema NEUROLOGICAL: Awake and alert. Oriented to place, person. No focal neuro deficit. Moves all extremities. Normal speech. Procedures Status post EGD and colonoscopy A/P Problem List: (1) ESRD (end stage renal disease) ICD Code: N18.6 - End stage renal disease (2) A-fib ICD Code: I48.91 - Unspecified atrial fibrillation (3) C. difficile colitis ICD Code: A04.72 - Enterocolitis due to Clostridium difficile, not specified as recurrent Status: Acute (4) Weakness ICD Code: R53.1 - Weakness Status: Acute Assessment and Plan Patient is an 89-year-old with PMH of CVA, afib, ESRD on HD, and C. Diff, who presented to the ED with complaints of paralysis and weakness. Patient with episodes of rectal bleeding and drop in H&H s/p blood transfusion with workup for myasthenia gravis. Global weakness History of CVA 2016 - Patient was discharged on aspirin after CVA, she is also on Eliquis due to A. fib - CT of the head reviewed which revealed no acute findings in the brain. - Neurology services consultation for evaluation. Likely not TIA due to generalized weakness, workup in progress for myasthenia, labs negative. A. 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 250mg PO QID X10 days, and Flagyl till 05/04 as recommended by GI. - Diarrhea improved Acute GI bleed - GI services consultation after patient developed melena with multiple dark jelly stools - Drop in H&H on 04/26 to 7.6, s/p transfusion of 1 unit of PRBCs followed by IV Lasix - Patient underwent bleeding scan on 04/27 which was negative. - CT of abd/pelvis reviewed showing thickening of the ascending colon for colitis involving the ascending colon, mild ascites, chronic atrophy of kidneys , bilateral pleural effusions left is moderate and right is mild. - Colonoscopy and EGD showed duodenitis, esophagitis. - PPI per GI - Eliquis on hold due to GIB - No reported active bleeding, but H/H decreased again to 7.6/23.5, improved today without transfusion 8.1/24.1 End-stage renal disease on hemodialysis - Nephrology following, HD as scheduled Anemia of chronic disease - Secondary to ESRD with acute anemia due to BID - Transfused with 1 unit PRBC's 04/26 H&H stable - Decrease H&H as above. Plans for blood transfusion today. DVT prop Anticoagulation contraindicated secondary to GIB, SCD 's for now Discuss with patient, nursing, Dr. Medina Discharge Planning Plan to DC in SNF - [facility]. CM following. Problem Qualifiers (1) A-fib: Qualified Codes: I48.91 - Unspecified atrial fibrillation Nicki Zamarripa May 02, 2017 08:56
[2017-05-02] MEDS: VANCOMYCIN 500 MG VIAL (FOR ORAL USE ONLY) PO SCH ×2 (09:45→14:39)
[2017-05-02] MEDS: MEGESTROL ACETATE SUSP 400 MG/10 ML CUP PO SCH (09:45)
[2017-05-02] MEDS: amLODIPine BESYLATE 5 MG TAB PO SCH (09:45)
[2017-05-02] MEDS: SODIUM CHLORIDE 0.9% FLUSH 10 ML FLUSH IV FLUSH SCH (09:46)
[2017-05-02] MEDS: CHOLECALCIFEROL (VIT D3) 1000 UNIT TAB PO SCH (09:46)
[2017-05-02] MEDS: PANTOPRAZOLE SODIUM 40 MG VIAL IV PUSH SCH (09:47)
--- NOTE | 2017-05-02 10:20 | HHI.DS ---
Discharge Summary Admission Date Apr 24, 2017 at 12:08 Discharge Date: May 02, 2017 Admitting Diagnosis weakness, dialysis patient (1) ESRD (end stage renal disease) ICD Code: N18.6 - End stage renal disease (2) A-fib ICD Code: I48.91 - Unspecified atrial fibrillation (3) C. difficile colitis ICD Code: A04.72 - Enterocolitis due to Clostridium difficile, not specified as recurrent Status: Acute (4) Weakness ICD Code: R53.1 - Weakness Status: Acute Procedures S/P EGD and Colonoscopy Brief History - From Admission Ms. Moser is a pleasant 89-year-old female with a history of recent CVA, C. difficile colitis, atrial fibrillation who presented to the emergency department today due to paralyzed weakness. This morning she got up and felt like she could not move her legs. Her legs felt very heavy. She also noticed her whole body felt weak which led her to seek medical attention. She denies any dysarthria, facial asymmetry, one-sided weakness. She denies any chest pain , shortness of breath, fever or chills. She does have some left lower quadrant abdominal pain. She denies any dysuria, hematuria, diarrhea. Patient was recently discharged on 04/21/2017 after being treated for C. difficile colitis. In February she was admitted for stroke and she was discharged on aspirin 325 mg daily. CBC/BMP: 05/02/17 0623 05/02/17 0623 Significant Findings Laboratory Tests Test 04/30/17 05:09 05/01/17 09:09 05/02/17 06:23 Red Blood Count 2.62 MIL/MM3 (4.00-5.30) 2.51 MIL/MM3 (4.00-5.30) 2.53 MIL/MM3 (4.00-5.30) Hemoglobin 8.1 GM/DL (11.6-15.3) 7.6 GM/DL (11.6-15.3) 8.1 GM/DL (11.6-15.3) Hematocrit 24.0 % (35.0-46.0) 23.5 % (35.0-46.0) 24.1 % (35.0-46.0) Red Cell Distribution Width 19.0 % (11.6-17.2) 19.7 % (11.6-17.2) 19.9 % (11.6-17.2) Neutrophils (%) (Auto) 81.7 % (16.0-70.0) 84.9 % (16.0-70.0) 82.1 % (16.0-70.0) Lymphocytes # (Auto) 0.9 TH/MM3 (1.0-4.8) 0.8 TH/MM3 (1.0-4.8) Blood Urea Nitrogen 37 MG/DL (7-18) 32 MG/DL (7-18) 43 MG/DL (7-18) Creatinine 3.86 MG/DL (0.50-1.00) 3.55 MG/DL (0.50-1.00) 4.14 MG/DL (0.50-1.00) Total Protein 4.7 GM/DL (6.4-8.2) 5.4 GM/DL (6.4-8.2) 5.5 GM/DL (6.4-8.2) Albumin 1.7 GM/DL (3.4-5.0) 2.2 GM/DL (3.4-5.0) 2.3 GM/DL (3.4-5.0) Calcium Level 7.4 MG/DL (8.5-10.1) 7.7 MG/DL (8.5-10.1) 7.8 MG/DL (8.5-10.1) Alanine Aminotransferase (ALT/SGPT) 8 U/L (10-53) 7 U/L (10-53) Estimat Glomerular Filtration Rate 11 ML/MIN (>89) 12 ML/MIN (>89) 10 ML/MIN (>89) Lymphocytes (%) (Auto) 8.4 % (9.0-44.0) Neutrophils # (Auto) 8.2 TH/MM3 (1.8-7.7) 8.5 TH/MM3 (1.8-7.7) Random Glucose 156 MG/DL (74-106) 121 MG/DL (74-106) Aspartate Amino Transf (AST/SGOT) 13 U/L (15-37) Sodium Level 134 MEQ/L (136-145) Imaging Last Impressions Abdomen/Pelvis CT 04/28/17 0000 Signed Impressions: Service Date/Time: March 20:19 - CONCLUSION: 1. Thickening of the ascending colon concerning for colitis involving the ascending colon. 2. Mild ascites. 3. Chronic atrophy of the kidneys with the left being more affected than the right. 4. Bilateral pleural effusions being moderate on the left and mild on the right. Nick Rojas MD GI Bleed Scan Nuclear Medicine 04/27/17 0000 Signed Impressions: Service Date/Time: Thursday, April 27, 2017 12:35 - CONCLUSION: No evidence of active GI bleeding Nick Owen MD Chest X-Ray 04/27/17 0000 Signed Impressions: Service Date/Time: Thursday, April 27, 2017 05:15 - CONCLUSION: 1. Cardiomegaly and diffuse increased interstitial markings likely representing CHF/pulmonary edema. 2. Focal consolidation at the left mid and lower lung. Nick Rojas MD Head CT 04/24/17 0659 Signed Impressions: Service Date/Time: Monday, April 24, 2017 07:35 - CONCLUSION: No acute findings in the brain. Arron Roberson MD PE at Discharge GENERAL: This is a well-nourished, well-developed patient, in no apparent distress. SKIN: Warm and dry. HEENT: Normocephalic. Pupils equal round and reactive. Nose without bleeding. Airway patent. NECK: Trachea midline. CARDIOVASCULAR: Irregular heart rate. Right upper arm fistula with + bruit and thrill. RESPIRATORY: Diminished bases. No wheezes, rales, or rhonchi. GASTROINTESTINAL: Abdomen soft, non-tender, nondistended. Bowel Sounds normoactive x4. MUSCULOSKELETAL: Extremities without clubbing, cyanosis. Bilateral lower extremity +2 edema. Bilateral upper extremity +1 edema NEUROLOGICAL: Awake and alert. Oriented to place, person. No focal neuro deficit. Moves all extremities. Normal speech. Pt update on day of discharge Follow-up visit generalized weakness, end-stage renal disease on hemodialysis, GI bleed. Patient seen and examined today sitting at the edge of the bed. States that she is doing well. Reports 3 times diarrhea since 5 AM by is less she said compared to prior days. States she is ready for rehabilitation. Denies pain and discomfort. Denies SOB/ dyspnea. Denies chest pain, palpitations, headaches, dizziness. Denies fevers, chills, n/v/d. Hospital Course Patient is an 89-year-old with PMH of CVA, afib, ESRD on HD, and C. Diff, who presented to the ED with complaints of paralysis and weakness. Patient with episodes of rectal bleeding and drop in H&H s/p blood transfusion with workup for myasthenia gravis. Neurology has seen the patient and evaluated and have run workup for myasthenia and labs came back negative. CT of the heads without any acute finding. Patient has chronic A. fib and was on Eliquis but because of the GI bleeding Eliquis has been held. Patient also has had CT of abdomen and pelvis showing thickening of the ascending colon for colitis involving the ascending colon, mild ascites, chronic atrophy of the kidneys, bilateral pleural effusions left is moderate right is mild. Status post colonoscopy and EGD that showed duodenitis and esophagitis. Patient underwent bleeding scan on 04/27 which was negative. Protonix has been given to the patient with Eliquis being held. H&H has been stable today. Patient has recurrent history of C. difficile and she will need to continue vancomycin by mouth 4 times a day and Flagyl until 05/04 as recommended by GI. Diarrhea has improved. She will continue few days of vancomycin and Flagyl. Patient is end-stage renal disease on hemodialysis nephrology following. Hemodialysis was last Tuesday. Patient has met maximal benefits of hospitalization. Clinically stable for discharge. Pt Condition on Discharge: Good Discharge Disposition: Discharge to SNF Discharge Time: > 30 minutes Discharge Instructions DIET: Follow Instructions for: Renal Failure Diet Activities you can perform: Regular-No Restrictions Activities to Avoid: Driving for 24 hrs Follow up Referrals: Gastroenterology - 3 Weeks with Kezia Maria MD Nephrology - 2-3 Days PCP Follow-up - 1 Week New Medications: Lactobacillus Acidophilus (Lactinex) 1 Chew 1 TAB CHEW BID for Nutritional Supplement for 14 Days, #28 TAB 0 Refills Pantoprazole (Pantoprazole) 40 Mg Tab 40 MG PO DAILY for Reflux, #30 TAB 0 Refills Metronidazole (Flagyl) 500 Mg Tab 500 MG PO Q8HR for Diarrhea for 3 Days, #9 TAB Vancomycin Inj (Vancomycin Inj) 500 Mg Inj 250 MG PO QID for Infection for 3 Days, #12 INJECTION [Epoetin Damian Inj] () 73490 UNITS/ML INJ 15507 UNITS IV PUSH UNSCH PRN for WITH DIALYSIS, #1 INJECTION [Megestrol Liq] () 400 MG/10 ML SUSP 800 MG PO DAILY for Nutritional Supplement, #1 BOTTLE Continued Medications: Amlodipine (Amlodipine) 2.5 Mg Tab 2.5 MG PO DAILY for Blood Pressure Management, #30 TAB 0 Refills Cholecalciferol (Vitamin D-1000) 1,000 Unit Tab 1000 UNITS PO DAILY for Nutritional Supplement, #1 BOTTLE 0 Refills Doxazosin (Doxazosin) 2 Mg Tab 2 MG PO HS, #30 TAB 0 Refills Multiple Vitamin (Multiple Vitamin) 1 Tab 1 TAB PO DAILY for Nutritional Supplement, TAB 0 Refills Pravastatin (Pravastatin) 10 Mg Tab 10 MG PO DAILY for Cholesterol Management, #30 TAB 0 Refills Wheelchair (Wheelchair) 1 Mis Mis EA .ROUTE DIRECTED, #1 0 Refills wheelchair w foot rest Discontinued Medications: Aspirin (Aspirin) 325 Mg Tab 325 MG PO DAILY for Blood Clot Prevention, #30 TAB Vancomycin (Vancomycin) 250 Mg Cap 250 MG PO QID for Infection, #32 CAP 0 Refills Nicki Zamarripa May 02, 2017 10:20 am
[2017-05-02] MEDS ORDERED: METR-1 PO (10:38)
[2017-05-02] MEDS ORDERED: VANC500I3 PO (10:38)
[2017-05-02 12:00] VITALS: BP 120/61; PULSE 71; RESP 17; TEMP 98.2; O2SAT 97
--- NOTE | 2017-05-02 13:19 | HHI.NPPN ---
Subjective General Problems: Anemia Renal Failure: Chronic, End Stage Renal Disease Additional Remarks Stool consistency is improving. To be discharged today. We are able to use AVF. Review of Systems General Constitutional: Fatigue Gastrointestinal Gastrointestinal: Diarrhea, Blood/Tarry Stools Objective Data Data Vital Signs Date Time Temp Pulse Resp B/P (MAP) Pulse Ox O2 Delivery O2 Flow Rate FiO2 05/02/17 12:00 98.2 71 17 120/61 (80) 97 05/02/17 08:00 98.1 76 17 135/60 (85) 96 05/02/17 00:00 98.8 75 20 113/68 (83) 94 05/01/17 20:00 98.7 74 20 117/62 (80) 93 05/01/17 19:34 94 05/01/17 16:00 97.2 86 20 128/89 (102) 92 -: 05/02/17 0623 05/02/17 0623 Tubes & Lines: Perma-Cath Physical Exam General Appearance: Well Developed, No Acute Distress, Comfortable, Malnourished Eyes Eye Exam: Pupils Equal Throat Throat Exam: Oral Mucosa Blades & Moist Pulmonary Resp Exam: Clear Bilaterally, Breath Sounds Equal Cardiology CV Exam: Good Perfusion, Irregular Gastrointestinal/Abdomen GI Exam: Soft, Non-Tender, Bowel Sounds Present, Positive Bowel Movement Musculoskeletal MS Exam: Joints Intact, Atrophy, Unable to Ambulate Integumentary Skin Exam: Clear, Warm, Dry, Intact Extremeties Extremities Exam: No Edema, Pedal Pulses Palpable Neurologic Neuro Exam: Alert, Awake, Oriented, Speech Clear, Moving All Extremities Psychiatric Psych Exam: Appropriate Responses Assessment/Plan Discussed Condition With: Patient Assessment Summary: Anemia of CKD, Hypertension, End Stage Renal Disease Problem List: (1) ESRD (end stage renal disease) ICD Codes: N18.6 - End stage renal disease Plan: Continue dialysis support. Obtain intermittent renal panel Avoid IVF; follow fluid status, UF as needed or tolerated. High protein diet ordered with supplements added. Need nutritional support. Megace added. We will have PermCath removed next week. (2) Anemia ICD Codes: D64.9 - Anemia, unspecified Plan: Epogen with HD Hemoglobin dropping slowly,. GI following, Eliquis is on hold. (3) A-fib ICD Codes: I48.91 - Unspecified atrial fibrillation Plan: Rate controlled Held Apixaban due to GI bleeding, she is off ASA Continue to monitor (4) Weakness ICD Codes: R53.1 - Weakness Status: Acute Plan: Needs aggressive PT/OT Neurology has been consulted; appreciate recommendations. (5) C. difficile colitis ICD Codes: A04.72 - Enterocolitis due to Clostridium difficile, not specified as recurrent Status: Acute Plan: On oral vancomycin, flagyl has been added. Contact precautions CT shows ascites and colitis (6) GI bleed ICD Codes: K92.2 - Gastrointestinal hemorrhage, unspecified Plan: Negative bleeding scan s/p EGD and colonoscopy. Apixaban on hold. Problem Qualifiers (1) Anemia: Qualified Codes: D64.9 - Anemia, unspecified (2) A-fib: Qualified Codes: I48.91 - Unspecified atrial fibrillation Devon Torres MD May 02, 2017 13:19
--- NOTE | 2017-05-02 14:16 | HHI.GIFU ---
Subjective Remarks Pt resting in bed, just had lunch. + soft but formed BM this morning, large. No bleeding. Pt eager to be d/c. (Jessica Wang) Objective Vitals I&O Vital Signs Date Time Temp Pulse Resp B/P (MAP) Pulse Ox O2 Delivery O2 Flow Rate FiO2 05/02/17 12:00 98.2 71 17 120/61 (80) 97 05/02/17 08:00 98.1 76 17 135/60 (85) 96 05/02/17 00:00 98.8 75 20 113/68 (83) 94 05/01/17 20:00 98.7 74 20 117/62 (80) 93 05/01/17 19:34 94 05/01/17 16:00 97.2 86 20 128/89 (102) 92 I/O 05/01/17 05/01/17 05/01/17 05/02/17 05/02/17 05/02/17 07:00 15:00 23:00 07:00 15:00 23:00 Intake Total 240 ml 500 ml Balance 240 ml 500 ml Intake Oral 240 ml 500 ml IV Total 0 ml # Voids 4 3 # Bowel Movements 4 5 2 Laboratory Laboratory Tests Test 05/02/17 06:23 White Blood Count 10.4 Red Blood Count 2.53 Hemoglobin 8.1 Hematocrit 24.1 Mean Corpuscular Volume 95.3 Mean Corpuscular Hemoglobin 31.9 Mean Corpuscular Hemoglobin Concent 33.4 Red Cell Distribution Width 19.9 Platelet Count 218 Mean Platelet Volume 9.4 Neutrophils (%) (Auto) 82.1 Lymphocytes (%) (Auto) 10.1 Monocytes (%) (Auto) 6.5 Eosinophils (%) (Auto) 0.8 Basophils (%) (Auto) 0.5 Neutrophils # (Auto) 8.5 Lymphocytes # (Auto) 1.1 Monocytes # (Auto) 0.7 Eosinophils # (Auto) 0.1 Basophils # (Auto) 0.1 CBC Comment DIFF FINAL Differential Comment Blood Urea Nitrogen 43 Creatinine 4.14 Random Glucose 121 Total Protein 5.5 Albumin 2.3 Calcium Level 7.8 Alkaline Phosphatase 87 Aspartate Amino Transf (AST/SGOT) 13 Alanine Aminotransferase (ALT/SGPT) 7 Total Bilirubin 0.7 Sodium Level 134 Potassium Level 4.0 Chloride Level 98 Carbon Dioxide Level 29.9 Anion Gap 6 Estimat Glomerular Filtration Rate 10 Date/Time Source Procedure Growth Status 04/24/17 07:15 Blood Peripheral Aerobic Blood Culture - Final NO GROWTH IN 5 DAYS Complete 04/24/17 07:15 Blood Peripheral Anaerobic Blood Culture - Final NO GROWTH IN 5 DAYS Complete Imaging Last Impressions Abdomen/Pelvis CT 04/28/17 0000 Signed Impressions: Service Date/Time: March 20:19 - CONCLUSION: 1. Thickening of the ascending colon concerning for colitis involving the ascending colon. 2. Mild ascites. 3. Chronic atrophy of the kidneys with the left being more affected than the right. 4. Bilateral pleural effusions being moderate on the left and mild on the right. Nick Rojas MD GI Bleed Scan Nuclear Medicine 04/27/17 0000 Signed Impressions: Service Date/Time: Thursday, April 27, 2017 12:35 - CONCLUSION: No evidence of active GI bleeding Nick Owen MD Chest X-Ray 04/27/17 0000 Signed Impressions: Service Date/Time: Thursday, April 27, 2017 05:15 - CONCLUSION: 1. Cardiomegaly and diffuse increased interstitial markings likely representing CHF/pulmonary edema. 2. Focal consolidation at the left mid and lower lung. Nick Rojas MD Head CT 04/24/17 0659 Signed Impressions: Service Date/Time: Monday, April 24, 2017 07:35 - CONCLUSION: No acute findings in the brain. Arron Roberson MD Physical Exam HEENT: Normocephalic; atraumatic; no jaundice. CHEST: Diminished throughout CARDIAC: Irregular ABDOMEN: Distended nontender; bowel sounds present x 4 EXTREMITIES: BUE edema SKIN: No jaundice. SUPERVISOR CUSTOMER COMPLAINT SERVICE: Alert and oriented x 3 (Jessica Wang BRAZING MACHINE OPERATOR AUT[employer]ATIC) Assessment and Plan Plan Assessment Melena, Hematochezia - patient initially having multiple dark jelly substance stools, with some bright red bleeding, generalized weakness and fatigue. Reports this has resolved. Panendoscopy (04/29) --> Gastritis, gastric body ulcer, duodenitis, esophagitis, Pseudomembrane in rectum, descending and sigmoid colon, very friable mucosa, could not advance scope past descending due to increase friability, diverticulosis, internal hemorrhoids, decreased sphincter tone. PPI. Flagyl. On vanc but per EMR refused this am, ESRD, pt on Epoetin Damian. no obvious bleeding HH stable. Nausea, without hematemesis or vomiting. Resolved. Recent history of C. difficile, 04/19/17, colonoscopy showing psedumembrane in rectum, descending, and sigmoid colon. Vancomycin. Flagyl seems improved, 1 x BM today somewhat formed Plan - Repeat EGD in one year - Repeat colonoscopy in one month - Cont Vancomycin - Continue Flagyl - Continue PPI - ONEL - Eliquis currently on hold - Monitor labs - Transfuse as needed - Supportive care - ok to d/c to SNF from GI standpoint Pt seen and examined by myself and Dr. Treadwell and this note is written on his behalf (eJssica Wang) Physician Comments Seen and examined with ANDREINA, Going home today. GI fu upon dc please. (Marlyn Treadwell MD) Jessica Wang May 02, 2017 14:16 Marlyn Treadwell MD May 02, 2017 15:41
[2017-05-02 16:00] VITALS: BP 126/66; PULSE 72; RESP 17; TEMP 98.8; O2SAT 95
== END 2017-05-02 17:51 | DRG 91 ==
LOC: NEPE 06:49 → NEDA 09:37 → OBSVTOIN 12:08 → NEPGCP 12:30 → N07B 20:21
PROVIDERS: ADMIT Internal Medicine; ATTEND Hospitalist
PROC: 5A1D70Z Performance of Urinary Filtration, Intermittent, Less than 6 Hours Per Day (ICD-10-PCS; 2017-04-26)
PROC: 30233N1 Transfusion of Nonautologous Red Blood Cells into Peripheral Vein, Percutaneous Approach (ICD-10-PCS; principal; 2017-04-27)
PROC: 0DBN8ZX Excision of Sigmoid Colon, Via Natural or Artificial Opening Endoscopic, Diagnostic (ICD-10-PCS; 2017-04-29)
PROC: 0DB98ZX Excision of Duodenum, Via Natural or Artificial Opening Endoscopic, Diagnostic (ICD-10-PCS; 2017-04-29)
PROC: 0DB68ZX Excision of Stomach, Via Natural or Artificial Opening Endoscopic, Diagnostic (ICD-10-PCS; 2017-04-29)
DX: G83.9 Paralytic syndrome, unspecified (principal); N18.6 End stage renal disease; I13.2 Hypertensive heart and chronic kidney disease with heart failure and with stage 5 chronic kidney disease, or end stage renal disease; A04.72 Enterocolitis due to Clostridium difficile, not specified as recurrent; K25.4 Chronic or unspecified gastric ulcer with hemorrhage; K29.51 Unspecified chronic gastritis with bleeding; R18.8 Other ascites; E46 Unspecified protein-calorie malnutrition; E11.22 Type 2 diabetes mellitus with diabetic chronic kidney disease; K29.81 Duodenitis with bleeding; K57.31 Diverticulosis of large intestine without perforation or abscess with bleeding; D62 Acute posthemorrhagic anemia; I48.2 Chronic atrial fibrillation; E83.51 Hypocalcemia; E78.5 Hyperlipidemia, unspecified; D63.1 Anemia in chronic kidney disease; I50.9 Heart failure, unspecified; R53.1 Weakness; R09.02 Hypoxemia; K21.0 Gastro-esophageal reflux disease with esophagitis; K64.8 Other hemorrhoids; Z68.25 Body mass index [BMI] 25.0-25.9, adult; Z86.73 Personal history of transient ischemic attack (TIA), and cerebral infarction without residual deficits; Z99.2 Dependence on renal dialysis
CPT/HCPCS: 36430; 70450; 71010; 74176; 78278; 80053; 81001; 82550; 82607; 83519; 83605; 83735; 84100; 84436; 84443; 84484; 85014; 85018; 85025; 85610; 85652; 85730; 86255; 86850; 86900; 86901; 86920; 87040; 88305; 88312; 90935; 93005; 96374; 96375; 99285; A9560; C9113; J1580; J1644; J1940; J3370; J7030; P9016; P9047; P9612; Q4081; Q9963

== ENCOUNTER 2017-05-18 13:22 | Observation (INO) | payer MEDICARE, OTHER ==
[~2017-05-18] VITALS: Ht 165.1 cm; Wt 60.0 kg
[~2017-05-18 13:22] MED LIST changes: -ASPI-183 PO; +Epoetin Alfa Inj IV PUSH; +LACTCHW3 CHEW; +METR-1 PO; +Megestrol Liq PO; +PANT40TA3 PO; -VANC250C2 PO; +VANC500I3 PO
[2017-05-18 14:04] VITALS: BP 143/71; PULSE 78; RESP 16; TEMP 97.5; O2SAT 99
[2017-05-18] MEDS ORDERED: SODIUM CHLORID 0.9% 500 ML INJ 500 ML IV ONE (15:00)
--- NOTE | 2017-05-18 15:06 | PD ---
HPI Chief Complaint: Abdominal Pain Time Seen by Provider: 14:06 Travel History International Travel<30 days: No Contact w/Intl Traveler<30days: No Traveled to known affect area: No History of Present Illness HPI Send 89 year-old woman, multiple medical problems including end-stage renal disease, A. fib, CVA, as well as recent treatment for C. difficile. She was discharged home from rehabilitation yesterday. She lives a home with her daughter who takes care of her and her who has dementia. She states she was brought back in today because she was having prickling pain on both legs since been severe, as well as ongoing diarrhea which she states is been going on "all night long". She been treated for C. difficile since she was diagnosed a month or 2 ago. Her complaint to really prickling pain in the legs and the diarrhea. States she wasn't really having much diarrhea when she was in rehabilitation. History Past Medical History Narrative Medical End-stage renal disease, on hemodialysis A. fib C. difficile CVA History of GI bleed with esophagitis and duodenitis in the past Tetanus Vaccination: Unknown Influenza Vaccination: Yes : 4 Para: 4 Social History Alcohol Use: No Tobacco Use: No Allergies-Medications (Allergen,Severity, Reaction): Coded Allergies: No Known Allergies (Unverified Allergy, Unknown, 05/18/17) Reported Meds & Prescriptions Reported Meds & Active Scripts Active Pantoprazole (Pantoprazole Sodium) 40 Mg Tab 40 Mg PO DAILY [Megestrol Liq] 400 MG/10 ML Susp 800 Mg PO DAILY [Epoetin Damian Inj] 45554 UNITS/ML Inj 10,000 Units IV PUSH UNSCH PRN Wheelchair (Device) 1 Mis Mis Ea .ROUTE DIRECTED wheelchair w foot rest Reported Multiple Vitamin 1 Tab 1 Tab PO DAILY Pravastatin 10 Mg Tab 10 Mg PO DAILY Doxazosin (Doxazosin Mesylate) 2 Mg Tab 2 Mg PO HS Vitamin D-1000 (Cholecalciferol) 1,000 Unit Tab 1,000 Units PO DAILY Amlodipine (Amlodipine Besylate) 2.5 Mg Tab 2.5 Mg PO DAILY Review of Systems Except as stated in HPI: all other systems reviewed are Neg Physical Exam Narrative GENERAL: Well-appearing 89 year-old woman, frail, nontoxic. HEAD: Atraumatic. Normocephalic. EYES: Pupils equal and round. No scleral icterus. No injection or drainage. ENT: No nasal bleeding or discharge. Mucous membranes pink and moist. NECK: Trachea midline. No JVD. CARDIOVASCULAR: Regular rate and rhythm. No murmur appreciated. RESPIRATORY: No accessory muscle use. Clear to auscultation. Breath sounds equal bilaterally. GASTROINTESTINAL: Abdomen flat. Soft. No significant tenderness. MUSCULOSKELETAL: No obvious deformities. Decreased muscle bulk. NEUROLOGICAL: Awake and alert. No obvious cranial nerve deficits. Motor grossly within normal limits. Normal speech. PSYCHIATRIC: Appropriate mood and affect; insight and judgment normal. Data Data Last Documented VS Vital Signs Date Time Temp Pulse Resp B/P (MAP) Pulse Ox O2 Delivery O2 Flow Rate FiO2 05/18/17 17:46 78 16 131/62 (85) 95 Room Air 05/18/17 14:04 97.5 Orders Orders Complete Blood Count With Diff (05/18/17 14:48) Comprehensive Metabolic Panel (05/18/17 14:48) Iv Access Insert/Monitor (05/18/17 14:48) Sodium Chlorid 0.9% 500 Ml Inj (Ns 500 M (05/18/17 15:00) Consult Pt Eval & Treat (05/18/17 15:58) Case Management Consult (05/18/17 ) Isolation (05/18/17 17:49) Equip, Isolation Cart (05/18/17 17:49) Electrocardiogram (05/18/17 16:25) Admit Order (Ed Use Only) (05/18/17 ) Labs Laboratory Tests Test 05/18/17 15:30 White Blood Count 7.3 TH/MM3 Red Blood Count 2.80 MIL/MM3 Hemoglobin 9.2 GM/DL Hematocrit 28.2 % Mean Corpuscular Volume 100.6 FL Mean Corpuscular Hemoglobin 32.9 PG Mean Corpuscular Hemoglobin Concent 32.7 % Red Cell Distribution Width 22.0 % Platelet Count 281 TH/MM3 Mean Platelet Volume 8.7 FL Neutrophils (%) (Auto) 71.0 % Lymphocytes (%) (Auto) 14.9 % Monocytes (%) (Auto) 10.2 % Eosinophils (%) (Auto) 1.3 % Basophils (%) (Auto) 2.6 % Neutrophils # (Auto) 5.2 TH/MM3 Lymphocytes # (Auto) 1.1 TH/MM3 Monocytes # (Auto) 0.7 TH/MM3 Eosinophils # (Auto) 0.1 TH/MM3 Basophils # (Auto) 0.2 TH/MM3 CBC Comment DIFF FINAL Differential Comment Blood Urea Nitrogen 37 MG/DL Creatinine 3.78 MG/DL Random Glucose 86 MG/DL Total Protein 6.5 GM/DL Albumin 2.7 GM/DL Calcium Level 8.6 MG/DL Alkaline Phosphatase 88 U/L Aspartate Amino Transf (AST/SGOT) 8 U/L Alanine Aminotransferase (ALT/SGPT) 10 U/L Total Bilirubin 0.6 MG/DL Sodium Level 139 MEQ/L Potassium Level 4.9 MEQ/L Chloride Level 105 MEQ/L Carbon Dioxide Level 26.6 MEQ/L Anion Gap 7 MEQ/L Estimat Glomerular Filtration Rate 11 ML/MIN [facility] Medical Decision Making Medical Screen Exam Complete: Yes Emergency Medical Condition: Yes Interpretation(s) LABS: CBC remarkable for mild anemia. BMP remarkable for mildly elevated BUN/creatinine. Differential Diagnosis Neuropathy, electrolyte abnormality, dehydration, C. difficile, other Narrative Course Medical decision making INITIAL: 89 year-old woman, there is globally weak, frail, on dialysis, with what seems to be neuropathy pains in her legs, and ongoing diarrhea. She is discharged home from rehabilitation yesterday. We'll talk to her daughter, check labs and a twice, given a small bolus of IV fluids she appears a little bit dehydrated. Reassess. LABS unremarkable. Case management working to re-admit patient to [facility]. Needs PT eval. Ordered and pending. Spoke with case management, Beau Greer become up to evaluate patient in the a.m., will speak with daughter. We'll place in observation. Willie Teran MD May 18, 2017 15:06
[2017-05-18 15:51] LABS: AUTOMATED NEUTROPHIL # 5.2 TH/MM3 (1.8-7.7); BASOPHIL # 0.2 TH/MM3 (0-0.2); BASOPHIL % 2.6 % (0.0-2.0); EOSINOPHIL # 0.1 TH/MM3 (0-0.4); EOSINOPHIL % 1.3 % (0.0-4.0); HEMATOCRIT 28.2 % (35.0-46.0); HEMOGLOBIN 9.2 GM/DL (11.6-15.3); LYMPH % 14.9 % (9.0-44.0); LYMPHOCYTE # 1.1 TH/MM3 (1.0-4.8); MEAN CELL VOLUME 100.6 FL (80.0-100.0); MEAN CORPUSCULAR HEMOGLOBIN 32.9 PG (27.0-34.0); MEAN CORPUSCULAR HGB CONC 32.7 % (32.0-36.0); MEAN PLATELET VOLUME 8.7 FL (7.0-11.0); MONO % 10.2 % (0.0-8.0); MONOCYTE # 0.7 TH/MM3 (0-0.9); PLATELET COUNT 281 TH/MM3 (150-450); WHITE BLOOD COUNT 7.3 TH/MM3 (4.0-11.0)
[2017-05-18 16:23] LABS: ALBUMIN 2.7 GM/DL (3.4-5.0); ALT (GPT) 10 U/L (10-53); AST (GOT) 8 U/L (15-37); BICARBONATE 26.6 MEQ/L (21.0-32.0); BLOOD UREA NITROGEN 37 MG/DL (7-18); CALCIUM 8.6 MG/DL (8.5-10.1); CHLORIDE 105 MEQ/L (98-107); CREATININE 3.78 MG/DL (0.50-1.00); GLOMERULAR FILTRATION RATE 11 ML/MIN (>89); GLUCOSE,RANDOM 86 MG/DL (74-106); SODIUM (NA) 139 MEQ/L (136-145)
[2017-05-18 16:26] LABS: ALKALINE PHOSPHATASE 88 U/L (45-117); TOTAL BILIRUBIN ADULT 0.6 MG/DL (0.2-1.0); TOTAL PROTEIN 6.5 GM/DL (6.4-8.2)
[2017-05-18 17:46] VITALS: BP 131/62; PULSE 78; RESP 16; O2SAT 95
[2017-05-18] MEDS ORDERED: ACETAMINOPHEN 325 MG TAB PO PRN (19:30)
[2017-05-18] MEDS ORDERED: BISACODYL 10 MG SUPP RECTAL PRN (19:30)
[2017-05-18] MEDS ORDERED: SENNOSIDES 8.6 MG TAB PO PRN (19:30)
[2017-05-18] MEDS ORDERED: MAGNESIUM HYDROXIDE SUSP 30 ML CUP PO PRN (19:30)
[2017-05-18] MEDS ORDERED: LACTULOSE SYRUP 20 GM/30 ML CUP PO PRN (19:30)
[2017-05-18] MEDS ORDERED: ONDANSETRON HCL 4 MG/2 ML VIAL IVP PRN (19:30)
[2017-05-18] MEDS ORDERED: SODIUM CHLORIDE 0.9% FLUSH 10 ML FLUSH IV FLUSH PRN (19:30)
[2017-05-18] MEDS ORDERED: NALOXONE HCL 0.4 MG/ML AMP IV PUSH PRN (19:30)
[2017-05-18] MEDS ORDERED: PILL SPLITTER OTHER PRN (19:45)
[2017-05-18] MEDS ORDERED: HEPARIN SODIUM - SQ 10,000 UNITS/ML VIAL SQ SCH (20:00)
[2017-05-18 20:33] VITALS: BP 161/79; PULSE 74; RESP 18; O2SAT 94
[2017-05-18] MEDS: DOCUSATE SODIUM 50 MG/SENNA 8.6 MG TAB PO SCH (21:00)
[2017-05-18] MEDS: DOXAZOSIN MESYLATE 2 MG TAB PO SCH (21:56)
[2017-05-18] MEDS: SODIUM CHLORIDE 0.9% FLUSH 10 ML FLUSH IV FLUSH SCH (21:57)
--- NOTE | 2017-05-19 01:25 | HHI.HP ---
[facility] Unknown Admission Diagnosis dehydration, weakness, neuropathic pain Diagnoses: Travel History International Travel<30 Days: No Contact w/Intl Traveler <30 Da: No Traveled to Known Affected Are: No History of Present Illness 89-year-old female with a history of recent CVA, recent treatment for C. difficile colitis, atrial fibrillation, hypertension, hyperlipidemia, diabetes and ESRD on HD was brought to the emergency department by her daughter because she was having prickling pain in the bilateral lower extremities as well as ongoing diarrhea. The patient was discharged to home from rehabilitation yesterday. She was discharged from the hospital where she was treated for generalized weakness on 05/02/17. She had a complete neurologic evaluation at that time including workup for myasthenia gravis, which was negative. The patient was previously anticoagulated on Eliquis however this was held secondary to GI bleed. The patient states she is due for dialysis tomorrow, she cannot remember when her last dialysis was. Potassium 4.9, BUN/creatinine 37/3.78. The patient will require SNF placement on discharge. 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 Torres Recent CVA Hypertension Hyperlipidemia Diabetes mellitus Past Surgical History Hysterectomy Reported Medications Reported Meds & Active Scripts Active Pantoprazole (Pantoprazole Sodium) 40 Mg Tab 40 Mg PO DAILY [Megestrol Liq] 400 MG/10 ML Susp 800 Mg PO DAILY [Epoetin Damian Inj] 71329 UNITS/ML Inj 10,000 Units IV PUSH UNSCH PRN Wheelchair (Device) 1 Mis Mis Ea .ROUTE DIRECTED wheelchair w foot rest Reported Multiple Vitamin 1 Tab 1 Tab PO DAILY Pravastatin 10 Mg Tab 10 Mg PO DAILY Doxazosin (Doxazosin Mesylate) 2 Mg Tab 2 Mg PO HS Vitamin D-1000 (Cholecalciferol) 1,000 Unit Tab 1,000 Units PO DAILY Amlodipine (Amlodipine Besylate) 2.5 Mg Tab 2.5 Mg PO DAILY Allergies: Coded Allergies: No Known Allergies (Unverified Allergy, Unknown, 05/18/17) Family History Father from hemorrhagic CVA in his 50s Social History Denies tobacco, alcohol and illicit drugs. Physical Exam Vital Signs Vital Signs Date Time Temp Pulse Resp B/P (MAP) Pulse Ox O2 Delivery O2 Flow Rate FiO2 05/18/17 20:33 74 18 161/79 (106) 94 Room Air 05/18/17 20:33 05/18/17 17:46 78 16 131/62 (85) 95 Room Air 05/18/17 14:04 97.5 78 16 143/71 (95) 99 Physical Exam GENERAL: female lying in bed SKIN: No rashes, ecchymoses or lesions. Cool and dry. HEAD: Atraumatic. Normocephalic. No temporal or scalp tenderness. EYES: Pupils equal round and reactive. Extraocular motions intact. No scleral icterus. No injection or drainage. ENT: Nose without bleeding, purulent drainage or septal hematoma. Throat without erythema, tonsillar hypertrophy or exudate. Uvula midline. Airway patent. NECK: Trachea midline. No JVD or lymphadenopathy. Supple, nontender, no meningeal signs. CARDIOVASCULAR: Regular rate and rhythm without murmurs, gallops, or rubs. RESPIRATORY: Clear to auscultation. Breath sounds equal bilaterally. No wheezes , rales, or rhonchi. GASTROINTESTINAL: Abdomen soft, non-tender, nondistended. No hepato-splenomegaly , or palpable masses. No guarding. MUSCULOSKELETAL: Extremities without clubbing, cyanosis, or edema. No joint tenderness, effusion, or edema noted. No calf tenderness. NEUROLOGICAL: Awake and alert. Cranial nerves II through XII intact. Moves all 4 extremities spontaneously. Normal speech. Laboratory Laboratory Tests Test 05/18/17 15:30 White Blood Count 7.3 Red Blood Count 2.80 Hemoglobin 9.2 Hematocrit 28.2 Mean Corpuscular Volume 100.6 Mean Corpuscular Hemoglobin 32.9 Mean Corpuscular Hemoglobin Concent 32.7 Red Cell Distribution Width 22.0 Platelet Count 281 Mean Platelet Volume 8.7 Neutrophils (%) (Auto) 71.0 Lymphocytes (%) (Auto) 14.9 Monocytes (%) (Auto) 10.2 Eosinophils (%) (Auto) 1.3 Basophils (%) (Auto) 2.6 Neutrophils # (Auto) 5.2 Lymphocytes # (Auto) 1.1 Monocytes # (Auto) 0.7 Eosinophils # (Auto) 0.1 Basophils # (Auto) 0.2 CBC Comment DIFF FINAL Differential Comment Blood Urea Nitrogen 37 Creatinine 3.78 Random Glucose 86 Total Protein 6.5 Albumin 2.7 Calcium Level 8.6 Alkaline Phosphatase 88 Aspartate Amino Transf (AST/SGOT) 8 Alanine Aminotransferase (ALT/SGPT) 10 Total Bilirubin 0.6 Sodium Level 139 Potassium Level 4.9 Chloride Level 105 Carbon Dioxide Level 26.6 Anion Gap 7 Estimat Glomerular Filtration Rate 11 Result Diagram: 05/18/17152905/18/171529 Caprini VTE Risk Assessment Caprini VTE Risk Assessment: Mod/High Risk (score >= 2) Caprini Risk Assessment Model Point Value = 1 Point Value = 2 Point Value = 3 Point Value = 5 Age 41-60 Minor surgery BMI > 25 kg/m2 Swollen legs Varicose veins or History of unexplained or recurrent spontaneous Oral contraceptives or hormone replacement Sepsis (< 1 month) Serious lung disease, including pneumonia (< 1 month) Abnormal pulmonary function Acute myocardial infarction Congestive heart failure (< 1 month) History of inflammatory bowel disease Medical patient at bed rest Age 61-74 Arthroscopic surgery Major open surgery (> 45 min) Laparoscopic surgery (> 45 min) Malignancy Confined to bed (> 72 hours) Immobilizing plaster cast Central venous access Age >= 75 History of VTE Family history of VTE Factor V Leiden Prothrombin [id number] Lupus anticoagulant Anticardiolipin antibodies Elevated serum homocysteine Heparin-induced thrombocytopenia Other congenital or acquired thrombophilia Stroke (< 1 month) Elective arthroplasty Hip, pelvis, or leg fracture Acute spinal cord injury (< 1 month) Prophylaxis Regimen Total Risk Factor Score Risk Level Prophylaxis Regimen 0-1 Low Early ambulation 2 Moderate Order ONE of the following: *Sequential Compression Device (SCD) *Heparin 5000 units SQ BID 3-4 Higher Order ONE of the following medications: *Heparin 5000 units SQ TID *Enoxaparin/Lovenox 40 mg SQ daily (WT < 150 kg, CrCl > 30 mL/min) *Enoxaparin/Lovenox 30 mg SQ daily (WT < 150 kg, CrCl > 10-29 mL/min) *Enoxaparin/Lovenox 30 mg SQ BID (WT < 150 kg, CrCl > 30 mL/min) AND/OR *Sequential Compression Device (SCD) 5 or more Highest Order ONE of the following medications: *Heparin 5000 units SQ TID (Preferred with Epidurals) *Enoxaparin/Lovenox 40 mg SQ daily (WT < 150 kg, CrCl > 30 mL/min) *Enoxaparin/Lovenox 30 mg SQ daily (WT < 150 kg, CrCl > 10-29 mL/min) *Enoxaparin/Lovenox 30 mg SQ BID (WT < 150 kg, CrCl > 30 mL/min) AND *Sequential Compression Device (SCD) Assessment and Plan Assessment and Plan Assessment/plan: 1. Recurrent diarrhea with history of C. difficile C. difficile toxin pending Patient with formed bowel movement this evening 2. Bilateral lower extremity pain Resolved, patient with no complaints of pain at this time 3. 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 Diabetes mellitus Monitor blood glucose SSI 5. Atrial fibrillation Patient previously anticoagulated on Eliquis, currently on hold secondary to development of GI bleed 6. Hypertension/hyperlipidemia Continue home amlodipine and statin Disposition: Patient will need placement in SNF, case management consulted to assist with placement FEN Renal diet Electrolytes: Monitor and replete when necessary Holding pharmacologic anticoagulation secondary to recent GI bleed An Torres MD May 19, 2017 01:25
[2017-05-19] MEDS ORDERED: GLUCAGON 1 MG/ML VIAL OTHER PRN (01:30)
[2017-05-19] MEDS ORDERED: DEXTROSE 50% IN WATER 50 ML VIAL(D50) IV PUSH PRN (01:30)
[2017-05-19 07:07] LABS: BASOPHIL # 0.1 TH/MM3 (0-0.2); EOSINOPHIL # 0.1 TH/MM3 (0-0.4); EOSINOPHIL % 1.6 % (0.0-4.0); HEMATOCRIT 28.4 % (35.0-46.0); LYMPH % 16.8 % (9.0-44.0); LYMPHOCYTE # 1.2 TH/MM3 (1.0-4.8); MEAN CELL VOLUME 100.5 FL (80.0-100.0); MEAN CORPUSCULAR HEMOGLOBIN 31.7 PG (27.0-34.0); MEAN CORPUSCULAR HGB CONC 31.6 % (32.0-36.0); MEAN PLATELET VOLUME 8.5 FL (7.0-11.0); MONO % 9.9 % (0.0-8.0); MONOCYTE # 0.7 TH/MM3 (0-0.9); NEUT % 70.7 % (16.0-70.0); PLATELET COUNT 247 TH/MM3 (150-450); RED BLOOD COUNT 2.83 MIL/MM3 (4.00-5.30); RED CELL DISTRIBUTION WIDTH 21.7 % (11.6-17.2)
[2017-05-19 07:25] LABS: BICARBONATE 22.4 MEQ/L (21.0-32.0); CALCIUM 8.5 MG/DL (8.5-10.1); CREATININE 4.3 MG/DL (0.50-1.00)
[2017-05-19] MEDS ORDERED: SODIUM CHLOR 0.9% 1000 ML INJ 1,000 ML OTHER PRN ×2 (08:21)
[2017-05-19] MEDS ORDERED: SODIUM CHLOR 0.9% 1000 ML INJ 1,000 ML IV PRN (08:21)
[2017-05-19] MEDS ORDERED: cloNIDine HCL 0.1 MG TAB PO PRN (08:30)
[2017-05-19] MEDS ORDERED: GELATIN 12 MM/7 MM FOAM TOP PRN (08:30)
[2017-05-19] MEDS ORDERED: HEPARIN SODIUM - IV 10,000 UNITS/10 ML VIAL IV FLUSH PRN (08:30)
[2017-05-19] MEDS ORDERED: EPOETIN ALFA 10,000 UNITS/ML VIAL IV PUSH PRN (08:30)
[2017-05-19] MEDS ORDERED: ONDANSETRON HCL 4 MG/2 ML VIAL IV PUSH PRN (08:30)
[2017-05-19] MEDS ORDERED: diphenhydrAMINE HCL 25 MG CAP PO PRN (08:30)
[2017-05-19] MEDS ORDERED: SODIUM CHLORIDE 0.9% FLUSH 10 ML FLUSH IV FLUSH PRN (08:30)
[2017-05-19] MEDS ORDERED: GENTAMICIN SULFATE (DIALYSIS USE ONLY) 20 MG/2 ML VIAL OTHER PRN (08:30)
[2017-05-19] MEDS ORDERED: HEPARIN SODIUM - IV 10,000 UNITS/10 ML VIAL PRN (08:30)
[2017-05-19] MEDS ORDERED: MANNITOL 12.5 GM/50 ML VIAL IV PRN (08:30)
[2017-05-19] MEDS ORDERED: NITROGLYCERIN 0.4 MG SL 25 TABS/BTL SL PRN (08:30)
[2017-05-19] MEDS ORDERED: ALBUMIN 25% INJ 100 ML IV PRN (08:30)
[2017-05-19] MEDS ORDERED: ACETAMINOPHEN 325 MG TAB PO PRN (08:30)
--- NOTE | 2017-05-19 08:30 | PD.CONS ---
HPI Service Nephrology Consult Requested By Reason for Consult ESRD Primary Care Physician Unknown History of Present Illness Ms. Moser has been admitted multiple number of times recently: for CVA, GI bleeding and C.diff colitis. Apparently she was discharged from rehab yesterday. She has been admitted with ongoing diarrhea and leg weakness, and pain. Apparently had formed stool yesterday. Usually dialyzes TTS, last dialysis was on Tuesday. Review of Systems Constitutional: COMPLAINS OF: Fatigue Cardiovascular: DENIES: Chest pain Gastrointestinal: COMPLAINS OF: Diarrhea, Anorexia, DENIES: Abdominal pain Past Family Social History Allergies: Coded Allergies: No Known Allergies (Unverified Allergy, Unknown, 05/18/17) Past Medical History ESRD Atrial fibrillation CVA C.diff colitis History of GI bleeding Anemia Protein calorie malnutrition. Reported Medications Pantoprazole (Pantoprazole Sodium) 40 Mg Tab 40 Mg PO DAILY [Megestrol Liq] 400 MG/10 ML Susp 800 Mg PO DAILY [Epoetin Damian Inj] 19553 UNITS/ML Inj 10,000 Units IV PUSH UNSCH PRN Wheelchair (Device) 1 Mis Mis Ea .ROUTE DIRECTED wheelchair w foot rest Reported Multiple Vitamin 1 Tab 1 Tab PO DAILY Pravastatin 10 Mg Tab 10 Mg PO DAILY Doxazosin (Doxazosin Mesylate) 2 Mg Tab 2 Mg PO HS Vitamin D-1000 (Cholecalciferol) 1,000 Unit Tab 1,000 Units PO DAILY Amlodipine (Amlodipine Besylate) 2.5 Mg Tab 2.5 Mg PO DAILY Active Ordered Medications Current Medications Medications (Trade) Dose Ordered Sig/Angel Route Start Time Stop Time Status Last Admin (NS Flush) 2 ml UNSCH PRN IV FLUSH 05/18/17 19:30 (NS Flush) 2 ml BID IV FLUSH 05/18/17 21:00 05/18/17 21:57 (Tylenol) 650 mg Q4H PRN PO 05/18/17 19:30 (Zofran Inj) 4 mg Q6H PRN IVP 05/18/17 19:30 (Narcan Inj) 0.4 mg UNSCH PRN IV PUSH 05/18/17 19:30 (Haley-Colace) 1 tab BID PO 05/18/17 21:00 (Milk Of Magnesia Liq) 30 ml Q12H PRN PO 05/18/17 19:30 (Senokot) 17.2 mg Q12H PRN PO 05/18/17 19:30 (Dulcolax Supp) 10 mg DAILY PRN RECTAL 05/18/17 19:30 (Lactulose Liq) 30 ml DAILY PRN PO 05/18/17 19:30 (Norvasc) 2.5 mg DAILY PO 05/19/17 09:00 (Vitamin D3) 1,000 units DAILY PO 05/19/17 09:00 (Cardura) 2 mg HS PO 05/18/17 21:00 05/18/17 21:56 (Protonix) 40 mg DAILY PO 05/19/17 09:00 (Pravachol) 10 mg DAILY PO 05/19/17 09:00 (Pill Splitter) 1 ea UNSCH PRN OTHER 05/18/17 19:45 (D50w (Vial) Inj) 50 ml UNSCH PRN IV PUSH 05/19/17 01:30 (Glucagon Inj) 1 mg UNSCH PRN OTHER 05/19/17 01:30 (NovoLOG SUPPLEMENTAL SCALE) 1 ACHS SLIDING SCALE SQ 05/19/17 08:00 Family History non contributory Social History no tobacco or ETOH Physical Exam Vital Signs Vital Signs Date Time Temp Pulse Resp B/P (MAP) Pulse Ox O2 Delivery O2 Flow Rate FiO2 05/18/17 20:33 74 18 161/79 (106) 94 Room Air 05/18/17 20:33 05/18/17 17:46 78 16 131/62 (85) 95 Room Air 05/18/17 14:04 97.5 78 16 143/71 (95) 99 Physical Exam GENERAL: awake, malnourished. SKIN: Warm and dry. HEAD: Normocephalic. EYES: No scleral icterus. No injection or drainage. NECK: Supple, trachea midline. No JVD or lymphadenopathy. CARDIOVASCULAR: Regular rate and rhythm without murmurs, gallops, or rubs. RESPIRATORY: Breath sounds equal bilaterally. No accessory muscle use. GASTROINTESTINAL: Abdomen soft, non-tender, nondistended. MUSCULOSKELETAL: No cyanosis, or edema. BACK: Nontender without obvious deformity. No CVA tenderness. Laboratory Laboratory Tests Test 05/18/17 15:30 05/19/17 06:50 White Blood Count 7.3 7.0 Red Blood Count 2.80 2.83 Hemoglobin 9.2 9.0 Hematocrit 28.2 28.4 Mean Corpuscular Volume 100.6 100.5 Mean Corpuscular Hemoglobin 32.9 31.7 Mean Corpuscular Hemoglobin Concent 32.7 31.6 Red Cell Distribution Width 22.0 21.7 Platelet Count 281 247 Mean Platelet Volume 8.7 8.5 Neutrophils (%) (Auto) 71.0 70.7 Lymphocytes (%) (Auto) 14.9 16.8 Monocytes (%) (Auto) 10.2 9.9 Eosinophils (%) (Auto) 1.3 1.6 Basophils (%) (Auto) 2.6 1.0 Neutrophils # (Auto) 5.2 5.0 Lymphocytes # (Auto) 1.1 1.2 Monocytes # (Auto) 0.7 0.7 Eosinophils # (Auto) 0.1 0.1 Basophils # (Auto) 0.2 0.1 CBC Comment DIFF FINAL DIFF FINAL Differential Comment Blood Urea Nitrogen 37 43 Creatinine 3.78 4.30 Random Glucose 86 86 Total Protein 6.5 Albumin 2.7 Calcium Level 8.6 8.5 Alkaline Phosphatase 88 Aspartate Amino Transf (AST/SGOT) 8 Alanine Aminotransferase (ALT/SGPT) 10 Total Bilirubin 0.6 Sodium Level 139 137 Potassium Level 4.9 5.0 Chloride Level 105 105 Carbon Dioxide Level 26.6 22.4 Anion Gap 7 10 Estimat Glomerular Filtration Rate 11 10 Result Diagram: 05/19/1750 05/19/17649 Assessment and Plan Problem List: (1) ESRD (end stage renal disease) ICD Codes: N18.6 - End stage renal disease Plan: dialysis will be TTS. Continue to monitor fluid and electrolyte status. Her prognosis is poor. Elderly lady that has not done well on HD. Palliative care may be appropriate. (2) Diarrhea ICD Codes: R19.7 - Diarrhea, unspecified Plan: History of C.diff. No leukocytosis. C.diff toxin ordered. (3) Anemia ICD Codes: D64.9 - Anemia, unspecified Plan: Epogen with dialysis. History of GI bleeding because of anticoagulation was stopped. (4) Protein calorie malnutrition ICD Codes: E46 - Unspecified protein-calorie malnutrition Plan: needs high protein diet and protein supplement. Assessment and Plan Thanks for the consult. Devon Torres MD May 19, 2017 08:30
[2017-05-19 08:55] VITALS: BP 161/86; PULSE 93; RESP 18; TEMP 96; O2SAT 93
[2017-05-19] MEDS: SODIUM CHLORIDE 0.9% FLUSH 10 ML FLUSH IV FLUSH SCH ×2 (09:00→21:15)
[2017-05-19] MEDS: DOCUSATE SODIUM 50 MG/SENNA 8.6 MG TAB PO SCH ×2 (09:12→21:00)
[2017-05-19] MEDS: PRAVASTATIN SOD 10 MG TAB PO SCH (09:12)
[2017-05-19] MEDS: PANTOPRAZOLE SOD 40 MG DELAYED RELEASE TAB PO SCH (09:12)
[2017-05-19] MEDS: amLODIPine BESYLATE 5 MG TAB PO SCH (09:12)
[2017-05-19] MEDS: CHOLECALCIFEROL (VIT D3) 1000 UNIT TAB PO SCH (09:12)
[2017-05-19] MEDS: INSULIN ASPART SUPPLEMENTAL SCALE SQ SCH ×3 (12:00→21:00)
--- NOTE | 2017-05-19 15:18 | HHI.PR ---
Objective Vitals Vital Signs Date Time Temp Pulse Resp B/P (MAP) Pulse Ox O2 Delivery O2 Flow Rate FiO2 05/19/17 08:55 96.0 93 18 161/86 (111) 93 05/18/17 20:33 74 18 161/79 (106) 94 Room Air 05/18/17 20:33 05/18/17 17:46 78 16 131/62 (85) 95 Room Air I/O 05/18/17 05/18/17 05/18/17 05/19/17 05/19/17 05/19/17 07:00 15:00 23:00 07:00 15:00 23:00 Intake Total 500 ml Output Total 1000 ml Balance 500 ml -1000 ml Intake IV Total 500 ml Output Hemodialysis 1000 ml # Voids 1 # Bowel Movements 1 Result Diagram: 05/19/17 0650 05/19/17 0650 A/P Assessment and Plan This is an 89-year-old female who was recently discharged from rehabilitation facility who resented today due to diarrhea Questionable recurrent diarrhea - None has been witnessed during her hospitalization and faxed stools have been formed. -Unable to get CT of toxin PCR since patient is not having any diarrhea. Bilateral lower extremity pain -Resolved, patient with no complaints of pain at this time. She is asking for her lower extremity legs to be wrapped up because she feels like it gives her more strength. -Will give teds. 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 Diabetes mellitus -Monitor blood glucose -SSI Atrial fibrillation -Patient previously anticoagulated on Eliquis, currently on hold secondary to development of GI bleed Hypertension/hyperlipidemia -Continue home amlodipine and statin DVT prophylaxis -Holding pharmacologic anticoagulation secondary to recent GI bleed Discharge Planning Patient medically stable for discharge to SNF. Waiting for placement approval to [facility]. Discussed case with case management. Suha Osborne MD May 19, 2017 15:18
--- NOTE | 2017-05-19 15:47 | EKG ---
Date Performed: 05/18/2017 Time Performed: 16:25:14 PTAGE: 89 years EKG: ATRIAL FIBRILLATION POSSIBLE ANTERIOR MYOCARDIAL INFARCTION ABNORMAL ECG PREVIOUS TRACING : 02/04/2012 11.21 Compared to prior tracing no significant change DOCTOR: Gavin Alicea Interpretating Date/Time 05/19/2017 15:46:06
[2017-05-19 16:37] VITALS: BP 141/65; PULSE 79; RESP 22; TEMP 97.6; O2SAT 94
[2017-05-19 21:09] VITALS: BP 127/67; PULSE 80; RESP 14; TEMP 96.5; O2SAT 93
[2017-05-19] MEDS: DOXAZOSIN MESYLATE 2 MG TAB PO SCH (21:14)
[2017-05-20] VITALS (7 sets, daily range): BP systolic 121–134; BP diastolic 58–70; PULSE 54–77; RESP 15–20; TEMP 97.1–98.7; O2SAT 90–98
[2017-05-20] MEDS: INSULIN ASPART SUPPLEMENTAL SCALE SQ SCH ×4 (08:00→22:28)
[2017-05-20] MEDS: CHOLECALCIFEROL (VIT D3) 1000 UNIT TAB PO SCH (09:13)
[2017-05-20] MEDS: PRAVASTATIN SOD 10 MG TAB PO SCH (09:13)
[2017-05-20] MEDS: amLODIPine BESYLATE 5 MG TAB PO SCH (09:15)
[2017-05-20] MEDS: PANTOPRAZOLE SOD 40 MG DELAYED RELEASE TAB PO SCH (09:15)
[2017-05-20] MEDS: SODIUM CHLORIDE 0.9% FLUSH 10 ML FLUSH IV FLUSH SCH ×2 (09:15→22:31)
[2017-05-20] MEDS: DOCUSATE SODIUM 50 MG/SENNA 8.6 MG TAB PO SCH ×2 (09:15→22:28)
--- NOTE | 2017-05-20 10:58 | HHI.PR ---
Subjective Remarks Follow-up for placement and question will diarrhea She continues to not have any diarrhea. Patient found sitting in the bed eating breakfast. She has no complaints. No events. Objective Vitals Vital Signs Date Time Temp Pulse Resp B/P (MAP) Pulse Ox O2 Delivery O2 Flow Rate FiO2 05/20/17 07:28 97.1 76 16 122/61 (81) 98 05/20/17 07:15 97 Nasal Cannula 2.00 05/20/17 04:20 Nasal Cannula 2.00 05/20/17 04:19 98.7 77 15 129/69 (89) 90 05/19/17 21:09 96.5 80 14 127/67 (87) 93 05/19/17 21:02 21 05/19/17 16:37 97.6 79 22 141/65 (90) 94 I/O 05/19/17 05/19/17 05/19/17 05/20/17 05/20/17 05/20/17 07:00 15:00 23:00 07:00 15:00 23:00 Output Total 1000 ml Balance -1000 ml Hemodialysis 1000 ml # Voids 1 # Bowel Movements 1 Result Diagram: 05/19/17 0650 05/19/17 0650 Objective Remarks GENERAL: in NAD. CARDIOVASCULAR: Regular rate and rhythm without murmurs, gallops, or rubs. RESPIRATORY: Breath sounds equal bilaterally. No accessory muscle use. GASTROINTESTINAL: Abdomen soft, non-tender, nondistended. Medications and IVs Current Medications Sodium Chloride 500 ml @ 1,000 mls/hr Q30M ONCE IV Last administered on 15:55; Start 05/18/17 at 15:00; Stop 05/18/17 at 15:29; Status DC Sodium Chloride (NS Flush) 2 ml UNSCH PRN IV FLUSH FLUSH AFTER USING IV ACCESS ; Start 05/18/17 at 19:30 Sodium Chloride (NS Flush) 2 ml BID IV FLUSH Last administered on 05/20/17 09 :15; Start 05/18/17 at 21:00 Acetaminophen (Tylenol) 650 mg Q4H PRN PO TEMP > 100.4; Start 05/18/17 at 19: 30 Ondansetron HCl (Zofran Inj) 4 mg Q6H PRN IVP NAUSEA OR VOMITING; Start at 19:30 Heparin Sodium (Porcine) (Heparin Inj) 5,000 units Q12H SQ ; Start 05/18/17 at 20:00; Stop 05/19/17 at 01:24; Status DC Naloxone HCl (Narcan Inj) 0.4 mg UNSCH PRN IV PUSH SEE LABEL COMMENTS; Start 05/18/17 at 19:30 Senna/Docusate Sodium (Haley-Colace) 1 tab BID PO Last administered on 09:15; Start 05/18/17 at 21:00 Magnesium Hydroxide (Milk Of Magnesia Liq) 30 ml Q12H PRN PO Mild constipation ; Start 05/18/17 at 19:30 Sennosides (Senokot) 17.2 mg Q12H PRN PO Moderate constipation; Start at 19:30 Bisacodyl (Dulcolax Supp) 10 mg DAILY PRN RECTAL SEVERE CONSITIPATION; Start 05/18/17 at 19:30 Lactulose (Lactulose Liq) 30 ml DAILY PRN PO SEVERE CONSITIPATION; Start 05/18 at 19:30 Amlodipine Besylate (Norvasc) 2.5 mg DAILY PO Last administered on 05/20/17 09:15; Start 05/19/17 at 09:00 Cholecalciferol (Vitamin D3) 1,000 units DAILY PO Last administered on 09:13; Start 05/19/17 at 09:00 Doxazosin Mesylate (Cardura) 2 mg HS PO Last administered on 05/19/17 21:14; Start 05/18/17 at 21:00 Pantoprazole Sodium (Protonix) 40 mg DAILY PO Last administered on 05/20/17 09:15; Start 05/19/17 at 09:00 Pravastatin Sodium (Pravachol) 10 mg DAILY PO Last administered on 05/20/17 09:13; Start 05/19/17 at 09:00 Miscellaneous (Pill Splitter) 1 ea UNSCH PRN OTHER SEE LABEL COMMENTS; Start 05/18/17 at 19:45 Dextrose (D50w (Vial) Inj) 50 ml UNSCH PRN IV PUSH HYPOGLYCEMIA-SEE COMMENTS; Start 05/19/17 at 01:30 Glucagon (Glucagon Inj) 1 mg UNSCH PRN OTHER HYPOGLYCEMIA-SEE COMMENTS; Start 05/19/17 at 01:30 Insulin Aspart (NovoLOG SUPPLEMENTAL SCALE) 1 ACHS SLIDING SCALE SQ ; Start at 08:00 Sodium Chloride 1,000 ml @ 0 mls/hr Q0M PRN OTHER For Prime & Rinse Back; Start 05/19/17 at 08:21 Heparin Sodium (Porcine) (Heparin Inj) 8,000 units UNSCH PRN IV FLUSH WITH DIALYSIS; Start 05/19/17 at 08:30 Sodium Chloride 1,000 ml @ 200 mls/hr Q5H PRN IV WITH DIALYSIS; Start at 08:21 Sodium Chloride 1,000 ml @ 0 mls/hr Q0M PRN OTHER WITH DIALYSIS; Start at 08:21 Mannitol (Mannitol Inj) 12.5 gm UNSCH PRN IV WITH DIALYSIS; Start 05/19/17 at 08:30 Albumin Human 100 ml @ 60 mls/hr UNSCH PRN IV WITH DIALYSIS; Start 05/19/17 at 08:30 Sodium Chloride (NS Flush) 5 ml UNSCH PRN IV FLUSH WITH DIALYSIS; Start at 08:30 Heparin Sodium (Porcine) (Heparin Inj) UNSCH PRN .XX WITH DIALYSIS; Start at 08:30 Gentamicin Sulfate (Gentamicin (Dialysis) Inj) 20 mg UNSCH PRN OTHER WITH DIALYSIS; Start 05/19/17 at 08:30 Ondansetron HCl (Zofran Inj) 4 mg UNSCH PRN IV PUSH WITH DIALYSIS; Start 05/19 at 08:30 Acetaminophen (Tylenol) 650 mg UNSCH PRN PO for headach, pain, temp > 101F; Start 05/19/17 at 08:30 Diphenhydramine HCl (Benadryl) 25 mg UNSCH PRN PO for hives/itching/anaphylaxis ; Start 05/19/17 at 08:30 Nitroglycerin (Nitrostat Sl) 0.4 mg UNSCH PRN SL CHEST PAIN; Start 05/19/17 at 08:30 Clonidine (Catapres) 0.1 mg UNSCH PRN PO for BP > 180/100 X 2 readings; Start 05/19/17 at 08:30 Epoetin Damian (Epogen Inj) 10,000 units UNSCH PRN IV PUSH WITH DIALYSIS Last administered on 05/19/17 12:57; Start 05/19/17 at 08:30 Gelatin (Gelfoam 12 Mm/7 Mm Top) 1 foam UNSCH PRN TOP SEE LABEL COMMENTS Last administered on 05/19/17 12:57; Start 05/19/17 at 08:30 A/P Assessment and Plan This is an 89-year-old female who was recently discharged from rehabilitation facility who resented today due to diarrhea Questionable recurrent diarrhea - During hospitalization no diarrhea have been noted so unable to get C. difficile toxin. Very unlikely that patient had diarrhea. Most likely family did not think they could take care of patient wanted to rehabilitation placement. Bilateral lower extremity pain/lower extremity weakness that is chronic -Resolved, patient with no complaints of pain at this time. This has been a chronic issue but she is not complaining of any pain. Moreover lower extremity weakness. -She was recently discharged from rehabilitation. Reevaluated by physical therapist here her recommends rehabilitation. 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 Waiting for placement approval to [facility]. While patient is waiting for approval for rehabilitation she will need physical therapy 7 days a week. Suha Osborne MD May 20, 2017 10:58
--- NOTE | 2017-05-20 11:08 | HHI.NPPN ---
Subjective General Problems: Anemia Renal Failure: Chronic, End Stage Renal Disease Interval History Lying in bed. Residual weakness persists. Formed stool. Pending SNF placement and possible discharge. (She Medeiros) Review of Systems General Constitutional: Fatigue General Remarks generalized weakness (She Medeiros) Objective Data Data Vital Signs Date Time Temp Pulse Resp B/P (MAP) Pulse Ox O2 Delivery O2 Flow Rate FiO2 05/20/17 07:28 97.1 76 16 122/61 (81) 98 05/20/17 07:15 97 Nasal Cannula 2.00 05/20/17 04:20 Nasal Cannula 2.00 05/20/17 04:19 98.7 77 15 129/69 (89) 90 05/19/17 21:09 96.5 80 14 127/67 (87) 93 05/19/17 21:02 21 05/19/17 16:37 97.6 79 22 141/65 (90) 94 (She Medeiros) -: 05/19/17 0650 05/19/17 0650 Tubes & Lines: Perma-Cath (She Medeiros) Physical Exam General Appearance: No Acute Distress, Comfortable, Sleeping, Malnourished (She Medeiros) Throat Throat Exam: Oral Mucosa [place] & Moist (She Medeiros) Pulmonary Resp Exam: Clear Bilaterally, Breath Sounds Equal (She Medeiros) Cardiology CV Exam: Good Perfusion, Irregular (She Medeiros) Gastrointestinal/Abdomen GI Exam: Soft, Non-Tender, Bowel Sounds Present, Positive Bowel Movement GI Remarks formed BM (She Medeiros) Musculoskeletal MS Exam: Joints Intact, Normal Tone, Unable to Ambulate (She Medeiros) Integumentary Skin Exam: Warm, Dry, Intact (She Medeiros) Extremeties Extremities Exam: Pedal Pulses Palpable, Trace Edema Extremeties Remarks AVF right AC, + thrill, bruit (She Medeiros) Neurologic Neuro Exam: Alert, Awake, Oriented, Speech Clear, Moving All Extremities (She Medeiros) Psychiatric Psych Exam: Appropriate Responses (She Medeiros) Assessment/Plan Discussed Condition With: Patient Assessment Summary: Anemia of CKD, Malnutrition, Hypertension, End Stage Renal Disease Problem List: (1) ESRD (end stage renal disease) ICD Codes: N18.6 - End stage renal disease Plan: 1L UF yesterday Continue dialysis support TTS. We were able to cannulate AVF yesterday with slow flow and 17g needles, attempt again tomorrow. Continue to monitor fluid and electrolyte status. Added protein supplements to meals. High protein diet encouraged. Intermittently obtain renal panel. Cleared for discharge after securing SNF placement. Her prognosis is poor. She is an elderly lady that has not done well on HD. Palliative care may be appropriate. (2) Diarrhea ICD Codes: R19.7 - Diarrhea, unspecified Plan: Resolved, has a recent history of C.diff. Formed stool, repeat test in process (3) Anemia ICD Codes: D64.9 - Anemia, unspecified Plan: Epogen with dialysis. History of GI bleeding because of anticoagulation was stopped. (4) Protein calorie malnutrition ICD Codes: E46 - Unspecified protein-calorie malnutrition Plan: needs high protein diet and protein supplement. (She Medeiros) Plan patient was seen and examined. Agree with above assessment and plan. Cleared for discharged from renal standpoint. (Devon Torres MD) She Medeiros May 20, 2017 11:08 Devon Torres MD May 20, 2017 15:52
[2017-05-20] MEDS: DOXAZOSIN MESYLATE 2 MG TAB PO SCH (22:28)
[2017-05-21 03:45] VITALS: BP 125/61; PULSE 67; RESP 18; TEMP 98.2; O2SAT 97
[2017-05-21] MEDS: INSULIN ASPART SUPPLEMENTAL SCALE SQ SCH ×2 (07:48→12:00)
--- NOTE | 2017-05-21 10:20 | HHI.NPPN ---
Subjective General Problems: Anemia Renal Failure: Chronic, End Stage Renal Disease Additional Remarks Patient is alert, seen during HD, no complain, breathing is better. Review of Systems General Constitutional: Fatigue General Remarks generalized weakness Objective Data Data Vital Signs Date Time Temp Pulse Resp B/P (MAP) Pulse Ox O2 Delivery O2 Flow Rate FiO2 05/21/17 03:45 98.2 67 18 125/61 (82) 97 05/20/17 22:57 98.6 54 18 134/70 (91) 94 05/20/17 20:16 Nasal Cannula 2.00 05/20/17 19:41 98.5 67 18 121/58 (79) 97 05/20/17 19:17 2.00 05/20/17 16:21 97.6 65 18 130/60 (83) 93 05/20/17 12:22 97.5 71 20 130/60 (83) 94 -: 05/19/17 0650 05/19/17 0650 Tubes & Lines: Perma-Cath Physical Exam General Appearance: No Acute Distress, Comfortable, Malnourished Throat Throat Exam: Oral Mucosa [place] & Moist Pulmonary Resp Exam: Clear Bilaterally, Breath Sounds Equal Cardiology CV Exam: Good Perfusion, Irregular Gastrointestinal/Abdomen GI Exam: Soft, Non-Tender, Bowel Sounds Present, Positive Bowel Movement Musculoskeletal MS Exam: Joints Intact, Normal Tone, Unable to Ambulate Integumentary Skin Exam: Warm, Dry, Intact Extremeties Extremities Exam: Trace Edema Extremeties Remarks Rt. hand is cold, no cyanosis. Neurologic Neuro Exam: Alert, Awake, Oriented, Speech Clear, Moving All Extremities Psychiatric Psych Exam: Appropriate Responses Assessment/Plan Discussed Condition With: Patient Assessment Summary: Anemia of CKD, Malnutrition, Hypertension, End Stage Renal Disease Problem List: (1) ESRD (end stage renal disease) ICD Codes: N18.6 - End stage renal disease Plan: Continue dialysis support TTS. We were able to cannulate AVF yesterday with slow flow and 17g needles, attempt again tomorrow. Continue to monitor fluid and electrolyte status. Added protein supplements to meals. High protein diet encouraged. Intermittently obtain renal panel. Cleared for discharge after securing SNF placement. AVF is being used, PermCath can be removed next week. HD now, remove fluid as tolerated. (2) Diarrhea ICD Codes: R19.7 - Diarrhea, unspecified Plan: Resolved, has a recent history of C.diff. Formed stool, repeat test in process (3) Anemia ICD Codes: D64.9 - Anemia, unspecified Plan: Epogen with dialysis. History of GI bleeding because of anticoagulation was stopped. (4) Protein calorie malnutrition ICD Codes: E46 - Unspecified protein-calorie malnutrition Plan: needs high protein diet and protein supplement. Itzel Leal MD May 21, 2017 10:20
[2017-05-21 12:00] VITALS: BP 133/71; PULSE 83; RESP 16; TEMP 98.6; O2SAT 93
[2017-05-21] MEDS: CHOLECALCIFEROL (VIT D3) 1000 UNIT TAB PO SCH (12:00)
[2017-05-21] MEDS: DOCUSATE SODIUM 50 MG/SENNA 8.6 MG TAB PO SCH (12:00)
[2017-05-21] MEDS: PRAVASTATIN SOD 10 MG TAB PO SCH (12:00)
[2017-05-21] MEDS: amLODIPine BESYLATE 5 MG TAB PO SCH (12:01)
[2017-05-21] MEDS: SODIUM CHLORIDE 0.9% FLUSH 10 ML FLUSH IV FLUSH SCH (12:02)
[2017-05-21] MEDS: PANTOPRAZOLE SOD 40 MG DELAYED RELEASE TAB PO SCH (12:02)
--- NOTE | 2017-05-21 12:03 | HHI.DS ---
Discharge Summary Admission Date May 18, 2017 at 19:27 Discharge Date: May 21, 2017 Admitting Diagnosis dehydration, weakness, neuropathic pain (1) ESRD (end stage renal disease) ICD Code: N18.6 - End stage renal disease Diagnosis: Principal (2) Protein calorie malnutrition ICD Code: E46 - Unspecified protein-calorie malnutrition Diagnosis: Principal Procedures See hospital course. Brief History - From Admission 89-year-old female with a history of recent CVA, recent treatment for C. difficile colitis, atrial fibrillation, hypertension, hyperlipidemia, diabetes and ESRD on HD was brought to the emergency department by her daughter because she was having prickling pain in the bilateral lower extremities as well as ongoing diarrhea. The patient was discharged to home from rehabilitation yesterday. She was discharged from the hospital where she was treated for generalized weakness on 05/02/17. She had a complete neurologic evaluation at that time including workup for myasthenia gravis, which was negative. The patient was previously anticoagulated on Eliquis however this was held secondary to GI bleed. The patient states she is due for dialysis tomorrow, she cannot remember when her last dialysis was. Potassium 4.9, BUN/creatinine 37/3.78. The patient will require SNF placement on discharge. CBC/BMP: 05/19/17 0650 05/19/17 0650 Significant Findings Laboratory Tests Test 05/18/17 15:30 05/19/17 06:50 Red Blood Count 2.80 MIL/MM3 (4.00-5.30) 2.83 MIL/MM3 (4.00-5.30) Hemoglobin 9.2 GM/DL (11.6-15.3) 9.0 GM/DL (11.6-15.3) Hematocrit 28.2 % (35.0-46.0) 28.4 % (35.0-46.0) Mean Corpuscular Volume 100.6 FL (80.0-100.0) 100.5 FL (80.0-100.0) Red Cell Distribution Width 22.0 % (11.6-17.2) 21.7 % (11.6-17.2) Neutrophils (%) (Auto) 71.0 % (16.0-70.0) 70.7 % (16.0-70.0) Monocytes (%) (Auto) 10.2 % (0.0-8.0) 9.9 % (0.0-8.0) Basophils (%) (Auto) 2.6 % (0.0-2.0) Blood Urea Nitrogen 37 MG/DL (7-18) 43 MG/DL (7-18) Creatinine 3.78 MG/DL (0.50-1.00) 4.30 MG/DL (0.50-1.00) Albumin 2.7 GM/DL (3.4-5.0) Aspartate Amino Transf (AST/SGOT) 8 U/L (15-37) Estimat Glomerular Filtration Rate 11 ML/MIN (>89) 10 ML/MIN (>89) Mean Corpuscular Hemoglobin Concent 31.6 % (32.0-36.0) PE at Discharge GENERAL: in NAD. CARDIOVASCULAR: Regular rate and rhythm without murmurs, gallops, or rubs. RESPIRATORY: Breath sounds equal bilaterally. No accessory muscle use. GASTROINTESTINAL: Abdomen soft, non-tender, nondistended. Pt update on day of discharge Patient seen after dialysis. She has no complaints. No evidence overnight. Discussed case with patient's nurse. Hospital Course This is an 89-year-old female who was recently discharged from rehabilitation facility who resented today due to diarrhea Questionable recurrent diarrhea - During hospitalization no diarrhea have been noted so unable to get C. difficile toxin. No diarrhea during her hospitalization there all forms stools. Bilateral lower extremity pain/lower extremity weakness that is chronic -Resolved, patient with no complaints of pain at this time. This has been a chronic issue but she is not complaining of any pain. Moreover lower extremity weakness. -She was recently discharged from rehabilitation. Reevaluated by physical therapist here her recommends rehabilitation. ESRD on HD -Dr. Torres is patient's parts delivery driver -Dialysis per parts delivery driver -Per parts delivery driver will remove permacath next week. Patient to follow with parts delivery driver. Diabetes mellitus -Monitor blood glucose -SSI Atrial fibrillation -Patient previously anticoagulated on Eliquis, currently on hold secondary to development of GI bleed Hypertension/hyperlipidemia -Continue home amlodipine and statin Pt Condition on Discharge: Stable Discharge Disposition: Discharge to SNF Discharge Time: > 30 minutes Discharge Instructions DIET: Follow Instructions for: Heart Healthy Diet, Renal Failure Diet Activities you can perform: Regular-No Restrictions Follow up Referrals: Nephrology - 1 Week SNF/[facility]/ - Daily Continued Medications: Amlodipine (Amlodipine) 2.5 Mg Tab 2.5 MG PO DAILY for Blood Pressure Management, #30 TAB 0 Refills Cholecalciferol (Vitamin D-1000) 1,000 Unit Tab 1000 UNITS PO DAILY for Nutritional Supplement, #1 BOTTLE 0 Refills Doxazosin (Doxazosin) 2 Mg Tab 2 MG PO HS, #30 TAB 0 Refills Multiple Vitamin (Multiple Vitamin) 1 Tab 1 TAB PO DAILY for Nutritional Supplement, TAB 0 Refills Pantoprazole (Pantoprazole) 40 Mg Tab 40 MG PO DAILY for Reflux, #30 TAB 0 Refills Pravastatin (Pravastatin) 10 Mg Tab 10 MG PO DAILY for Cholesterol Management, #30 TAB 0 Refills [Epoetin Damian Inj] () 49906 UNITS/ML INJ 66647 UNITS IV PUSH UNSCH PRN for WITH DIALYSIS, #1 INJECTION [Megestrol Liq] () 400 MG/10 ML SUSP 800 MG PO DAILY for Nutritional Supplement, #1 BOTTLE Suha Osborne MD May 21, 2017 12:03
[2017-05-21 15:33] VITALS: BP 112/51; PULSE 57; RESP 16; TEMP 98; O2SAT 92
== END 2017-05-21 17:09 | disposition home or self-care (01) ==
LOC: NEPE 13:22 → NEDA 19:27 → NEPHCDU 21:07
PROVIDERS: ADMIT Family Medicine; ATTEND Family Medicine
DX: I12.0 Hypertensive chronic kidney disease with stage 5 chronic kidney disease or end stage renal disease (principal); N18.6 End stage renal disease; E46 Unspecified protein-calorie malnutrition; E86.0 Dehydration; D63.1 Anemia in chronic kidney disease; R19.7 Diarrhea, unspecified; M79.604 Pain in right leg; M79.605 Pain in left leg; E11.22 Type 2 diabetes mellitus with diabetic chronic kidney disease; I48.91 Unspecified atrial fibrillation; E78.5 Hyperlipidemia, unspecified; A04.72 Enterocolitis due to Clostridium difficile, not specified as recurrent; M79.2 Neuralgia and neuritis, unspecified; Z99.2 Dependence on renal dialysis; Z86.73 Personal history of transient ischemic attack (TIA), and cerebral infarction without residual deficits; Z79.01 Long term (current) use of anticoagulants
CPT/HCPCS: 80048; 80053; 82948; 85025; 93005; 96360; 96361; 96372; 96374; 97110; 97116; 97161; 99285; G0257; G0378; G8987; G8988; J1815; J7040; Q4081; 90935